=== PATIENT | male | born 1955 | race American Indian/Alaskan Native ===

== ENCOUNTER 2016-10-17 06:07 | Day surgery (SDC) | payer MEDICARE ==
[2016-10-13 14:05] LABS: Basophils % (Auto) 0.1 % (0.0-1.8); Eosinophils % (Auto) 0.1 % (0.0-4.3); Hematocrit 44.8 % (35.5-45.6); Hemoglobin 14.4 gm/dl (11.8-15.2); Mean Corpuscular HGB Conc 32 % (32-34); Mean Corpuscular Hemoglobin 30 pg (28-32); Mean Corpuscular Volume 94 fl (84-94); Platelet Count 279 K/mm3 (140-440); Red Blood Count 4.75 M/mm3 (3.65-5.03); Red Cell Distribution Width 14.4 % (13.2-15.2); White Blood Count 13.4 K/mm3 (4.5-11.0)
[2016-10-13 14:36] LABS: Alanine Aminotransferase 10 units/L (7-56); Albumin 3.5 g/dL (3.9-5); Albumin/Globulin Ratio 0.9 %; Alkaline Phosphatase 70 units/L (35-129); Anion Gap 19 mmol/L; Bilirubin,Total 0.3 mg/dL (0.1-1.2); Blood Urea Nitrogen 18 mg/dL (9-20); Calcium 9.3 mg/dL (8.4-10.2); Carbon Dioxide 26 mmol/L (22-30); Chloride 102.1 mmol/L (98-107); Glucose 96 mg/dL (75-100); Potassium 4.7 mmol/L (3.6-5.0); Sodium 142 mmol/L (137-145); Total Protein 7.3 g/dL (6.3-8.2)
--- NOTE | 2016-10-13 14:44 | Anesthesia Consultation ---
Anesthesia Consult and Med Hx Date of service: 10/13/16 - Airway Anesthetic Teeth Evaluation: Good ROM Head & Neck: Adequate Mental/Hyoid Distance: Adequate Mallampati Class: Class III Intubation Access Assessment: Possibly Difficult - Pulmonary Exam CTA: Yes - Cardiac Exam Cardiac Exam: RRR - Pre-Operative Health Status ASA Pre-Surgery Classification: ASA3 Proposed Anesthetic Plan: General - Pulmonary Hx Smoking: Yes (CIG 40 YEARS 1PPWEEK, CURRENT) COPD: Yes (USES ALBUTEROL) Home Oxygen Therapy: Yes (PRN 2L O2) Hx Sleep Apnea: Yes (+ CPAP use ) - Cardiovascular System Hx Hypertension: Yes (ON BYSTOLIC) Hx Coronary Artery Disease: No Hx Peripheral Vascular Disease: Yes (RIGHT AKA) - Central Nervous System Hx Back Pain: Yes (HIP PAIN) Hx Psychiatric Problems: No - Gastrointestinal Hx Gastroesophageal Reflux Disease: Yes - Endocrine Hx Renal Disease: Yes (NEPHROSIS A CHILD) Hx Insulin Dependent Diabetes: No Hx Thyroid Disease: No Hx Hypothyroidism: No - Other Systems Hx Alcohol Use: Yes Hx Substance Use: No Hx Cancer: Yes (Prostate CA, BLADDER) Hx Obesity: Yes (MORBID, BMI OVER 40) - Additional Comments Anesthesia Medical History Comments: LMA #5 USED LAST SURGERY. NAC. CHRONIC PAIN
[~2016-10-17 06:07] MED LIST: PEPCID PO NR
[2016-10-17] MEDS ORDERED: NACL BACTERIOSTATIC INFILTRATI ONE (06:53)
[2016-10-17] MEDS ORDERED: DIPRIVAN 10 MG/ML IV ONE (07:06)
[2016-10-17] MEDS ORDERED: DILAUDID ONE (07:06)
[2016-10-17] MEDS ORDERED: XYLOCAINE MPF 2% ONE (07:06)
[2016-10-17] MEDS: NACL 0.9% 1000 ML 1,000 ML IV SCH ×2 (07:15→13:07)
--- NOTE | 2016-10-17 07:24 | Anesthesia Day of Surgery ---
Anesthesia Day of Surgery - Day of Surgery Patient Examined: Yes Patient H&P Reviewed: Yes Patient is NPO: Yes Beta Blockers: Yes
[2016-10-17] MEDS ORDERED: PROVENTIL IH ONE (07:50)
[2016-10-17] MEDS ORDERED: ANCEF/STERILE WATER 2 GM/20 ML IV NR (08:00)
[2016-10-17] MEDS ORDERED: PROVENTIL IH NR (08:00)
[2016-10-17] MEDS ORDERED: ePHEDrine SULFATE ONE (08:22)
[2016-10-17] MEDS ORDERED: MORPHINE IV PRN (08:36)
[2016-10-17] MEDS ORDERED: OMNIPAQUE 300 MG/50 ML (CATH LAB) IV ONE (08:36)
[2016-10-17] MEDS ORDERED: ZOFRAN IV PRN (08:36)
[2016-10-17] MEDS ORDERED: WATER FOR IRRIG STERILE IR ONE (08:38)
[2016-10-17] MEDS ORDERED: ZEMURON IV ONE (08:53)
[2016-10-17] MEDS ORDERED: NEO SYNEPHRINE ONE (08:54)
[2016-10-17] MEDS ORDERED: NACL 0.9% 100 ML ONE (08:54)
[2016-10-17] MEDS ORDERED: ROBINUL ONE (08:56)
[2016-10-17] MEDS ORDERED: BLOXIVERZ ONE (08:56)
[2016-10-17] MEDS ORDERED: ZOFRAN ONE (08:57)
[2016-10-17] MEDS ORDERED: GARAMYCIN/NS 120MG/100ML 120 MG/100 ML BAG IV SCH (09:00)
[2016-10-17] MEDS ORDERED: VERSED ONE (09:18)
--- NOTE | 2016-10-17 09:35 | Post Operative Note ---
Pre-op diagnosis: bladder and prostate cancer Post-op diagnosis: same Findings: no acute findings Procedure: cysto biopsies prostate US and sampliing Anesthesia: GETA Surgeon: JERE HAMILTON Estimated blood loss: minimal Pathology: list (prostate bladder) Specimen disposition: to lab Condition: stable Disposition: PACU
--- NOTE | 2016-10-17 09:37 | Discharge Summary ---
Short Stay Discharge Plan Activity: up only with assistance, fall precautions, other Weight Bearing Status: Partial Weight Bearing Diet: low fat, low cholesterol, low salt Special Instructions: other (inc fluids ) Durable Medical Equipment Needed Upon Discharge: other (d/c evan in RR) Follow up with: DEBORA DELGADO MD [Primary Care Provider] - 7 Days JERE HAMILTON MD [Staff Physician] - 14 Days
--- NOTE | 2016-10-17 10:06 | Fluoroscopy Report ---
RETROGRADE PYELOGRAM: History: Malignant neoplasm of prostate. There is adequate filling of the ureters and intrarenal collecting systems with no filling defects or anatomic abnormalities identified.
--- NOTE | 2016-10-17 11:00 | Post Anesthesia Evaluation ---
- Post Anesthesia Evaluation Patient Participated: Yes Airway Patent: Yes Stable Respiratory Function: Yes Nausea/Vomiting: No Temp > 96.8F: Yes Pain Manageable: Yes Adequeate Hydration: Yes Anesthesia Complications: No Block Receding Appropriately: Not Applicable Patient on Ventilator: No
--- NOTE | 2016-10-17 12:09 | Operative Report ---
The patient is a very poorly compliant patient who presents with history of bladder and prostate cancer. He does not follow up and he now presents for reevaluation. There is no hematuria. His cytology was negative. DESCRIPTION OF PROCEDURE: The patient was brought to the operating room and placed on the operating table. Following induction of anesthesia, which was quite difficult because he is well over 320 pounds, prepped and draped in usual sterile fashion. He also made it difficult because he has an above the knee right leg amputation. It is hard to retract that hip, which kept falling in the field. Cystoscopy showed no strictures, bladder neck was open. There was minimal erythema over the right orifice, which was biopsied. It does not look malignant. 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 At this point, the patient did not follow up as directed again with his PSA and spoke to the family and ultrasound showed a small gland. We had an 18 [place] catheter placed in, and we did a sample on each side. I do not know that he needs diffuse biopsies. This patient has a very high risk. He was on the table with the cystoscopy and they had to a little deeper, and I did not want to have any complications because he is quite ill, he continues to smoke, he is over 300 pounds. He was brought to recovery room. So, we did two prostate biopsies and bladder biopsy, brought to recovery room in stable condition. Discussed this once again with his . JOB# [id number] BRIDGET/AWA
--- NOTE | 2016-10-17 12:18 | Ultrasound Report ---
ULTRASOUND UNLISTED PROCEDURE HISTORY: Malignant neoplasm of prostate. FINDINGS: Endorectal ultrasound guidance was provided by radiology during prostate biopsy done by Dr. Velásquez. Please correlate with the procedure report. IMPRESSION: Successful ultrasound guided prostate biopsy.
[2016-10-17 14:52] VITALS: BP 111/60
== END 2016-10-17 13:35 | disposition home or self-care (01) ==
LOC: OR 06:07
PROVIDERS: ATTEND Urology
DX: Z85.46 Personal history of malignant neoplasm of prostate (principal); F17.210 Nicotine dependence, cigarettes, uncomplicated; G47.30 Sleep apnea, unspecified; I10 Essential (primary) hypertension; K21.9 Gastro-esophageal reflux disease without esophagitis; Z72.89 Other problems related to lifestyle; E66.01 Morbid (severe) obesity due to excess calories; Z68.41 Body mass index [BMI] 40.0-44.9, adult; Z85.51 Personal history of malignant neoplasm of bladder; Z86.79 Personal history of other diseases of the circulatory system; Z89.611 Acquired absence of right leg above knee
CPT/HCPCS: 36415; 52204; 55700; 74420; 76999; 80053; 85025; 88305; 88342; 93005; 93010; C1758; J0690; J1170; J1580; J2250; J2270; J2370; J2405; J2704; J2710; J7030; Q9967; 76998; 88344

== ENCOUNTER 2021-04-18 23:08 | Emergency (ER) | payer MEDICARE | END 2021-04-18 23:25 | disposition left against medical advice (07) | LOC: ED 23:08 | DX: R07.89 Other chest pain (principal); Z53.21 Procedure and treatment not carried out due to patient leaving prior to being seen by health care provider ==

== ENCOUNTER 2021-11-09 14:53 | Inpatient (IN) | payer MEDICARE ==
[2021-11-09 16:25] LABS: Hematocrit 47.1 % (35.5-45.6); Hemoglobin 15.6 gm/dl (11.8-15.2); Mean Corpuscular HGB Conc 33 % (32-34); Mean Corpuscular Volume 105 fl (84-94); Red Blood Count 4.51 M/mm3 (3.65-5.03); Red Cell Distribution Width 15.9 % (13.2-15.2)
[2021-11-09 16:26] LABS: Platelet Count 99 K/mm3 (140-440)
[2021-11-09 16:40] LABS: Alanine Aminotransferase 12 units/L (7-56); Albumin 3.2 g/dL (3.9-5); BUN/Creatinine Ratio 17; Blood Urea Nitrogen 20 mg/dL (9-20); Calcium 9.2 mg/dL (8.4-10.2); Hemolysis Index 111
[2021-11-09 17:09] LABS: Basophils % (Manual) 0 % (0.0-1.8); Platelet Estimate Consistent w Auto; RBC Morphology Normal; Total Cells Counted 100
--- NOTE | 2021-11-09 17:58 | Emergency Department Report ---
- General Chief complaint: Weakness Stated complaint: WEAKNESS/DIS Time Seen by Provider: 11/09/21 16:58 Source: patient, EMS Mode of arrival: Stretcher Limitations: No Limitations - History of Present Illness Initial comments: 66-year-old male with a past medical history of morbid obesity, prostate cancer treated with radiation currently in remission, asthma, COPD, 3 L home oxygen use as needed (more continuous as of late) and right upper leg amputee presents to the hospital multiple complaints. General complaint seems to be weakness, confusion, and increased lethargy. Patient apparently is sleeping a lot, falls asleep during activities, loses train of thought and jumps from one subject to another, and has slightly slurred speech when speaking. This is new for the pas t 2 to 3 days without improvement. Patient did take 2 tramadol's yesterday but has taken tramadol and been in pain management with treatment with oxycodone 30 mg in the past. Patient also states he has very little urine output and swelling to his lower stomach with mild discomfort. Patient also reports decreased stool output without nausea or vomiting. Decreased p.o. intake reported. Patient has been seen by deficits once in the past however currently [facility] [place] Patient also has a history of sleep apnea and uses home trilogy ventilator. His perioperative educator is Dr. Kenny. He has been told to use the ventilator for 8 hours at night. Patient uses it for at least 6 to 7 hours but wakes up intermittently and discontinues his use while he is up and about. After admission to the hospital admits that patient is fairly noncompliant with his home ventilator and takes the machine all in the middle of the night - Related Data Home Medications Medication Instructions Recorded Confirmed Last Taken Oxycodone HCl [Oxycodone] 30 mg PO BID 04/07/14 10/17/16 10/03/16 cloNIDine HCL [Catapres] 0.2 mg PO BID 04/07/14 10/17/16 09/26/16 Nebivolol (Nf) [Bystolic (Nf)] 1 tab PO DAILY 06/02/16 10/17/16 10/16/16 Oxycodone HCl [Oxycontin] 1 tab PO BID 06/02/16 09/22/16 Unknown Tamsulosin HCl 1 tab PO DAILY 06/02/16 10/17/16 09/26/16 Tiotropium [Spiriva] 18 mcg IH QDAY 06/02/16 10/17/16 10/03/16 Allergies Allergy/AdvReac Type Severity Reaction Status Date / Time No Known Allergies Allergy Verified 11/09/21 14:59 ED Review of Systems ROS: Stated complaint: WEAKNESS/DIS Other details as noted in HPI Comment: All other systems reviewed and negative ED Past Medical Hx - Past Medical History Hx Hypertension: Yes (ON BYSTOLIC) Hx GERD: Yes Hx Renal Disease: Yes (NEPHROSIS A CHILD) Hx Asthma: Yes Hx COPD: Yes (USES ALBUTEROL) Hx HIV: No Additional medical history: PROSTATE cancer, sleep apnea, home oxygen use 3 L as needed - Surgical History Additional Surgical History: 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 - Social History Smoking Status: Light Tobacco Smoker - Medications Home Medications: Home Medications Medication Instructions Recorded Confirmed Last Taken Type Oxycodone HCl [Oxycodone] 30 mg PO BID 04/07/14 10/17/16 10/03/16 History cloNIDine HCL [Catapres] 0.2 mg PO BID 04/07/14 10/17/16 09/26/16 History Nebivolol (Nf) [Bystolic (Nf)] 1 tab PO DAILY 06/02/16 10/17/16 10/16/16 History Oxycodone HCl [Oxycontin] 1 tab PO BID 06/02/16 09/22/16 Unknown History Tamsulosin HCl 1 tab PO DAILY 06/02/16 10/17/16 09/26/16 History Tiotropium [Spiriva] 18 mcg IH QDAY 06/02/16 10/17/16 10/03/16 History ED Physical Exam - General Limitations: No Limitations - Other Other exam information: General: No acute distress Head: Atraumatic Eyes: normal appearance ENT: Moist mucous membranes Neck: Normal appearance, no midline tenderness Chest: Clear to auscultation bilaterally CV: Regular rate and rhythm Abdomen: Soft, normal bowel sounds, lower abdominal wall, mild lower tenderness, no evidence of cellulitis or wart Back: Normal inspection Extremity: Right upper leg amputation Neuro: Alert with slightly slurred but easy to understand speech, no facial droop, oriented x3. Slightly drowsy Psych: Appropriate behavior Skin: No rash ED Course Vital Signs 11/09/21 11/09/21 11/09/21 14:59 15:50 15:52 Temperature Pulse Rate 61 Respiratory 20 Rate Blood Pressure Blood Pressure 140/113 [Left] O2 Sat by Pulse 94 82 L 93 Oximetry 11/09/21 11/09/21 11/09/21 15:54 15:56 15:58 Temperature Pulse Rate Respiratory Rate Blood Pressure 125/79 125/79 125/79 Blood Pressure [Left] O2 Sat by Pulse 95 94 76 L Oximetry 11/09/21 11/09/21 11/09/21 16:00 16:01 16:02 Temperature Pulse Rate Respiratory Rate Blood Pressure 125/79 130/76 130/76 Blood Pressure [Left] O2 Sat by Pulse 95 95 95 Oximetry 11/09/21 11/09/21 11/09/21 16:04 16:06 16:08 Temperature Pulse Rate Respiratory Rate Blood Pressure 130/76 130/76 130/76 Blood Pressure [Left] O2 Sat by Pulse 95 95 91 Oximetry 11/09/21 11/09/21 11/09/21 16:10 16:12 16:14 Temperature Pulse Rate Respiratory Rate Blood Pressure 130/76 130/76 130/76 Blood Pressure [Left] O2 Sat by Pulse 98 93 92 Oximetry 11/09/21 11/09/21 11/09/21 16:16 16:18 16:25 Temperature Pulse Rate Respiratory Rate Blood Pressure 130/76 130/76 139/68 Blood Pressure [Left] O2 Sat by Pulse 84 96 95 Oximetry 11/09/21 11/09/21 11/09/21 16:27 16:29 16:31 Temperature Pulse Rate Respiratory Rate Blood Pressure 139/68 130/76 130/76 Blood Pressure [Left] O2 Sat by Pulse 96 97 98 Oximetry 11/09/21 11/09/21 11/09/21 16:33 16:35 16:37 Temperature Pulse Rate Respiratory Rate Blood Pressure 130/76 130/76 130/76 Blood Pressure [Left] O2 Sat by Pulse 98 98 100 Oximetry 11/09/21 11/09/21 11/09/21 16:39 16:41 16:43 Temperature Pulse Rate Respiratory Rate Blood Pressure 130/76 130/76 130/76 Blood Pressure [Left] O2 Sat by Pulse 99 99 99 Oximetry 11/09/21 11/09/21 11/09/21 16:45 16:47 16:49 Temperature Pulse Rate Respiratory Rate Blood Pressure 130/76 130/76 130/76 Blood Pressure [Left] O2 Sat by Pulse 99 99 98 Oximetry 11/09/21 11/09/21 11/09/21 16:51 16:53 16:55 Temperature Pulse Rate Respiratory Rate Blood Pressure 130/76 130/76 130/76 Blood Pressure [Left] O2 Sat by Pulse 98 98 99 Oximetry 11/09/21 11/09/21 16:57 17:01 Temperature 98.2 F Pulse Rate Respiratory Rate Blood Pressure 130/76 Blood Pressure [Left] O2 Sat by Pulse 99 Oximetry - Reevaluation(s) Reevaluation #1: 11/09/21 18:00 Patient did have some mild urine output after my initial exam 11/09/21 19:33 ABG results noted and reveals a respiratory acidosis and hypoxia on 3 L. I informed nurse to start BiPAP. She tells me that states that patient is on trilogy home ventilator and states it would be best if brings his trilogy machine to the ED for use ED Medical Decision Making - Lab Data Result diagrams: 11/09/21 16:01 11/09/21 17:43 Lab Results 11/09/21 11/09/21 11/09/21 Range/Units 16:01 16:01 17:43 WBC 4.7 (4.5-11.0) K/mm3 RBC 4.51 (3.65-5.03) M/mm3 Hgb 15.6 H (11.8-15.2) gm/dl Hct 47.1 H (35.5-45.6) % MCV 105 H (84-94) fl MCH 35 H (28-32) pg MCHC 33 (32-34) % RDW 15.9 H (13.2-15.2) % Plt Count 99 L (140-440) K/mm3 [place] % (Auto) Cardiology Nurse Practitioner Add Manual Diff Complete Total Counted 100 Seg Neuts % (Manual) 58.0 (40.0-70.0) % Band Neutrophils % 0 % Lymphocytes % (Manual) 27.0 (13.4-35.0) % Reactive Lymphs % (Man) 0 % Monocytes % (Manual) 12.0 H (0.0-7.3) % Eosinophils % (Manual) 3.0 (0.0-4.3) % Basophils % (Manual) 0 (0.0-1.8) % Metamyelocytes % 0 % Myelocytes % 0 % Promyelocytes % 0 % Blast Cells % 0 % Nucleated RBC % Not Reportable Seg Neutrophils # Man 2.7 (1.8-7.7) K/mm3 Band Neutrophils # 0.0 K/mm3 Lymphocytes # (Manual) 1.3 (1.2-5.4) K/mm3 Abs React Lymphs (Man) 0.0 K/mm3 Monocytes # (Manual) 0.6 (0.0-0.8) K/mm3 Eosinophils # (Manual) 0.1 (0.0-0.4) K/mm3 Basophils # (Manual) 0.0 (0.0-0.1) K/mm3 Metamyelocytes # 0.0 K/mm3 Myelocytes # 0.0 K/mm3 Promyelocytes # 0.0 K/mm3 Blast Cells # 0.0 K/mm3 WBC Morphology Not Reportable Hypersegmented Neuts Not Reportable Hyposegmented Neuts Not Reportable Hypogranular Neuts Not Reportable Smudge Cells Not Reportable Toxic Granulation Not Reportable Toxic Vacuolation Not Reportable Dohle Bodies Not Reportable Pelger-Huet Anomaly Not Reportable Katharine Rods Not Reportable Platelet Estimate Consistent w auto Clumped Platelets Not Reportable Plt Clumps, EDTA Not Reportable Large Platelets Not Reportable Giant Platelets Not Reportable Platelet Satelliting Not Reportable Plt Morphology Comment Not Reportable RBC Morphology Normal Dimorphic RBCs Not Reportable Polychromasia Not Reportable Hypochromasia Not Reportable Poikilocytosis Not Reportable Anisocytosis Not Reportable Microcytosis Not Reportable Macrocytosis Not Reportable Spherocytes Not Reportable Pappenheimer Bodies Not Reportable Sickle Cells Not Reportable Target Cells Not Reportable Tear Drop Cells Not Reportable Ovalocytes Not Reportable Helmet Cells Not Reportable Bullock-Shields Bodies Not Reportable [place] Rings Not Reportable [place] Cells Not Reportable Bite Cells Not Reportable Crenated Cell Not Reportable Elliptocytes Not Reportable Acanthocytes (Spur) Not Reportable Rouleaux Not Reportable Hemoglobin C Crystals Not Reportable Schistocytes Not Reportable Malaria parasites Not Reportable Odin Bodies Not Reportable Hem Pathologist Commnt No ABG pH (7.350-7.450) pH Units ABG pCO2 mm Hg ABG pO2 (80.0-90.0) mm Hg ABG HCO3 (20.0-26.0) mmol/L ABG O2 Saturation (95.0-99.0) % ABG O2 Content (0.0-44) ABG Base Excess (-2.0-3.0) mmol/L ABG Hemoglobin (14.0-18.0) gm/dl ABG Carboxyhemoglobin (0.0-5.0) % ABG Methemoglobin (0.0-1.5) % Oxyhemoglobin (95.0-99.0) % FiO2 % Sodium 142 (137-145) mmol/L Potassium 5.5 H (3.6-5.0) mmol/L Chloride 99.2 (98-107) mmol/L Carbon Dioxide 35 H (22-30) mmol/L Anion Gap 13 mmol/L BUN 20 (9-20) mg/dL Creatinine 1.2 (0.8-1.3) mg/dL Estimated GFR > 60 ml/min BUN/Creatinine Ratio 17 % Glucose 78 (75-100) mg/dL Calcium 9.2 (8.4-10.2) mg/dL Magnesium (1.7-2.3) mg/dL Total Bilirubin 1.10 (0.1-1.2) mg/dL AST 22 (5-40) units/L ALT 12 (7-56) units/L Alkaline Phosphatase 65 (35-129) units/L Ammonia 62.0 H (25-60) umol/L Troponin T (0.00-0.029) ng/mL Total Protein 6.4 (6.3-8.2) g/dL Albumin 3.2 L (3.9-5) g/dL Albumin/Globulin Ratio 1.0 % TSH (0.270-4.200) mlU/mL Free T4 (0.76-1.46) ng/dL Urine Color (Yellow) Urine Turbidity (Clear) Urine pH (5.0-7.0) Ur Specific [place] (1.003-1.030) Urine Protein (Negative) mg/dL Urine Glucose (UA) (Negative) mg/dL Urine Ketones (Negative) mg/dL Urine Blood (Negative) Urine Nitrite (Negative) Urine Bilirubin (Negative) Urine Urobilinogen (<2.0) mg/dL Ur Leukocyte Esterase (Negative) Urine WBC (Auto) (0.0-6.0) /HPF Urine RBC (Auto) (0.0-6.0) /HPF U Epithel Cells (Auto) (0-13.0) /HPF Hyaline Casts /LPF Urine Mucus /HPF Urine Opiates Screen Urine Methadone Screen Ur Barbiturates Screen Ur Phencyclidine Scrn Ur Amphetamines Screen U Benzodiazepines Scrn U Marijuana (THC) Screen Plasma/Serum Alcohol (0-0.07) % 11/09/21 11/09/21 11/09/21 Range/Units 17:43 17:43 17:43 WBC (4.5-11.0) K/mm3 RBC (3.65-5.03) M/mm3 Hgb (11.8-15.2) gm/dl Hct (35.5-45.6) % MCV (84-94) fl MCH (28-32) pg MCHC (32-34) % RDW (13.2-15.2) % Plt Count (140-440) K/mm3 [place] % (Auto) Add Manual Diff Total Counted Seg Neuts % (Manual) (40.0-70.0) % Band Neutrophils % % Lymphocytes % (Manual) (13.4-35.0) % Reactive Lymphs % (Man) % Monocytes % (Manual) (0.0-7.3) % Eosinophils % (Manual) (0.0-4.3) % Basophils % (Manual) (0.0-1.8) % Metamyelocytes % % Myelocytes % % Promyelocytes % % Blast Cells % % Nucleated RBC % Seg Neutrophils # Man (1.8-7.7) K/mm3 Band Neutrophils # K/mm3 Lymphocytes # (Manual) (1.2-5.4) K/mm3 Abs React Lymphs (Man) K/mm3 Monocytes # (Manual) (0.0-0.8) K/mm3 Eosinophils # (Manual) (0.0-0.4) K/mm3 Basophils # (Manual) (0.0-0.1) K/mm3 Metamyelocytes # K/mm3 Myelocytes # K/mm3 Promyelocytes # K/mm3 Blast Cells # K/mm3 WBC Morphology Hypersegmented Neuts Hyposegmented Neuts Hypogranular Neuts Smudge Cells Toxic Granulation Toxic Vacuolation Dohle Bodies Pelger-Huet Anomaly Katharine Rods Platelet Estimate Clumped Platelets Plt Clumps, EDTA Large Platelets Giant Platelets Platelet Satelliting Plt Morphology Comment RBC Morphology Dimorphic RBCs Polychromasia Hypochromasia Poikilocytosis Anisocytosis Microcytosis Macrocytosis Spherocytes Pappenheimer Bodies Sickle Cells Target Cells Tear Drop Cells Ovalocytes Helmet Cells Bullock-Shields Bodies [place] Rings Yulia Cells Bite Cells Crenated Cell Elliptocytes Acanthocytes (Spur) Rouleaux Hemoglobin C Crystals Schistocytes Malaria parasites Odin Bodies Hem Pathologist Commnt ABG pH (7.350-7.450) pH Units ABG pCO2 mm Hg ABG pO2 (80.0-90.0) mm Hg ABG HCO3 (20.0-26.0) mmol/L ABG O2 Saturation (95.0-99.0) % ABG O2 Content (0.0-44) ABG Base Excess (-2.0-3.0) mmol/L ABG Hemoglobin (14.0-18.0) gm/dl ABG Carboxyhemoglobin (0.0-5.0) % ABG Methemoglobin (0.0-1.5) % Oxyhemoglobin (95.0-99.0) % FiO2 % Sodium (137-145) mmol/L Potassium 5.1 H (3.6-5.0) mmol/L Chloride (98-107) mmol/L Carbon Dioxide (22-30) mmol/L Anion Gap mmol/L BUN (9-20) mg/dL Creatinine (0.8-1.3) mg/dL Estimated GFR ml/min BUN/Creatinine Ratio % Glucose (75-100) mg/dL Calcium (8.4-10.2) mg/dL Magnesium 2.00 (1.7-2.3) mg/dL Total Bilirubin (0.1-1.2) mg/dL AST (5-40) units/L ALT (7-56) units/L Alkaline Phosphatase (35-129) units/L Ammonia (25-60) umol/L Troponin T (0.00-0.029) ng/mL Total Protein (6.3-8.2) g/dL Albumin (3.9-5) g/dL Albumin/Globulin Ratio % TSH 1.520 (0.270-4.200) mlU/mL Free T4 0.96 (0.76-1.46) ng/dL Urine Color (Yellow) Urine Turbidity (Clear) Urine pH (5.0-7.0) Ur Specific [place] (1.003-1.030) Urine Protein (Negative) mg/dL Urine Glucose (UA) (Negative) mg/dL Urine Ketones (Negative) mg/dL Urine Blood (Negative) Urine Nitrite (Negative) Urine Bilirubin (Negative) Urine Urobilinogen (<2.0) mg/dL Ur Leukocyte Esterase (Negative) Urine WBC (Auto) (0.0-6.0) /HPF Urine RBC (Auto) (0.0-6.0) /HPF U Epithel Cells (Auto) (0-13.0) /HPF Hyaline Casts /LPF Urine Mucus /HPF Urine Opiates Screen Urine Methadone Screen Ur Barbiturates Screen Ur Phencyclidine Scrn Ur Amphetamines Screen U Benzodiazepines Scrn U Marijuana (THC) Screen Plasma/Serum Alcohol < 0.01 (0-0.07) % 11/09/21 11/09/21 11/09/21 Range/Units 17:43 17:57 18:45 WBC (4.5-11.0) K/mm3 RBC (3.65-5.03) M/mm3 Hgb (11.8-15.2) gm/dl Hct (35.5-45.6) % MCV (84-94) fl MCH (28-32) pg MCHC (32-34) % RDW (13.2-15.2) % Plt Count (140-440) K/mm3 [place] % (Auto) Add Manual Diff Total Counted Seg Neuts % (Manual) (40.0-70.0) % Band Neutrophils % % Lymphocytes % (Manual) (13.4-35.0) % Reactive Lymphs % (Man) % Monocytes % (Manual) (0.0-7.3) % Eosinophils % (Manual) (0.0-4.3) % Basophils % (Manual) (0.0-1.8) % Metamyelocytes % % Myelocytes % % Promyelocytes % % Blast Cells % % Nucleated RBC % Seg Neutrophils # Man (1.8-7.7) K/mm3 Band Neutrophils # K/mm3 Lymphocytes # (Manual) (1.2-5.4) K/mm3 Abs React Lymphs (Man) K/mm3 Monocytes # (Manual) (0.0-0.8) K/mm3 Eosinophils # (Manual) (0.0-0.4) K/mm3 Basophils # (Manual) (0.0-0.1) K/mm3 Metamyelocytes # K/mm3 Myelocytes # K/mm3 Promyelocytes # K/mm3 Blast Cells # K/mm3 WBC Morphology Hypersegmented Neuts Hyposegmented Neuts Hypogranular Neuts Smudge Cells Toxic Granulation Toxic Vacuolation Dohle Bodies Pelger-Huet Anomaly Katharine Rods Platelet Estimate Clumped Platelets Plt Clumps, EDTA Large Platelets Giant Platelets Platelet Satelliting Plt Morphology Comment RBC Morphology Dimorphic RBCs Polychromasia Hypochromasia Poikilocytosis Anisocytosis Microcytosis Macrocytosis Spherocytes Pappenheimer Bodies Sickle Cells Target Cells Tear Drop Cells Ovalocytes Helmet Cells Bullock-Shields Bodies [place] Rings [place] Cells Bite Cells Crenated Cell Elliptocytes Acanthocytes (Spur) Rouleaux Hemoglobin C Crystals Schistocytes Malaria parasites Odin Bodies Hem Pathologist Commnt ABG pH 7.279 L (7.350-7.450) pH Units ABG pCO2 87.4 mm Hg ABG pO2 69.1 L (80.0-90.0) mm Hg ABG HCO3 40.0 H (20.0-26.0) mmol/L ABG O2 Saturation 92.0 L (95.0-99.0) % ABG O2 Content 20.7 (0.0-44) ABG Base Excess 8.7 H (-2.0-3.0) mmol/L ABG Hemoglobin 16.6 (14.0-18.0) gm/dl ABG Carboxyhemoglobin 3.0 (0.0-5.0) % ABG Methemoglobin 0.6 (0.0-1.5) % Oxyhemoglobin 88.7 L (95.0-99.0) % FiO2 32 % Sodium (137-145) mmol/L Potassium (3.6-5.0) mmol/L Chloride (98-107) mmol/L Carbon Dioxide (22-30) mmol/L Anion Gap mmol/L BUN (9-20) mg/dL Creatinine (0.8-1.3) mg/dL Estimated GFR ml/min BUN/Creatinine Ratio % Glucose (75-100) mg/dL Calcium (8.4-10.2) mg/dL Magnesium (1.7-2.3) mg/dL Total Bilirubin (0.1-1.2) mg/dL AST (5-40) units/L ALT (7-56) units/L Alkaline Phosphatase (35-129) units/L Ammonia (25-60) umol/L Troponin T 0.013 (0.00-0.029) ng/mL Total Protein (6.3-8.2) g/dL Albumin (3.9-5) g/dL Albumin/Globulin Ratio % TSH (0.270-4.200) mlU/mL Free T4 (0.76-1.46) ng/dL Urine Color [place] (Yellow) Urine Turbidity Clear (Clear) Urine pH 6.0 (5.0-7.0) Ur Specific [place] 1.013 (1.003-1.030) Urine Protein 30 mg/dl (Negative) mg/dL Urine Glucose (UA) Neg (Negative) mg/dL Urine Ketones Neg (Negative) mg/dL Urine Blood Neg (Negative) Urine Nitrite Neg (Negative) Urine Bilirubin Neg (Negative) Urine Urobilinogen 4.0 (<2.0) mg/dL Ur Leukocyte Esterase Neg (Negative) Urine WBC (Auto) 4.0 (0.0-6.0) /HPF Urine RBC (Auto) 2.0 (0.0-6.0) /HPF U Epithel Cells (Auto) 1.0 (0-13.0) /HPF Hyaline Casts 4 /LPF Urine Mucus Few /HPF Urine Opiates Screen Urine Methadone Screen Ur Barbiturates Screen Ur Phencyclidine Scrn Ur Amphetamines Screen U Benzodiazepines Scrn U Marijuana (THC) Screen Plasma/Serum Alcohol (0-0.07) % 11/09/21 Range/Units 18:45 WBC (4.5-11.0) K/mm3 RBC (3.65-5.03) M/mm3 Hgb (11.8-15.2) gm/dl Hct (35.5-45.6) % MCV (84-94) fl MCH (28-32) pg MCHC (32-34) % RDW (13.2-15.2) % Plt Count (140-440) K/mm3 [place] % (Auto) Add Manual Diff Total Counted Seg Neuts % (Manual) (40.0-70.0) % Band Neutrophils % % Lymphocytes % (Manual) (13.4-35.0) % Reactive Lymphs % (Man) % Monocytes % (Manual) (0.0-7.3) % Eosinophils % (Manual) (0.0-4.3) % Basophils % (Manual) (0.0-1.8) % Metamyelocytes % % Myelocytes % % Promyelocytes % % Blast Cells % % Nucleated RBC % Seg Neutrophils # Man (1.8-7.7) K/mm3 Band Neutrophils # K/mm3 Lymphocytes # (Manual) (1.2-5.4) K/mm3 Abs React Lymphs (Man) K/mm3 Monocytes # (Manual) (0.0-0.8) K/mm3 Eosinophils # (Manual) (0.0-0.4) K/mm3 Basophils # (Manual) (0.0-0.1) K/mm3 Metamyelocytes # K/mm3 Myelocytes # K/mm3 Promyelocytes # K/mm3 Blast Cells # K/mm3 WBC Morphology Hypersegmented Neuts Hyposegmented Neuts Hypogranular Neuts Smudge Cells Toxic Granulation Toxic Vacuolation Dohle Bodies Pelger-Huet Anomaly Katharine Rods Platelet Estimate Clumped Platelets Plt Clumps, EDTA Large Platelets Giant Platelets Platelet Satelliting Plt Morphology Comment RBC Morphology Dimorphic RBCs Polychromasia Hypochromasia Poikilocytosis Anisocytosis Microcytosis Macrocytosis Spherocytes Pappenheimer Bodies Sickle Cells Target Cells Tear Drop Cells Ovalocytes Helmet Cells Bullock-Shields Bodies [place] Rings [place] Cells Bite Cells Crenated Cell Elliptocytes Acanthocytes (Spur) Rouleaux Hemoglobin C Crystals Schistocytes Malaria parasites Odin Bodies Hem Pathologist Commnt ABG pH (7.350-7.450) pH Units ABG pCO2 mm Hg ABG pO2 (80.0-90.0) mm Hg ABG HCO3 (20.0-26.0) mmol/L ABG O2 Saturation (95.0-99.0) % ABG O2 Content (0.0-44) ABG Base Excess (-2.0-3.0) mmol/L ABG Hemoglobin (14.0-18.0) gm/dl ABG Carboxyhemoglobin (0.0-5.0) % ABG Methemoglobin (0.0-1.5) % Oxyhemoglobin (95.0-99.0) % FiO2 % Sodium (137-145) mmol/L Potassium (3.6-5.0) mmol/L Chloride (98-107) mmol/L Carbon Dioxide (22-30) mmol/L Anion Gap mmol/L BUN (9-20) mg/dL Creatinine (0.8-1.3) mg/dL Estimated GFR ml/min BUN/Creatinine Ratio % Glucose (75-100) mg/dL Calcium (8.4-10.2) mg/dL Magnesium (1.7-2.3) mg/dL Total Bilirubin (0.1-1.2) mg/dL AST (5-40) units/L ALT (7-56) units/L Alkaline Phosphatase (35-129) units/L Ammonia (25-60) umol/L Troponin T (0.00-0.029) ng/mL Total Protein (6.3-8.2) g/dL Albumin (3.9-5) g/dL Albumin/Globulin Ratio % TSH (0.270-4.200) mlU/mL Free T4 (0.76-1.46) ng/dL Urine Color (Yellow) Urine Turbidity (Clear) Urine pH (5.0-7.0) Ur Specific [place] (1.003-1.030) Urine Protein (Negative) mg/dL Urine Glucose (UA) (Negative) mg/dL Urine Ketones (Negative) mg/dL Urine Blood (Negative) Urine Nitrite (Negative) Urine Bilirubin (Negative) Urine Urobilinogen (<2.0) mg/dL Ur Leukocyte Esterase (Negative) Urine WBC (Auto) (0.0-6.0) /HPF Urine RBC (Auto) (0.0-6.0) /HPF U Epithel Cells (Auto) (0-13.0) /HPF Hyaline Casts /LPF Urine Mucus /HPF Urine Opiates Screen Negative Urine Methadone Screen Negative Ur Barbiturates Screen Negative Ur Phencyclidine Scrn Negative Ur Amphetamines Screen Negative U Benzodiazepines Scrn Negative U Marijuana (THC) Screen Negative Plasma/Serum Alcohol (0-0.07) % - EKG Data -: EKG Interpreted by Me (Right ventricular hypertrophy) EKG shows normal: sinus rhythm, ST-T waves (Anterior and inferior T wave inversion) Rate: bradycardia (57) - EKG Data When compared to previous EKG there are: changes noted - Radiology Data Radiology results: report reviewed CHEST 1 VIEW 11/09/2021 5:51 PM INDICATION / CLINICAL INFORMATION: cough. COMPARISON: CT scan dated 11/10/2019 to FINDINGS: SUPPORT DEVICES: None. HEART / MEDIASTINUM: There is patchy parenchymal opacity right lung base which could represent atelectasis or pneumonia. LUNGS / PLEURA: No significant pulmonary or pleural abnormality. No p neumothorax. ADDITIONAL FINDINGS: No significant additional findings. IMPRESSION: 1. There is airspace opacity in the right lung base which could represent atelectasis or pneumonia. This corresponds to the abnormality seen on the patient's CT scan performed earlier. CT head/brain wo con INDICATION / CLINICAL INFORMATION: 66 years Male; increased drowsiness, confusion. TECHNIQUE: Routine CT head without contrast. All CT scans at this location are performed using CT dose reduction for [employer] by means of automated exposure control. COMPARISON: None. FINDINGS: BRAIN / INTRACRANIAL CONTENTS: No acute hemorrhage, mass effect, midline shift, hydrocephalus, or acute, large territorial infarct. No signs of significant atrophy or chronic infarct. No significant white matter abnormality seen. CRANIOCERVICAL JUNCTION: No significant abnormality. ORBITS: No significant abnormality of visualized orbits. SINUSES / MASTOIDS: Visualized paranasal sinuses and mastoid air cells are essentially clear. ADDITIONAL FINDINGS: None. IMPRESSION: 1. No focal mass, hemorrhage, hydrocephalus, or acute, large territorial infarct. CT at 3 [address] ABDOMEN AND PELVIS WITHOUT CONTRAST INDICATION / CLINICAL INFORMATION: constipation, abd wall swelling, decr urine output. TECHNIQUE: Axial CT images were obtained through the abdomen and pelvis without IV contrast. All CT scans at this location are performed using CT dose reduction for [employer] by means of automated exposure control. COMPARISON: 07/14/2014 FINDINGS: There is artifact from gantry contact. LOWER CHEST: There is airspace consolidation noted in the right lung base which could represent atelectasis or pneumonia. LIVER: There is artifact obscuring the liver from a true contact. Within the limits of this study no acute abnormality is seen. GALLBLADDER: No significant abnormality. BILE DUCTS: No significant abnormality. PANCREAS: Obscured by artifact from gantry contact. Within the limits of this study no acute abnormality is seen. SPLEEN: No acute abnormality within limits of this exam. ADRENALS: No significant abnormality. RIGHT KIDNEY / URETER: No significant abnormality. LEFT KIDNEY / URETER: No significant abnormality. STOMACH / SMALL BOWEL: No significant abnormality. COLON: No significant abnormality. APPENDIX: No significant abnormality. PERITONEUM: No free fluid. No free air. No fluid collection. There is some stranding in the fat in the left lower quadrant anterior to the iliac vessels which is indeterminate etiology. LYMPH NODES: No significant adenopathy. AORTA / ARTERIES: Mild atherosclerotic calcification without acute abnormality. The right common iliac artery is small compared to the left. The appearance is unchanged when compared to the prior study from 2014. IVC / VEINS: No significant abnormality. URINARY BLADDER: No significant abnormality. REPRODUCTIVE ORGANS: No significant abnormality. ADDITIONAL FINDINGS: None. SKELETAL SYSTEM: No significant abnormality. IMPRESSION: 1. There is some stranding in the fat anterior to the left common and external iliac vessels of indeterminate etiology. This may represent some inflammatory change. This is separate from the colon. This is of uncertain significance. 2. There is some airspace consolidation in the right lung base which could represent atelectasis or pneumonia. 3. There is no bowel obstruction. There is no free air. - Medical Decision Making 66-year male presents to the hospital with his with complaints of 2 to 3 d ays of decreased mental status. After extensive ED work it appears that symptoms are secondary to CO2 retention with respiratory acidosis. Patient apparently uses a trilogy ventilator at home and has been completely compliant with its use. Patient also endorses a cough and has CT/x-ray findings of pneumonia versus atelectasis. Blood cultures and antibiotics ordered. I requested BiPAP therapy but respiratory therapist suggested that using his home trilogy device in the hospital will be more beneficial. is going home to bring the machine to the hospital. BiPAP initiated until can arrive with ventilator. Consult ordered for patient's perioperative educator Efraín. UDS positive for cocaine Critical Care Time: Yes Critical care attestation.: If time is entered above; I have spent that time in minutes in the direct care of this critically ill patient, excluding procedure time. Critical Care Time: 35 Minutes of critical care time excluding procedures were used in the care of the patient. I came immediately to the bedside upon patient's arrival.I discussed treatment plan with the nursing team members. I reviewed electronic record. I spoke with family to obtain medical history. Patient required mu ltiple interventions and reassessments. ED Disposition Clinical Impression: Acute and chronic respiratory failure, Respiratory acidosis, Thrombocytopenia, Pneumonia, Acute encephalopathy, Cocaine abuse Disposition: ADMITTED INPATIENT Is pt being admited?: Yes Condition: Stable Instructions: Bacterial Pneumonia (ED) Referrals: PRIMARY CARE, [Primary Care Provider] - 3-5 Days Time of Disposition: 19:40
[2021-11-09 18:08] LABS: ABG Base Excess 8.7 mmol/L (-2.0-3.0); ABG Methemoglobin 0.6 % (0.0-1.5); ABG PCO2 87.4 mm Hg; ABG PH 7.279 pH Units (7.350-7.450); ABG PO2 69.1 mm Hg (80.0-90.0)
--- NOTE | 2021-11-09 18:28 | Cat Scan Report ---
CT head/brain wo con INDICATION / CLINICAL INFORMATION: 66 years Male; increased drowsiness, confusion. TECHNIQUE: Routine CT head without contrast. All CT scans at this location are performed using CT dos e reduction for ALARA by means of automated exposure control. COMPARISON: None. FINDINGS: BRAIN / INTRACRANIAL CONTENTS: No acute hemorrhage, mass effect, midline shift, hydrocephalus, or acu te, large territorial infarct. No signs of significant atrophy or chronic infarct. No significant whi te matter abnormality seen. CRANIOCERVICAL JUNCTION: No significant abnormality. ORBITS: No significant abnormality of visualized orbits. SINUSES / MASTOIDS: Visualized paranasal sinuses and mastoid air cells are essentially clear. ADDITIONAL FINDINGS: None. IMPRESSION: 1. No focal mass, hemorrhage, hydrocephalus, or acute, large territorial infarct. Signer Name: Kelby Davies MD, III Signed: 11/09/2021 6:24 PM Workstation Name: [email or web address] [id number]
[2021-11-09 18:34] LABS: Free T4 (Free Thyroxine) 0.96 ng/dL (0.76-1.46)
--- NOTE | 2021-11-09 18:34 | Cat Scan Report ---
CT at 3 CT ABDOMEN AND PELVIS WITHOUT CONTRAST INDICATION / CLINICAL INFORMATION: constipation, abd wall swelling, decr urine output. TECHNIQUE: Axial CT images were obtained through the abdomen and pelvis without IV contrast. All CT scans at this location are performed using CT dose reduction for ALARA by means of automated exposure control. COMPARISON: 07/14/2014 FINDINGS: There is artifact from gantry contact. LOWER CHEST: There is airspace consolidation noted in the right lung base which could represent atele ctasis or pneumonia. LIVER: There is artifact obscuring the liver from a true contact. Within the limits of this study no acute abnormality is seen. GALLBLADDER: No significant abnormality. BILE DUCTS: No significant abnormality. PANCREAS: Obscured by artifact from gantry contact. Within the limits of this study no acute abnormal ity is seen. SPLEEN: No acute abnormality within limits of this exam. ADRENALS: No significant abnormality. RIGHT KIDNEY / URETER: No significant abnormality. LEFT KIDNEY / URETER: No significant abnormality. STOMACH / SMALL BOWEL: No significant abnormality. COLON: No significant abnormality. APPENDIX: No significant abnormality. PERITONEUM: No free fluid. No free air. No fluid collection. There is some stranding in the fat in th e left lower quadrant anterior to the iliac vessels which is indeterminate etiology. LYMPH NODES: No significant adenopathy. AORTA / ARTERIES: Mild atherosclerotic calcification without acute abnormality. The right common nicko c artery is small compared to the left. The appearance is unchanged when compared to the prior study from 2013. IVC / VEINS: No significant abnormality. URINARY BLADDER: No significant abnormality. REPRODUCTIVE ORGANS: No significant abnormality. ADDITIONAL FINDINGS: None. SKELETAL SYSTEM: No significant abnormality. IMPRESSION: 1. There is some stranding in the fat anterior to the left common and external iliac vessels of indet erminate etiology. This may represent some inflammatory change. This is separate from the colon. This is of uncertain significance. 2. There is some airspace consolidation in the right lung base which could represent atelectasis or p neumonia. 3. There is no bowel obstruction. There is no free air. Signer Name: Yaron Su MD Signed: 11/09/2021 6:29 PM Workstation Name: [email or web address]
--- NOTE | 2021-11-09 19:01 | XRay Report ---
CHEST 1 VIEW 11/09/2021 5:51 PM INDICATION / CLINICAL INFORMATION: cough. COMPARISON: CT scan dated 11/10/2019 to FINDINGS: SUPPORT DEVICES: None. HEART / MEDIASTINUM: There is patchy parenchymal opacity right lung base which could represent atelec tasis or pneumonia. LUNGS / PLEURA: No significant pulmonary or pleural abnormality. No pneumothorax. ADDITIONAL FINDINGS: No significant additional findings. IMPRESSION: 1. There is airspace opacity in the right lung base which could represent atelectasis or pneumonia. T his corresponds to the abnormality seen on the patient's CT scan performed earlier. Signer Name: Yaron Su MD Signed: 11/09/2021 6:57 PM Workstation Name: [id number]
[2021-11-09 19:33] LABS: Bilirubin,Urine NEG (Negative); Blood,Urine NEG (Negative); Color,Urine Amber (Yellow); Hyaline Casts,Urine 4 /LPF; Mucus,Urine FEW /HPF
[2021-11-09 19:34] LABS: Amphetamine Screen,Urine Negative; Benzodiazepines Screen,Urine Negative; Cannabinoid Screen,Urine Negative; Methadone Screen,Urine Negative; Opiate Screen,Urine Negative
[2021-11-09 19:47] LABS: Cocaine Screen,Urine Positive
[2021-11-09] MEDS: cefTRIAXone/NS 1 GM/50 ML 1 GM/50 ML BAG IV ONE (20:26)
--- NOTE | 2021-11-09 20:26 | History and Physical Report ---
History of Present Illness Chief complaint: My lungs are acting up History of present illness: 66 YO Male with Obesity Hypoventilation Syndrome, CaP S/P Radiation therapy, Asthma, COPD, Chronic Respiratory Failure on Home Trilogy machine QHS, and supplemental oxygen 3L via NC, GERD presents to ED for evaluation. Patient reports "my lungs are acting up". Patient states that he has experienced difficulty breathing over the past 2 days with persistent and worsening symptoms over the same timeframe. Patient reports generalized weakness, increased daytime somnolence and increased nighttime insomnia. EMS was notified and upon arrival the patient was found to be in distress and subsequent transported to [facility] for further care and evaluation of the aforementioned symptoms. Patient was seen and evaluated emergency department. All lab and imaging studies reviewed. Patient found to have a pulse oximetry of 86% on room air which is consistent with acute hypoxemic respiratory failure. Patient also found to have hypercarbic respiratory failure. Chest x-ray revealed pneumonia. Patient mated to telemetry and initiated on pneumonia protocol. Pulmonology team consulted in ED. Patient denies fever, chills, chest pain, palpitation, productive cough, skin rash, recent contact, or known exposure to COVID-19. No prior admission for review. All medication listed at time of admission has been reconciled. Advanced care planning conducted in ED. Past History Past Medical History: cancer, COPD, GERD, other (See HPI) Past Surgical History: Other (Right lower extremity amputation) Social history: , lives with family Family history: diabetes, hypertension Medications and Allergies Allergies Allergy/AdvReac Type Severity Reaction Status Date / Time No Known Allergies Allergy Verified 11/09/21 14:59 Home Medications Medication Instructions Recorded Confirmed Last Taken Type Oxycodone HCl [Oxycodone] 30 mg PO BID 04/07/14 10/17/16 10/03/16 History cloNIDine HCL [Catapres] 0.2 mg PO BID 04/07/14 10/17/16 09/26/16 History Nebivolol (Nf) [Bystolic (Nf)] 1 tab PO DAILY 06/02/16 10/17/16 10/16/16 History Oxycodone HCl [Oxycontin] 1 tab PO BID 06/02/16 09/22/16 Unknown History Tamsulosin HCl 1 tab PO DAILY 10/06/16 02/20/17 01/30/17 History Tiotropium [Spiriva] 18 mcg IH QDAY 06/02/16 10/17/16 10/03/16 History Active Meds: Active Medications Azithromycin (Zithromax/Ns) 500 mg in 250 mls @ 250 mls/hr IV ONCE ONE; Protocol Stop: 11/09/21 20:35 Review of Systems Constitutional: no weight loss, no weight gain, no fever, no chills Ears, nose, mouth and throat: no ear pain, no tinnitis, no decreased hearing, no nasal discharge Cardiovascular: shortness of breath, no chest pain, no orthopnea, no palpitations Respiratory: cough, shortness of breath, no excessive sputum, no hemoptysis Gastrointestinal: no abdominal pain, no nausea, no vomiting, no constipation, no change in bowel habits Genitourinary Male: no hematuria, no flank pain, no discharge, no urinary frequency, no nocturia Rectal: no pain, no incontinence, no bleeding Musculoskeletal: no neck stiffness, no low back pain Integumentary: no rash, no pruritis, no wounds, no jaundice Neurological: no transient paralysis, no weakness, no numbness, no seizures, no syncope Psychiatric: no anxiety, no change in sleep habits, no insomnia, no change in libido, no disorientation Endocrine: no cold intolerance, no heat intolerance, no excessive thirst, no polyuria, no excessive sweating Hematologic/Lymphatic: no easy bruising, no easy bleeding Allergic/Immunologic: no wheezing, no persistent infections, no anaphylaxis Exam - Constitutional Vitals: Temp Pulse Resp BP Pulse Ox 98.2 F 61 20 130/76 99 11/09/21 17:01 11/09/21 14:59 11/09/21 14:59 11/09/21 16:57 11/09/21 16:57 General appearance: Present: mild distress, obese - EENT Eyes: Present: PERRL ENT: hearing intact, clear oral mucosa - Neck Neck: Present: supple, normal ROM - Respiratory Respiratory effort: normal, labored Respiratory: bilateral: diminished, rhonchi - Cardiovascular Heart Sounds: Present: S1 & S2. Absent: rub, click - Extremities Extremities: pulses symmetrical, No edema Peripheral Pulses: within normal limits - Abdominal General gastrointestinal: Present: soft, non-tender, non-distended, normal bowel sounds Male genitourinary: Present: normal - Integumentary Integumentary: Present: clear, warm, dry - Musculoskeletal Musculoskeletal: gait normal, strength equal bilaterally - Psychiatric Psychiatric: appropriate mood/affect, intact judgment & insight - Neurologic Neurologic: CNII-XII intact, moves all extremities HEART Score - HEART Score Troponin: Troponin T 0.013 ng/mL (0.00-0.029) 11/09/21 17:43 Results - Labs CBC & Chem 7: 11/09/21 16:01 11/09/21 17:43 Labs: Abnormal lab results 11/09/21 11/09/21 11/09/21 Range/Units 16:01 16:01 17:43 Hgb 15.6 H (11.8-15.2) gm/dl Hct 47.1 H (35.5-45.6) % MCV 105 H (84-94) fl MCH 35 H (28-32) pg RDW 15.9 H (13.2-15.2) % Plt Count 99 L (140-440) K/mm3 Monocytes % (Manual) 12.0 H (0.0-7.3) % ABG pH (7.350-7.450) pH Units ABG pO2 (80.0-90.0) mm Hg ABG HCO3 (20.0-26.0) mmol/L ABG O2 Saturation (95.0-99.0) % ABG Base Excess (-2.0-3.0) mmol/L Oxyhemoglobin (95.0-99.0) % Potassium 5.5 H (3.6-5.0) mmol/L Carbon Dioxide 35 H (22-30) mmol/L Ammonia 62.0 H (25-60) umol/L Albumin 3.2 L (3.9-5) g/dL 11/09/21 11/09/21 Range/Units 17:43 17:57 Hgb (11.8-15.2) gm/dl Hct (35.5-45.6) % MCV (84-94) fl MCH (28-32) pg RDW (13.2-15.2) % Plt Count (140-440) K/mm3 Monocytes % (Manual) (0.0-7.3) % ABG pH 7.279 L (7.350-7.450) pH Units ABG pO2 69.1 L (80.0-90.0) mm Hg ABG HCO3 40.0 H (20.0-26.0) mmol/L ABG O2 Saturation 92.0 L (95.0-99.0) % ABG Base Excess 8.7 H (-2.0-3.0) mmol/L Oxyhemoglobin 88.7 L (95.0-99.0) % Potassium 5.1 H (3.6-5.0) mmol/L Carbon Dioxide (22-30) mmol/L Ammonia (25-60) umol/L Albumin (3.9-5) g/dL Assessment and Plan - Patient Problems (1) Acute hypercapnic respiratory failure Current Visit: Yes Status: Acute Plan to address problem: Chest x-ray, supplemental oxygen, pulse oximetry, nebulizer therapy, pulmonology team consulted in ED. Trilogy machine with her oxygenation nightly, noninvasive positive pressure ventilation as clinically indicated. (2) Pneumonia Current Visit: Yes Status: Acute Plan to address problem: Pneumonia protocol: Chest x-ray, CBC, CMP, supplemental oxygen, pulse oximetry, nebulizer therapy, IV antibiotic therapy, pulmonary toilet. (3) Obesity hypoventilation syndrome Current Visit: Yes Status: Acute Plan to address problem: Balanced diet, increase physical activity discharge, outpatient pulmonary follow-up for sleep study and further care. (4) COPD (chronic obstructive pulmonary disease) Current Visit: Yes Status: Acute Plan to address problem: IV steroid therapy, supplemental oxygen, pulse oximetry, Trilogy machine nightly (5) GERD (gastroesophageal reflux disease) Current Visit: Yes Status: Acute Qualifiers: Esophagitis presence: without esophagitis Qualified Code(s): K21.9 - Gastro-esophageal reflux disease without esophagitis Plan to address problem: PPI therapy, supportive care (6) Prostate cancer Current Visit: Yes Status: Acute Plan to address problem: Supportive care, pain control. Outpatient oncology follow-up, outpatient urology follow-up. (7) DVT prophylaxis Current Visit: Yes Status: Acute Plan to address problem: SCD to bilateral lower extremities while in bed, (8) Advance care planning Current Visit: Yes Status: Acute Plan to address problem: Disease education conducted, care plan discussed, diagnoses discussed, prognosis discussed, patient is full code. Patient acknowledges understanding and agreement with care plan, +30 minutes.
[2021-11-09] MEDS ORDERED: HYDROmorphone 1 MG/1 ML INJ IV PRN (20:47)
[2021-11-09] MEDS ORDERED: ONDANSETRON 4 MG/2 ML INJ IV PRN (20:47)
[2021-11-09] MEDS ORDERED: ACETAMINOPHEN 325 MG TAB PO PRN (20:47)
[2021-11-09] MEDS: AZITHROMYCIN/NS 500 MG/250 ML 500 MG/250 ML BAG IV ONE (21:12)
[2021-11-09] MEDS: HEPARIN 5,000 UNIT/1 ML VIAL SUB-Q SCH (22:51)
[2021-11-09] MEDS: methylPREDNISolone Sod Succinate 40 MG/1 ML INJ IV SCH (22:51)
[2021-11-09] MEDS: MELATONIN 5 MG TAB PO PRN (22:51)
[2021-11-09] MEDS: cloNIDine 0.2 MG TAB PO SCH (22:51)
[2021-11-09] MEDS: FAMOTIDINE 20 MG TAB PO SCH (22:52)
[2021-11-10] MEDS: methylPREDNISolone Sod Succinate 40 MG/1 ML INJ IV SCH ×3 (05:20→21:40)
[2021-11-10 06:07] LABS: Basophils % (Auto) 0.8 % (0.0-1.8); Eosinophils # (Auto) 0.2 K/mm3 (0.0-0.4); Eosinophils % (Auto) 5.2 % (0.0-4.3); Hematocrit 46.1 % (35.5-45.6); Hemoglobin 15.2 gm/dl (11.8-15.2); Lymphocytes # (Auto) 1.6 K/mm3 (1.2-5.4); Lymphocytes % (Auto) 36.2 % (13.4-35.0); Mean Corpuscular HGB Conc 33 % (32-34); Mean Corpuscular Volume 104 fl (84-94); Monocytes # (Auto) 0.6 K/mm3 (0.0-0.8); Monocytes % (Auto) 12.9 % (0.0-7.3); Platelet Count 111 K/mm3 (140-440); Red Blood Count 4.44 M/mm3 (3.65-5.03); Red Cell Distribution Width 15.5 % (13.2-15.2)
[2021-11-10 06:21] LABS: BUN/Creatinine Ratio 15; Blood Urea Nitrogen 19 mg/dL (9-20); Hemolysis Index 15
[2021-11-10] MEDS: AZITHROMYCIN/NS 500 MG/250 ML 500 MG/250 ML BAG IV ONE (08:03)
[2021-11-10] MEDS: cefTRIAXone/NS 1 GM/50 ML 1 GM/50 ML BAG IV ONE (08:03)
--- NOTE | 2021-11-10 09:16 | Progress Note ---
Assessment and Plan Assessment and plan: 66 YO Male with Obesity Hypoventilation Syndrome, CaP S/P Radiation therapy, Asthma, COPD, Chronic Respiratory Failure on Home Trilogy machine QHS, and supplemental oxygen 3L via [place], GERD presents to ED for evaluation for respiratory failure and found to have a pulse oximetry of 86% on room air which is consistent with acute hypoxemic respiratory failure. Patient also found to have hypercarbic respiratory failure. Chest x-ray revealed pneumonia. Acute on chronic hypoxic and hypercapnic respiratory failure. Pneumonia Obesity hypoventilation syndrome Acute COPD exacerbation GERD History of prostate cancer 11/10/2021. Continue IV antibiotics, IV steroids, bronchodilators/nebulizers. Continue O2 supplementation to maintain sats greater than 92% and wean as tolerated. BiPAP as clinically indicated. History Interval history: No new issues. Hospitalist Physical - Constitutional Vitals: Temp Pulse Resp BP Pulse Ox 98.6 F 70 18 110/56 100 11/10/21 08:52 11/10/21 08:52 11/10/21 08:52 11/10/21 08:52 11/10/21 08:52 General appearance: Present: no acute distress, obese HEART Score - HEART Score Troponin: Troponin T 0.013 ng/mL (0.00-0.029) 11/09/21 17:43 Results - Labs CBC & Chem 7: 11/10/21 05:38 11/10/21 05:38 Labs: Laboratory Last Values WBC 4.5 K/mm3 (4.5-11.0) 11/10/21 05:38 RBC 4.44 M/mm3 (3.65-5.03) 11/10/21 05:38 Hgb 15.2 gm/dl (11.8-15.2) 11/10/21 05:38 Hct 46.1 % (35.5-45.6) H 11/10/21 05:38 MCV 104 fl (84-94) H 11/10/21 05:38 MCH 34 pg (28-32) H 11/10/21 05:38 MCHC 33 % (32-34) 11/10/21 05:38 RDW 15.5 % (13.2-15.2) H 11/10/21 05:38 Plt Count 111 K/mm3 (140-440) L 11/10/21 05:38 Lymph % (Auto) 36.2 % (13.4-35.0) H 11/10/21 05:38 [place] % (Auto) 12.9 % (0.0-7.3) H 11/10/21 05:38 Eos % (Auto) 5.2 % (0.0-4.3) H 11/10/21 05:38 Baso % (Auto) 0.8 % (0.0-1.8) 11/10/21 05:38 Lymph # (Auto) 1.6 K/mm3 (1.2-5.4) 11/10/21 05:38 [place] # (Auto) 0.6 K/mm3 (0.0-0.8) 11/10/21 05:38 Eos # (Auto) 0.2 K/mm3 (0.0-0.4) 11/10/21 05:38 Baso # (Auto) 0.0 K/mm3 (0.0-0.1) 11/10/21 05:38 Add Manual Diff Complete 11/09/21 16:01 Total Counted 100 11/09/21 16:01 Seg Neutrophils % 44.9 % (40.0-70.0) 11/10/21 05:38 Seg Neuts % (Manual) 58.0 % (40.0-70.0) 11/09/21 16:01 Band Neutrophils % 0 % 11/09/21 16:01 Lymphocytes % (Manual) 27.0 % (13.4-35.0) 11/09/21 16:01 Reactive Lymphs % (Man) 0 % 11/09/21 16:01 Monocytes % (Manual) 12.0 % (0.0-7.3) H 11/09/21 16:01 Eosinophils % (Manual) 3.0 % (0.0-4.3) 11/09/21 16:01 Basophils % (Manual) 0 % (0.0-1.8) 11/09/21 16:01 Metamyelocytes % 0 % 11/09/21 16:01 Myelocytes % 0 % 11/09/21 16:01 Promyelocytes % 0 % 11/09/21 16:01 Blast Cells % 0 % 11/09/21 16:01 Nucleated RBC % Not Reportable 11/09/21 16:01 Seg Neutrophils # 2.0 K/mm3 (1.8-7.7) 11/10/21 05:38 Seg Neutrophils # Man 2.7 K/mm3 (1.8-7.7) 11/09/21 16:01 Band Neutrophils # 0.0 K/mm3 11/09/21 16:01 Lymphocytes # (Manual) 1.3 K/mm3 (1.2-5.4) 11/09/21 16:01 Abs React Lymphs (Man) 0.0 K/mm3 11/09/21 16:01 Monocytes # (Manual) 0.6 K/mm3 (0.0-0.8) 11/09/21 16:01 Eosinophils # (Manual) 0.1 K/mm3 (0.0-0.4) 11/09/21 16:01 Basophils # (Manual) 0.0 K/mm3 (0.0-0.1) 11/09/21 16:01 Metamyelocytes # 0.0 K/mm3 11/09/21 16:01 Myelocytes # 0.0 K/mm3 11/09/21 16:01 Promyelocytes # 0.0 K/mm3 11/09/21 16:01 Blast Cells # 0.0 K/mm3 11/09/21 16:01 WBC Morphology Not Reportable 11/09/21 16:01 Hypersegmented Neuts Not Reportable 11/09/21 16:01 Hyposegmented Neuts Not Reportable 11/09/21 16:01 Hypogranular Neuts Not Reportable 11/09/21 16:01 Smudge Cells Not Reportable 11/09/21 16:01 Toxic Granulation Not Reportable 11/09/21 16:01 Toxic Vacuolation Not Reportable 11/09/21 16:01 Dohle Bodies Not Reportable 11/09/21 16:01 Pelger-Huet Anomaly Not Reportable 11/09/21 16:01 Katharine Rods Not Reportable 11/09/21 16:01 Platelet Estimate Consistent w auto 11/09/21 16:01 Clumped Platelets Not Reportable 11/09/21 16:01 Plt Clumps, EDTA Not Reportable 11/09/21 16:01 Large Platelets Not Reportable 11/09/21 16:01 Giant Platelets Not Reportable 11/09/21 16:01 Platelet Satelliting Not Reportable 11/09/21 16:01 Plt Morphology Comment Not Reportable 11/09/21 16:01 RBC Morphology Normal 11/09/21 16:01 Dimorphic RBCs Not Reportable 11/09/21 16:01 Polychromasia Not Reportable 11/09/21 16:01 Hypochromasia Not Reportable 11/09/21 16:01 Poikilocytosis Not Reportable 11/09/21 16:01 Anisocytosis Not Reportable 11/09/21 16:01 Microcytosis Not Reportable 11/09/21 16:01 Macrocytosis Not Reportable 11/09/21 16:01 Spherocytes Not Reportable 11/09/21 16:01 Pappenheimer Bodies Not Reportable 11/09/21 16:01 Sickle Cells Not Reportable 11/09/21 16:01 Target Cells Not Reportable 11/09/21 16:01 Tear Drop Cells Not Reportable 11/09/21 16:01 Ovalocytes Not Reportable 11/09/21 16:01 Helmet Cells Not Reportable 11/09/21 16:01 [place] Bodies Not Reportable 11/09/21 16:01 [place] Rings Not Reportable 11/09/21 16:01 [place] Cells Not Reportable 11/09/21 16:01 Bite Cells Not Reportable 11/09/21 16:01 Crenated Cell Not Reportable 11/09/21 16:01 Elliptocytes Not Reportable 11/09/21 16:01 Acanthocytes (Spur) Not Reportable 11/09/21 16:01 Rouleaux Not Reportable 11/09/21 16:01 Hemoglobin C Crystals Not Reportable 11/09/21 16:01 Schistocytes Not Reportable 11/09/21 16:01 Malaria parasites Not Reportable 11/09/21 16:01 [place] Bodies Not Reportable 11/09/21 16:01 Hem Pathologist Commnt No 11/09/21 16:01 ABG pH 7.279 pH Units (7.350-7.450) L 11/09/21 17:57 ABG pCO2 87.4 mm Hg 11/09/21 17:57 ABG pO2 69.1 mm Hg (80.0-90.0) L 11/09/21 17:57 ABG HCO3 40.0 mmol/L (20.0-26.0) H 11/09/21 17:57 ABG O2 Saturation 92.0 % (95.0-99.0) L 11/09/21 17:57 ABG O2 Content 20.7 (0.0-44) 11/09/21 17:57 ABG Base Excess 8.7 mmol/L (-2.0-3.0) H 11/09/21 17:57 ABG Hemoglobin 16.6 gm/dl (14.0-18.0) 11/09/21 17:57 ABG Carboxyhemoglobin 3.0 % (0.0-5.0) 11/09/21 17:57 ABG Methemoglobin 0.6 % (0.0-1.5) 11/09/21 17:57 Oxyhemoglobin 88.7 % (95.0-99.0) L 11/09/21 17:57 FiO2 32 % 11/09/21 17:57 Sodium 145 mmol/L (137-145) 11/10/21 05:38 Potassium 5.0 mmol/L (3.6-5.0) 11/10/21 05:38 Chloride 102.1 mmol/L (98-107) 11/10/21 05:38 Carbon Dioxide 37 mmol/L (22-30) H 11/10/21 05:38 Anion Gap 11 mmol/L 11/10/21 05:38 BUN 19 mg/dL (9-20) 11/10/21 05:38 Creatinine 1.3 mg/dL (0.8-1.3) 11/10/21 05:38 Estimated GFR > 60 ml/min 11/10/21 05:38 BUN/Creatinine Ratio 15 % 11/10/21 05:38 Glucose 73 mg/dL (75-100) L 11/10/21 05:38 Calcium 9.0 mg/dL (8.4-10.2) 11/10/21 05:38 Magnesium 2.00 mg/dL (1.7-2.3) 11/09/21 17:43 Total Bilirubin 1.10 mg/dL (0.1-1.2) 11/09/21 16:01 AST 22 units/L (5-40) 11/09/21 16:01 ALT 12 units/L (7-56) 11/09/21 16:01 Alkaline Phosphatase 65 units/L (35-129) 11/09/21 16:01 Ammonia 62.0 umol/L (25-60) H 11/09/21 17:43 Troponin T 0.013 ng/mL (0.00-0.029) 11/09/21 17:43 Total Protein 6.4 g/dL (6.3-8.2) 11/09/21 16:01 Albumin 3.2 g/dL (3.9-5) L 11/09/21 16:01 Albumin/Globulin Ratio 1.0 % 11/09/21 16:01 TSH 1.520 mlU/mL (0.270-4.200) 11/09/21 17:43 Free T4 0.96 ng/dL (0.76-1.46) 11/09/21 17:43 Urine Color [place] (Yellow) 11/09/21 18:45 Urine Turbidity Clear (Clear) 11/09/21 18:45 Urine pH 6.0 (5.0-7.0) 11/09/21 18:45 Ur Specific [place] 1.013 (1.003-1.030) 11/09/21 18:45 Urine Protein 30 mg/dl mg/dL (Negative) 11/09/21 18:45 Urine Glucose (UA) Neg mg/dL (Negative) 11/09/21 18:45 Urine Ketones Neg mg/dL (Negative) 11/09/21 18:45 Urine Blood Neg (Negative) 11/09/21 18:45 Urine Nitrite Neg (Negative) 11/09/21 18:45 Urine Bilirubin Neg (Negative) 11/09/21 18:45 Urine Urobilinogen 4.0 mg/dL (<2.0) 11/09/21 18:45 Ur Leukocyte Esterase Neg (Negative) 11/09/21 18:45 Urine WBC (Auto) 4.0 /HPF (0.0-6.0) 11/09/21 18:45 Urine RBC (Auto) 2.0 /HPF (0.0-6.0) 11/09/21 18:45 U Epithel Cells (Auto) 1.0 /HPF (0-13.0) 11/09/21 18:45 Hyaline Casts 4 /LPF 11/09/21 18:45 Urine Mucus Few /HPF 11/09/21 18:45 Urine Opiates Screen Negative 11/09/21 18:45 Urine Methadone Screen Negative 11/09/21 18:45 Ur Barbiturates Screen Negative 11/09/21 18:45 Ur Phencyclidine Scrn Negative 11/09/21 18:45 Ur Amphetamines Screen Negative 11/09/21 18:45 U Benzodiazepines Scrn Negative 11/09/21 18:45 Urine Cocaine Screen Positive 11/09/21 18:45 U Marijuana (THC) Screen Negative 11/09/21 18:45 Drugs of Abuse Note Disclamer 11/09/21 18:45 Plasma/Serum Alcohol < 0.01 % (0-0.07) 11/09/21 17:43 Microbiology: Microbiology 11/09/21 20:09 Peripheral/Venous Blood Culture - Preliminary Culture in Progress 11/09/21 20:18 Peripheral/Venous Blood Culture - Preliminary Culture in Progress [place]/IV: Voiding Method Urinal Active Medications - Current Medications Current Medications: Generic Name Dose Route Start Last Admin Trade Name Freq PRN Reason Stop Dose Admin Acetaminophen 650 mg 11/09/21 20:47 Acetaminophen 325 Mg Tab PO Q4H PRN Pain MILD(1-3)/Fever >100.5/BENEDICT Albuterol 2.5 mg 11/09/21 20:47 Albuterol 2.5 Mg/3 Ml Nebu IH Q4H PRN Shortness Of Breath Azithromycin 500 mg 11/10/21 20:00 Azithromycin 250 Mg Tab PO Q24H [facility] Protocol Clonidine HCl 0.2 mg 11/09/21 22:00 11/09/21 22:51 Clonidine 0.2 Mg Tab PO 0.2 mg BID VIPUL Administration Famotidine 20 mg 11/09/21 22:00 11/09/21 22:52 Famotidine 20 Mg Tab PO 20 mg BID VIPUL Administration Heparin Sodium (Porcine) 5,000 unit 11/09/21 22:00 11/09/21 22:51 Heparin 5,000 Unit/1 Ml Vial SUB-Q 5,000 unit Q12HR VIPUL Administration Hydromorphone HCl 0.5 mg 11/09/21 20:47 Hydromorphone 1 Mg/1 Ml Inj IV Q13H PRN Pain , Severe (7-10) Ceftriaxone Sodium 2 gm in 100 mls @ 200 mls/hr 11/10/21 21:00 Rocephin/Ns 2 Gm/100 Ml IV Q24H VIPUL Protocol Melatonin 10 mg 11/09/21 22:46 11/09/21 22:51 Melatonin 5 Mg Tab PO 10 mg QHS PRN Administration Sleep Methylprednisolone Sodium Succinate 40 mg 11/09/21 22:00 11/10/21 05:20 Methylprednisolone Sod Succinate 40 Mg/1 Ml Inj IV Not Given Q8HR [facility] Nicotine 14 mg 11/10/21 10:00 Nicotine 14 Mg/24 Hr Patch TD QDAY [facility] Ondansetron HCl 4 mg 11/09/21 20:47 Ondansetron 4 Mg/2 Ml Inj IV Q8H PRN Nausea And Vomiting Oxycodone/Acetaminophen 1 tab 11/09/21 20:47 Oxycodone /Acetaminophen 5-325mg Tab PO Q16H PRN Pain, Moderate (4-6) Sodium Chloride 10 ml 11/09/21 22:00 11/09/21 22:52 Sodium Chloride 0.9% 10 Ml Flush Syringe IV 10 ml BID VIPUL Administration Sodium Chloride 10 ml 11/09/21 20:47 Sodium Chloride 0.9% 10 Ml Flush Syringe IV PRN PRN LINE FLUSH Tamsulosin HCl 0.4 mg 11/10/21 10:00 Tamsulosin 0.4 Mg Cap PO DAILY [facility]
[2021-11-10] MEDS: HEPARIN 5,000 UNIT/1 ML VIAL SUB-Q SCH ×2 (09:49→21:40)
[2021-11-10] MEDS: TAMSULOSIN 0.4 MG CAP PO SCH (09:49)
[2021-11-10] MEDS: cloNIDine 0.2 MG TAB PO SCH ×2 (09:49→21:42)
[2021-11-10] MEDS: NICOTINE 14 MG/24 HR PATCH TD SCH (09:49)
[2021-11-10] MEDS: FAMOTIDINE 20 MG TAB PO SCH ×2 (09:49→21:47)
--- NOTE | 2021-11-10 12:18 | Consultation ---
History of Present Illness Consult date: 11/10/21 Requesting physician: DARNELL ZAVALA Reason for consult: obstructive sleep apnea History of present illness: 66 y/o male with known COPD, chronic respiratory failure and PARUL with noncompliance admitted with hypercapnea and increased confusion. Past History Past Medical History: cancer, COPD, GERD, other (See HPI) Past Surgical History: Other (Right lower extremity amputation) Social history: , lives with family Family history: diabetes, hypertension Medications and Allergies Allergies Allergy/AdvReac Type Severity Reaction Status Date / Time No Known Allergies Allergy Verified 11/09/21 14:59 Home Medications Medication Instructions Recorded Confirmed Last Taken Type Oxycodone HCl [Oxycodone] 30 mg PO BID 04/07/14 11/10/21 10/03/16 History cloNIDine HCL [Catapres] 0.2 mg PO BID 04/07/14 11/10/21 11/09/21 History Nebivolol (Nf) [Bystolic (Nf)] 1 tab PO DAILY 06/02/16 11/10/21 10/16/16 History Oxycodone HCl [Oxycontin] 1 tab PO BID 06/02/16 11/10/21 Unknown History Tamsulosin HCl 1 tab PO DAILY 06/02/16 11/10/21 11/09/21 History Tiotropium [Spiriva] 18 mcg IH QDAY 06/02/16 11/10/21 11/09/21 History Active Meds: Active Medications Acetaminophen (Acetaminophen 325 Mg Tab) 650 mg PO Q4H PRN PRN Reason: Pain MILD(1-3)/Fever >100.5/BENEDICT Albuterol (Albuterol 2.5 Mg/3 Ml Nebu) 2.5 mg IH Q4H PRN PRN Reason: Shortness Of Breath Azithromycin (Azithromycin 250 Mg Tab) 500 mg PO Q24H VIPUL; Protocol Clonidine HCl (Clonidine 0.2 Mg Tab) 0.2 mg PO BID [facility] Last Admin: 11/10/21 09:49 Dose: 0.2 mg Famotidine (Famotidine 20 Mg Tab) 20 mg PO BID VIPUL Last Admin: 11/10/21 09:49 Dose: 20 mg Heparin Sodium (Porcine) (Heparin 5,000 Unit/1 Ml Vial) 5,000 unit SUB-Q Q12HR VIPUL Last Admin: 11/10/21 09:49 Dose: 5,000 unit Hydromorphone HCl (Hydromorphone 1 Mg/1 Ml Inj) 0.5 mg IV Q13H PRN PRN Reason: Pain , Severe (7-10) Ceftriaxone Sodium (Rocephin/Ns 2 Gm/100 Ml) 2 gm in 100 mls @ 200 mls/hr IV Q24H [facility]; Protocol Melatonin (Melatonin 5 Mg Tab) 10 mg PO QHS PRN PRN Reason: Sleep Last Admin: 11/09/21 22:51 Dose: 10 mg Methylprednisolone Sodium Succinate (Methylprednisolone Sod Succinate 40 Mg/1 Ml Inj) 40 mg IV Q8HR [facility] Last Admin: 11/10/21 05:20 Dose: Not Given Nicotine (Nicotine 14 Mg/24 Hr Patch) 14 mg TD QDAY [facility] Last Admin: 11/10/21 09:49 Dose: 14 mg Ondansetron HCl (Ondansetron 4 Mg/2 Ml Inj) 4 mg IV Q8H PRN PRN Reason: Nausea And Vomiting Oxycodone/Acetaminophen (Oxycodone /Acetaminophen 5-325mg Tab) 1 tab PO Q16H PRN PRN Reason: Pain, Moderate (4-6) Sodium Chloride (Sodium Chloride 0.9% 10 Ml Flush Syringe) 10 ml IV BID [facility] Last Admin: 11/10/21 09:52 Dose: Not Given Sodium Chloride (Sodium Chloride 0.9% 10 Ml Flush Syringe) 10 ml IV PRN PRN PRN Reason: LINE FLUSH Tamsulosin HCl (Tamsulosin 0.4 Mg Cap) 0.4 mg PO DAILY [facility] Last Admin: 11/10/21 09:49 Dose: 0.4 mg Physical Examination Vital signs: Vital Signs Pulse Resp BP Pulse Ox 61 20 140/113 94 11/09/21 14:59 11/09/21 14:59 11/09/21 14:59 11/09/21 14:59 General appearance: no acute distress Eyes: non-icteric Neck: other (large in circumference) Effort: normal Ascultation: Bilateral: diminished breath sounds Results - Laboratory Findings CBC and BMP: 11/10/21 05:38 11/10/21 05:38 ABG ABG pH 7.279 pH Units (7.350-7.450) L 11/09/21 17:57 ABG pCO2 87.4 mm Hg 11/09/21 17:57 ABG pO2 69.1 mm Hg (80.0-90.0) L 11/09/21 17:57 ABG O2 Saturation 92.0 % (95.0-99.0) L 11/09/21 17:57 Abnormal lab findings: Abnormal Labs 11/09/21 11/09/21 11/09/21 16:01 16:01 17:43 Hgb 15.6 H Hct 47.1 H MCV 105 H MCH 35 H RDW 15.9 H Plt Count 99 L Lymph % (Auto) [place] % (Auto) Eos % (Auto) Monocytes % (Manual) 12.0 H ABG pH ABG pO2 ABG HCO3 ABG O2 Saturation ABG Base Excess Oxyhemoglobin Potassium 5.5 H Carbon Dioxide 35 H Glucose Ammonia 62.0 H Albumin 3.2 L 11/09/21 11/09/21 11/10/21 17:43 17:57 05:38 Hgb Hct 46.1 H MCV 104 H MCH 34 H RDW 15.5 H Plt Count 111 L Lymph % (Auto) 36.2 H [place] % (Auto) 12.9 H Eos % (Auto) 5.2 H Monocytes % (Manual) ABG pH 7.279 L ABG pO2 69.1 L ABG HCO3 40.0 H ABG O2 Saturation 92.0 L ABG Base Excess 8.7 H Oxyhemoglobin 88.7 L Potassium 5.1 H Carbon Dioxide Glucose Ammonia Albumin 11/10/21 05:38 Hgb Hct MCV MCH RDW Plt Count Lymph % (Auto) [place] % (Auto) Eos % (Auto) Monocytes % (Manual) ABG pH ABG pO2 ABG HCO3 ABG O2 Saturation ABG Base Excess Oxyhemoglobin Potassium Carbon Dioxide 37 H Glucose 73 L Ammonia Albumin - Diagnostic Findings Chest x-ray: image reviewed Assessment and Plan 66 y/o morbidly obese male with chronic respiratory failure, admitted with decreased mental state with higher than normal CO2 levels. 1. Per chart, patient wore home trilogy machine last night 2. Will order ABG for in the AM after two consecutive nights of wearing NIV 3. Ordered BNP, if elevated, please give trial of lasix. If elevated also obtain 2 D echo to evaluate for pulmonary HTN 4. Weight loss Will continue to follow with you.
[2021-11-10] MEDS: oxyCODONE /ACETAMINOPHEN 5-325MG TAB PO PRN (14:07)
[2021-11-10] MEDS ORDERED: VANCOMYCIN/NS 1 GM/250 ML 1 GM/250 ML BAG IV SCH (17:00)
[2021-11-10] MEDS: VANCOMYCIN 2,000 MG in SODIUM CHLORIDE 0.9% 500 ML 500 ML IV SCH (17:21)
[2021-11-10] MEDS: AZITHROMYCIN 250 MG TAB PO SCH (21:39)
[2021-11-10] MEDS: cefTRIAXone/NS 2 GM/100 ML 2 GM/100 ML BAG IV SCH (21:39)
[2021-11-11] MEDS: MELATONIN 5 MG TAB PO PRN ×2 (00:20→21:08)
[2021-11-11] MEDS: VANCOMYCIN 2,000 MG in SODIUM CHLORIDE 0.9% 500 ML 500 ML IV SCH (05:23)
[2021-11-11] MEDS: methylPREDNISolone Sod Succinate 40 MG/1 ML INJ IV SCH ×3 (05:23→21:07)
--- NOTE | 2021-11-11 07:37 | Progress Note ---
Assessment and Plan - Patient Problems (1) Acute and chronic respiratory failure Current Visit: Yes Status: Acute (2) Acute encephalopathy Current Visit: Yes Status: Acute (3) Acute hypercapnic respiratory failure Current Visit: Yes Status: Acute (4) COPD (chronic obstructive pulmonary disease) Current Visit: Yes Status: Acute (5) GERD (gastroesophageal reflux disease) Current Visit: Yes Status: Acute Qualifiers: Esophagitis presence: without esophagitis Qualified Code(s): K21.9 - Gastro-esophageal reflux disease without esophagitis (6) Pneumonia Current Visit: Yes Status: Acute (7) Prostate cancer Current Visit: Yes Status: Acute (8) Respiratory acidosis Current Visit: Yes Status: Acute (9) Thrombocytopenia Current Visit: Yes Status: Acute Subjective Interval history: awake and responds appropriately to questioning Objective Vital Signs - 12hr 11/10/21 11/10/21 11/10/21 19:37 20:07 21:42 Temperature 98.0 F Pulse Rate 57 L 57 L Respiratory 18 Rate Blood Pressure 106/87 106/57 O2 Sat by Pulse 88 96 Oximetry 11/10/21 11/10/21 11/10/21 22:00 23:01 23:48 Temperature 98.0 F Pulse Rate 55 L 70 61 Respiratory 17 18 21 Rate Blood Pressure 167/98 O2 Sat by Pulse 97 98 93 Oximetry 11/11/21 11/11/21 03:14 03:15 Temperature 97.8 F Pulse Rate 57 L Respiratory 18 Rate Blood Pressure 124/78 O2 Sat by Pulse 92 92 Oximetry Constitutional: no acute distress Eyes: non-icteric ENT: oropharynx moist Neck: supple, other (large in circumference) Effort: normal Ascultation: Bilateral: diminished breath sounds Cardiovascular: regular rate and rhythm Gastrointestinal: normoactive bowel sounds, soft, non-tender, non-distended Extremities: edema Neurologic: normal mental status, non-focal exam CBC and BMP: 11/10/21 05:38 11/10/21 05:38 ABG, PT/INR, D-dimer: ABG ABG pH 7.279 pH Units (7.350-7.450) L 11/09/21 17:57 ABG pCO2 87.4 mm Hg 11/09/21 17:57 ABG pO2 69.1 mm Hg (80.0-90.0) L 11/09/21 17:57 ABG O2 Saturation 92.0 % (95.0-99.0) L 11/09/21 17:57 Abnormal lab findings: Abnormal Labs 11/09/21 11/09/21 11/09/21 16:01 16:01 17:43 Hgb 15.6 H Hct 47.1 H MCV 105 H MCH 35 H RDW 15.9 H Plt Count 99 L Lymph % (Auto) [place] % (Auto) Eos % (Auto) Monocytes % (Manual) 12.0 H ABG pH ABG pO2 ABG HCO3 ABG O2 Saturation ABG Base Excess Oxyhemoglobin Potassium 5.5 H Carbon Dioxide 35 H Glucose Ammonia 62.0 H Albumin 3.2 L 11/09/21 11/09/21 11/10/21 17:43 17:57 05:38 Hgb Hct 46.1 H MCV 104 H MCH 34 H RDW 15.5 H Plt Count 111 L Lymph % (Auto) 36.2 H [place] % (Auto) 12.9 H Eos % (Auto) 5.2 H Monocytes % (Manual) ABG pH 7.279 L ABG pO2 69.1 L ABG HCO3 40.0 H ABG O2 Saturation 92.0 L ABG Base Excess 8.7 H Oxyhemoglobin 88.7 L Potassium 5.1 H Carbon Dioxide Glucose Ammonia Albumin 11/10/21 05:38 Hgb Hct MCV MCH RDW Plt Count Lymph % (Auto) [place] % (Auto) Eos % (Auto) Monocytes % (Manual) ABG pH ABG pO2 ABG HCO3 ABG O2 Saturation ABG Base Excess Oxyhemoglobin Potassium Carbon Dioxide 37 H Glucose 73 L Ammonia Albumin
[2021-11-11 08:59] LABS: ABG Base Excess 7.6 mmol/L (-2.0-3.0); ABG HCO3 36.3 mmol/L (20.0-26.0); ABG Methemoglobin 0.6 % (0.0-1.5); ABG Oxygen Saturation 89.6 % (95.0-99.0); ABG PCO2 67.1 mm Hg; ABG PH 7.351 pH Units (7.350-7.450); ABG PO2 57.4 mm Hg (80.0-90.0)
[2021-11-11] MEDS: NICOTINE 14 MG/24 HR PATCH TD SCH (09:44)
[2021-11-11] MEDS: TAMSULOSIN 0.4 MG CAP PO SCH (09:45)
[2021-11-11] MEDS: HEPARIN 5,000 UNIT/1 ML VIAL SUB-Q SCH ×2 (09:45→21:09)
[2021-11-11] MEDS: FAMOTIDINE 20 MG TAB PO SCH ×2 (09:45→21:09)
[2021-11-11] MEDS: cloNIDine 0.2 MG TAB PO SCH ×2 (09:47→21:08)
[2021-11-11] MEDS: FUROSEMIDE 20 MG TAB PO SCH (09:53)
--- NOTE | 2021-11-11 11:17 | Progress Note ---
Assessment and Plan Assessment and plan: 66 YO Male with Obesity Hypoventilation Syndrome, CaP S/P Radiation therapy, Asthma, COPD, Chronic Respiratory Failure on Home Trilogy machine QHS, and supplemental oxygen 3L via NC, GERD presents to ED for evaluation for respiratory failure and found to have a pulse oximetry of 86% on room air which is consistent with acute hypoxemic respiratory failure. Patient also found to have hypercarbic respiratory failure. Chest x-ray revealed pneumonia. Acute on chronic hypoxic and hypercapnic respiratory failure. Pneumonia Obesity hypoventilation syndrome Acute COPD exacerbation GERD History of prostate cancer 11/10/2021. Continue IV antibiotics, IV steroids, bronchodilators/nebulizers. Continue O2 supplementation to maintain sats greater than 92% and wean as tolerated. BiPAP as clinically indicated. 11/11/2021. Continue IV antibiotics, IV steroids, bronchodilators/nebulizers. Continue O2 supplementation to maintain sats greater than 92% and wean as tolerated. BiPAP as clinically indicated. Patient complained of left hip pain. We will check plain films of the left hip. History Interval history: No new issues. Hospitalist Physical - Constitutional Vitals: Temp Pulse Resp BP Pulse Ox 97.4 F L 59 L 18 146/82 90 11/11/21 08:07 11/11/21 08:07 11/11/21 03:14 11/11/21 08:07 11/11/21 10:00 General appearance: Present: no acute distress, obese - EENT Eyes: Present: PERRL, EOM intact ENT: hearing intact, clear oral mucosa, dentition normal - Neck Neck: Present: supple, normal ROM - Respiratory Respiratory effort: normal Respiratory: bilateral: CTA - Cardiovascular Rhythm: regular Heart Sounds: Present: S1 & S2. Absent: gallop, rub - Extremities Extremities: no ischemia, No edema, Full ROM - Abdominal General gastrointestinal: soft, non-tender, non-distended, normal bowel sounds - Integumentary Integumentary: Present: clear, warm, dry - Neurologic Neurologic: CNII-XII intact, moves all extremities HEART Score - HEART Score Troponin: Troponin T 0.013 ng/mL (0.00-0.029) 11/09/21 17:43 Results - Labs CBC & Chem 7: 11/10/21 05:38 11/10/21 05:38 Labs: Laboratory Last Values WBC 4.5 K/mm3 (4.5-11.0) 11/10/21 05:38 RBC 4.44 M/mm3 (3.65-5.03) 11/10/21 05:38 Hgb 15.2 gm/dl (11.8-15.2) 11/10/21 05:38 Hct 46.1 % (35.5-45.6) H 11/10/21 05:38 MCV 104 fl (84-94) H 11/10/21 05:38 MCH 34 pg (28-32) H 11/10/21 05:38 MCHC 33 % (32-34) 11/10/21 05:38 RDW 15.5 % (13.2-15.2) H 11/10/21 05:38 Plt Count 111 K/mm3 (140-440) L 11/10/21 05:38 Lymph % (Auto) 36.2 % (13.4-35.0) H 11/10/21 05:38 [place] % (Auto) 12.9 % (0.0-7.3) H 11/10/21 05:38 Eos % (Auto) 5.2 % (0.0-4.3) H 11/10/21 05:38 Baso % (Auto) 0.8 % (0.0-1.8) 11/10/21 05:38 Lymph # (Auto) 1.6 K/mm3 (1.2-5.4) 11/10/21 05:38 [place] # (Auto) 0.6 K/mm3 (0.0-0.8) 11/10/21 05:38 Eos # (Auto) 0.2 K/mm3 (0.0-0.4) 11/10/21 05:38 Baso # (Auto) 0.0 K/mm3 (0.0-0.1) 11/10/21 05:38 Add Manual Diff Complete 11/09/21 16:01 Total Counted 100 11/09/21 16:01 Seg Neutrophils % 44.9 % (40.0-70.0) 11/10/21 05:38 Seg Neuts % (Manual) 58.0 % (40.0-70.0) 11/09/21 16:01 Band Neutrophils % 0 % 11/09/21 16:01 Lymphocytes % (Manual) 27.0 % (13.4-35.0) 11/09/21 16:01 Reactive Lymphs % (Man) 0 % 11/09/21 16:01 Monocytes % (Manual) 12.0 % (0.0-7.3) H 11/09/21 16:01 Eosinophils % (Manual) 3.0 % (0.0-4.3) 11/09/21 16:01 Basophils % (Manual) 0 % (0.0-1.8) 11/09/21 16:01 Metamyelocytes % 0 % 11/09/21 16:01 Myelocytes % 0 % 11/09/21 16:01 Promyelocytes % 0 % 11/09/21 16:01 Blast Cells % 0 % 11/09/21 16:01 Nucleated RBC % Not Reportable 11/09/21 16:01 Seg Neutrophils # 2.0 K/mm3 (1.8-7.7) 11/10/21 05:38 Seg Neutrophils # Man 2.7 K/mm3 (1.8-7.7) 11/09/21 16:01 Band Neutrophils # 0.0 K/mm3 11/09/21 16:01 Lymphocytes # (Manual) 1.3 K/mm3 (1.2-5.4) 11/09/21 16:01 Abs React Lymphs (Man) 0.0 K/mm3 11/09/21 16:01 Monocytes # (Manual) 0.6 K/mm3 (0.0-0.8) 11/09/21 16:01 Eosinophils # (Manual) 0.1 K/mm3 (0.0-0.4) 11/09/21 16:01 Basophils # (Manual) 0.0 K/mm3 (0.0-0.1) 11/09/21 16:01 Metamyelocytes # 0.0 K/mm3 11/09/21 16:01 Myelocytes # 0.0 K/mm3 11/09/21 16:01 Promyelocytes # 0.0 K/mm3 11/09/21 16:01 Blast Cells # 0.0 K/mm3 11/09/21 16:01 WBC Morphology Not Reportable 11/09/21 16:01 Hypersegmented Neuts Not Reportable 11/09/21 16:01 Hyposegmented Neuts Not Reportable 11/09/21 16:01 Hypogranular Neuts Not Reportable 11/09/21 16:01 Smudge Cells Not Reportable 11/09/21 16:01 Toxic Granulation Not Reportable 11/09/21 16:01 Toxic Vacuolation Not Reportable 11/09/21 16:01 Dohle Bodies Not Reportable 11/09/21 16:01 Pelger-Huet Anomaly Not Reportable 11/09/21 16:01 Katharine Rods Not Reportable 11/09/21 16:01 Platelet Estimate Consistent w auto 11/09/21 16:01 Clumped Platelets Not Reportable 11/09/21 16:01 Plt Clumps, EDTA Not Reportable 11/09/21 16:01 Large Platelets Not Reportable 11/09/21 16:01 Giant Platelets Not Reportable 11/09/21 16:01 Platelet Satelliting Not Reportable 11/09/21 16:01 Plt Morphology Comment Not Reportable 11/09/21 16:01 RBC Morphology Normal 11/09/21 16:01 Dimorphic RBCs Not Reportable 11/09/21 16:01 Polychromasia Not Reportable 11/09/21 16:01 Hypochromasia Not Reportable 11/09/21 16:01 Poikilocytosis Not Reportable 11/09/21 16:01 Anisocytosis Not Reportable 11/09/21 16:01 Microcytosis Not Reportable 11/09/21 16:01 Macrocytosis Not Reportable 11/09/21 16:01 Spherocytes Not Reportable 11/09/21 16:01 Pappenheimer Bodies Not Reportable 11/09/21 16:01 Sickle Cells Not Reportable 11/09/21 16:01 Target Cells Not Reportable 11/09/21 16:01 Tear Drop Cells Not Reportable 11/09/21 16:01 Ovalocytes Not Reportable 11/09/21 16:01 Helmet Cells Not Reportable 11/09/21 16:01 [place] Bodies Not Reportable 11/09/21 16:01 T[place] Rings Not Reportable 11/09/21 16:01 [place] Cells Not Reportable 11/09/21 16:01 Bite Cells Not Reportable 11/09/21 16:01 Crenated Cell Not Reportable 11/09/21 16:01 Elliptocytes Not Reportable 11/09/21 16:01 Acanthocytes (Spur) Not Reportable 11/09/21 16:01 Rouleaux Not Reportable 11/09/21 16:01 Hemoglobin C Crystals Not Reportable 11/09/21 16:01 Schistocytes Not Reportable 11/09/21 16:01 Malaria parasites Not Reportable 11/09/21 16:01 [place] Bodies Not Reportable 11/09/21 16:01 Hem Pathologist Commnt No 11/09/21 16:01 ABG pH 7.351 pH Units (7.350-7.450) 11/11/21 08:35 ABG pCO2 67.1 mm Hg 11/11/21 08:35 ABG pO2 57.4 mm Hg (80.0-90.0) L 11/11/21 08:35 ABG HCO3 36.3 mmol/L (20.0-26.0) H 11/11/21 08:35 ABG O2 Saturation 89.6 % (95.0-99.0) L 11/11/21 08:35 ABG O2 Content 20.3 (0.0-44) 11/11/21 08:35 ABG Base Excess 7.6 mmol/L (-2.0-3.0) H 11/11/21 08:35 ABG Hemoglobin 16.6 gm/dl (14.0-18.0) 11/11/21 08:35 ABG Carboxyhemoglobin 2.0 % (0.0-5.0) 11/11/21 08:35 ABG Methemoglobin 0.6 % (0.0-1.5) 11/11/21 08:35 Oxyhemoglobin 87.3 % (95.0-99.0) L 11/11/21 08:35 FiO2 32 % 11/11/21 08:35 Sodium 145 mmol/L (137-145) 11/10/21 05:38 Potassium 5.0 mmol/L (3.6-5.0) 11/10/21 05:38 Chloride 102.1 mmol/L (98-107) 11/10/21 05:38 Carbon Dioxide 37 mmol/L (22-30) H 11/10/21 05:38 Anion Gap 11 mmol/L 11/10/21 05:38 BUN 19 mg/dL (9-20) 11/10/21 05:38 Creatinine 1.3 mg/dL (0.8-1.3) 11/10/21 05:38 Estimated GFR > 60 ml/min 11/10/21 05:38 BUN/Creatinine Ratio 15 % 11/10/21 05:38 Glucose 73 mg/dL (75-100) L 11/10/21 05:38 Calcium 9.0 mg/dL (8.4-10.2) 11/10/21 05:38 Magnesium 2.00 mg/dL (1.7-2.3) 11/09/21 17:43 Total Bilirubin 1.10 mg/dL (0.1-1.2) 11/09/21 16:01 AST 22 units/L (5-40) 11/09/21 16:01 ALT 12 units/L (7-56) 11/09/21 16:01 Alkaline Phosphatase 65 units/L (35-129) 11/09/21 16:01 Ammonia 62.0 umol/L (25-60) H 11/09/21 17:43 Troponin T 0.013 ng/mL (0.00-0.029) 11/09/21 17:43 NT-Pro-B Natriuret Pep 405.7 pg/mL (0-900) 11/10/21 05:38 Total Protein 6.4 g/dL (6.3-8.2) 11/09/21 16:01 Albumin 3.2 g/dL (3.9-5) L 11/09/21 16:01 Albumin/Globulin Ratio 1.0 % 11/09/21 16:01 TSH 1.520 mlU/mL (0.270-4.200) 11/09/21 17:43 Free T4 0.96 ng/dL (0.76-1.46) 11/09/21 17:43 Urine Color [place] (Yellow) 11/09/21 18:45 Urine Turbidity Clear (Clear) 11/09/21 18:45 Urine pH 6.0 (5.0-7.0) 11/09/21 18:45 Ur Specific [place] 1.013 (1.003-1.030) 11/09/21 18:45 Urine Protein 30 mg/dl mg/dL (Negative) 11/09/21 18:45 Urine Glucose (UA) Neg mg/dL (Negative) 11/09/21 18:45 Urine Ketones Neg mg/dL (Negative) 11/09/21 18:45 Urine Blood Neg (Negative) 11/09/21 18:45 Urine Nitrite Neg (Negative) 11/09/21 18:45 Urine Bilirubin Neg (Negative) 11/09/21 18:45 Urine Urobilinogen 4.0 mg/dL (<2.0) 11/09/21 18:45 Ur Leukocyte Esterase Neg (Negative) 11/09/21 18:45 Urine WBC (Auto) 4.0 /HPF (0.0-6.0) 11/09/21 18:45 Urine RBC (Auto) 2.0 /HPF (0.0-6.0) 11/09/21 18:45 U Epithel Cells (Auto) 1.0 /HPF (0-13.0) 11/09/21 18:45 Hyaline Casts 4 /LPF 11/09/21 18:45 Urine Mucus Few /HPF 11/09/21 18:45 Urine Opiates Screen Negative 11/09/21 18:45 Urine Methadone Screen Negative 11/09/21 18:45 Ur Barbiturates Screen Negative 11/09/21 18:45 Ur Phencyclidine Scrn Negative 11/09/21 18:45 Ur Amphetamines Screen Negative 11/09/21 18:45 U Benzodiazepines Scrn Negative 11/09/21 18:45 Urine Cocaine Screen Positive 11/09/21 18:45 U Marijuana (THC) Screen Negative 11/09/21 18:45 Drugs of Abuse Note Disclamer 11/09/21 18:45 Plasma/Serum Alcohol < 0.01 % (0-0.07) 11/09/21 17:43 Microbiology: Microbiology 11/09/21 20:18 Peripheral/Venous Blood Culture - Preliminary 11/09/21 20:09 Peripheral/Venous Blood Culture - Preliminary [place]/IV: Voiding Method Bedside Commode Active Medications - Current Medications Current Medications: Generic Name Dose Route Start Last Admin Trade Name Freq PRN Reason Stop Dose Admin Acetaminophen 650 mg 11/09/21 20:47 11/11/21 00:15 Acetaminophen 325 Mg Tab PO 650 mg Q4H PRN Administration Pain MILD(1-3)/Fever >100.5/BENEDICT Albuterol 2.5 mg 11/09/21 20:47 Albuterol 2.5 Mg/3 Ml Nebu IH Q4H PRN Shortness Of Breath Azithromycin 500 mg 11/10/21 20:00 11/10/21 21:39 Azithromycin 250 Mg Tab PO 500 mg Q24H VIPUL Administration Protocol Clonidine HCl 0.2 mg 11/09/21 22:00 11/11/21 09:47 Clonidine 0.2 Mg Tab PO Not Given BID VIPUL Famotidine 20 mg 11/09/21 22:00 11/11/21 09:45 Famotidine 20 Mg Tab PO 20 mg BID VIPUL Administration Furosemide 20 mg 11/11/21 10:00 11/11/21 09:53 Furosemide 20 Mg Tab PO 20 mg QDAY VIPUL Administration Heparin Sodium (Porcine) 5,000 unit 11/09/21 22:00 11/11/21 09:45 Heparin 5,000 Unit/1 Ml Vial SUB-Q 5,000 unit Q12HR VIPUL Administration Hydromorphone HCl 0.5 mg 11/09/21 20:47 Hydromorphone 1 Mg/1 Ml Inj IV Q13H PRN Pain , Severe (7-10) Ceftriaxone Sodium 2 gm in 100 mls @ 200 mls/hr 11/10/21 21:00 11/10/21 21:39 Rocephin/Ns 2 Gm/100 Ml IV 200 mls/hr Q24H VIPUL Administration Protocol Vancomycin HCl 2,000 mg/ 540 mls @ 250 mls/hr 11/10/21 18:00 11/11/21 05:23 Sodium Chloride IV 250 mls/hr Q12H VIPUL Administration Melatonin 10 mg 11/09/21 22:46 11/11/21 00:20 Melatonin 5 Mg Tab PO 10 mg QHS PRN Administration Sleep Methylprednisolone Sodium Succinate 40 mg 11/09/21 22:00 11/11/21 05:23 Methylprednisolone Sod Succinate 40 Mg/1 Ml Inj IV 40 mg Q8HR VIPUL Administration Nicotine 14 mg 11/10/21 10:00 11/11/21 09:44 Nicotine 14 Mg/24 Hr Patch TD 14 mg QDAY VIPUL Administration Ondansetron HCl 4 mg 11/09/21 20:47 Ondansetron 4 Mg/2 Ml Inj IV Q8H PRN Nausea And Vomiting Oxycodone/Acetaminophen 1 tab 11/09/21 20:47 11/10/21 14:07 Oxycodone /Acetaminophen 5-325mg Tab PO 1 tab Q16H PRN Administration Pain, Moderate (4-6) Sodium Chloride 10 ml 11/09/21 22:00 11/11/21 09:47 Sodium Chloride 0.9% 10 Ml Flush Syringe IV 10 ml BID VIPUL Administration Sodium Chloride 10 ml 11/09/21 20:47 Sodium Chloride 0.9% 10 Ml Flush Syringe IV PRN PRN LINE FLUSH Tamsulosin HCl 0.4 mg 11/10/21 10:00 11/11/21 09:45 Tamsulosin 0.4 Mg Cap PO 0.4 mg DAILY VIPUL Administration Nutrition/Malnutrition Assess - Dietary Evaluation Nutrition/Malnutrition Findings: Nutrition Notes Start: 11/10/21 15:41 Freq: Status: Active Protocol: Document 11/10/21 15:41 TERRELL (Rec: 11/10/21 16:08 TERRELL [email or web address]) Nutrition Notes 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 Current Diet Cardiac/Consistent Carbohydrates Diet (since D ). Labs/Tests 11/10: CO2 37, Glu 73. Pertinent Medications 11/10: Nutritionally unremarkable. Height 5 ft 10 in Weight 146.1 kg [place] Body Weight (kg) 75.45 BMI 46.2 Intake Prior to Admission Good Weight change and time frame Pt denies having loss body weight [employer]. Weight Status Morbidly Obese Subjective/Other Information RD consult for skin risk assessment. No reports available on Pt's PO intake of meals at the time . Pt has missing teeth, according to Physical Assessment History notes. Pt shows no signs of concern for skin risk at the time, according to Physical Assessment History notes. Percent of energy/protein needs met: Prescribed Cardiac/Consistent Carbohydrates Diet provides for energy/protein needs (1, 977 Kcal/86 g) during LOS. Burn Absent Trauma Absent GI Symptoms None Food Allergy No Skin Integrity/Comment Assessment WNL. Minimum of two criteria No #1 Nutrition Diagnosis No nutrition diagnosis at this time Is patient on ventilator? No Is Patient Ambulatory and/or Out of Bed Yes REE-([place]. Jeor-ambulatory/OOB) [ 2564.925 NUTR.[id number]] Kcal/Kg value to use for calculation 14 Approximate Energy Requirements Using 5 kcal/Kg Calculation Used for Recommendations Kcal/kg Additional Notes Protein: 1-1.2 g/Kg AdjBW; 110 -132 g/day. Fluids: 1 ml/Kcal, or as per MD. Nutrition Intervention Follow-Up By: 11/17/21 Additional Comments Continue monitoring food tolerance, %PO intake of meals , and BM.
[2021-11-11] MEDS: ALBUTEROL 2.5 MG/3 ML NEBU IH PRN ×2 (12:57→21:18)
--- NOTE | 2021-11-11 13:19 | XRay Report ---
Left hip one view INDICATION: Pain FINDINGS: Moderate degenerative change in left hip. No acute fractures seen. No definite dislocation. Signer Name: Erik Ramirez MD Signed: 11/11/2021 1:14 PM Workstation Name: [id number]
[2021-11-11] MEDS: oxyCODONE /ACETAMINOPHEN 5-325MG TAB PO PRN (13:49)
[2021-11-11] MEDS ORDERED: POLYETHYLENE GLYCOL 3350 17 GM POWDER PO PRN (15:19)
[2021-11-11 15:59] LABS: BUN/Creatinine Ratio 19; Blood Urea Nitrogen 25 mg/dL (9-20); Calcium 8.8 mg/dL (8.4-10.2); Hemolysis Index 123
[2021-11-11] MEDS ORDERED: SODIUM POLYSTYRENE 15 GM/60 ML ORAL LIQD PO ONE (18:09)
[2021-11-11] MEDS: AZITHROMYCIN 250 MG TAB PO SCH (21:08)
[2021-11-11] MEDS: cefTRIAXone/NS 2 GM/100 ML 2 GM/100 ML BAG IV SCH (21:09)
[2021-11-12 00:54] LABS: BUN/Creatinine Ratio 20; Blood Urea Nitrogen 26 mg/dL (9-20); Calcium 8.8 mg/dL (8.4-10.2); Hemolysis Index 35
[2021-11-12] MEDS: methylPREDNISolone Sod Succinate 40 MG/1 ML INJ IV SCH ×3 (05:03→21:07)
[2021-11-12] MEDS ORDERED: VANCOMYCIN 2,000 MG in SODIUM CHLORIDE 0.9% 500 ML 500 ML IV SCH (06:00)
[2021-11-12 07:29] LABS: BUN/Creatinine Ratio 21; Blood Urea Nitrogen 25 mg/dL (9-20); Calcium 8.6 mg/dL (8.4-10.2); Hemolysis Index 70
--- NOTE | 2021-11-12 07:38 | Progress Note ---
Assessment and Plan - Patient Problems (1) Acute and chronic respiratory failure Current Visit: Yes Status: Acute (2) Acute encephalopathy Current Visit: Yes Status: Acute (3) Acute hypercapnic respiratory failure Current Visit: Yes Status: Acute (4) COPD (chronic obstructive pulmonary disease) Current Visit: Yes Status: Acute (5) GERD (gastroesophageal reflux disease) Current Visit: Yes Status: Acute Qualifiers: Esophagitis presence: without esophagitis Qualified Code(s): K21.9 - Gastro-esophageal reflux disease without esophagitis (6) Pneumonia Current Visit: Yes Status: Acute (7) Prostate cancer Current Visit: Yes Status: Acute (8) Respiratory acidosis Current Visit: Yes Status: Acute (9) Thrombocytopenia Current Visit: Yes Status: Acute (10) Obesity hypoventilation syndrome Current Visit: Yes Status: Acute Subjective Interval history: did wear pap last pm. He reports that he feels better on nasal canula o2 abg noted Objective Vital Signs - 12hr 11/11/21 11/11/21 11/11/21 19:57 21:08 21:22 Temperature 98.0 F Pulse Rate 69 69 Pulse Rate [ Bilateral] Respiratory 19 Rate Respiratory Rate [Bilateral ] Blood Pressure 152/87 152/87 O2 Sat by Pulse 90 92 Oximetry 11/11/21 11/11/21 11/11/21 21:24 22:00 22:59 Temperature 98.3 F Pulse Rate 64 84 Pulse Rate [ 72 Bilateral] Respiratory 19 Rate Respiratory 20 Rate [Bilateral ] Blood Pressure 144/83 O2 Sat by Pulse 95 90 Oximetry 11/12/21 03:05 Temperature 98.2 F Pulse Rate 72 Pulse Rate [ Bilateral] Respiratory 20 Rate Respiratory Rate [Bilateral ] Blood Pressure 152/89 O2 Sat by Pulse 87 Oximetry Constitutional: no acute distress, alert Eyes: non-icteric ENT: oropharynx moist Neck: supple, other (large in circumference) Effort: normal Ascultation: Bilateral: diminished breath sounds Cardiovascular: regular rate and rhythm Gastrointestinal: normoactive bowel sounds, soft, non-tender, non-distended Extremities: edema Neurologic: normal mental status, non-focal exam CBC and BMP: 11/10/21 05:38 11/12/21 06:44 ABG, PT/INR, D-dimer: ABG ABG pH 7.351 pH Units (7.350-7.450) 11/11/21 08:35 ABG pCO2 67.1 mm Hg 11/11/21 08:35 ABG pO2 57.4 mm Hg (80.0-90.0) L 11/11/21 08:35 ABG O2 Saturation 89.6 % (95.0-99.0) L 11/11/21 08:35 Abnormal lab findings: Abnormal Labs 11/09/21 11/09/21 11/09/21 16:01 16:01 17:43 Hgb 15.6 H Hct 47.1 H MCV 105 H MCH 35 H RDW 15.9 H Plt Count 99 L Lymph % (Auto) [place] % (Auto) Eos % (Auto) Monocytes % (Manual) 12.0 H ABG pH ABG pO2 ABG HCO3 ABG O2 Saturation ABG Base Excess Oxyhemoglobin Potassium 5.5 H Chloride Carbon Dioxide 35 H BUN Glucose Ammonia 62.0 H Albumin 3.2 L 11/09/21 11/09/21 11/10/21 17:43 17:57 05:38 Hgb Hct 46.1 H MCV 104 H MCH 34 H RDW 15.5 H Plt Count 111 L Lymph % (Auto) 36.2 H [place] % (Auto) 12.9 H Eos % (Auto) 5.2 H Monocytes % (Manual) ABG pH 7.279 L ABG pO2 69.1 L ABG HCO3 40.0 H ABG O2 Saturation 92.0 L ABG Base Excess 8.7 H Oxyhemoglobin 88.7 L Potassium 5.1 H Chloride Carbon Dioxide BUN Glucose Ammonia Albumin 11/10/21 11/11/21 11/11/21 05:38 08:35 14:56 Hgb Hct MCV MCH RDW Plt Count Lymph % (Auto) [place] % (Auto) Eos % (Auto) Monocytes % (Manual) ABG pH ABG pO2 57.4 L ABG HCO3 36.3 H ABG O2 Saturation 89.6 L ABG Base Excess 7.6 H Oxyhemoglobin 87.3 L Potassium 6.0 H Chloride Carbon Dioxide 37 H 35 H BUN 25 H Glucose 73 L 116 H Ammonia Albumin 11/12/21 11/12/21 00:16 06:44 Hgb Hct MCV MCH RDW Plt Count Lymph % (Auto) [place] % (Auto) Eos % (Auto) Monocytes % (Manual) ABG pH ABG pO2 ABG HCO3 ABG O2 Saturation ABG Base Excess Oxyhemoglobin Potassium Chloride 97.4 L Carbon Dioxide 32 H BUN 26 H 25 H Glucose 156 H 116 H Ammonia Albumin
[2021-11-12] MEDS: NICOTINE 14 MG/24 HR PATCH TD SCH (09:10)
[2021-11-12] MEDS: FAMOTIDINE 20 MG TAB PO SCH ×2 (09:11→21:09)
[2021-11-12] MEDS: TAMSULOSIN 0.4 MG CAP PO SCH (09:11)
[2021-11-12] MEDS: FUROSEMIDE 20 MG TAB PO SCH (09:11)
[2021-11-12] MEDS: HEPARIN 5,000 UNIT/1 ML VIAL SUB-Q SCH ×2 (09:11→21:07)
[2021-11-12] MEDS: oxyCODONE /ACETAMINOPHEN 5-325MG TAB PO PRN ×2 (09:15→21:08)
[2021-11-12] MEDS: cloNIDine 0.2 MG TAB PO SCH ×2 (09:15→21:10)
--- NOTE | 2021-11-12 10:31 | Progress Note ---
Assessment and Plan Assessment and plan: 66 YO Male with Obesity Hypoventilation Syndrome, CaP S/P Radiation therapy, Asthma, COPD, Chronic Respiratory Failure on Home Trilogy machine QHS, and supplemental oxygen 3L via NC, GERD presents to ED for evaluation for respiratory failure and found to have a pulse oximetry of 86% on room air which is consistent with acute hypoxemic respiratory failure. Patient also found to have hypercarbic respiratory failure. Chest x-ray revealed pneumonia. Acute on chronic hypoxic and hypercapnic respiratory failure. Pneumonia Obesity hypoventilation syndrome Acute COPD exacerbation GERD History of prostate cancer 11/10/2021. Continue IV antibiotics, IV steroids, bronchodilators/nebulizers. Continue O2 supplementation to maintain sats greater than 92% and wean as tolerated. BiPAP as clinically indicated. 11/11/2021. Continue IV antibiotics, IV steroids, bronchodilators/nebulizers. Continue O2 supplementation to maintain sats greater than 92% and wean as tolerated. BiPAP as clinically indicated. Patient complained of left hip pain. We will check plain films of the left hip. 11/12/2021. Continue IV antibiotics, IV steroids, bronchodilators/nebulizers. Continue O2 supplementation to maintain sats greater than 92% and wean as tolerated. BiPAP as clinically indicated. Hip x-ray was negative. Anticipates d/c in am. History Interval history: No new issues. Hospitalist Physical - Constitutional Vitals: Temp Pulse Resp BP Pulse Ox 97.7 F 66 20 133/68 91 11/12/21 08:08 11/12/21 09:15 11/12/21 03:05 11/12/21 09:15 11/12/21 08:08 General appearance: Present: no acute distress, obese - EENT Eyes: Present: PERRL, EOM intact ENT: hearing intact, clear oral mucosa, dentition normal - Neck Neck: Present: supple, normal ROM - Respiratory Respiratory effort: normal Respiratory: bilateral: CTA - Cardiovascular Rhythm: regular Heart Sounds: Present: S1 & S2. Absent: gallop, rub - Extremities Extremities: no ischemia, No edema, Full ROM - Abdominal General gastrointestinal: soft, non-tender, non-distended, normal bowel sounds - Integumentary Integumentary: Present: clear, warm, dry - Neurologic Neurologic: CNII-XII intact, moves all extremities HEART Score - HEART Score Troponin: Troponin T 0.013 ng/mL (0.00-0.029) 11/09/21 17:43 Results - Labs CBC & Chem 7: 11/10/21 05:38 11/12/21 06:44 Labs: Laboratory Last Values WBC 4.5 K/mm3 (4.5-11.0) 11/10/21 05:38 RBC 4.44 M/mm3 (3.65-5.03) 11/10/21 05:38 Hgb 15.2 gm/dl (11.8-15.2) 11/10/21 05:38 Hct 46.1 % (35.5-45.6) H 11/10/21 05:38 MCV 104 fl (84-94) H 11/10/21 05:38 MCH 34 pg (28-32) H 11/10/21 05:38 MCHC 33 % (32-34) 11/10/21 05:38 RDW 15.5 % (13.2-15.2) H 11/10/21 05:38 Plt Count 111 K/mm3 (140-440) L 11/10/21 05:38 Lymph % (Auto) 36.2 % (13.4-35.0) H 11/10/21 05:38 [place] % (Auto) 12.9 % (0.0-7.3) H 11/10/21 05:38 Eos % (Auto) 5.2 % (0.0-4.3) H 11/10/21 05:38 Baso % (Auto) 0.8 % (0.0-1.8) 11/10/21 05:38 Lymph # (Auto) 1.6 K/mm3 (1.2-5.4) 11/10/21 05:38 [place] # (Auto) 0.6 K/mm3 (0.0-0.8) 11/10/21 05:38 Eos # (Auto) 0.2 K/mm3 (0.0-0.4) 11/10/21 05:38 Baso # (Auto) 0.0 K/mm3 (0.0-0.1) 11/10/21 05:38 Add Manual Diff Complete 11/09/21 16:01 Total Counted 100 11/09/21 16:01 Seg Neutrophils % 44.9 % (40.0-70.0) 11/10/21 05:38 Seg Neuts % (Manual) 58.0 % (40.0-70.0) 11/09/21 16:01 Band Neutrophils % 0 % 11/09/21 16:01 Lymphocytes % (Manual) 27.0 % (13.4-35.0) 11/09/21 16:01 Reactive Lymphs % (Man) 0 % 11/09/21 16:01 Monocytes % (Manual) 12.0 % (0.0-7.3) H 11/09/21 16:01 Eosinophils % (Manual) 3.0 % (0.0-4.3) 11/09/21 16:01 Basophils % (Manual) 0 % (0.0-1.8) 11/09/21 16:01 Metamyelocytes % 0 % 11/09/21 16:01 Myelocytes % 0 % 11/09/21 16:01 Promyelocytes % 0 % 11/09/21 16:01 Blast Cells % 0 % 11/09/21 16:01 Nucleated RBC % Not Reportable 11/09/21 16:01 Seg Neutrophils # 2.0 K/mm3 (1.8-7.7) 11/10/21 05:38 Seg Neutrophils # Man 2.7 K/mm3 (1.8-7.7) 11/09/21 16:01 Band Neutrophils # 0.0 K/mm3 11/09/21 16:01 Lymphocytes # (Manual) 1.3 K/mm3 (1.2-5.4) 11/09/21 16:01 Abs React Lymphs (Man) 0.0 K/mm3 11/09/21 16:01 Monocytes # (Manual) 0.6 K/mm3 (0.0-0.8) 11/09/21 16:01 Eosinophils # (Manual) 0.1 K/mm3 (0.0-0.4) 11/09/21 16:01 Basophils # (Manual) 0.0 K/mm3 (0.0-0.1) 11/09/21 16:01 Metamyelocytes # 0.0 K/mm3 11/09/21 16:01 Myelocytes # 0.0 K/mm3 11/09/21 16:01 Promyelocytes # 0.0 K/mm3 11/09/21 16:01 Blast Cells # 0.0 K/mm3 11/09/21 16:01 WBC Morphology Not Reportable 11/09/21 16:01 Hypersegmented Neuts Not Reportable 11/09/21 16:01 Hyposegmented Neuts Not Reportable 11/09/21 16:01 Hypogranular Neuts Not Reportable 11/09/21 16:01 Smudge Cells Not Reportable 11/09/21 16:01 Toxic Granulation Not Reportable 11/09/21 16:01 Toxic Vacuolation Not Reportable 11/09/21 16:01 Dohle Bodies Not Reportable 11/09/21 16:01 Pelger-Huet Anomaly Not Reportable 11/09/21 16:01 Katharine Rods Not Reportable 11/09/21 16:01 Platelet Estimate Consistent w auto 11/09/21 16:01 Clumped Platelets Not Reportable 11/09/21 16:01 Plt Clumps, EDTA Not Reportable 11/09/21 16:01 Large Platelets Not Reportable 11/09/21 16:01 Giant Platelets Not Reportable 11/09/21 16:01 Platelet Satelliting Not Reportable 11/09/21 16:01 Plt Morphology Comment Not Reportable 11/09/21 16:01 RBC Morphology Normal 11/09/21 16:01 Dimorphic RBCs Not Reportable 11/09/21 16:01 Polychromasia Not Reportable 11/09/21 16:01 Hypochromasia Not Reportable 11/09/21 16:01 Poikilocytosis Not Reportable 11/09/21 16:01 Anisocytosis Not Reportable 11/09/21 16:01 Microcytosis Not Reportable 11/09/21 16:01 Macrocytosis Not Reportable 11/09/21 16:01 Spherocytes Not Reportable 11/09/21 16:01 Pappenheimer Bodies Not Reportable 11/09/21 16:01 Sickle Cells Not Reportable 11/09/21 16:01 Target Cells Not Reportable 11/09/21 16:01 Tear Drop Cells Not Reportable 11/09/21 16:01 Ovalocytes Not Reportable 11/09/21 16:01 Helmet Cells Not Reportable 11/09/21 16:01 [place] Bodies Not Reportable 11/09/21 16:01 [place] Rings Not Reportable 11/09/21 16:01 [place]ulia Cells Not Reportable 11/09/21 16:01 Bite Cells Not Reportable 11/09/21 16:01 Crenated Cell Not Reportable 11/09/21 16:01 Elliptocytes Not Reportable 11/09/21 16:01 Acanthocytes (Spur) Not Reportable 11/09/21 16:01 Rouleaux Not Reportable 11/09/21 16:01 Hemoglobin C Crystals Not Reportable 11/09/21 16:01 Schistocytes Not Reportable 11/09/21 16:01 Malaria parasites Not Reportable 11/09/21 16:01 Odin Bodies Not Reportable 11/09/21 16:01 Hem Pathologist Commnt No 11/09/21 16:01 ABG pH 7.351 pH Units (7.350-7.450) 11/11/21 08:35 ABG pCO2 67.1 mm Hg 11/11/21 08:35 ABG pO2 57.4 mm Hg (80.0-90.0) L 11/11/21 08:35 ABG HCO3 36.3 mmol/L (20.0-26.0) H 11/11/21 08:35 ABG O2 Saturation 89.6 % (95.0-99.0) L 11/11/21 08:35 ABG O2 Content 20.3 (0.0-44) 11/11/21 08:35 ABG Base Excess 7.6 mmol/L (-2.0-3.0) H 11/11/21 08:35 ABG Hemoglobin 16.6 gm/dl (14.0-18.0) 11/11/21 08:35 ABG Carboxyhemoglobin 2.0 % (0.0-5.0) 11/11/21 08:35 ABG Methemoglobin 0.6 % (0.0-1.5) 11/11/21 08:35 Oxyhemoglobin 87.3 % (95.0-99.0) L 11/11/21 08:35 FiO2 32 % 11/11/21 08:35 Sodium 138 mmol/L (137-145) 11/12/21 06:44 Potassium 4.9 mmol/L (3.6-5.0) 11/12/21 06:44 Chloride 100.0 mmol/L (98-107) 11/12/21 06:44 Carbon Dioxide 30 mmol/L (22-30) 11/12/21 06:44 Anion Gap 13 mmol/L 11/12/21 06:44 BUN 25 mg/dL (9-20) H 11/12/21 06:44 Creatinine 1.2 mg/dL (0.8-1.3) 11/12/21 06:44 Estimated GFR > 60 ml/min 11/12/21 06:44 BUN/Creatinine Ratio 21 % 11/12/21 06:44 Glucose 116 mg/dL (75-100) H 11/12/21 06:44 Calcium 8.6 mg/dL (8.4-10.2) 11/12/21 06:44 Magnesium 2.00 mg/dL (1.7-2.3) 11/09/21 17:43 Total Bilirubin 1.10 mg/dL (0.1-1.2) 11/09/21 16:01 AST 22 units/L (5-40) 11/09/21 16:01 ALT 12 units/L (7-56) 11/09/21 16:01 Alkaline Phosphatase 65 units/L (35-129) 11/09/21 16:01 Ammonia 62.0 umol/L (25-60) H 11/09/21 17:43 Troponin T 0.013 ng/mL (0.00-0.029) 11/09/21 17:43 NT-Pro-B Natriuret Pep 405.7 pg/mL (0-900) 11/10/21 05:38 Total Protein 6.4 g/dL (6.3-8.2) 11/09/21 16:01 Albumin 3.2 g/dL (3.9-5) L 11/09/21 16:01 Albumin/Globulin Ratio 1.0 % 11/09/21 16:01 TSH 1.520 mlU/mL (0.270-4.200) 11/09/21 17:43 Free T4 0.96 ng/dL (0.76-1.46) 11/09/21 17:43 Urine Color [place] (Yellow) 11/09/21 18:45 Urine Turbidity Clear (Clear) 11/09/21 18:45 Urine pH 6.0 (5.0-7.0) 11/09/21 18:45 Ur Specific Gray 1.013 (1.003-1.030) 11/09/21 18:45 Urine Protein 30 mg/dl mg/dL (Negative) 11/09/21 18:45 Urine Glucose (UA) Neg mg/dL (Negative) 11/09/21 18:45 Urine Ketones Neg mg/dL (Negative) 11/09/21 18:45 Urine Blood Neg (Negative) 11/09/21 18:45 Urine Nitrite Neg (Negative) 11/09/21 18:45 Urine Bilirubin Neg (Negative) 11/09/21 18:45 Urine Urobilinogen 4.0 mg/dL (<2.0) 11/09/21 18:45 Ur Leukocyte Esterase Neg (Negative) 11/09/21 18:45 Urine WBC (Auto) 4.0 /HPF (0.0-6.0) 11/09/21 18:45 Urine RBC (Auto) 2.0 /HPF (0.0-6.0) 11/09/21 18:45 U Epithel Cells (Auto) 1.0 /HPF (0-13.0) 11/09/21 18:45 Hyaline Casts 4 /LPF 11/09/21 18:45 Urine Mucus Few /HPF 11/09/21 18:45 Urine Opiates Screen Negative 11/09/21 18:45 Urine Methadone Screen Negative 11/09/21 18:45 Ur Barbiturates Screen Negative 11/09/21 18:45 Ur Phencyclidine Scrn Negative 11/09/21 18:45 Ur Amphetamines Screen Negative 11/09/21 18:45 U Benzodiazepines Scrn Negative 11/09/21 18:45 Urine Cocaine Screen Positive 11/09/21 18:45 U Marijuana (THC) Screen Negative 11/09/21 18:45 Drugs of Abuse Note Disclamer 11/09/21 18:45 Plasma/Serum Alcohol < 0.01 % (0-0.07) 11/09/21 17:43 Microbiology: Microbiology 11/09/21 20:09 Peripheral/Venous Blood Culture - Preliminary Coag Negative Staphylococcus 11/09/21 20:18 Peripheral/Venous Blood Culture - Preliminary Coag Negative Staphylococcus [place]/IV: Voiding Method Urinal Active Medications - Current Medications Current Medications: Generic Name Dose Route Start Last Admin Trade Name Freq PRN Reason Stop Dose Admin Acetaminophen 650 mg 11/09/21 20:47 11/11/21 00:15 Acetaminophen 325 Mg Tab PO 650 mg Q4H PRN Administration Pain MILD(1-3)/Fever >100.5/BENEDICT Albuterol 2.5 mg 11/09/21 20:47 11/11/21 21:18 Albuterol 2.5 Mg/3 Ml Nebu IH 2.5 mg Q4H PRN Administration Shortness Of Breath Azithromycin 500 mg 11/10/21 20:00 11/11/21 21:08 Azithromycin 250 Mg Tab PO 11/13/21 20:01 500 mg Q24H VIPUL Administration Protocol Clonidine HCl 0.2 mg 11/09/21 22:00 11/12/21 09:15 Clonidine 0.2 Mg Tab PO 0.2 mg BID VIPUL Administration Famotidine 20 mg 11/09/21 22:00 11/12/21 09:11 Famotidine 20 Mg Tab PO 20 mg BID VIPUL Administration Furosemide 20 mg 11/11/21 10:00 11/12/21 09:11 Furosemide 20 Mg Tab PO 20 mg QDAY VIPUL Administration Heparin Sodium (Porcine) 5,000 unit 11/09/21 22:00 11/12/21 09:11 Heparin 5,000 Unit/1 Ml Vial SUB-Q 5,000 unit Q12HR VIPUL Administration Hydromorphone HCl 0.5 mg 11/09/21 20:47 Hydromorphone 1 Mg/1 Ml Inj IV Q13H PRN Pain , Severe (7-10) Ceftriaxone Sodium 2 gm in 100 mls @ 200 mls/hr 11/10/21 21:00 11/11/21 21:09 Rocephin/Ns 2 Gm/100 Ml IV 11/13/21 21:29 200 mls/hr Q24H VIPUL Administration Protocol Melatonin 10 mg 11/09/21 22:46 11/11/21 21:08 Melatonin 5 Mg Tab PO 10 mg QHS PRN Administration Sleep Methylprednisolone Sodium Succinate 40 mg 11/09/21 22:00 11/12/21 05:03 Methylprednisolone Sod Succinate 40 Mg/1 Ml Inj IV 40 mg Q8HR VIPUL Administration Nicotine 14 mg 11/10/21 10:00 11/12/21 09:10 Nicotine 14 Mg/24 Hr Patch TD 14 mg QDAY VIPUL Administration Ondansetron HCl 4 mg 11/09/21 20:47 Ondansetron 4 Mg/2 Ml Inj IV Q8H PRN Nausea And Vomiting Oxycodone/Acetaminophen 1 tab 11/09/21 20:47 11/12/21 09:15 Oxycodone /Acetaminophen 5-325mg Tab PO 1 tab Q16H PRN Administration Pain, Moderate (4-6) Polyethylene Glycol 17 gm 11/11/21 15:19 Polyethylene Glycol 3350 17 Gm Powder PO BID PRN Constipation Sodium Chloride 10 ml 11/09/21 22:00 11/12/21 09:13 Sodium Chloride 0.9% 10 Ml Flush Syringe IV 10 ml BID VIPUL Administration Sodium Chloride 10 ml 11/09/21 20:47 Sodium Chloride 0.9% 10 Ml Flush Syringe IV PRN PRN LINE FLUSH Tamsulosin HCl 0.4 mg 11/10/21 10:00 11/12/21 09:11 Tamsulosin 0.4 Mg Cap PO 0.4 mg DAILY VIPUL Administration Nutrition/Malnutrition Assess - Dietary Evaluation Nutrition/Malnutrition Findings: Nutrition Notes Start: 11/10/21 15:41 Freq: Status: Active Protocol: Document 11/10/21 15:41 TERRELL (Rec: 11/10/21 16:08 TERRELL [id number]) Nutrition Notes 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 Current Diet Cardiac/Consistent Carbohydrates Diet (since D ). Labs/Tests 11/10: CO2 37, Glu 73. Pertinent Medications 11/10: Nutritionally unremarkable. 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 Weight Status Morbidly Obese Subjective/Other Information RD consult for skin risk assessment. No reports available on Pt's PO intake of meals at the time . Pt has missing teeth, according to Physical Assessment History notes. Pt shows no signs of concern for skin risk at the time, according to Physical Assessment History notes. Percent of energy/protein needs met: Prescribed Cardiac/Consistent Carbohydrates Diet provides for energy/protein needs (1, 977 Kcal/86 g) during LOS. Burn Absent Trauma Absent GI Symptoms None Food Allergy No Skin Integrity/Comment Assessment WNL. Minimum of two criteria No #1 Nutrition Diagnosis No nutrition diagnosis at this time Is patient on ventilator? No Is Patient Ambulatory and/or Out of Bed Yes REE-([facility]-ambulatory/OOB) [ 2914.925 NUTR.[id number]] Kcal/Kg value to use for calculation 14 Approximate Energy Requirements Using 2044 kcal/Kg Calculation Used for Recommendations Kcal/kg Additional Notes Protein: 1-1.2 g/Kg AdjBW; 110 -132 g/day. Fluids: 1 ml/Kcal, or as per MD. Nutrition Intervention Follow-Up By: 11/17/21 Additional Comments Continue monitoring food tolerance, %PO intake of meals , and BM.
--- NOTE | 2021-11-12 13:10 | Consultation ---
History of Present Illness - Reason for Consult Consult date: 11/12/21 Coag negative Staph bacteremia Requesting physician: ALEAH REZA - History of Present Illness The patient is a 66-year-old male with morbid obesity, obesity hypoventilation syndrome, history of prostate cancer status post radiation, COPD, chronic respiratory failure on home oxygen, remote R ETIENNE was admitted with worsening shortness of breath, found to have hypercapnic respiratory failure. Imaging showed right lung base pneumonia. Was started on steroids, nebulizations, antib iotics. Pulmonary was also involved. ID was consulted due to positive blood cultures. Has remained afebrile throughout hospitalization. Labs without leukocytosis. Review of Systems: General: no fevers,chills or rigors HEENT: no new visual disturbance Respiratory: + shortness of breath Cardiovascular: No chest pain, syncope Gastrointestinal: No nausea, vomiting or diarrhea Genitourinary: No dysuria or hematuria Musculoskeletal: No new or worsening neck pain or back pain Neurologic: No headaches, seizures Hematologic: No easy bruising or bleeding Endocrine: No night sweats or acute weight loss Skin: negative for rash, jaundice Psychiatric: No suicidal or homicidal ideation Past History Past Medical History: cancer, COPD, GERD, other (See HPI) Past Surgical History: Other (Right lower extremity amputation) Social history: , lives with family Family history: diabetes, hypertension Medications and Allergies Allergies Allergy/AdvReac Type Severity Reaction Status Date / Time No Known Allergies Allergy Verified 11/09/21 14:59 Home Medications Medication Instructions Recorded Confirmed Last Taken Type Oxycodone HCl [Oxycodone] 30 mg PO BID 04/07/14 11/10/21 10/03/16 History cloNIDine HCL [Catapres] 0.2 mg PO BID 04/07/14 11/10/21 11/09/21 History Nebivolol (Nf) [Bystolic (Nf)] 1 tab PO DAILY 06/02/16 11/10/21 10/16/16 History Oxycodone HCl [Oxycontin] 1 tab PO BID 06/02/16 11/10/21 Unknown History Tamsulosin HCl 1 tab PO DAILY 06/02/16 11/10/21 11/09/21 History Tiotropium [Spiriva] 18 mcg IH QDAY 06/02/16 11/10/21 11/09/21 History Active Meds: Active Medications Acetaminophen (Acetaminophen 325 Mg Tab) 650 mg PO Q4H PRN PRN Reason: Pain MILD(1-3)/Fever >100.5/BENEDICT Last Admin: 11/11/21 00:15 Dose: 650 mg Albuterol (Albuterol 2.5 Mg/3 Ml Nebu) 2.5 mg IH Q4H PRN PRN Reason: Shortness Of Breath Last Admin: 11/11/21 21:18 Dose: 2.5 mg Azithromycin (Azithromycin 250 Mg Tab) 500 mg PO Q24H [facility]; Protocol Stop: 11/13/21 20:01 Last Admin: 11/11/21 21:08 Dose: 500 mg Clonidine HCl (Clonidine 0.2 Mg Tab) 0.2 mg PO BID [facility] Last Admin: 11/12/21 09:15 Dose: 0.2 mg Famotidine (Famotidine 20 Mg Tab) 20 mg PO BID [facility] Last Admin: 11/12/21 09:11 Dose: 20 mg Furosemide (Furosemide 20 Mg Tab) 20 mg PO QDAY [facility] Last Admin: 11/12/21 09:11 Dose: 20 mg Heparin Sodium (Porcine) (Heparin 5,000 Unit/1 Ml Vial) 5,000 unit SUB-Q Q12HR [facility] Last Admin: 11/12/21 09:11 Dose: 5,000 unit Hydromorphone HCl (Hydromorphone 1 Mg/1 Ml Inj) 0.5 mg IV Q13H PRN PRN Reason: Pain , Severe (7-10) Ceftriaxone Sodium (Rocephin/Ns 2 Gm/100 Ml) 2 gm in 100 mls @ 200 mls/hr IV Q24H [facility]; Protocol Stop: 11/13/21 21:29 Last Admin: 11/11/21 21:09 Dose: 200 mls/hr Melatonin (Melatonin 5 Mg Tab) 10 mg PO QHS PRN PRN Reason: Sleep Last Admin: 11/11/21 21:08 Dose: 10 mg Methylprednisolone Sodium Succinate (Methylprednisolone Sod Succinate 40 Mg/1 Ml Inj) 40 mg IV Q8HR [facility] Last Admin: 11/12/21 12:59 Dose: 40 mg Nicotine (Nicotine 14 Mg/24 Hr Patch) 14 mg TD QDAY [facility] Last Admin: 11/12/21 09:10 Dose: 14 mg Ondansetron HCl (Ondansetron 4 Mg/2 Ml Inj) 4 mg IV Q8H PRN PRN Reason: Nausea And Vomiting Oxycodone/Acetaminophen (Oxycodone /Acetaminophen 5-325mg Tab) 1 tab PO Q16H PRN PRN Reason: Pain, Moderate (4-6) Last Admin: 11/12/21 09:15 Dose: 1 tab Polyethylene Glycol (Polyethylene Glycol 3350 17 Gm Powder) 17 gm PO BID PRN PRN Reason: Constipation Last Admin: 11/12/21 12:54 Dose: 17 gm Sodium Chloride (Sodium Chloride 0.9% 10 Ml Flush Syringe) 10 ml IV BID [facility] Last Admin: 11/12/21 09:13 Dose: 10 ml Sodium Chloride (Sodium Chloride 0.9% 10 Ml Flush Syringe) 10 ml IV PRN PRN PRN Reason: LINE FLUSH Tamsulosin HCl (Tamsulosin 0.4 Mg Cap) 0.4 mg PO DAILY [facility] Last Admin: 11/12/21 09:11 Dose: 0.4 mg Physical Examination - Physical Exam Narrative exam: Physical Exam: Constitutional: Alert, cooperative. No acute distress. Morbid obesity Head, Ears, Nose: Normocephalic, atraumatic. External ears, nose normal Eyes: Conjunctivae/corneas clear. No icterus. No ptosis. Neck: Supple, no meningeal signs Cardiovascular: S1, S2 + Respiratory: b/l clear, no crackles heard, good air movement GI: Soft, non-tender; bowel sounds normal. No peritoneal signs Musculoskeletal: No pedal edema, no cyanosis. Obese. Right AKA Skin: No rash or abscess Hem/Lymphatic: No palpable cervical or supraclavicular nodes. No lymphangitis Psych: Mood ok. Affect normal Neurological: Awake, alert, oriented. No gross abnormality - Constitutional Vitals: Vital Signs Temp Pulse Resp BP Pulse Ox 98.3 F 61 20 118/57 90 11/12/21 12:18 11/12/21 12:18 11/12/21 12:18 11/12/21 12:18 11/12/21 12:18 Temperature -Last 24 Hours Temperature 98.3 F Temperature 97.7 F Temperature 97.7 F Temperature 98.2 F Temperature 98.3 F Temperature 98.0 F Temperature 98.3 F Results - Labs CBC & Chem 7: 11/10/21 05:38 03/18/22 06:44 Labs: Abnormal lab results 11/11/21 11/12/21 11/12/21 Range/Units 14:56 00:16 06:44 Potassium 6.0 H (3.6-5.0) mmol/L Chloride 97.4 L (98-107) mmol/L Carbon Dioxide 35 H 32 H (22-30) mmol/L BUN 25 H 26 H 25 H (9-20) mg/dL Glucose 116 H 156 H 116 H (75-100) mg/dL - Imaging and Cardiology Chest x-ray: report reviewed, image reviewed (?RLL pna) Assessment and Plan Cultures: 11/09/2021 blood culture: Coag negative Staphylococcus in 3 of 4 bottles. A/P: 66-year-old male with morbid obesity, obesity hypoventilation syndrome, history of prostate cancer status post radiation, COPD, chronic respiratory failure on home oxygen, remote right AKA was admitted with worsening shortness of breath, found to have hypercapnic respiratory failure: #Coag negative staph bacteremia: 3 out of 4 bottles positive, however different morphologies. No fever, no leukocytosis. High likelihood of contaminant. Denies indwelling intravascular prosthetic material. #Pneumonia, acute on chronic respiratory failure #Urinary tox screen positive for cocaine #Morbid obesity Recs: Coag negative staph in blood cultures likely represents contaminant, no vancomycin needed Complete 5 days of antibiotics for pneumonia Will sign off. Please call with questions. Matias Lange MD, FACP, [facility] ([facility] O: [phone] F: [phone] C: [phone]
[2021-11-12] MEDS: ALBUTEROL 2.5 MG/3 ML NEBU IH PRN (15:34)
--- NOTE | 2021-11-12 18:43 | Electrocardiograph Report ---
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 PRWP Probable right ventricular hypertrophy Borderline T abnormalities, diffuse leads No previous ECG available for comparison Electronically Signed On 11-12-2021 18:43:10 EDT by Sven Ochoa
[2021-11-12] MEDS: cefTRIAXone/NS 2 GM/100 ML 2 GM/100 ML BAG IV SCH (21:08)
[2021-11-12] MEDS: AZITHROMYCIN 250 MG TAB PO SCH (21:09)
[2021-11-13] MEDS: methylPREDNISolone Sod Succinate 40 MG/1 ML INJ IV SCH ×2 (06:25→06:26)
[2021-11-13] MEDS: oxyCODONE /ACETAMINOPHEN 5-325MG TAB PO PRN (06:38)
[2021-11-13 08:10] VITALS: BP 125/73
[2021-11-13] MEDS: NICOTINE 14 MG/24 HR PATCH TD SCH (08:59)
[2021-11-13] MEDS: FAMOTIDINE 20 MG TAB PO SCH (08:59)
[2021-11-13] MEDS: HEPARIN 5,000 UNIT/1 ML VIAL SUB-Q SCH (08:59)
[2021-11-13] MEDS: FUROSEMIDE 20 MG TAB PO SCH (08:59)
[2021-11-13] MEDS: cloNIDine 0.2 MG TAB PO SCH (08:59)
[2021-11-13] MEDS: TAMSULOSIN 0.4 MG CAP PO SCH (08:59)
--- NOTE | 2021-11-13 09:48 | Discharge Summary ---
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 11/12/21 12:53 Physical Therapy Evaluation and Treat [CONS] Urgent Comment: pt is requesting manual w/c and walker Reason For Exam: PT to eval and treat Primary care physician: B2B OUTSIDE SAL[employer] REPRESENTATIVE Hospitalization Reason for admission: PNA Condition: Stable Hospital course: 66 YO Male with Obesity Hypoventilation Syndrome, CaP S/P Radiation therapy, Asthma, COPD, Chronic Respiratory Failure on Home Trilogy machine QHS, and supplemental oxygen 3L via NC, GERD presents to ED for evaluation for respiratory failure and found to have a pulse oximetry of 86% on room air which is consistent with acute hypoxemic respiratory failure. Patient also found to have hypercarbic respiratory failure. Chest x-ray revealed pneumonia. The patient was admitted with diagnosis below: Acute on chronic hypoxic and hypercapnic respiratory failure. Pneumonia Obesity hypoventilation syndrome Acute COPD exacerbation GERD History of prostate cancer Hospital course: 11/10/2021. Continue IV antibiotics, IV steroids, bronchodilators/nebulizers. Continue O2 supplementation to maintain sats greater than 92% and wean as tolerated. BiPAP as clinically indicated. 11/11/2021. Continue IV antibiotics, IV steroids, bronchodilators/nebulizers. Continue O2 supplementation to maintain sats greater than 92% and wean as tolerated. BiPAP as clinically indicated. Patient complained of left hip pain. We will check plain films of the left hip. 11/12/2021. Continue IV antibiotics, IV steroids, bronchodilators/nebulizers. Continue O2 supplementation to maintain sats greater than 92% and wean as tolerated. BiPAP as clinically indicated. Hip x-ray was negative. Anticipates d/c in am. 11/13/2021. Patient is back to baseline respiratory status and comfortable with 3 L O2. The patient will discharge home with antibiotics and Medrol Dosepak. Dedicated discharge time 32 minutes. Disposition: 30 STILL A PATIENT Final Discharge Diagnosis (Prints w/discharge instructions): Acute on chronic hypoxic and hypercapnic respiratory failure. Pneumonia. Obesity hypoventilation syndrome. Acute COPD exacerbation. GERD. History of prostate cancer Core Measure Documentation - Palliative Care Palliative Care/ Comfort Measures: Not Applicable - Core Measures Any of the following diagnoses?: none Exam - Constitutional Vitals: Temp Pulse Resp BP Pulse Ox 98.4 F 68 18 125/73 93 11/13/21 08:08 11/13/21 08:08 11/13/21 08:08 11/13/21 08:08 11/13/21 08:08 General appearance: Present: no acute distress, well-nourished - EENT Eyes: Present: PERRL ENT: hearing intact, clear oral mucosa - Neck Neck: Present: supple, normal ROM - Respiratory Respiratory effort: normal Respiratory: bilateral: CTA - Cardiovascular Heart Sounds: Present: S1 & S2. Absent: rub, click - Extremities Extremities: pulses symmetrical, No edema Peripheral Pulses: within normal limits - Abdominal General gastrointestinal: Present: soft, non-tender, non-distended, normal bowel sounds Male genitourinary: Present: normal - Integumentary Integumentary: Present: clear, warm, dry - Musculoskeletal Musculoskeletal: gait normal, strength equal bilaterally - Psychiatric Psychiatric: appropriate mood/affect, intact judgment & insight - Neurologic Neurologic: CNII-XII intact, moves all extremities Plan Activity: advance as tolerated Weight Bearing Status: Weight Bear as Tolerated Diet: low cholesterol, low salt Follow up with: IVANA PAK MD [Primary Care Provider] - 3-5 Days HERMELINDA JORDAN MD [Staff Physician] - 7 Days Prescriptions: Oxycodone HCl [oxyCODONE] 30 mg PO BID #4
== END 2021-11-13 12:36 | disposition home or self-care (01) | DRG 193 ==
LOC: ED 14:53 → 4A 20:47
PROVIDERS: ADMIT Internal Medicine; ATTEND Hospitalist
PROC: 5A09457 Assistance with Respiratory Ventilation, 24-96 Consecutive Hours, Continuous Positive Airway Pressure (ICD-10-PCS; 2021-11-09)
PROC: 4A033R1 Measurement of Arterial Saturation, Peripheral, Percutaneous Approach (ICD-10-PCS; principal; 2021-11-11)
DX: J18.9 Pneumonia, unspecified organism (principal); J96.22 Acute and chronic respiratory failure with hypercapnia; J96.21 Acute and chronic respiratory failure with hypoxia; E66.2 Morbid (severe) obesity with alveolar hypoventilation; J44.0 Chronic obstructive pulmonary disease with (acute) lower respiratory infection; E87.2 Acidosis; G93.40 Encephalopathy, unspecified; J44.1 Chronic obstructive pulmonary disease with (acute) exacerbation; G47.00 Insomnia, unspecified; Z85.46 Personal history of malignant neoplasm of prostate; K21.9 Gastro-esophageal reflux disease without esophagitis; I10 Essential (primary) hypertension; J45.909 Unspecified asthma, uncomplicated; F17.200 Nicotine dependence, unspecified, uncomplicated; Z89.611 Acquired absence of right leg above knee; D69.6 Thrombocytopenia, unspecified; F14.10 Cocaine abuse, uncomplicated; Z83.3 Family history of diabetes mellitus; Z82.49 Family history of ischemic heart disease and other diseases of the circulatory system
CPT/HCPCS: 36415; 36600; 70450; 71045; 74176; 80048; 80053; 80307; 80320; 81001; 82140; 82803; 83735; 83880; 84132; 84439; 84443; 84484; 85007; 85025; 87040; 93005; 94640; 94660; 94760; 99406; G0378; G0480; J0456; J0696; J1644; J2920; J3370; J7040

== ENCOUNTER 2021-12-07 09:43 | Inpatient (IN) | payer MEDICARE ==
--- NOTE | 2021-12-07 12:31 | Emergency Department Report ---
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 Patient was discharged home on oxygen and according to the family member he has been using this oxygen supplement since then. She also mentioned that patient has his good and bad days. Patient also reports some discomfort in the area of his right lower abdomen and the amputated area. No other modifying or positive factors reported. - Related Data Home Medications Medication Instructions Recorded Confirmed Last Taken cloNIDine HCL [Catapres] 0.2 mg PO BID 04/07/14 11/10/21 11/09/21 Nebivolol (Nf) [Bystolic (Nf)] 1 tab PO DAILY 06/02/16 11/10/21 10/16/16 Oxycodone HCl [Oxycontin] 1 tab PO BID 06/02/16 11/10/21 Unknown Tamsulosin HCl 1 tab PO DAILY 06/02/16 11/10/21 11/09/21 Tiotropium [Spiriva] 18 mcg IH QDAY 06/02/16 11/10/21 11/09/21 Previous Rx's Medication Instructions Recorded Last Taken Type Oxycodone HCl [oxyCODONE] 30 mg PO BID #4 11/13/21 Unknown Rx cefUROXime [Ceftin] 500 mg PO Q12H 7 Days #14 tab 11/13/21 Unknown Rx methylPREDNISolone [Medrol 4MG 4 mg PO DAILY #1 11/13/21 Unknown Rx DOSEPAK (21 tabs)] Allergies Allergy/AdvReac Type Severity Reaction Status Date / Time No Known Allergies Allergy Verified 12/07/21 09:49 ED Review of Systems ROS: Stated complaint: SOB Other details as noted in HPI Comment: All other systems reviewed and negative Gastrointestinal: other (Right lower abdominal area discomfort associated with warmth) Skin: rash, other (Red rash with warmth in the area of right lower abdominal region) Neurological: other (Other mental status changes) ED Past Medical Hx - Past Medical History Hx Hypertension: Yes (ON BYSTOLIC) Hx GERD: Yes Hx Renal Disease: Yes (NEPHROSIS A CHILD) Hx Asthma: Yes Hx COPD: Yes (USES ALBUTEROL) Hx HIV: No Additional medical history: PROSTATE cancer, sleep apnea, home oxygen use 3 L as needed - Surgical History Additional Surgical History: [facility] - Social History Smoking Status: Never Smoker - Medications Home Medications: Home Medications Medication Instructions Recorded Confirmed Last Taken Type cloNIDine HCL [Catapres] 0.2 mg PO BID 04/07/14 11/10/21 11/09/21 History Nebivolol (Nf) [Bystolic (Nf)] 1 tab PO DAILY 06/02/16 11/10/21 10/16/16 History Oxycodone HCl [Oxycontin] 1 tab PO BID 06/02/16 11/10/21 Unknown History Tamsulosin HCl 1 tab PO DAILY 06/02/16 11/10/21 11/09/21 History Tiotropium [Spiriva] 18 mcg IH QDAY 06/02/16 11/10/21 11/09/21 History Oxycodone HCl [oxyCODONE] 30 mg PO BID #4 11/13/21 Unknown Rx cefUROXime [Ceftin] 500 mg PO Q12H 7 Days #14 tab 11/13/21 Unknown Rx methylPREDNISolone [Medrol 4MG 4 mg PO DAILY #1 11/13/21 Unknown Rx DOSEPAK (21 tabs)] ED Physical Exam - General Limitations: No Limitations General appearance: alert, in no apparent distress - Head Head exam: Present: normal inspection - Eye Eye exam: Present: normal appearance Pupils: Present: normal accommodation - ENT ENT exam: Present: normal exam, normal orophraynx, mucous membranes moist - Neck Neck exam: Present: normal inspection, full ROM. Absent: tenderness - Respiratory Respiratory exam: Present: normal lung sounds bilaterally. Absent: respiratory distress, accessory muscle use - Cardiovascular Cardiovascular Exam: Present: regular rate, normal rhythm, normal heart sounds - GI/Abdominal GI/Abdominal exam: Present: soft, tenderness (Tenderness to the lower right area with blanchable erythema consistent with cellulitis extensive), normal bowel sounds - Extremities Exam Extremities exam: Present: normal capillary refill, other (Noted with right complete lower leg amputation since age 1) - Back Exam Back exam: Present: normal inspection - Neurological Exam Neurological exam: Present: alert, oriented X3 - Psychiatric Psychiatric exam: Present: normal affect, normal mood - Skin Skin exam: Present: warm, rash, erythema, other (Tenderness to the lower right area with blanchable erythema consistent with cellulitis extensive) ED Course Vital Signs 12/07/21 12/07/21 09:48 10:16 Temperature 98.1 F Pulse Rate 90 Respiratory 16 Rate Blood Pressure 160/100 [Right] O2 Sat by Pulse 86 93 Oximetry - Reevaluation(s) Reevaluation #1: 12/07/21 12:31 Here with altered mental status change and noted with-Tenderness to the lower right area with blanchable erythema consistent with cellulitis extensive-we will go ahead and check routine lab including CBC, CMP, UA with lactic acid for any infectious process or electrolyte abnormality--noted with reassuring vital signs --given IV fluids normal saline 1 L bolus x1 I will go ahead and give 1 g of Rocephin-and continue to monitor 12/07/21 12:33 Reevaluation #2: 12/07/21 14:40 While waiting for this patient's basic labs we will go ahead and order Rocephin for his potential cellulitis Reevaluation #3: 12/07/21 15:00 Pt signed out to Dr Mosqueda at shift change 1500 while waiting for his other workup labs. 12/07/21 15:[address] Alas the hospitalist who wanted to rule out deep abscess r egarding the abdominal wall cellulitis before accepting patient. - Lab Data Result diagrams: 12/07/21 14:20 12/07/21 14:20 Lab Results 12/07/21 12/07/21 12/07/21 Range/Units 14:20 14:20 14:20 WBC 4.0 L (4.5-11.0) K/mm3 RBC 4.49 (3.65-5.03) M/mm3 Hgb 15.3 H (11.8-15.2) gm/dl Hct 46.8 H (35.5-45.6) % MCV 104 H (84-94) fl MCH 34 H (28-32) pg MCHC 33 (32-34) % RDW 15.3 H (13.2-15.2) % Plt Count 114 L (140-440) K/mm3 Lymph % (Auto) 23.1 (13.4-35.0) % [place] % (Auto) 15.8 H (0.0-7.3) % Eos % (Auto) 4.5 H (0.0-4.3) % Baso % (Auto) 0.9 (0.0-1.8) % Lymph # (Auto) 0.9 L (1.2-5.4) K/mm3 [place] # (Auto) 0.6 (0.0-0.8) K/mm3 Eos # (Auto) 0.2 (0.0-0.4) K/mm3 Baso # (Auto) 0.0 (0.0-0.1) K/mm3 Seg Neutrophils % 55.7 (40.0-70.0) % Seg Neutrophils # 2.3 (1.8-7.7) K/mm3 PT (12.2-14.9) Sec. INR (0.87-1.13) APTT (24.2-36.6) Sec. Sodium 141 (137-145) mmol/L Potassium 5.3 H (3.6-5.0) mmol/L Chloride 96.5 L (98-107) mmol/L Carbon Dioxide 40 H (22-30) mmol/L Anion Gap 10 mmol/L BUN 18 (9-20) mg/dL Creatinine 1.2 (0.8-1.3) mg/dL Estimated GFR > 60 ml/min BUN/Creatinine Ratio 15 % Glucose 86 (75-100) mg/dL Lactic Acid (0.7-2.0) mmol/L Calcium 9.3 (8.4-10.2) mg/dL Total Bilirubin 1.30 H (0.1-1.2) mg/dL AST 17 (5-40) units/L ALT 10 (7-56) units/L Alkaline Phosphatase 70 (35-129) units/L Troponin T < 0.010 (0.00-0.029) ng/mL Total Protein 6.6 (6.3-8.2) g/dL Albumin 3.2 L (3.9-5) g/dL Albumin/Globulin Ratio 0.9 % TSH 0.977 (0.270-4.200) mlU/mL 12/07/21 12/07/21 Range/Units 14:20 14:20 WBC (4.5-11.0) K/mm3 RBC (3.65-5.03) M/mm3 Hgb (11.8-15.2) gm/dl Hct (35.5-45.6) % MCV (84-94) fl MCH (28-32) pg MCHC (32-34) % RDW (13.2-15.2) % Plt Count (140-440) K/mm3 Lymph % (Auto) (13.4-35.0) % [place] % (Auto) (0.0-7.3) % Eos % (Auto) (0.0-4.3) % Baso % (Auto) (0.0-1.8) % Lymph # (Auto) (1.2-5.4) K/mm3 [place] # (Auto) (0.0-0.8) K/mm3 Eos # (Auto) (0.0-0.4) K/mm3 Baso # (Auto) (0.0-0.1) K/mm3 Seg Neutrophils % (40.0-70.0) % Seg Neutrophils # (1.8-7.7) K/mm3 PT 17.4 H (12.2-14.9) Sec. INR 1.27 H (0.87-1.13) APTT 29.3 (24.2-36.6) Sec. Sodium (137-145) mmol/L Potassium (3.6-5.0) mmol/L Chloride (98-107) mmol/L Carbon Dioxide (22-30) mmol/L Anion Gap mmol/L BUN (9-20) mg/dL Creatinine (0.8-1.3) mg/dL Estimated GFR ml/min BUN/Creatinine Ratio % Glucose (75-100) mg/dL Lactic Acid 1.70 (0.7-2.0) mmol/L Calcium (8.4-10.2) mg/dL Total Bilirubin (0.1-1.2) mg/dL AST (5-40) units/L ALT (7-56) units/L Alkaline Phosphatase (35-129) units/L Troponin T (0.00-0.029) ng/mL Total Protein (6.3-8.2) g/dL Albumin (3.9-5) g/dL Albumin/Globulin Ratio % TSH (0.270-4.200) mlU/mL Critical care attestation.: If time is entered above; I have spent that time in minutes in the direct care of this critically ill patient, excluding procedure time. ED Disposition Clinical Impression: Cellulitis of right abdominal wall Disposition: ADMITTED INPATIENT Is pt being admited?: Yes Does the pt Need Aspirin: No Condition: Stable Referrals: PRIMARY CARE, [Primary Care Provider] - 3-5 Days Time of Disposition: 15:21 (Dr Alas took patient and wanted CT ab/pel)
--- NOTE | 2021-12-07 14:30 | Cat Scan Report ---
CT head/brain wo con INDICATION / CLINICAL INFORMATION: 66 years Male; Seizure. TECHNIQUE: Routine CT head without contrast. All CT scans at this location are performed using CT dos e reduction for ALARA by means of automated exposure control. Significant motion artifact COMPARISON: 11/09/2021 FINDINGS: BRAIN / INTRACRANIAL CONTENTS: Study markedly limited by motion. No acute hemorrhage, mass effect, mi dline shift, hydrocephalus, or acute, large territorial infarct. Is difficult to evaluate for white matter disease because of the motion artifact. CRANIOCERVICAL JUNCTION: No significant abnormality. ORBITS: No significant abnormality of visualized orbits. SINUSES / MASTOIDS: Visualized paranasal sinuses and mastoid air cells are essentially clear. ADDITIONAL FINDINGS: Atherosclerotic disease is seen in the anterior and posterior circulation. IMPRESSION: 1. No focal mass, hemorrhage, hydrocephalus, or acute, large territorial infarct on this limited exam . Signer Name: Kelby Davies MD, III Signed: 12/07/2021 2:26 PM Workstation Name: [facility]ERTriVascularNATALIE VILLE [id number]
[2021-12-07] MEDS ORDERED: cefTRIAXone/NS 1 GM/50 ML 1 GM/50 ML BAG IV ONE (14:39)
[2021-12-07 14:49] LABS: Basophils % (Auto) 0.9 % (0.0-1.8); Eosinophils # (Auto) 0.2 K/mm3 (0.0-0.4); Eosinophils % (Auto) 4.5 % (0.0-4.3); Hematocrit 46.8 % (35.5-45.6); Hemoglobin 15.3 gm/dl (11.8-15.2); Lymphocytes # (Auto) 0.9 K/mm3 (1.2-5.4); Lymphocytes % (Auto) 23.1 % (13.4-35.0); Mean Corpuscular HGB Conc 33 % (32-34); Mean Corpuscular Volume 104 fl (84-94); Monocytes # (Auto) 0.6 K/mm3 (0.0-0.8); Monocytes % (Auto) 15.8 % (0.0-7.3); Platelet Count 114 K/mm3 (140-440); Red Blood Count 4.49 M/mm3 (3.65-5.03); Red Cell Distribution Width 15.3 % (13.2-15.2)
[2021-12-07 15:00] LABS: INR 1.27 (0.87-1.13); Partial Thromboplastin Time 29.3 Sec. (24.2-36.6)
[2021-12-07 15:08] LABS: Alanine Aminotransferase 10 units/L (7-56); Albumin 3.2 g/dL (3.9-5); BUN/Creatinine Ratio 15; Blood Urea Nitrogen 18 mg/dL (9-20); Calcium 9.3 mg/dL (8.4-10.2); Hemolysis Index 7
--- NOTE | 2021-12-07 15:13 | History and Physical Report ---
History of Present Illness Chief complaint: He is confused and not acting like himself History of present illness: 66 YO Male with Obesity Hypoventilation Syndrome, CaP S/P Radiation therapy, Asthma, COPD, Chronic Respiratory Failure on Home Trilogy machine QHS, and supplemental oxygen 3L via NC, GERD presents to ED for evaluation. Patient has diminished cognition and is unable to provide detailed history. Patient history provided by his who is at bedside during exam and interview. As per the patient has experienced increased confusion over the past 2 days as well as redness to his left leg and abdomen. Patient is removing his oxygen and experiencing difficulty breathing. EMS notified and upon arrival the patient was found to be in distress and subsequent transported to [facility] for further care a nd evaluation of the aforementioned symptoms. Patient was seen and evaluated emergency department. All lab and imaging studies reviewed. Patient found to have a pulse oximetry of 84% on room air which is consistent with acute hypoxemic respiratory failure. Patient also found to have abdominal wall cellulitis with concomitant left leg cellulitis, metabolic encephalopathy, systemic plantar response syndrome. Patient admitted to medical floor due to increased risk of worsening symptoms. IV antibiotic therapy initiated in the emergency department. No reports of fever, chills, chest pain, palpitation, productive cough, recent contact, or known exposure to COVID-19. Prior admission on 11/09/2021 reviewed. All medication listed at time of admission has been reconciled. Advanced care planning conducted in ED. patient has diminished cognition at time of my evaluation but has a positive gag reflex and is able to protect his airway without difficulty. Past History Past Medical History: cancer, COPD, GERD, other (See HPI) Past Surgical History: Other (Right lower extremity amputation) Social history: . denies: smoking, alcohol abuse, prescription drug abuse Family history: diabetes, hypertension Medications and Allergies Allergies Allergy/AdvReac Type Severity Reaction Status Date / Time No Known Allergies Allergy Verified 12/07/21 09:49 Home Medications Medication Instructions Recorded Confirmed Last Taken Type cloNIDine HCL [Catapres] 0.2 mg PO BID 04/07/14 11/10/21 11/09/21 History Nebivolol (Nf) [Bystolic (Nf)] 1 tab PO DAILY 06/02/16 11/10/21 10/16/16 History Oxycodone HCl [Oxycontin] 1 tab PO BID 06/02/16 11/10/21 Unknown History Tamsulosin HCl 1 tab PO DAILY 06/02/16 11/10/21 11/09/21 History Tiotropium [Spiriva] 18 mcg IH QDAY 06/02/16 11/10/21 11/09/21 History Oxycodone HCl [oxyCODONE] 30 mg PO BID #4 11/13/21 Unknown Rx cefUROXime [Ceftin] 500 mg PO Q12H 7 Days #14 tab 11/13/21 Unknown Rx methylPREDNISolone [Medrol 4MG 4 mg PO DAILY #1 11/13/21 Unknown Rx DOSEPAK (21 tabs)] Review of Systems ROS unobtainable: due to mental status Exam - Constitutional Vitals: Temp Pulse Resp BP Pulse Ox 98.1 F 90 16 160/100 93 12/07/21 09:48 12/07/21 09:48 12/07/21 09:48 12/07/21 09:48 12/07/21 10:16 General appearance: Present: mild distress, obese - EENT Eyes: Present: PERRL ENT: hearing intact, clear oral mucosa - Neck Neck: Present: supple, normal ROM - Respiratory Respiratory effort: labored, accessory muscle use Respiratory: bilateral: diminished, rhonchi - Cardiovascular Heart Sounds: Present: S1 & S2. Absent: rub, click - Extremities Extremities: pulses symmetrical, No edema Extremity abnormal: edema, erythema, tenderness, other (Left abdominal wall, left lower extremity) - Abdominal General gastrointestinal: Present: soft, non-tender, non-distended, normal bowel sounds Male genitourinary: Present: normal - Integumentary Integumentary: Present: clear, warm, dry - Musculoskeletal Musculoskeletal: generalized weakness - Psychiatric Psychiatric: no appropriate mood/affect, no intact judgment & insight, no memory intact - Neurologic Neurologic: CNII-XII intact, no focal deficits, moves all extremities, no gait normal HEART Score - HEART Score Troponin: Troponin T < 0.010 ng/mL (0.00-0.029) 12/07/21 14:20 Results - Labs CBC & Chem 7: 12/07/21 14:20 12/07/21 14:20 Labs: Abnormal lab results 12/07/21 12/07/21 12/07/21 Range/Units 14:20 14:20 14:20 WBC 4.0 L (4.5-11.0) K/mm3 Hgb 15.3 H (11.8-15.2) gm/dl Hct 46.8 H (35.5-45.6) % MCV 104 H (84-94) fl MCH 34 H (28-32) pg RDW 15.3 H (13.2-15.2) % Plt Count 114 L (140-440) K/mm3 [place] % (Auto) 15.8 H (0.0-7.3) % Eos % (Auto) 4.5 H (0.0-4.3) % Lymph # (Auto) 0.9 L (1.2-5.4) K/mm3 PT 17.4 H (12.2-14.9) Sec. INR 1.27 H (0.87-1.13) Potassium 5.3 H (3.6-5.0) mmol/L Chloride 96.5 L (98-107) mmol/L Carbon Dioxide 40 H (22-30) mmol/L Total Bilirubin 1.30 H (0.1-1.2) mg/dL Albumin 3.2 L (3.9-5) g/dL Assessment and Plan - Patient Problems (1) Cellulitis of left abdominal wall Current Visit: Yes Status: Acute Plan to address problem: CT scan abdomen, IV antibiotic therapy, CBC, CMP, supportive care. (2) Left leg cellulitis Current Visit: Yes Status: Acute Plan to address problem: IV antibiotic therapy, supportive care. CBC. Repeat CBC in a.m. (3) Acute encephalopathy Current Visit: Yes Status: Acute Plan to address problem: CT head, neuro check, seizure precautions, treat cellulitis, supportive care. (4) Acute and chronic respiratory failure Current Visit: No Status: Acute Qualifiers: Respiratory failure complication: hypoxia Qualified Code(s): J96.21 - Acute and chronic respiratory failure with hypoxia Plan to address problem: Supplemental oxygen, pulse oximetry, nebulizer therapy, noninvasive positive pressure ventilation as clinically indicated. (5) Obesity hypoventilation syndrome Current Visit: No Status: Acute Plan to address problem: Balanced diet, increase physical activity at discharge, outpatient pulmonary follow-up for sleep study. Outpatient bariatric surgery consultation. (6) Prostate cancer Current Visit: No Status: Acute Plan to address problem: Supportive care, outpatient urology follow-up. (7) DVT prophylaxis Current Visit: No Status: Acute Plan to address problem: SCD to bilateral lower extremities while in bed (8) Advance care planning Current Visit: No Status: Acute Plan to address problem: Disease education conducted, care plan discussed, diagnoses discussed, prognosis discussed, patient family at bedside during examination. Patient family knowledges understanding and agreement with care plan, +30 minutes.
[2021-12-07] MEDS ORDERED: HYDROmorphone 1 MG/1 ML INJ IV PRN (15:30)
[2021-12-07] MEDS ORDERED: ONDANSETRON 4 MG/2 ML INJ IV PRN (15:30)
[2021-12-07] MEDS ORDERED: ACETAMINOPHEN 325 MG TAB PO PRN (15:30)
[2021-12-07] MEDS ORDERED: oxyCODONE /ACETAMINOPHEN 5-325MG TAB PO PRN (15:30)
--- NOTE | 2021-12-07 17:41 | Cat Scan Report ---
CT ABDOMEN AND PELVIS WITH CONTRAST INDICATION / CLINICAL INFORMATION: abdominal wall cellulitis. TECHNIQUE: Axial CT images were obtained through the abdomen and pelvis after 100 cc of Omnipaque [address] scans at this location are performed using CT dose reduction for ALARA by means of automated exposure control. COMPARISON: CT scan dated 11/09/2021 FINDINGS: LOWER CHEST: There is a small right pleural effusion. There is airspace consolidation noted in the ri ght lower lobe. Pleural effusion is new. Airspace consolidation in the right lower lobe is increased in the interval. LIVER: No significant abnormality. GALLBLADDER: No significant abnormality. BILE DUCTS: No significant abnormality. PANCREAS: No significant abnormality. SPLEEN: No significant abnormality. ADRENALS: No significant abnormality. RIGHT KIDNEY / URETER: No significant abnormality. LEFT KIDNEY / URETER: No significant abnormality. STOMACH / SMALL BOWEL: No significant abnormality. COLON: No significant abnormality. APPENDIX: Not visualized. PERITONEUM: No free fluid. No free air. No fluid collection. LYMPH NODES: No significant adenopathy. AORTA / ARTERIES: No significant abnormality. IVC / VEINS: No significant abnormality. URINARY BLADDER: No significant abnormality. REPRODUCTIVE ORGANS: No significant abnormality. ADDITIONAL FINDINGS: There is subcutaneous edema in the anterior abdominal wall which is developed in the interval. There is fluid in the subcutaneous fat in the right upper abdominal wall which is deve loped in the interval. This area is partially out of the field of view. SKELETAL SYSTEM: No significant abnormality. IMPRESSION: 1. There is fluid in the subcutaneous fat in the right upper quadrant which does not appear to be wal led off. This could represent edema. This could represent infection. There is stranding in the subcut aneous fat in the mid and lower anterior abdominal wall which could represent edema or cellulitis. Signer Name: Yaron Su MD Signed: 12/07/2021 5:37 PM Workstation Name: [id number]
[2021-12-08 00:51] LABS: Bilirubin,Urine NEG (Negative); Blood,Urine NEG (Negative); Color,Urine Yellow (Yellow); Mucus,Urine FEW /HPF; Protein,Urine <15 mg/dL mg/dL (Negative)
[2021-12-08 06:33] LABS: Mean Corpuscular HGB Conc 31 % (32-34); Mean Corpuscular Volume 106 fl (84-94); Red Blood Count 4.51 M/mm3 (3.65-5.03); Red Cell Distribution Width 15.3 % (13.2-15.2)
[2021-12-08 06:41] LABS: Hematocrit 47.7 % (35.5-45.6); Hemoglobin 14.8 gm/dl (11.8-15.2); Platelet Count 90 K/mm3 (140-440)
[2021-12-08 06:54] LABS: BUN/Creatinine Ratio 18; Blood Urea Nitrogen 18 mg/dL (9-20); Hemolysis Index 17
[2021-12-08 07:32] LABS: Total Cells Counted 100
[2021-12-08 07:33] LABS: Anisocytosis 1+; Large Platelets Few; Platelet Estimate Consistent w Auto
--- NOTE | 2021-12-08 08:58 | Progress Note ---
Assessment and Plan Assessment and plan: 66 YO Male with Obesity Hypoventilation Syndrome, CaP S/P Radiation therapy, Asthma, COPD, Chronic Respiratory Failure on Home Trilogy machine QHS, and supplemental oxygen 3L via [place], GERD presents to ED for evaluation. Patient has diminished cognition and is unable to provide detailed history. Patient history provided by his who is at bedside during exam and interview. As per the patient has experienced increased confusion over the past 2 days as well as redness to his left leg and abdomen. Patient is removing his oxygen and experiencing difficulty breathing. EMS notified and upon arrival the patient was found to be in distress and subsequent transported to [facility] for further care a nd evaluation of the aforementioned symptoms. Patient was seen and evaluated emergency department. All lab and imaging studies reviewed. Patient found to have a pulse oximetry of 84% on room air which is consistent with acute hypoxemic respiratory failure. Patient also found to have abdominal wall cellulitis with concomitant left leg cellulitis, metabolic encephalopathy, systemic plantar response syndrome. Patient admitted to medical floor due to increased risk of worsening symptoms. IV antibiotic therapy initiated in the emergency department. No reports of fever, chills, chest pain, palpitation, productive cough, recent contact, or known exposure to COVID-19. Prior admission on 11/09/2021 reviewed. All medication listed at time of admission has been reconciled. Advanced care planning conducted in ED. patient has diminished cognition at time of my evaluation but has a positive gag reflex and is able to protect his airway without difficulty. (1) Cellulitis of left abdominal wall Current Visit: Yes Status: Acute Plan to address problem: CT scan abdomen, IV antibiotic therapy, CBC, CMP, supportive care. (2) Left leg cellulitis Current Visit: Yes Status: Acute Plan to address problem: IV antibiotic therapy, supportive care. CBC. Repeat CBC in a.m. (3) Acute encephalopathy possible from dehydration/sepsis Current Visit: Yes Status: Acute Plan to address problem: CT head, neuro check, seizure precautions, treat cellulitis, supportive care. BP soft, hold antihypertensive, hydrate, antibiotics, IV fluids (4) Acute and chronic respiratory failure Current Visit: No Status: Acute Qualifiers: Respiratory failure complication: hypoxia Qualified Code(s): J96.21 - Acute and chronic respiratory failure with hypoxia Plan to address problem: Supplemental oxygen, pulse oximetry, nebulizer therapy, noninvasive positive pressure ventilation as clinically indicated. (5) Obesity hypoventilation syndrome Current Visit: No Status: Acute Plan to address problem: Balanced diet, increase physical activity at discharge, outpatient pulmonary fo llow-up for sleep study. Outpatient bariatric surgery consultation. (6) Prostate cancer Current Visit: No Status: Acute Plan to address problem: Supportive care, outpatient urology follow-up. (7) course right upper extremity tremors Right upper extremity tremor since months, getting worse per caregiver. Consulted neurology, evaluation in progress DVT prophylaxis Current Visit: No Status: Acute Plan to address problem: SCD to bilateral lower extremities while in bed (8) Advance care planning Current Visit: No Status: Acute Plan to address problem: Disease education conducted, care plan discussed, diagnoses discussed, prognosis discussed, patient family at bedside during examination. Patient family knowledges understanding and agreement with care plan, +30 minutes. Discussed with the patient, his caregiver and the nursing staff. History Interval history: Caregiver is present at bedside. Patient brought to ED for not feeling well, not being his regular self, looking weak and worsening tremors times months. Patient is currently receiving antibiotic therapy for possible cellulitis of lower abdominal wall as well as left pretibial area. 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 Patient is currently alert, fairly oriented and answers questions appropriately. Afebrile. BP meds on hold for soft BP. Tolerating diet. Denies cough, dyspnea, nausea, abdominal pain, dysuria or chills. Neurology consulted for tremors and work-up is in progress. Hospitalist Physical - Constitutional Vitals: Temp Pulse Resp BP Pulse Ox 98.3 F 76 20 140/72 91 12/08/21 04:43 12/08/21 04:43 12/08/21 04:43 12/08/21 04:43 12/08/21 08:53 General appearance: Present: no acute distress, obese - EENT Eyes: Present: PERRL, EOM intact ENT: other (Exophthalmos/mild proptosis, likely chronic.) - Neck Neck: Present: supple - Respiratory Respiratory effort: normal Respiratory: bilateral: CTA, diminished - Cardiovascular Rhythm: regular - Extremities Extremity abnormal: other (Right AKA. Mild erythema and trace edema, left pre tibial) - Abdominal General gastrointestinal: soft, normal bowel sounds, other (Mild erythema/tenderness in skin fold in LLQ, possibly cellulitis) - Neurologic Neurologic: other (Alert, evaluated, moves all extremities. interacts appropriately. Has course involuntary, recurrent events of right upper extremity.) HEART Score - HEART Score Troponin: Troponin T < 0.010 ng/mL (0.00-0.029) 12/07/21 14:20 Results - Labs CBC & Chem 7: 12/08/21 05:50 12/08/21 05:50 Labs: Laboratory Last Values WBC 4.3 K/mm3 (4.5-11.0) L 12/08/21 05:50 RBC 4.51 M/mm3 (3.65-5.03) 12/08/21 05:50 Hgb 14.8 gm/dl (11.8-15.2) 12/08/21 05:50 Hct 47.7 % (35.5-45.6) H 12/08/21 05:50 MCV 106 fl (84-94) H 12/08/21 05:50 MCH 33 pg (28-32) H 12/08/21 05:50 MCHC 31 % (32-34) L 12/08/21 05:50 RDW 15.3 % (13.2-15.2) H 12/08/21 05:50 Plt Count 90 K/mm3 (140-440) L 12/08/21 05:50 Lymph % (Auto) 23.1 % (13.4-35.0) 12/07/21 14:20 [place] % (Auto) Com Writer 12/08/21 05:50 Eos % (Auto) 4.5 % (0.0-4.3) H 12/07/21 14:20 Baso % (Auto) 0.9 % (0.0-1.8) 12/07/21 14:20 Lymph # (Auto) 0.9 K/mm3 (1.2-5.4) L 12/07/21 14:20 [place] # (Auto) 0.6 K/mm3 (0.0-0.8) 12/07/21 14:20 Eos # (Auto) 0.2 K/mm3 (0.0-0.4) 12/07/21 14:20 Baso # (Auto) 0.0 K/mm3 (0.0-0.1) 12/07/21 14:20 Add Manual Diff Complete 12/08/21 05:50 Total Counted 100 12/08/21 05:50 Seg Neutrophils % 55.7 % (40.0-70.0) 12/07/21 14:20 Seg Neuts % (Manual) 65.0 % (40.0-70.0) 12/08/21 05:50 Band Neutrophils % 0 % 12/08/21 05:50 Lymphocytes % (Manual) 22.0 % (13.4-35.0) 12/08/21 05:50 Reactive Lymphs % (Man) 0 % 12/08/21 05:50 Monocytes % (Manual) 8.0 % (0.0-7.3) H 12/08/21 05:50 Eosinophils % (Manual) 3.0 % (0.0-4.3) 12/08/21 05:50 Basophils % (Manual) 2.0 % (0.0-1.8) H 12/08/21 05:50 Metamyelocytes % 0 % 12/08/21 05:50 Myelocytes % 0 % 12/08/21 05:50 Promyelocytes % 0 % 12/08/21 05:50 Blast Cells % 0 % 12/08/21 05:50 Nucleated RBC % Not Reportable 12/08/21 05:50 Seg Neutrophils # 2.3 K/mm3 (1.8-7.7) 12/07/21 14:20 Seg Neutrophils # Man 2.8 K/mm3 (1.8-7.7) 12/08/21 05:50 Band Neutrophils # 0.0 K/mm3 12/08/21 05:50 Lymphocytes # (Manual) 0.9 K/mm3 (1.2-5.4) L 12/08/21 05:50 Abs React Lymphs (Man) 0.0 K/mm3 12/08/21 05:50 Monocytes # (Manual) 0.3 K/mm3 (0.0-0.8) 12/08/21 05:50 Eosinophils # (Manual) 0.1 K/mm3 (0.0-0.4) 12/08/21 05:50 Basophils # (Manual) 0.1 K/mm3 (0.0-0.1) 12/08/21 05:50 Metamyelocytes # 0.0 K/mm3 12/08/21 05:50 Myelocytes # 0.0 K/mm3 12/08/21 05:50 Promyelocytes # 0.0 K/mm3 12/08/21 05:50 Blast Cells # 0.0 K/mm3 12/08/21 05:50 WBC Morphology Not Reportable 12/08/21 05:50 Hypersegmented Neuts Not Reportable 12/08/21 05:50 Hyposegmented Neuts Not Reportable 12/08/21 05:50 Hypogranular Neuts Not Reportable 12/08/21 05:50 Smudge Cells Not Reportable 12/08/21 05:50 Toxic Granulation Not Reportable 12/08/21 05:50 Toxic Vacuolation Not Reportable 12/08/21 05:50 Dohle Bodies Not Reportable 12/08/21 05:50 Pelger-Huet Anomaly Not Reportable 12/08/21 05:50 Katharine Rods Not Reportable 12/08/21 05:50 Platelet Estimate Consistent w auto 12/08/21 05:50 Clumped Platelets Not Reportable 12/08/21 05:50 Plt Clumps, EDTA Not Reportable 12/08/21 05:50 Large Platelets Few 12/08/21 05:50 Giant Platelets Not Reportable 12/08/21 05:50 Platelet Satelliting Not Reportable 12/08/21 05:50 Plt Morphology Comment Not Reportable 12/08/21 05:50 RBC Morphology Not Reportable 12/08/21 05:50 Dimorphic RBCs Not Reportable 12/08/21 05:50 Polychromasia Not Reportable 12/08/21 05:50 Hypochromasia Not Reportable 12/08/21 05:50 Poikilocytosis Not Reportable 12/08/21 05:50 Anisocytosis 1+ 12/08/21 05:50 Microcytosis Not Reportable 12/08/21 05:50 Macrocytosis Not Reportable 12/08/21 05:50 Spherocytes Not Reportable 12/08/21 05:50 Pappenheimer Bodies Not Reportable 12/08/21 05:50 Sickle Cells Not Reportable 12/08/21 05:50 Target Cells Not Reportable 12/08/21 05:50 Tear Drop Cells Not Reportable 12/08/21 05:50 Ovalocytes Not Reportable 12/08/21 05:50 Helmet Cells Not Reportable 12/08/21 05:50 [place] Bodies Not Reportable 12/08/21 05:50 [place] Rings Not Reportable 12/08/21 05:50 [place] Cells Not Reportable 12/08/21 05:50 Bite Cells Not Reportable 12/08/21 05:50 Crenated Cell Not Reportable 12/08/21 05:50 Elliptocytes Not Reportable 12/08/21 05:50 Acanthocytes (Spur) Not Reportable 12/08/21 05:50 Rouleaux Not Reportable 12/08/21 05:50 Hemoglobin C Crystals Not Reportable 12/08/21 05:50 Schistocytes Not Reportable 12/08/21 05:50 Malaria parasites Not Reportable 12/08/21 05:50 Odin Bodies Not Reportable 12/08/21 05:50 Hem Pathologist Commnt No 12/08/21 05:50 PT 17.4 Sec. (12.2-14.9) H 12/07/21 14:20 INR 1.27 (0.87-1.13) H 12/07/21 14:20 APTT 29.3 Sec. (24.2-36.6) 12/07/21 14:20 Sodium 141 mmol/L (137-145) 12/08/21 05:50 Potassium 5.4 mmol/L (3.6-5.0) H 12/08/21 05:50 Chloride 98.3 mmol/L (98-107) 12/08/21 05:50 Carbon Dioxide 37 mmol/L (22-30) H 12/08/21 05:50 Anion Gap 11 mmol/L 12/08/21 05:50 BUN 18 mg/dL (9-20) 12/08/21 05:50 Creatinine 1.0 mg/dL (0.8-1.3) 12/08/21 05:50 Estimated GFR > 60 ml/min 12/08/21 05:50 BUN/Creatinine Ratio 18 % 12/08/21 05:50 Glucose 66 mg/dL (75-100) L 12/08/21 05:50 Lactic Acid 1.70 mmol/L (0.7-2.0) 12/07/21 14:20 Calcium 9.0 mg/dL (8.4-10.2) 12/08/21 05:50 Total Bilirubin 1.30 mg/dL (0.1-1.2) H 12/07/21 14:20 AST 17 units/L (5-40) 12/07/21 14:20 ALT 10 units/L (7-56) 12/07/21 14:20 Alkaline Phosphatase 70 units/L (35-129) 12/07/21 14:20 Troponin T < 0.010 ng/mL (0.00-0.029) 12/07/21 14:20 Total Protein 6.6 g/dL (6.3-8.2) 12/07/21 14:20 Albumin 3.2 g/dL (3.9-5) L 12/07/21 14:20 Albumin/Globulin Ratio 0.9 % 12/07/21 14:20 TSH 0.977 mlU/mL (0.270-4.200) 12/07/21 14:20 Urine Color Yellow (Yellow) 12/08/21 00:24 Urine Turbidity Clear (Clear) 12/08/21 00:24 Urine pH 6.0 (5.0-7.0) 12/08/21 00:24 Ur Specific [place] 1.034 (1.003-1.030) H 12/08/21 00:24 Urine Protein <15 mg/dl mg/dL (Negative) 12/08/21 00:24 Urine Glucose (UA) Neg mg/dL (Negative) 12/08/21 00:24 Urine Ketones Neg mg/dL (Negative) 12/08/21 00:24 Urine Blood Neg (Negative) 12/08/21 00:24 Urine Nitrite Neg (Negative) 12/08/21 00:24 Urine Bilirubin Neg (Negative) 12/08/21 00:24 Urine Urobilinogen 4.0 mg/dL (<2.0) 12/08/21 00:24 Ur Leukocyte Esterase Neg (Negative) 12/08/21 00:24 Urine WBC (Auto) 5.0 /HPF (0.0-6.0) 12/08/21 00:24 Urine RBC (Auto) 1.0 /HPF (0.0-6.0) 12/08/21 00:24 U Epithel Cells (Auto) 1.0 /HPF (0-13.0) 12/08/21 00:24 Urine Mucus Few /HPF 12/08/21 00:24 Microbiology: Microbiology 12/07/21 14:20 Peripheral/Venous Blood Culture - Preliminary Culture in Progress 12/07/21 14:20 Peripheral/Venous Blood Culture - Preliminary Culture in Progress [place]/IV: Voiding Method Incontinent Active Medications - Current Medications Current Medications: Generic Name Dose Route Start Last Admin Trade Name Freq PRN Reason Stop Dose Admin Acetaminophen 650 mg 12/07/21 15:30 Acetaminophen 325 Mg Tab PO Q4H PRN Pain MILD(1-3)/Fever >100.5/BENEDICT Albuterol 2.5 mg 12/07/21 15:30 Albuterol 2.5 Mg/3 Ml Nebu IH Q4HRT PRN Shortness Of Breath Hydromorphone HCl 0.5 mg 12/07/21 15:30 Hydromorphone 1 Mg/1 Ml Inj IV Q23H PRN Pain , Severe (7-10) Ceftriaxone Sodium 2 gm in 100 mls @ 200 mls/hr 12/08/21 09:00 Rocephin/Ns 2 Gm/100 Ml IV Q24H VIPUL Protocol Ondansetron HCl 4 mg 12/07/21 15:30 Ondansetron 4 Mg/2 Ml Inj IV Q8H PRN Nausea And Vomiting Oxycodone/Acetaminophen 1 tab 12/07/21 15:30 Oxycodone /Acetaminophen 5-325mg Tab PO Q6H PRN Pain, Moderate (4-6) Sodium Chloride 10 ml 12/07/21 22:00 12/08/21 00:24 Sodium Chloride 0.9% 10 Ml Flush Syringe IV 10 ml BID VIPUL Administration Sodium Chloride 10 ml 12/07/21 15:30 Sodium Chloride 0.9% 10 Ml Flush Syringe IV PRN PRN LINE FLUSH
[2021-12-08] MEDS ORDERED: cefTRIAXone/NS 2 GM/100 ML 2 GM/100 ML BAG IV SCH (09:00)
[2021-12-08] MEDS: cefTRIAXone/NS 2 GM/100 ML 2 GM/100 ML BAG IV SCH (10:39)
--- NOTE | 2021-12-08 13:50 | Consultation ---
History of Present Illness Consult date: 12/08/21 Reason for Consult: confusion and tremor History of present illness: History of Present Illness Chief complaint: He is confused and not acting like himself History of present illness: 66 YO Male with Obesity Hypoventilation Syndrome, CaP S/P Radiation therapy, Asthma, COPD, Chronic Respiratory Failure on Home Trilogy machine QHS, and supplemental oxygen 3L via [place], GERD presents to ED for evaluation. Patient has diminished cognition and is unable to provide detailed history. Patient history provided by his who is at bedside during exam and interview. As per the patient has experienced increased confusion over the past 2 days as well as redness to his left leg and abdomen. Patient is removing his oxygen and experiencing difficulty breathing. EMS notified and upon arrival the patient was found to be in distress and subsequent transported to [facility] for further care and evaluation of the aforementioned symptoms. Patient was seen and evaluated emergency department. All lab and imaging studies reviewed. Patient found to have a pulse oximetry of 84% on room air which is consistent with acute hypoxemic respiratory failure. Patient also found to have abdominal wall cellulitis with concomitant left leg cellulitis, metabolic encephalopathy, systemic plantar response syndrome. Patient admitted to medical floor due to increased risk of worsening symptoms. IV antibiotic therapy initiated in the emergency department. No reports of fever, chills, chest pain, palpitation, productive cough, recent contact, or known exposure to COVID-19. Prior admiss ion on 11/09/2021 reviewed. All medication listed at time of admission has been reconciled. Advanced care planning conducted in ED. patient has diminished cognition at time of my evaluation but has a positive gag reflex and is able to protect his airway without difficulty. Neurology consulted for evaluation of tremor and confusion Ct brain is unremarkable LFT showed slight elevation total bilirubin Ammonia level is pending he is on prednisone and breathing treatment Past History Past Medical History: cancer, COPD, GERD, other (See HPI) Past Surgical History: Other (Right lower extremity amputation) Social history: . denies: smoking, alcohol abuse, prescription drug abuse Family history: diabetes, hypertension Medications and Allergies Allergies Allergy/AdvReac Type Severity Reaction Status Date / Time No Known Allergies Allergy Verified 12/07/21 09:49 Home Medications Medication Instructions Recorded Confirmed Last Taken Type cloNIDine HCL [Catapres] 0.2 mg PO BID 04/07/14 11/10/21 11/09/21 History Nebivolol (Nf) [Bystolic (Nf)] 1 tab PO DAILY 06/02/16 11/10/21 10/16/16 History Oxycodone HCl [Oxycontin] 1 tab PO BID 06/02/16 11/10/21 Unknown History Tamsulosin HCl 1 tab PO DAILY 06/02/16 11/10/21 11/09/21 History Tiotropium [Spiriva] 18 mcg IH QDAY 06/02/16 11/10/21 11/09/21 History Oxycodone HCl [oxyCODONE] 30 mg PO BID #4 11/13/21 Unknown Rx cefUROXime [Ceftin] 500 mg PO Q12H 7 Days #14 tab 11/13/21 Unknown Rx methylPREDNISolone [Medrol 4MG 4 mg PO DAILY #1 11/13/21 Unknown Rx DOSEPAK (21 tabs)] Review of Systems ROS unobtainable: due to mental status Past History Past Medical History: cancer, COPD, GERD, other (See HPI) Past Surgical History: Other (Right lower extremity amputation) Social history: . denies: smoking, alcohol abuse, prescription drug abuse Family history: diabetes, hypertension Medications and Allergies Allergies Allergy/AdvReac Type Severity Reaction Status Date / Time No Known Allergies Allergy Verified 12/07/21 09:49 Home Medications Medication Instructions Recorded Confirmed Last Taken Type cloNIDine HCL [Catapres] 0.2 mg PO BID 04/07/14 11/10/21 11/09/21 History Nebivolol (Nf) [Bystolic (Nf)] 1 tab PO DAILY 06/02/16 11/10/21 10/16/16 History Oxycodone HCl [Oxycontin] 1 tab PO BID 06/02/16 11/10/21 Unknown History Tamsulosin HCl 1 tab PO DAILY 06/02/16 11/10/21 11/09/21 History Tiotropium [Spiriva] 18 mcg IH QDAY 06/02/16 11/10/21 11/09/21 History Oxycodone HCl [oxyCODONE] 30 mg PO BID #4 11/13/21 Unknown Rx cefUROXime [Ceftin] 500 mg PO Q12H 7 Days #14 tab 11/13/21 Unknown Rx methylPREDNISolone [Medrol 4MG 4 mg PO DAILY #1 11/13/21 Unknown Rx DOSEPAK (21 tabs)] Active Meds: Active Medications Acetaminophen (Acetaminophen 325 Mg Tab) 650 mg PO Q4H PRN PRN Reason: Pain MILD(1-3)/Fever >100.5/BENEDICT Albuterol (Albuterol 2.5 Mg/3 Ml Nebu) 2.5 mg IH Q4HRT PRN PRN Reason: Shortness Of Breath Ceftriaxone Sodium (Rocephin/Ns 2 Gm/100 Ml) 2 gm in 100 mls @ 200 mls/hr IV Q24H [facility]; Protocol Last Admin: 12/08/21 10:39 Dose: 200 mls/hr Ondansetron HCl (Ondansetron 4 Mg/2 Ml Inj) 4 mg IV Q8H PRN PRN Reason: Nausea And Vomiting Sodium Chloride (Sodium Chloride 0.9% 10 Ml Flush Syringe) 10 ml IV BID [facility] Last Admin: 12/08/21 10:39 Dose: 10 ml Sodium Chloride (Sodium Chloride 0.9% 10 Ml Flush Syringe) 10 ml IV PRN PRN PRN Reason: LINE FLUSH Physical Examination - Vital Signs Vital Signs: Vital Signs Temp Pulse Resp BP Pulse Ox 98.1 F 90 16 160/100 86 12/07/21 09:48 12/07/21 09:48 12/07/21 09:48 12/07/21 09:48 12/07/21 09:48 - Constitutional General appearance: uncomfortable - EENT EENT: Present: PERRL, mucous membranes moist - Respiratory Respiratory: Present: lungs clear, rhonchi, wheezing - Cardiovascular Cardiovascular: Present: regular rate, normal S1, normal S2 Extremities: Present: no peripheral edema bilatateraly, no clubbing, cyanosis - Gastrointestinal Gastrointestinal: Present: normoactive bowel sounds, tender (and swelling lower abdomin ), other - Integumentary Integumentary: Present: normal - Neurologic Cranial nerve examination: PERRL, EOMI, intact Speech examination: intact Sensorimotor examination: other (right at pelvic amputee lower extremity) Results - Laboratory Findings CBC and BMP: 12/08/21 05:50 12/08/21 05:50 Abnormal Lab Findings: Abnormal Labs 12/07/21 12/07/21 12/07/21 14:20 14:20 14:20 WBC 4.0 L Hgb 15.3 H Hct 46.8 H MCV 104 H MCH 34 H MCHC RDW 15.3 H Plt Count 114 L [place] % (Auto) 15.8 H Eos % (Auto) 4.5 H Lymph # (Auto) 0.9 L Monocytes % (Manual) Basophils % (Manual) Lymphocytes # (Manual) PT 17.4 H INR 1.27 H Potassium 5.3 H Chloride 96.5 L Carbon Dioxide 40 H Glucose Total Bilirubin 1.30 H Albumin 3.2 L Ur Specific [place] 12/08/21 12/08/21 12/08/21 00:24 05:50 05:50 WBC 4.3 L Hgb Hct 47.7 H MCV 106 H MCH 33 H MCHC 31 L RDW 15.3 H Plt Count 90 L [place] % (Auto) Eos % (Auto) Lymph # (Auto) Monocytes % (Manual) 8.0 H Basophils % (Manual) 2.0 H Lymphocytes # (Manual) 0.9 L PT INR Potassium 5.4 H Chloride Carbon Dioxide 37 H Glucose 66 L Total Bilirubin Albumin Ur Specific [place] 1.034 H Assessment and Plan Assessment and Plan - Patient Problems # Acute encephalopathy -Noted by customer care voice consultant since yesterday and swelling in abdomin -he is better today as per manager asset management dose off easily -oriented to place and date -CT brain is unremarkable -finding from hx and exam is suggestive of encephalopathy mostly related to underlying infection ,add to that respiratory decompromize and possible Co2 retension -Ammonia level is pending # Tremor -is mostly related to astrexsis -related to underlying metabolic impairment -BUN/CR are in normal -check ammonia level -treat underlying infection -possibility of steroid and breathing treatment add to tremor/? myoclonus # Cellulitis of left abdominal wall -CT scan abdomen, IV antibiotic therapy, CBC, CMP, supportive care. # Left leg cellulitis -IV antibiotic therapy, supportive care. CBC. Repeat CBC in a.m. # Acute and chronic respiratory failure -Supplemental oxygen, pulse oximetry, nebulizer therapy, noninvasive positive pressure ventilation as clinically indicated. # Obesity hypoventilation syndrome -Balanced diet, increase physical activity at discharge, outpatient pulmonary follow-up for sleep study. Outpatient bariatric surgery consultation. # Prostate cancer -Supportive care, outpatient urology follow-up. # DVT prophylaxis -SCD to bilateral lower extremities while in bed # Advance care planning Disease education conducted, care plan discussed, diagnoses discussed, prognosis discussed, patient family at bedside during examination. Patient family knowledges understanding and agreement with care plan, will follow
[2021-12-08] MEDS: ACETAMINOPHEN 500 MG TAB PO PRN (16:42)
[2021-12-08] MEDS: ALBUTEROL 2.5 MG/3 ML NEBU IH PRN (18:25)
[2021-12-08] MEDS ORDERED: LACTULOSE 20 GM/30 ML ORAL LIQD PO ONE (22:51)
[2021-12-09 06:39] LABS: BUN/Creatinine Ratio 18; Blood Urea Nitrogen 18 mg/dL (9-20); Calcium 8.9 mg/dL (8.4-10.2); Hemolysis Index 16
[2021-12-09 07:26] LABS: Hematocrit 45.5 % (35.5-45.6); Hemoglobin 14.7 gm/dl (11.8-15.2); Mean Corpuscular HGB Conc 32 % (32-34); Mean Corpuscular Volume 105 fl (84-94); Red Blood Count 4.33 M/mm3 (3.65-5.03); Red Cell Distribution Width 15.9 % (13.2-15.2)
[2021-12-09 07:28] LABS: Platelet Count 104 K/mm3 (140-440)
[2021-12-09 08:43] LABS: Anisocytosis 1+; Total Cells Counted 100
[2021-12-09 08:44] LABS: Platelet Estimate Consistent w Auto
[2021-12-09] MEDS: TAMSULOSIN 0.4 MG CAP PO SCH (09:39)
[2021-12-09] MEDS: cefTRIAXone/NS 2 GM/100 ML 2 GM/100 ML BAG IV SCH (09:39)
[2021-12-09] MEDS: ACETAMINOPHEN 500 MG TAB PO PRN (09:51)
--- NOTE | 2021-12-09 09:55 | Progress Note ---
Assessment and Plan Assessment and Plan - Patient Problems # Acute encephalopathy -Noted by animal caretaker supervisor since yesterday and swelling in abdomin -he is better today as per ad operations coordinator dose off easily -oriented to place and date -CT brain is unremarkable -finding from hx and exam is suggestive of encephalopathy mostly related to underlying infection ,add to that respiratory decompromize and possible Co2 retension -Ammonia level is pending # Tremor -is mostly related to astrexsis -related to underlying metabolic impairment -BUN/CR are in normal -check ammonia level#82 -treat underlying infection -possibility of steroid and breathing treatment add to tremor. #hyper ammonemia -etiology not clear -consider treatment as needed # Cellulitis of left abdominal wall -CT scan abdomen, IV antibiotic therapy, CBC, CMP, supportive care. # Left leg cellulitis -IV antibiotic therapy, supportive care. CBC. Repeat CBC in a.m. # Acute and chronic respiratory failure -Supplemental oxygen, pulse oximetry, nebulizer therapy, noninvasive positive pressure ventilation as clinically indicated. # Obesity hypoventilation syndrome -Balanced diet, increase physical activity at discharge, outpatient pulmonary follow-up for sleep study. Outpatient bariatric surgery consultation. # Prostate cancer -Supportive care, outpatient urology follow-up. # DVT prophylaxis -SCD to bilateral lower extremities while in bed # Advance care planning Disease education conducted, care plan discussed, diagnoses discussed, prognosis discussed, patient family at bedside during examination. Patient family knowledges understanding and agreement with care plan, will follow Subjective Date of service: 12/09/21 Principal diagnosis: Confusion Interval history: pt. is more alert today responsive , not sleepy , oriented to place and date Ammonia #82 astrxsis some what better Objective - Vital Sign Vital Signs - 12hr 12/08/21 12/09/21 12/09/21 22:15 05:27 05:39 Temperature 98.2 F Pulse Rate 89 89 Respiratory 18 18 Rate Blood Pressure 107/74 O2 Sat by Pulse 94 90 95 Oximetry 12/09/21 08:56 Temperature Pulse Rate Respiratory Rate Blood Pressure O2 Sat by Pulse 91 Oximetry - General Apperance Constitutional: comfortable - EENT EENT: PERRL, mucous membranes moist - Respiratory Respiratory: lungs clear, rhonchi - Cardiovascular Cardiovascular: regular rate, normal S1, normal S2 Extremities: no peripheral edema bilat, no clubbing, cyanosis - Gastrointestinal Gastrointestinal: normoactive bowel sounds - Integumentary Integumentary: normal - Neurologic Cranial nerve examination: PERRL, EOMI, intact Fundoscopic examination: papilledema Speech examination: intact Detailed motor examination: grossly full strength in, other (at pelvic right leg amputee, asterxsis slightly bettter) - Laboratory Findings CBC and BMP: 12/09/21 07:03 12/09/21 05:31 Abnormal Lab Findings: Abnormal Labs 12/07/21 12/07/21 12/07/21 14:20 14:20 14:20 WBC 4.0 L Hgb 15.3 H Hct 46.8 H MCV 104 H MCH 34 H MCHC RDW 15.3 H Plt Count 114 L [place] % (Auto) 15.8 H Eos % (Auto) 4.5 H Lymph # (Auto) 0.9 L Monocytes % (Manual) Eosinophils % (Manual) Basophils % (Manual) Lymphocytes # (Manual) PT 17.4 H INR 1.27 H Potassium 5.3 H Chloride 96.5 L Carbon Dioxide 40 H Glucose Total Bilirubin 1.30 H Ammonia Albumin 3.2 L Free T4 Ur Specific [place] 12/08/21 12/08/21 12/08/21 00:24 05:50 05:50 WBC 4.3 L Hgb Hct 47.7 H MCV 106 H MCH 33 H MCHC 31 L RDW 15.3 H Plt Count 90 L [place] % (Auto) Eos % (Auto) Lymph # (Auto) Monocytes % (Manual) 8.0 H Eosinophils % (Manual) Basophils % (Manual) 2.0 H Lymphocytes # (Manual) 0.9 L PT INR Potassium 5.4 H Chloride Carbon Dioxide 37 H Glucose 66 L Total Bilirubin Ammonia Albumin Free T4 Ur Specific [place] 1.034 H 12/08/21 12/08/21 12/09/21 21:05 21:05 05:31 WBC Hgb Hct MCV MCH MCHC RDW Plt Count [place] % (Auto) Eos % (Auto) Lymph # (Auto) Monocytes % (Manual) Eosinophils % (Manual) Basophils % (Manual) Lymphocytes # (Manual) PT INR Potassium Chloride Carbon Dioxide 38 H Glucose Total Bilirubin Ammonia 75.0 H Albumin Free T4 0.74 L Ur Specific [place] 12/09/21 12/09/21 07:03 07:03 WBC Hgb Hct MCV 105 H MCH 34 H MCHC RDW 15.9 H Plt Count 104 L [place] % (Auto) Eos % (Auto) Lymph # (Auto) Monocytes % (Manual) 9.0 H Eosinophils % (Manual) 5.0 H Basophils % (Manual) Lymphocytes # (Manual) PT INR Potassium Chloride Carbon Dioxide Glucose Total Bilirubin Ammonia 82.0 H Albumin Free T4 Ur Specific [place]
[2021-12-09] MEDS: TIOTROPIUM 18 MCG CAP INHALATION IH SCH (10:41)
--- NOTE | 2021-12-09 13:34 | Progress Note ---
Subjective Date of service: 12/09/21 Principal diagnosis: Confusion Interval history: 66 YO Male with Obesity Hypoventilation Syndrome, CaP S/P Radiation therapy, Asthma, COPD, Chronic Respiratory Failure on Home Trilogy machine QHS, and supplemental oxygen 3L via [place], GERD presents to ED for evaluation. Patient has diminished cognition and is unable to provide detailed history. Patient history provided by his who is at bedside during exam and interview. As per the patient has experienced increased confusion over the past 2 days as well as redness to his left leg and abdomen. Patient is removing his oxygen and experiencing difficulty breathing. EMS notified and upon arrival the patient was found to be in distress and subsequent transported to [facility] for further care and evaluation of the aforementioned symptoms. Patient was seen and evaluated emergency department. All lab and imaging studies reviewed. Patient found to have a pulse oximetry of 84% on room air which is consistent with acute hypoxemic respiratory failure. Patient also found to have abdominal wall ce llulitis with concomitant left leg cellulitis, metabolic encephalopathy, systemic plantar response syndrome. Patient admitted to medical floor due to increased risk of worsening symptoms. IV antibiotic therapy initiated in the emergency department. No reports of fever, chills, chest pain, palpitation, productive cough, recent contact, or known exposure to COVID-19. Prior admission on 11/09/2021 reviewed. All medication listed at time of admission has been reconciled. Advanced care planning conducted in ED. patient has diminished cognition at time of my evaluation but has a positive gag reflex and is able to protect his airway without difficulty. 12/09 patient is a poor historian/poor memory but awake and alert and is able to tell his name and age and eating breakfast on his own. Complains of pain in the left leg and abdomen. He denies any fever or chills. Denies nausea or vomiting . Denies chest pain or shortness of breath. Lab results reviewed. Neurology note reviewed (1) Cellulitis of left abdominal wall Current Visit: Yes Status: Acute Plan to address problem: CT scan abdomen, IV antibiotic therapy, CBC, CMP, supportive care. (2) Left leg cellulitis Current Visit: Yes Status: Acute Plan to address problem: IV antibiotic therapy, supportive care. CBC. Repeat CBC in a.m. (3) Acute encephalopathy possible from dehydration/sepsis Current Visit: Yes Status: Acute Plan to address problem: CT head, neuro check, seizure precautions, treat cellulitis, supportive care. BP soft, hold antihypertensive, hydrate, antibiotics, IV fluids Blood cultures-no growth to date (4) Acute and chronic respiratory failure Current Visit: No Status: Acute Qualifiers: Respiratory failure complication: hypoxia Qualified Code(s): J96.21 - Acute and chronic respiratory failure with hypoxia Plan to address problem: Supplemental oxygen, pulse oximetry, nebulizer therapy, noninvasive positive pressure ventilation as clinically indicated. Needs outpatient follow-up with pulmonary (5) Obesity hypoventilation syndrome Current Visit: No Status: Acute Plan to address problem: Balanced diet, increase physical activity at discharge, outpatient pulmonary follow-up for sleep study. Outpatient bariatric surgery consultation. (6) Prostate cancer Current Visit: No Status: Acute Plan to address problem: Supportive care, outpatient urology follow-up. Patient states that he has prostate cancer and bladder cancer but is not able to tell the name of his urologist (7) right upper extremity tremors Right upper extremity tremor since months, getting worse per caregiver. Neurology consulted and note reviewed and appreciated 8) borderline elevated ammonia levels Unclear etiology We will try lactulose twice daily Recheck ammonia in a.m. 9) morbid obesity Counseling at the time of discharge 10) thrombocytopenia-platelets are hovering around 100 (104K today) 11) hyperkalemia Improved DVT prophylaxis Current Visit: No Status: Acute Plan to address problem: SCD to bilateral lower extremities while in bed Objective - Constitutional Vitals: Vital Signs - 12hr 12/09/21 12/09/21 12/09/21 05:27 05:39 08:56 Temperature 98.2 F Pulse Rate 89 89 Respiratory 18 18 Rate Blood Pressure 107/74 O2 Sat by Pulse 90 95 91 Oximetry 12/09/21 12/09/21 10:00 11:04 Temperature 98.4 F Pulse Rate 76 Respiratory 24 Rate Blood Pressure 138/79 O2 Sat by Pulse 98 97 Oximetry General appearance: Present: no acute distress, obese - EENT Eyes: PERRL, EOM intact ENT: hearing intact - Neck Neck: supple - Respiratory Respiratory effort: normal Respiratory: bilateral: diminished, negative: rhonchi - Breasts Breasts: deferred - Cardiovascular Rhythm: regular Heart Sounds: Present: S1 & S2 Extremity abnormal: edema (Left leg and right AKA) - Gastrointestinal General gastrointestinal: Present: soft, other (Mild ? Resolving erythema /tenderness and warmth over the abdominal wall) Rectal Exam: deferred - Genitourinary Male genitourinary: deferred - Neurologic Neurologic: no focal deficits, moves all extremities - Labs CBC & Chem 7: 12/09/21 07:03 12/09/21 05:31 Labs: Abnormal lab results 12/08/21 12/08/21 12/09/21 Range/Units 21:05 21:05 05:31 MCV (84-94) fl MCH (28-32) pg RDW (13.2-15.2) % Plt Count (140-440) K/mm3 Monocytes % (Manual) (0.0-7.3) % Eosinophils % (Manual) (0.0-4.3) % Carbon Dioxide 38 H (22-30) mmol/L Ammonia 75.0 H (25-60) umol/L Free T4 0.74 L (0.76-1.46) ng/dL 12/09/21 12/09/21 Range/Units 07:03 07:03 MCV 105 H (84-94) fl MCH 34 H (28-32) pg RDW 15.9 H (13.2-15.2) % Plt Count 104 L (140-440) K/mm3 Monocytes % (Manual) 9.0 H (0.0-7.3) % Eosinophils % (Manual) 5.0 H (0.0-4.3) % Carbon Dioxide (22-30) mmol/L Ammonia 82.0 H (25-60) umol/L Free T4 (0.76-1.46) ng/dL HEART Score - HEART Score Troponin: Troponin T < 0.010 ng/mL (0.00-0.029) 12/07/21 14:20
--- NOTE | 2021-12-09 16:14 | Vascular Lab Report ---
DUPLEX DOPPLER LOWER EXTREMITY VEINS, LEFT INDICATION / CLINICAL INFORMATION: Swelling. TECHNIQUE: Duplex doppler imaging was performed through the veins of the left lower extremity using v enous compression and other maneuvers. COMPARISON: None available. FINDINGS: LEFT COMMON FEMORAL VEIN: Nonocclusive acute thrombus. LEFT FEMORAL VEIN: Nonocclusive acute thrombus to the level of the mid superficial femoral vein. LEFT POPLITEAL VEIN: Negative. LEFT CALF VEINS: Negative. ADDITIONAL FINDINGS: Nonocclusive acute thrombus within the distal external iliac vein. IMPRESSION: Acute nonocclusive DVT in the left external iliac vein, common femoral vein and femoral v ein.. The results were communicated by the space control agent to REEMA Hamm at 14:42. Scribed by: Meg Leger RDMS, [place], DIANKS Scribed: 12/09/2021 2:51 PM I have reviewed the images, agree with this report, and edited this report as needed. Signer Name: Raulito Rae MD Signed: 12/09/2021 4:10 PM Workstation Name: [id number]
[2021-12-09] MEDS ORDERED: HEPARIN 10,000 UNITS/10 ML VIAL IV ONE (17:39)
[2021-12-09] MEDS ORDERED: HEPARIN 10,000 UNITS/10 ML VIAL IV PRN (17:39)
[2021-12-09] MEDS ORDERED: INSULIN REGULAR, HUMAN 100 UNITS in SODIUM CHLORIDE 0.9% 99 ML IV SCH (18:00)
[2021-12-09] MEDS: HEPARIN/ 0.45% NACL DRIP 25,000 UNIT/500 ML BAG IV SCH (19:40)
--- NOTE | 2021-12-09 20:02 | Electrocardiograph Report ---
[facility] Test Date: 2021-12-07 Test Time: 12:04:01 Pat Name: BASIL RAY SR Department: Room: A377 Gender: M Composition Instructor: CHRIS : [id number] Requested By: SERGIO POPE Order Number: [id number] Reading MD: Sheri Palomo Measurements Intervals [place] Rate: 81 P: 33 [place]: 175 QRS: 183 QRSD: 87 T: 16 QT: 362 QTc: 420 Interpretive Statements Sinus rhythm Low voltage, precordial leads Right ventricular hypertrophy Compared to ECG 11/09/2021 15:39:02 No significant change Electronically Signed On 12-09-2021 20:01:39 EDT by Sheri Palomo
[2021-12-09 23:47] LABS: Hematocrit 41.6 % (35.5-45.6); Hemoglobin 13.3 gm/dl (11.8-15.2)
[2021-12-09 23:57] LABS: INR 1.43 (0.87-1.13)
[2021-12-10 00:10] LABS: Partial Thromboplastin Time 121.5 Sec. (24.2-36.6)
[2021-12-10 02:02] LABS: Partial Thromboplastin Time 118.6 Sec. (24.2-36.6)
[2021-12-10] MEDS: TAMSULOSIN 0.4 MG CAP PO SCH (10:00)
[2021-12-10] MEDS: TIOTROPIUM 18 MCG CAP INHALATION IH SCH (10:01)
[2021-12-10] MEDS: cefTRIAXone/NS 2 GM/100 ML 2 GM/100 ML BAG IV SCH (10:44)
[2021-12-10] MEDS ORDERED: HEPARIN 10,000 UNITS/10 ML VIAL IV PRN (11:00)
[2021-12-10] MEDS: HEPARIN/ 0.45% NACL DRIP 25,000 UNIT/500 ML BAG IV SCH (11:10)
--- NOTE | 2021-12-10 11:22 | Progress Note ---
Assessment and Plan Assessment and Plan - Patient Problems # Acute encephalopathy -Noted by healthcare network consultant since yesterday and swelling in abdomin -he is better today as per caregiver assisted living dose off easily -oriented to place and date -CT brain is unremarkable -finding from hx and exam is suggestive of encephalopathy mostly related to underlying infection ,add to that respiratory decompromize and possible Co2 retension -Ammonia level is #85 continue to be high # Tremor -is mostly related to astrexsis -related to underlying metabolic impairment -BUN/CR are in normal -check ammonia level#82--85 -treat underlying infection -possibility of steroid and breathing treatment add to tremor. #hyper ammonemia -etiology not clear -consider treatment as needed # Cellulitis of left abdominal wall -CT scan abdomen, IV antibiotic therapy, CBC, CMP, supportive care. # New onset DVT -left external iliac vein,common femoral vein and femoral vein -started on Heparin IV # Left leg cellulitis -IV antibiotic therapy, supportive care. CBC. Repeat CBC in a.m. # Acute and chronic respiratory failure -Supplemental oxygen, pulse oximetry, nebulizer therapy, noninvasive positive pressure ventilation as clinically indicated. # Obesity hypoventilation syndrome -Balanced diet, increase physical activity at discharge, outpatient pulmonary follow-up for sleep study. Outpatient bariatric surgery consultation. # Prostate cancer -Supportive care, outpatient urology follow-up. # DVT prophylaxis -SCD to bilateral lower extremities while in bed # Advance care planning Disease education conducted, care plan discussed, diagnoses discussed, prognosis discussed, patient family at bedside during examination. Patient family k nowledges understanding and agreement with care plan, will follow Subjective Date of service: 12/10/21 Principal diagnosis: Confusion Interval history: pt. is more alert today responsive , not sleepy , oriented to place and date Ammonia #85 today astrxsis some what better he is with new onset DVT left leg started on Iv heparine Objective - Vital Sign Vital Signs - 12hr 12/10/21 12/10/21 12/10/21 05:12 08:57 10:00 Temperature 98.6 F Pulse Rate 76 Pulse Rate [ 98 H Anterior Bilateral Throughout] Pulse Rate [ 86 Posterior Bilateral Throughout] Respiratory 20 Rate Respiratory 20 Rate [Anterior Bilateral Throughout] Respiratory 18 Rate [Posterior Bilateral Throughout] Blood Pressure 132/72 O2 Sat by Pulse 100 80 L Oximetry - General Apperance Constitutional: uncomfortable - EENT EENT: PERRL, mucous membranes moist - Respiratory Respiratory: lungs clear, rhonchi - Cardiovascular Cardiovascular: regular rate, normal S1, normal S2 Extremities: no peripheral edema bilat, no clubbing, cyanosis - Gastrointestinal Gastrointestinal: normoactive bowel sounds - Integumentary Integumentary: normal - Neurologic Cranial nerve examination: PERRL, EOMI, intact Speech examination: intact Detailed motor examination: other (pelvic level right leg amputee) - Laboratory Findings CBC and BMP: 12/09/21 22:55 12/09/21 05:31 Abnormal Lab Findings: Abnormal Labs 12/07/21 12/07/21 12/07/21 14:20 14:20 14:20 WBC 4.0 L Hgb 15.3 H Hct 46.8 H MCV 104 H MCH 34 H MCHC RDW 15.3 H Plt Count 114 L [place] % (Auto) 15.8 H Eos % (Auto) 4.5 H Lymph # (Auto) 0.9 L Monocytes % (Manual) Eosinophils % (Manual) Basophils % (Manual) Lymphocytes # (Manual) PT 17.4 H INR 1.27 H APTT Heparin Anti-Xa Level Potassium 5.3 H Chloride 96.5 L Carbon Dioxide 40 H Glucose Total Bilirubin 1.30 H Ammonia Albumin 3.2 L Free T4 Ur Specific [place] 12/08/21 12/08/21 12/08/21 00:24 05:50 05:50 WBC 4.3 L Hgb Hct 47.7 H MCV 106 H MCH 33 H MCHC 31 L RDW 15.3 H Plt Count 90 L [place] % (Auto) Eos % (Auto) Lymph # (Auto) Monocytes % (Manual) 8.0 H Eosinophils % (Manual) Basophils % (Manual) 2.0 H Lymphocytes # (Manual) 0.9 L PT INR APTT Heparin Anti-Xa Level Potassium 5.4 H Chloride Carbon Dioxide 37 H Glucose 66 L Total Bilirubin Ammonia Albumin Free T4 Ur Specific [place] 1.034 H 12/08/21 12/08/21 12/09/21 21:05 21:05 05:31 WBC Hgb Hct MCV MCH MCHC RDW Plt Count [place] % (Auto) Eos % (Auto) Lymph # (Auto) Monocytes % (Manual) Eosinophils % (Manual) Basophils % (Manual) Lymphocytes # (Manual) PT INR APTT Heparin Anti-Xa Level Potassium Chloride Carbon Dioxide 38 H Glucose Total Bilirubin Ammonia 75.0 H Albumin Free T4 0.74 L Ur Specific [place] 12/09/21 12/09/21 12/09/21 07:03 07:03 22:55 WBC Hgb Hct MCV 105 H MCH 34 H MCHC RDW 15.9 H Plt Count 104 L 103 L [place] % (Auto) Eos % (Auto) Lymph # (Auto) Monocytes % (Manual) 9.0 H Eosinophils % (Manual) 5.0 H Basophils % (Manual) Lymphocytes # (Manual) PT INR APTT Heparin Anti-Xa Level Potassium Chloride Carbon Dioxide Glucose Total Bilirubin Ammonia 82.0 H Albumin Free T4 Ur Specific [place] 12/09/21 12/10/21 12/10/21 22:55 00:38 09:45 WBC Hgb Hct MCV MCH MCHC RDW Plt Count [place] % (Auto) Eos % (Auto) Lymph # (Auto) Monocytes % (Manual) Eosinophils % (Manual) Basophils % (Manual) Lymphocytes # (Manual) PT 19.2 H INR 1.43 H APTT 121.5 H* 118.6 H* Heparin Anti-Xa Level 0.21 L Potassium Chloride Carbon Dioxide Glucose Total Bilirubin Ammonia Albumin Free T4 Ur Specific [place] 12/10/21 09:45 WBC Hgb Hct MCV MCH MCHC RDW Plt Count [place] % (Auto) Eos % (Auto) Lymph # (Auto) Monocytes % (Manual) Eosinophils % (Manual) Basophils % (Manual) Lymphocytes # (Manual) PT INR APTT Heparin Anti-Xa Level Potassium Chloride Carbon Dioxide Glucose Total Bilirubin Ammonia 85.0 H Albumin Free T4 Ur Specific [place]
--- NOTE | 2021-12-10 15:07 | Progress Note ---
Assessment and Plan 66 YO Male with Obesity Hypoventilation Syndrome, CaP S/P Radiation therapy, Asthma, COPD, Chronic Respiratory Failure on Home Trilogy machine QHS, and supplemental oxygen 3L via NC, GERD presents to ED on 12/07/21 for evaluation of increased confusion over the last 2 days along with redness and swelling on the lower abdominal wall and lower extremity. Patient found to have a pulse oximetry of 84% on room air which is consistent with acute hypoxemic respiratory failure. Patient also found to have abdominal wall cellulitis with concomitant left leg cellulitis, metabolic encephalopathy, systemic inflammatory response syndrome. Patient admitted to medical floor, IV antibiotic therapy initiated in the emergency department. Daily clinical course: 12/08: Patient is currently receiving antibiotic therapy for possible cellulitis of lower abdominal wall as well as left pretibial area. Patient has AKA sensa tion to and use a prosthesis to get around which broke about a year ago. Patient is currently alert, fairly oriented and answers questions appropriately. Afebrile. BP meds on hold for soft BP. Tolerating diet. Denies cough, dyspnea, nausea, abdominal pain, dysuria or chills. 12/09: patient is a poor historian/poor memory but awake and alert and is able to tell his name and age and eating breakfast on his own. Complains of pain in the left leg and abdomen. He denies any fever or chills. Denies nausea or vomiting . Denies chest pain or shortness of breath. Lab results reviewed. Neurology note reviewed. 12/10: Lower extremity venous Doppler was suggestive for acute DVT, started on he lawrence drip since yesterday. Will change to Eliquis today. Patient appeared to be tolerating diet and more alert and oriented. But still has significant drowsiness and elevated ammonia level. Ordered lactulose every 6 hours, follow ammonia level. We will start her on IV Lasix to reduce abdominal wall and lower extremity edema. We will also order 2D echocardiogram. Assessment and plan: --New onset DVT -left external iliac vein,common femoral vein and femoral vein started on Heparin IV, changed to Eliquis today --Anasarca, will place on IV Lasix --Hyperammonemia, lactulose ordered, follow ammonia level -- Cellulitis of left abdominal wall Current Visit: Yes Status: Acute Plan to address problem: CT scan abdomen, IV antibiotic therapy, CBC, CMP, supportive care. -- Left leg cellulitis Current Visit: Yes Status: Acute Plan to address problem: IV antibiotic therapy, supportive care. CBC. Repeat CBC in a.m. -- Acute encephalopathy possible from dehydration/sepsis Current Visit: Yes Status: Acute Plan to address problem: CT head, neuro check, seizure precautions, treat cellulitis, supportive care. BP soft, status post hydration, antibiotics, Blood cultures-no growth to date -- Acute and chronic respiratory failure Current Visit: No Status: Acute Qualifiers: Respiratory failure complication: hypoxia Qualified Code(s): J96.21 - Acute and chronic respiratory failure with hypoxia Plan to address problem: Supplemental oxygen, pulse oximetry, nebulizer therapy, noninvasive positive pressure ventilation as clinically indicated. Needs outpatient follow-up with pulmonary -- Obesity hypoventilation syndrome Current Visit: No Status: Acute Plan to address problem: Balanced diet, increase physical activity at discharge, outpatient pulmonary follow-up for sleep study. Outpatient bariatric surgery consultation. --History of prostate cancer Current Visit: No Status: Acute Plan to address problem: Supportive care, outpatient urology follow-up. Patient states that he has prostate cancer and bladder cancer but is not able to tell the name of his urologist -- right upper extremity tremors Right upper extremity tremor since months, getting worse per caregiver. Neurology consulted and note reviewed and appreciated -- morbid obesity Counseling at the time of discharge -- thrombocytopenia-platelets are hovering around 100 (104K today) --hyperkalemia Improved --DVT prophylaxis Current Visit: No Status: Acute Plan to address problem: SCD to bilateral lower extremities while in bed Subjective Date of service: 12/10/21 Principal diagnosis: Confusion Interval history: Patient seen and examined. Medical records and medication list reviewed. No acute event overnight noted by the RN. Patient appears to be more alert and oriented today but still has significant drowsiness. Patient is tolerating diet. Complains of constipation and abdominal wall swelling Discussed plan of care at bedside with patient and with his caregiver. Objective - Exam Narrative Exam: GENERAL: well-developed and morbidly obese elderly -[place] male lying on bed appeared to be in no discomfort. HEENT: Normocephalic. Atraumatic. No conjunctival congestion or icterus. Patient has moist mucous membranes. NECK: Supple. Trachea midline. CHEST/LUNGS: Clear to auscultated bilaterally, breathing nonlabored. No wheezes crackles or rhonchi. HEART/CARDIOVASCULAR: Regular in rate and rhythm. S1 and S2 positive. ABDOMEN: Abdomen is soft, lower abdominal wall firmness and mild tenderness. Patient has normal bowel sounds. SKIN: There is no rash. Warm and dry. NEURO: No focal motor deficit. Follows command. But appears to be drowsy MUSCULOSKELETAL: No joint effusion or tenderness. Right AKA EXTRIMITY: +ve edema, no cyanosis or clubbing. PSYCH: Cooperative. - Constitutional Vitals: Vital Signs - 12hr 12/10/21 12/10/21 12/10/21 05:12 08:57 10:00 Temperature 98.6 F Pulse Rate 76 Pulse Rate [ 98 H Anterior Bilateral Throughout] Pulse Rate [ 86 Posterior Bilateral Throughout] Respiratory 20 Rate Respiratory 20 Rate [Anterior Bilateral Throughout] Respiratory 18 Rate [Posterior Bilateral Throughout] Blood Pressure 132/72 O2 Sat by Pulse 100 80 L Oximetry 12/10/21 12/10/21 12:07 12:10 Temperature 97.0 F L Pulse Rate 85 Pulse Rate [ Anterior Bilateral Throughout] Pulse Rate [ Posterior Bilateral Throughout] Respiratory 20 Rate Respiratory Rate [Anterior Bilateral Throughout] Respiratory Rate [Posterior Bilateral Throughout] Blood Pressure 144/82 O2 Sat by Pulse 89 Oximetry - Labs CBC & Chem 7: 12/09/21 22:55 12/09/21 05:31 Labs: Abnormal lab results 12/09/21 12/09/21 12/10/21 Range/Units 22:55 22:55 00:38 Plt Count 103 L (140-440) K/mm3 PT 19.2 H (12.2-14.9) Sec. INR 1.43 H (0.87-1.13) APTT 121.5 H* 118.6 H* (24.2-36.6) Sec. Heparin Anti-Xa Level (0.3-0.7) U.I./ml Ammonia (25-60) umol/L 12/10/21 12/10/21 Range/Units 09:45 09:45 Plt Count (140-440) K/mm3 PT (12.2-14.9) Sec. INR (0.87-1.13) APTT (24.2-36.6) Sec. Heparin Anti-Xa Level 0.21 L (0.3-0.7) U.I./ml Ammonia 85.0 H (25-60) umol/L HEART Score - HEART Score Troponin: Troponin T < 0.010 ng/mL (0.00-0.029) 12/07/21 14:20
[2021-12-10] MEDS: APIXABAN 5 MG TAB PO SCH ×2 (15:11→23:09)
[2021-12-10] MEDS: LACTULOSE 20 GM/30 ML ORAL LIQD PO SCH ×2 (15:11→18:07)
[2021-12-10] MEDS: FUROSEMIDE 40 MG/4 ML INJ IV SCH (15:12)
[2021-12-10] MEDS ORDERED: LORazepam 2 MG/ML VIAL IV ONE (21:07)
[2021-12-10 23:34] LABS: Hematocrit 45.1 % (35.5-45.6); Hemoglobin 14.6 gm/dl (11.8-15.2); Mean Corpuscular HGB Conc 32 % (32-34); Mean Corpuscular Volume 104 fl (84-94); Platelet Count 116 K/mm3 (140-440); Red Blood Count 4.35 M/mm3 (3.65-5.03); Red Cell Distribution Width 15.3 % (13.2-15.2)
[2021-12-10 23:56] LABS: INR 1.54 (0.87-1.13); Partial Thromboplastin Time 24.1 Sec. (24.2-36.6)
[2021-12-11] MEDS: LACTULOSE 20 GM/30 ML ORAL LIQD PO SCH ×5 (00:09→23:05)
[2021-12-11] MEDS ORDERED: LORazepam 2 MG/ML VIAL IV ONE (02:45)
[2021-12-11] MEDS: TIOTROPIUM 18 MCG CAP INHALATION IH SCH (08:15)
[2021-12-11] MEDS: cefTRIAXone/NS 2 GM/100 ML 2 GM/100 ML BAG IV SCH (09:26)
[2021-12-11] MEDS: FUROSEMIDE 40 MG/4 ML INJ IV SCH (09:27)
[2021-12-11] MEDS: TAMSULOSIN 0.4 MG CAP PO SCH (09:49)
[2021-12-11] MEDS: APIXABAN 5 MG TAB PO SCH ×2 (09:49→22:19)
--- NOTE | 2021-12-11 10:26 | Progress Note ---
Assessment and Plan Assessment and Plan - Patient Problems # Acute encephalopathy resolved -finding from hx and exam is suggestive of encephalopathy mostly related to underlying infection ,add to that respiratory decompromize and possible Co2 retension -Ammonia level is #85 continue to be high # Delirium - reconend shade open during the day -PT therapy -consider Haldol if got worse 2-5 mg IM as needed # Tremor -is mostly related to astrexsis -related to underlying metabolic impairment -BUN/CR are in normal -check ammonia level#82--85 -treat underlying infection -possibility of steroid and breathing treatment add to tremor. #hyper ammonemia -etiology not clear -consider treatment as needed # Cellulitis of left abdominal wall -CT scan abdomen, IV antibiotic therapy, CBC, CMP, supportive care. # New onset DVT -left external iliac vein,common femoral vein and femoral vein -started on Heparin IV # Left leg cellulitis -IV antibiotic therapy, supportive care. CBC. Repeat CBC in a.m. # Acute and chronic respiratory failure -Supplemental oxygen, pulse oximetry, nebulizer therapy, noninvasive positive pressure ventilation as clinically indicated. # Obesity hypoventilation syndrome -Balanced diet, increase physical activity at discharge, outpatient pulmonary follow-up for sleep study. Outpatient bariatric surgery consultation. # Prostate cancer -Supportive care, outpatient urology follow-up. # DVT prophylaxis -SCD to bilateral lower extremities while in bed # Advance care planning Disease education conducted, care plan discussed, diagnoses discussed, prognosis discussed, patient family at bedside during examination. Patient family knowledges understanding and agreement with care plan, will follow Subjective Date of service: 12/11/21 Principal diagnosis: Confusion Interval history: pt. is agitated today,responsive , not sleepy , oriented to place and date ,he is restraint Ammonia #85 today astrxsis some what better he is with new onset DVT left leg started on Iv heparine-- today on Eliquis Objective - Vital Sign Vital Signs - 12hr 12/10/21 12/11/21 12/11/21 23:33 01:15 03:42 Temperature 98.2 F Pulse Rate 131 H 93 H Respiratory 18 Rate Blood Pressure 182/115 O2 Sat by Pulse 94 96 95 Oximetry 12/11/21 10:00 Temperature Pulse Rate Respiratory Rate Blood Pressure O2 Sat by Pulse 93 Oximetry - General Apperance Constitutional: comfortable - EENT EENT: PERRL, mucous membranes moist - Respiratory Respiratory: lungs clear, rhonchi - Cardiovascular Cardiovascular: regular rate, normal S1, normal S2 Extremities: pitting edema - Gastrointestinal Gastrointestinal: normoactive bowel sounds, tender - Integumentary Integumentary: normal - Neurologic Cranial nerve examination: PERRL, EOMI, intact Speech examination: intact Detailed motor examination: grossly full strength in - Laboratory Findings CBC and BMP: 12/10/21 23:17 12/10/21 23:17 Abnormal Lab Findings: Abnormal Labs 12/07/21 12/07/21 12/07/21 14:20 14:20 14:20 WBC 4.0 L Hgb 15.3 H Hct 46.8 H MCV 104 H MCH 34 H MCHC RDW 15.3 H Plt Count 114 L [place] % (Auto) 15.8 H Eos % (Auto) 4.5 H Lymph # (Auto) 0.9 L Monocytes % (Manual) Eosinophils % (Manual) Basophils % (Manual) Lymphocytes # (Manual) PT 17.4 H INR 1.27 H APTT Heparin Anti-Xa Level Potassium 5.3 H Chloride 96.5 L Carbon Dioxide 40 H Glucose POC Glucose Total Bilirubin 1.30 H Ammonia Albumin 3.2 L Free T4 Ur Specific [place] 12/08/21 12/08/21 12/08/21 00:24 05:50 05:50 WBC 4.3 L Hgb Hct 47.7 H MCV 106 H MCH 33 H MCHC 31 L RDW 15.3 H Plt Count 90 L [place] % (Auto) Eos % (Auto) Lymph # (Auto) Monocytes % (Manual) 8.0 H Eosinophils % (Manual) Basophils % (Manual) 2.0 H Lymphocytes # (Manual) 0.9 L PT INR APTT Heparin Anti-Xa Level Potassium 5.4 H Chloride Carbon Dioxide 37 H Glucose 66 L POC Glucose Total Bilirubin Ammonia Albumin Free T4 Ur Specific [place] 1.034 H 12/08/21 12/08/21 12/09/21 21:05 21:05 05:31 WBC Hgb Hct MCV MCH MCHC RDW Plt Count [place] % (Auto) Eos % (Auto) Lymph # (Auto) Monocytes % (Manual) Eosinophils % (Manual) Basophils % (Manual) Lymphocytes # (Manual) PT INR APTT Heparin Anti-Xa Level Potassium Chloride Carbon Dioxide 38 H Glucose POC Glucose Total Bilirubin Ammonia 75.0 H Albumin Free T4 0.74 L Ur Specific [place] 12/09/21 12/09/21 12/09/21 07:03 07:03 22:55 WBC Hgb Hct MCV 105 H MCH 34 H MCHC RDW 15.9 H Plt Count 104 L 103 L [place] % (Auto) Eos % (Auto) Lymph # (Auto) Monocytes % (Manual) 9.0 H Eosinophils % (Manual) 5.0 H Basophils % (Manual) Lymphocytes # (Manual) PT INR APTT Heparin Anti-Xa Level Potassium Chloride Carbon Dioxide Glucose POC Glucose Total Bilirubin Ammonia 82.0 H Albumin Free T4 Ur Specific [place] 12/09/21 12/10/21 12/10/21 22:55 00:38 09:45 WBC Hgb Hct MCV MCH MCHC RDW Plt Count [place] % (Auto) Eos % (Auto) Lymph # (Auto) Monocytes % (Manual) Eosinophils % (Manual) Basophils % (Manual) Lymphocytes # (Manual) PT 19.2 H INR 1.43 H APTT 121.5 H* 118.6 H* Heparin Anti-Xa Level 0.21 L Potassium Chloride Carbon Dioxide Glucose POC Glucose Total Bilirubin Ammonia Albumin Free T4 Ur Specific [place] 12/10/21 12/10/21 12/10/21 09:45 16:10 22:33 WBC Hgb Hct MCV MCH MCHC RDW Plt Count [place] % (Auto) Eos % (Auto) Lymph # (Auto) Monocytes % (Manual) Eosinophils % (Manual) Basophils % (Manual) Lymphocytes # (Manual) PT INR APTT Heparin Anti-Xa Level Potassium Chloride Carbon Dioxide Glucose POC Glucose 108 H 108 H Total Bilirubin Ammonia 85.0 H Albumin Free T4 Ur Specific [place] 12/10/21 12/10/21 23:17 23:17 WBC Hgb Hct MCV 104 H MCH 34 H MCHC RDW 15.3 H Plt Count 116 L [place] % (Auto) Eos % (Auto) Lymph # (Auto) Monocytes % (Manual) Eosinophils % (Manual) Basophils % (Manual) Lymphocytes # (Manual) PT 20.4 H INR 1.54 H APTT 24.1 L Heparin Anti-Xa Level Potassium Chloride Carbon Dioxide Glucose POC Glucose Total Bilirubin Ammonia Albumin Free T4 Ur Specific [place]
[2021-12-11 15:57] LABS: Hematocrit 45.5 % (35.5-45.6); Hemoglobin 14.4 gm/dl (11.8-15.2)
[2021-12-11 16:23] LABS: Alanine Aminotransferase 11 units/L (7-56); BUN/Creatinine Ratio 13; Bilirubin,Direct 0.4 mg/dL (0-0.2); Blood Urea Nitrogen 12 mg/dL (9-20); Calcium 9.1 mg/dL (8.4-10.2); Hemolysis Index 3
--- NOTE | 2021-12-11 17:56 | Progress Note ---
Assessment and Plan 66 YO Male with Obesity Hypoventilation Syndrome, CaP S/P Radiation therapy, Asthma, COPD, Chronic Respiratory Failure on Home Trilogy machine QHS, and supplemental oxygen 3L via [place], GERD presents to ED on 12/07/21 for evaluation of increased confusion over the last 2 days along with redness and swelling on the lower abdominal wall and lower extremity. Patient found to have a pulse oximetry of 84% on room air which is consistent with acute hypoxemic respiratory failure. Patient also found to have abdominal wall cellulitis with concomitant left leg cellulitis, metabolic encephalopathy, systemic inflammatory response syndrome. Patient admitted to medical floor, IV antibiotic therapy initiated in the emergency department. Daily clinical course: 12/08: Patient is currently receiving antibiotic therapy for possible cellulitis of lower abdominal wall as well as left pretibial area. Patient has AKA sensa tion to and use a prosthesis to get around which broke about a year ago. Patient is currently alert, fairly oriented and answers questions appropriately. Afebrile. BP meds on hold for soft BP. Tolerating diet. Denies cough, dyspnea, nausea, abdominal pain, dysuria or chills. 12/09: patient is a poor historian/poor memory but awake and alert and is able to tell his name and age and eating breakfast on his own. Complains of pain in the left leg and abdomen. He denies any fever or chills. Denies nausea or vomiting . Denies chest pain or shortness of breath. Lab results reviewed. Neurology note reviewed. 12/10: Lower extremity venous Doppler was suggestive for acute DVT, started on he lawrence drip since yesterday. Will change to Eliquis today. Patient appeared to be tolerating diet and more alert and oriented. But still has significant drowsiness and elevated ammonia level. Ordered lactulose every 6 hours, follow ammonia level. We will start her on IV Lasix to reduce abdominal wall and lower extremity edema. We will also order 2D echocardiogram. 12/11: Had BM yesterday and today, reduce lactulose dose, follow ammonia, requesting nicotin patch. follow BMP. cont to monitor clinically. remains on 10L O2 - wean off as tolerated Assessment and plan: --New onset DVT -left external iliac vein,common femoral vein and femoral vein started on Heparin IV, changed to Eliquis --Anasarca, cont on IV Lasix, order 2d echo --Hyperammonemia, lactulose ordered, follow ammonia level -- Cellulitis of left abdominal wall Current Visit: Yes Status: Acute Plan to address problem: CT scan abdomen, IV antibiotic therapy, CBC, CMP, supportive care. -- Left leg cellulitis Current Visit: Yes Status: Acute Plan to address problem: IV antibiotic therapy, supportive care. CBC. Repeat CBC in a.m. -- Acute encephalopathy possible from dehydration/sepsis Current Visit: Yes Status: Acute Plan to address problem: CT head, neuro check, seizure precautions, treat cellulitis, supportive care. BP soft, status post hydration, antibiotics, Blood cultures-no growth to date -- Acute and chronic respiratory failure Current Visit: No Status: Acute Qualifiers: Respiratory failure complication: hypoxia Qualified Code(s): J96.21 - Acute and chronic respiratory failure with hypoxia Plan to address problem: Supplemental oxygen, pulse oximetry, nebulizer therapy, noninvasive positive pressure ventilation as clinically indicated. Needs outpatient follow-up with pulmonary -- Obesity hypoventilation syndrome Current Visit: No Status: Acute Plan to address problem: Balanced diet, increase physical activity at discharge, outpatient pulmonary follow-up for sleep study. Outpatient bariatric surgery consultation. --History of prostate cancer Current Visit: No Status: Acute Plan to address problem: Supportive care, outpatient urology follow-up. Patient states that he has prostate cancer and bladder cancer but is not able to tell the name of his urologist -- right upper extremity tremors Right upper extremity tremor since months, getting worse per caregiver. Neurology consulted and note reviewed and appreciated -- morbid obesity Counseling at the time of discharge -- thrombocytopenia-platelets are hovering around 100 (104K today) --hyperkalemia Improved --DVT prophylaxis Current Visit: No Status: Acute Plan to address problem: SCD to bilateral lower extremities while in bed Subjective Date of service: 12/11/21 Principal diagnosis: Confusion Interval history: Patient seen and examined. Medical records and medication list reviewed. No acute event overnight noted by the RN. Patient appears to be alert and oriented today. Patient is tolerating diet. Complains of abdominal wall swelling but improving had BM, requesting for nicotine patch was very agitated, placed on restraint o/n Discussed plan of care at bedside with patient and with his caregiver. Objective - Exam Narrative Exam: GENERAL: well-developed and morbidly obese elderly -[place] male lying on bed appeared to be in no discomfort. HEENT: Normocephalic. Atraumatic. No conjunctival congestion or icterus. Patient has moist mucous membranes. NECK: Supple. Trachea midline. CHEST/LUNGS: Clear to auscultated bilaterally, breathing nonlabored. No wheezes crackles or rhonchi. HEART/CARDIOVASCULAR: Regular in rate and rhythm. S1 and S2 positive. ABDOMEN: Abdomen is soft, lower abdominal wall firmness and mild tenderness. Patient has normal bowel sounds. SKIN: There is no rash. Warm and dry. NEURO: No focal motor deficit. Follows command. But appears to be drowsy MUSCULOSKELETAL: No joint effusion or tenderness. Right AKA EXTRIMITY: +ve edema, no cyanosis or clubbing. PSYCH: Cooperative. - Constitutional Vitals: Vital Signs - 12hr 12/11/21 12/11/21 12/11/21 10:00 11:29 11:30 Temperature 98.3 F Pulse Rate 93 H Respiratory 20 Rate Blood Pressure 171/122 Blood Pressure 140/71 [Left] O2 Sat by Pulse 94 88 Oximetry - Labs CBC & Chem 7: 12/11/21 15:27 12/11/21 15:27 Labs: Abnormal lab results 12/10/21 12/10/21 12/10/21 Range/Units 22:33 23:17 23:17 MCV 104 H (84-94) fl MCH 34 H (28-32) pg RDW 15.3 H (13.2-15.2) % Plt Count 116 L (140-440) K/mm3 PT 20.4 H (12.2-14.9) Sec. INR 1.54 H (0.87-1.13) APTT 24.1 L (24.2-36.6) Sec. Heparin Anti-Xa Level (0.3-0.7) U.I./ml Chloride (98-107) mmol/L Carbon Dioxide (22-30) mmol/L Glucose (75-100) mg/dL POC Glucose 108 H (70-105) mg/dL Direct Bilirubin (0-0.2) mg/dL Albumin (3.9-5) g/dL 12/11/21 12/11/21 12/11/21 Range/Units 15:27 15:27 15:27 MCV (84-94) fl MCH (28-32) pg RDW (13.2-15.2) % Plt Count 110 L (140-440) K/mm3 PT (12.2-14.9) Sec. INR (0.87-1.13) APTT (24.2-36.6) Sec. Heparin Anti-Xa Level 1.99 H (0.3-0.7) U.I./ml Chloride 96.2 L (98-107) mmol/L Carbon Dioxide 43 H* (22-30) mmol/L Glucose 115 H (75-100) mg/dL POC Glucose (70-105) mg/dL Direct Bilirubin 0.4 H (0-0.2) mg/dL Albumin 3.0 L (3.9-5) g/dL HEART Score - HEART Score Troponin: Troponin T < 0.010 ng/mL (0.00-0.029) 12/07/21 14:20
[2021-12-11] MEDS: ACETAMINOPHEN 500 MG TAB PO PRN (17:59)
[2021-12-11] MEDS: NICOTINE 7 MG/24 HR PATCH TD SCH (22:19)
[2021-12-12] MEDS: ACETAMINOPHEN 500 MG TAB PO PRN ×2 (02:39→16:41)
[2021-12-12] MEDS: LACTULOSE 20 GM/30 ML ORAL LIQD PO SCH ×2 (05:12→09:39)
[2021-12-12 08:30] LABS: Hematocrit 45.6 % (35.5-45.6); Hemoglobin 14.4 gm/dl (11.8-15.2); Mean Corpuscular HGB Conc 32 % (32-34); Mean Corpuscular Volume 103 fl (84-94); Platelet Count 110 K/mm3 (140-440); Red Blood Count 4.41 M/mm3 (3.65-5.03); Red Cell Distribution Width 15.2 % (13.2-15.2)
[2021-12-12 08:33] LABS: Blood Urea Nitrogen 10 mg/dL (9-20); Calcium 9.3 mg/dL (8.4-10.2); Hemolysis Index 12
[2021-12-12 09:21] LABS: BUN/Creatinine Ratio 14
[2021-12-12] MEDS: cefTRIAXone/NS 2 GM/100 ML 2 GM/100 ML BAG IV SCH (09:38)
[2021-12-12] MEDS: TAMSULOSIN 0.4 MG CAP PO SCH (09:39)
[2021-12-12] MEDS: cloNIDine 0.2 MG TAB PO SCH ×2 (09:39→21:18)
[2021-12-12] MEDS: APIXABAN 5 MG TAB PO SCH ×2 (09:39→21:14)
[2021-12-12] MEDS: FUROSEMIDE 40 MG/4 ML INJ IV SCH (09:39)
[2021-12-12] MEDS: NICOTINE 7 MG/24 HR PATCH TD SCH (09:40)
--- NOTE | 2021-12-12 11:36 | Progress Note ---
Subjective Date of service: 12/12/21 Principal diagnosis: Confusion Interval history: 66 YO Male with Obesity Hypoventilation Syndrome, CaP S/P Radiation therapy, Asthma, COPD, Chronic Respiratory Failure on Home Trilogy machine QHS, and supplemental oxygen 3L via NC, GERD presents to ED on 12/07/21 for evaluation of increased confusion over the last 2 days along with redness and swelling on the lower abdominal wall and lower extremity. Patient found to have a pulse oximetry of 84% on room air which is consistent with acute hypoxemic respiratory failure. Patient also found to have abdominal wall cellulitis with concomitant left leg cellulitis, metabolic encephalopathy, systemic inflammatory response syndrome. Patient admitted to medical floor, IV antibiotic therapy initiated in the e mergency department. Daily clinical course: 12/08: Patient is currently receiving antibiotic therapy for possible cellulitis of lower abdominal wall as well as left pretibial area. 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 Patient is currently alert, fairly oriented and answers questions appropriately. Afebrile. BP meds on hold for soft BP. Tolerating diet. Denies cough, dyspnea, nausea, abdominal pain, dysuria or chills. 12/09: patient is a poor historian/poor memory but awake and alert and is able to tell his name and age and eating breakfast on his own. Complains of pain in the left leg and abdomen. He denies any fever or chills. Denies nausea or vomiting . Denies chest pain or shortness of breath. Lab results reviewed. Neurology note reviewed. 12/10: Lower extremity venous Doppler was suggestive for acute DVT, started on heparin drip since yesterday. Will change to Eliquis today. Patient appeared to be tolerating diet and more alert and oriented. But still has significant drowsiness and elevated ammonia level. Ordered lactulose every 6 hours, follow ammonia level. We will start her on IV Lasix to reduce abdominal wall and lower extremity edema. We will also order 2D echocardiogram. 12/11: Had BM yesterday and today, reduce lactulose dose, follow ammonia, requesting nicotin patch. follow BMP. cont to monitor clinically. remains on 10L O2 - wean off as tolerated 12/12 patient is alert and oriented and wants to go home. Explained to the patient that he is on 15 L oxygen via nasal cannula We will decrease oxygen to 10 L and monitor his oxygen saturation. Discussed with daytime caregiver and plan: --New onset DVT -left external iliac vein,common femoral vein and femoral vein started on Heparin IV, changed to Eliquis --Anasarca, cont on IV Lasix, order 2d echo --Hyperammonemia, lactulose ordered, follow ammonia level -- Cellulitis of left abdominal wall Current Visit: Yes Status: Acute Plan to address problem: CT scan abdomen, No evidence of any rash Patient is off antibiotic -- Left leg cellulitis Current Visit: Yes Status: Acute Plan to address problem: No evidence of cellulitis Swelling most likely secondary to acute DVT -- Acute encephalopathy possible from dehydration/sepsis Current Visit: Yes Status: Acute Plan to address problem: CT head, neuro check, seizure precautions, treat cellulitis, supportive care. BP soft, status post hydration, antibiotics, Blood cultures-no growth to date -- Acute and chronic respiratory failure Current Visit: No Status: Acute Qualifiers: Respiratory failure complication: hypoxia Qualified Code(s): J96.21 - Acute and chronic respiratory failure with hypoxia Plan to address problem: Supplemental oxygen, pulse oximetry, nebulizer therapy, noninvasive positive pressure ventilation as clinically indicated. Needs outpatient follow-up with pulmonary Patient states that he is followed by Dr. Kenny Will request pulmonary consult as the patient is on oxygen at 10 to 15 L -- Obesity hypoventilation syndrome Current Visit: No Status: Acute Plan to address problem: Balanced diet, increase physical activity at discharge, outpatient pulmonary follow-up for sleep study. Outpatient bariatric surgery consultation. Continue CPAP at at bedtime --History of prostate cancer Current Visit: No Status: Acute Plan to address problem: Supportive care, outpatient urology follow-up. Patient states that he has prostate cancer and bladder cancer but is not able to tell the name of his urologist -- right upper extremity tremors Right upper extremity tremor since months, getting worse per caregiver. Neurology consulted and note reviewed and appreciated -- morbid obesity Counseling at the time of discharge -- thrombocytopenia-platelets are hovering around 100 (104K today) --hyperkalemia Improved Objective - Constitutional Vitals: Vital Signs - 12hr 12/12/21 12/12/21 04:35 06:47 Temperature 98.2 F Pulse Rate 84 Pulse Rate [ 97 H Anterior Bilateral Throughout] Respiratory 20 Rate Respiratory 20 Rate [Anterior Bilateral Throughout] Blood Pressure 150/95 O2 Sat by Pulse 98 Oximetry General appearance: Present: no acute distress, obese - EENT Eyes: PERRL, EOM intact ENT: hearing intact - Neck Neck: supple, normal ROM - Respiratory Respiratory effort: normal Respiratory: bilateral: diminished - Cardiovascular Rhythm: regular Heart Sounds: Present: S1 & S2 Extremity abnormal: edema (Left leg swelling/right BKA) - Gastrointestinal General gastrointestinal: Present: soft Rectal Exam: deferred - Integumentary Integumentary: clear - Neurologic Neurologic: no focal deficits - Psychiatric Psychiatric: appropriate mood/affect - Labs CBC & Chem 7: 12/12/21 07:29 12/12/21 07:29 Labs: Abnormal lab results 12/11/21 12/11/21 12/11/21 Range/Units 15:27 15:27 15:27 WBC (4.5-11.0) K/mm3 MCV (84-94) fl MCH (28-32) pg Plt Count 110 L (140-440) K/mm3 Heparin Anti-Xa Level 1.99 H (0.3-0.7) U.I./ml Chloride 96.2 L (98-107) mmol/L Carbon Dioxide 43 H* (22-30) mmol/L Creatinine (0.8-1.3) mg/dL Glucose 115 H (75-100) mg/dL POC Glucose (70-105) mg/dL Direct Bilirubin 0.4 H (0-0.2) mg/dL Albumin 3.0 L (3.9-5) g/dL 12/11/21 12/12/21 12/12/21 Range/Units 16:09 07:29 07:29 WBC 4.4 L (4.5-11.0) K/mm3 MCV 103 H (84-94) fl MCH 33 H (28-32) pg Plt Count 110 L (140-440) K/mm3 Heparin Anti-Xa Level (0.3-0.7) U.I./ml Chloride 93.1 L (98-107) mmol/L Carbon Dioxide 41 H* (22-30) mmol/L Creatinine 0.7 L (0.8-1.3) mg/dL Glucose (75-100) mg/dL POC Glucose 115 H (70-105) mg/dL Direct Bilirubin (0-0.2) mg/dL Albumin (3.9-5) g/dL 12/12/21 Range/Units 11:09 WBC (4.5-11.0) K/mm3 MCV (84-94) fl MCH (28-32) pg Plt Count (140-440) K/mm3 Heparin Anti-Xa Level (0.3-0.7) U.I./ml Chloride (98-107) mmol/L Carbon Dioxide (22-30) mmol/L Creatinine (0.8-1.3) mg/dL Glucose (75-100) mg/dL POC Glucose 118 H (70-105) mg/dL Direct Bilirubin (0-0.2) mg/dL Albumin (3.9-5) g/dL HEART Score - HEART Score Troponin: Troponin T < 0.010 ng/mL (0.00-0.029) 12/07/21 14:20
--- NOTE | 2021-12-12 11:56 | Progress Note ---
Assessment and Plan Assessment and Plan - Patient Problems # Acute encephalopathy resolved -finding from hx and exam is suggestive of encephalopathy mostly related to underlying infection ,add to that respiratory decompromize and possible Co2 retension -Ammonia level is #85 continue to be high---today #38 -On lactulose # Delirium/ improved today -shade open during the day -PT therapy -consider Haldol if got worse 2-5 mg IM as needed # Tremor -is mostly related to astrexsis -related to underlying metabolic impairment -BUN/CR are in normal -check ammonia level#82--85--38 -treat underlying infection -possibility of steroid and breathing treatment add to tremor. #hyper ammonemia -etiology not clear -consider treatment as needed -Improved on Lactulose # Cellulitis of left abdominal wall -CT scan abdomen, IV antibiotic therapy, CBC, CMP, supportive care. # New onset DVT -left external iliac vein,common femoral vein and femoral vein -started on Heparin IV # Left leg cellulitis -IV antibiotic therapy, supportive care. CBC. Repeat CBC in a.m. # Acute and chronic respiratory failure -Supplemental oxygen, pulse oximetry, nebulizer therapy, noninvasive positive pressure ventilation as clinically indicated. # Obesity hypoventilation syndrome -Balanced diet, increase physical activity at discharge, outpatient pulmonary follow-up for sleep study. Outpatient bariatric surgery consultation. # Prostate cancer -Supportive care, outpatient urology follow-up. # DVT prophylaxis -SCD to bilateral lower extremities while in bed # Advance care planning Disease education conducted, care plan discussed, diagnoses discussed, prognosis discussed, patient family at bedside during examination. Patient family knowledges understanding and agreement with care plan, will sign off Subjective Date of service: 12/12/21 Principal diagnosis: Confusion Interval history: pt. is more alert interactive less agitated, tremor is better Ammonia #85 ---38 today on lactulose astrxsis is better he is with new onset DVT left leg started on Iv heparine-- today on Eliquis Need Pt therapy and or possible rehab. Objective - Vital Sign Vital Signs - 12hr 12/12/21 12/12/21 04:35 06:47 Temperature 98.2 F Pulse Rate 84 Pulse Rate [ 97 H Anterior Bilateral Throughout] Respiratory 20 Rate Respiratory 20 Rate [Anterior Bilateral Throughout] Blood Pressure 150/95 O2 Sat by Pulse 98 Oximetry - General Apperance Constitutional: comfortable - EENT EENT: PERRL, mucous membranes moist - Respiratory Respiratory: lungs clear, normal breath sounds, rhonchi - Cardiovascular Cardiovascular: regular rate, normal S1, normal S2 Extremities: no peripheral edema bilat, no clubbing, cyanosis - Gastrointestinal Gastrointestinal: normoactive bowel sounds - Integumentary Integumentary: normal - Neurologic Cranial nerve examination: PERRL, EOMI, intact Speech examination: intact Detailed motor examination: grossly full strength in, other (right leg amputee) - Laboratory Findings CBC and BMP: 12/12/21 07:29 12/12/21 07:29 Abnormal Lab Findings: Abnormal Labs 12/07/21 12/07/21 12/07/21 14:20 14:20 14:20 WBC 4.0 L Hgb 15.3 H Hct 46.8 H MCV 104 H MCH 34 H MCHC RDW 15.3 H Plt Count 114 L [place] % (Auto) 15.8 H Eos % (Auto) 4.5 H Lymph # (Auto) 0.9 L Monocytes % (Manual) Eosinophils % (Manual) Basophils % (Manual) Lymphocytes # (Manual) PT 17.4 H INR 1.27 H APTT Heparin Anti-Xa Level Potassium 5.3 H Chloride 96.5 L Carbon Dioxide 40 H Creatinine Glucose POC Glucose Total Bilirubin 1.30 H Direct Bilirubin Ammonia Albumin 3.2 L Free T4 Ur Specific [place] 12/08/21 12/08/21 12/08/21 00:24 05:50 05:50 WBC 4.3 L Hgb Hct 47.7 H MCV 106 H MCH 33 H MCHC 31 L RDW 15.3 H Plt Count 90 L [place] % (Auto) Eos % (Auto) Lymph # (Auto) Monocytes % (Manual) 8.0 H Eosinophils % (Manual) Basophils % (Manual) 2.0 H Lymphocytes # (Manual) 0.9 L PT INR APTT Heparin Anti-Xa Level Potassium 5.4 H Chloride Carbon Dioxide 37 H Creatinine Glucose 66 L POC Glucose Total Bilirubin Direct Bilirubin Ammonia Albumin Free T4 Ur Specific [place] 1.034 H 12/08/21 12/08/21 12/09/21 21:05 21:05 05:31 WBC Hgb Hct MCV MCH MCHC RDW Plt Count [place] % (Auto) Eos % (Auto) Lymph # (Auto) Monocytes % (Manual) Eosinophils % (Manual) Basophils % (Manual) Lymphocytes # (Manual) PT INR APTT Heparin Anti-Xa Level Potassium Chloride Carbon Dioxide 38 H Creatinine Glucose POC Glucose Total Bilirubin Direct Bilirubin Ammonia 75.0 H Albumin Free T4 0.74 L Ur Specific [place] 12/09/21 12/09/21 12/09/21 07:03 07:03 22:55 WBC Hgb Hct MCV 105 H MCH 34 H MCHC RDW 15.9 H Plt Count 104 L 103 L [place] % (Auto) Eos % (Auto) Lymph # (Auto) Monocytes % (Manual) 9.0 H Eosinophils % (Manual) 5.0 H Basophils % (Manual) Lymphocytes # (Manual) PT INR APTT Heparin Anti-Xa Level Potassium Chloride Carbon Dioxide Creatinine Glucose POC Glucose Total Bilirubin Direct Bilirubin Ammonia 82.0 H Albumin Free T4 Ur Specific [place] 12/09/21 12/10/21 12/10/21 22:55 00:38 09:45 WBC Hgb Hct MCV MCH MCHC RDW Plt Count [place] % (Auto) Eos % (Auto) Lymph # (Auto) Monocytes % (Manual) Eosinophils % (Manual) Basophils % (Manual) Lymphocytes # (Manual) PT 19.2 H INR 1.43 H APTT 121.5 H* 118.6 H* Heparin Anti-Xa Level 0.21 L Potassium Chloride Carbon Dioxide Creatinine Glucose POC Glucose Total Bilirubin Direct Bilirubin Ammonia Albumin Free T4 Ur Specific [place] 12/10/21 12/10/21 12/10/21 09:45 16:10 22:33 WBC Hgb Hct MCV MCH MCHC RDW Plt Count [place] % (Auto) Eos % (Auto) Lymph # (Auto) Monocytes % (Manual) Eosinophils % (Manual) Basophils % (Manual) Lymphocytes # (Manual) PT INR APTT Heparin Anti-Xa Level Potassium Chloride Carbon Dioxide Creatinine Glucose POC Glucose 108 H 108 H Total Bilirubin Direct Bilirubin Ammonia 85.0 H Albumin Free T4 Ur Specific [place] 12/10/21 12/10/21 12/11/21 23:17 23:17 15:27 WBC Hgb Hct MCV 104 H MCH 34 H MCHC RDW 15.3 H Plt Count 116 L 110 L [place] % (Auto) Eos % (Auto) Lymph # (Auto) Monocytes % (Manual) Eosinophils % (Manual) Basophils % (Manual) Lymphocytes # (Manual) PT 20.4 H INR 1.54 H APTT 24.1 L Heparin Anti-Xa Level Potassium Chloride Carbon Dioxide Creatinine Glucose POC Glucose Total Bilirubin Direct Bilirubin Ammonia Albumin Free T4 Ur Specific [place] 12/11/21 12/11/21 12/11/21 15:27 15:27 16:09 WBC Hgb Hct MCV MCH MCHC RDW Plt Count [place] % (Auto) Eos % (Auto) Lymph # (Auto) Monocytes % (Manual) Eosinophils % (Manual) Basophils % (Manual) Lymphocytes # (Manual) PT INR APTT Heparin Anti-Xa Level 1.99 H Potassium Chloride 96.2 L Carbon Dioxide 43 H* Creatinine Glucose 115 H POC Glucose 115 H Total Bilirubin Direct Bilirubin 0.4 H Ammonia Albumin 3.0 L Free T4 Ur Specific [place] 12/12/21 12/12/21 12/12/21 07:29 07:29 11:09 WBC 4.4 L Hgb Hct MCV 103 H MCH 33 H MCHC RDW Plt Count 110 L [place] % (Auto) Eos % (Auto) Lymph # (Auto) Monocytes % (Manual) Eosinophils % (Manual) Basophils % (Manual) Lymphocytes # (Manual) PT INR APTT Heparin Anti-Xa Level Potassium Chloride 93.1 L Carbon Dioxide 41 H* Creatinine 0.7 L Glucose POC Glucose 118 H Total Bilirubin Direct Bilirubin Ammonia Albumin Free T4 Ur Specific [place]
[2021-12-12] MEDS: TIOTROPIUM 18 MCG CAP INHALATION IH SCH (12:53)
[2021-12-12] MEDS: ALBUTEROL 2.5 MG/3 ML NEBU IH PRN (14:47)
--- NOTE | 2021-12-13 09:13 | XRay Report ---
CHEST 1 VIEW INDICATION: SOB. COMPARISON: 11/09/2021 FINDINGS: Support devices: None. Heart: Mild cardiomegaly Lungs/Pleura: Mild central pulmonary venous congestion is again noted. Moderate size opacity has deve loped in the right infrahilar region which could represent atelectasis or less likely infiltrate. No large pleural effusion or pneumothorax. Additional findings: None. IMPRESSION: Mild cardiomegaly and pulmonary venous congestion. New right infrahilar opacity as described. Signer Name: Celio Uribe Jr, MD Signed: 12/13/2021 9:08 AM Workstation Name: [id number]
[2021-12-13] MEDS: TIOTROPIUM 18 MCG CAP INHALATION IH SCH (10:14)
[2021-12-13] MEDS: FUROSEMIDE 40 MG/4 ML INJ IV SCH ×2 (11:00→14:22)
[2021-12-13] MEDS: cloNIDine 0.2 MG TAB PO SCH ×2 (11:00→22:28)
[2021-12-13] MEDS: APIXABAN 5 MG TAB PO SCH ×2 (11:00→22:29)
[2021-12-13] MEDS: cefTRIAXone/NS 2 GM/100 ML 2 GM/100 ML BAG IV SCH (11:00)
[2021-12-13] MEDS: TAMSULOSIN 0.4 MG CAP PO SCH (11:00)
[2021-12-13] MEDS: NICOTINE 7 MG/24 HR PATCH TD SCH (11:01)
[2021-12-13] MEDS: LACTULOSE 20 GM/30 ML ORAL LIQD PO SCH (11:01)
--- NOTE | 2021-12-13 11:17 | Event Note ---
Date: 12/13/21 Went to go see patient his am. Patient states that he is leaving AMA. Per person at bedside, she is paid caregiver. I had a long discussion with patient at bedside in front of RT, the nurse as well as the paid caregiver. Patient is currently on 15 liters of oxygen. I have explained the risks of him leaving and he still wishes to do so. At this time not able to complete consult. I did see this patient on his last hospital admission. Compliance is and has been an issue for him.
[2021-12-13 13:34] LABS: Blood Urea Nitrogen 12 mg/dL (9-20); Calcium 9.1 mg/dL (8.4-10.2); Hemolysis Index 15
[2021-12-13 13:47] LABS: BUN/Creatinine Ratio 17; Hemoglobin 14.4 gm/dl (11.8-15.2); Mean Corpuscular HGB Conc 32 % (32-34); Mean Corpuscular Volume 103 fl (84-94); Platelet Count 110 K/mm3 (140-440); Red Blood Count 4.39 M/mm3 (3.65-5.03); Red Cell Distribution Width 15.6 % (13.2-15.2)
--- NOTE | 2021-12-13 16:02 | Progress Note ---
Assessment and Plan 66 YO Male with Obesity Hypoventilation Syndrome, CaP S/P Radiation therapy, Asthma, COPD, Chronic Respiratory Failure on Home Trilogy machine QHS, and supplemental oxygen 3L via NC, GERD presents to ED on 12/07/21 for evaluation of increased confusion over the last 2 days along with redness and swelling on the lower abdominal wall and lower extremity. Patient found to have a pulse oximetry of 84% on room air which is consistent with acute hypoxemic respiratory failure. Patient also found to have abdominal wall cellulitis with concomitant left leg cellulitis, metabolic encephalopathy, systemic inflammatory response syndrome. Patient admitted to medical floor, IV antibiotic therapy initiated in the emergency department. Daily clinical course: 12/08: Patient is currently receiving antibiotic therapy for possible cellulitis of lower abdominal wall as well as left pretibial area. Patient has AKA sensa tion to and use a prosthesis to get around which broke about a year ago. Patient is currently alert, fairly oriented and answers questions appropriately. Afebrile. BP meds on hold for soft BP. Tolerating diet. Denies cough, dyspnea, nausea, abdominal pain, dysuria or chills. 12/09: patient is a poor historian/poor memory but awake and alert and is able to tell his name and age and eating breakfast on his own. Complains of pain in the left leg and abdomen. He denies any fever or chills. Denies nausea or vomiting . Denies chest pain or shortness of breath. Lab results reviewed. Neurology note reviewed. 12/10: Lower extremity venous Doppler was suggestive for acute DVT, started on he lawrence drip since yesterday. Will change to Eliquis today. Patient appeared to be tolerating diet and more alert and oriented. But still has significant drowsiness and elevated ammonia level. Ordered lactulose every 6 hours, follow ammonia level. We will start her on IV Lasix to reduce abdominal wall and lower extremity edema. We will also order 2D echocardiogram. 12/11: Had BM yesterday and today, reduce lactulose dose, follow ammonia, requesting nicotin patch. follow BMP. cont to monitor clinically. remains on 10L O2 - wean off as tolerated 12/12 patient is alert and oriented and wants to go home. Explained to the patient that he is on 15 L oxygen via nasal cannula. We will decrease oxygen to 10 L and monitor his oxygen saturation. Discussed with RN 12/13: CXR suggests pulmonary edema, increase lasix dose to 60mg daily. Patient wants to go home but on 10-15L Of O2. Advised RT to wean off as tolerated. Patient wanted to leave AMA but after counseling he agreed to stay. Assessment and plan: --New onset DVT -left external iliac vein,common femoral vein and femoral vein started on Heparin IV, changed to Eliquis --Anasarca, cont on IV Lasix, order 2d echo --Hyperammonemia, lactulose ordered, follow ammonia level -- Cellulitis of left abdominal wall Current Visit: Yes Status: Acute Plan to address problem: CT scan abdomen, No evidence of any rash Patient is off antibiotic -- Left leg cellulitis Current Visit: Yes Status: Acute Plan to address problem: No evidence of cellulitis Swelling most likely secondary to acute DVT -- Acute encephalopathy possible from dehydration/sepsis Current Visit: Yes Status: Acute Plan to address problem: CT head, neuro check, seizure precautions, treat cellulitis, supportive care. BP soft, status post hydration, antibiotics, Blood cultures-no growth to date -- Acute and chronic respiratory failure Current Visit: No Status: Acute Qualifiers: Respiratory failure complication: hypoxia Qualified Code(s): J96.21 - Acute and chronic respiratory failure with hypoxia Plan to address problem: Supplemental oxygen, pulse oximetry, nebulizer therapy, noninvasive positive pressure ventilation as clinically indicated. Needs outpatient follow-up with pulmonary Patient states that he is followed by Dr. Kenny Will request pulmonary consult as the patient is on oxygen at 10 to 15 L -- Obesity hypoventilation syndrome Current Visit: No Status: Acute Plan to address problem: Balanced diet, increase physical activity at discharge, outpatient pulmonary follow-up for sleep study. Outpatient bariatric surgery consultation. Continue CPAP at at bedtime --History of prostate cancer Current Visit: No Status: Acute Plan to address problem: Supportive care, outpatient urology follow-up. Patient states that he has prostate cancer and bladder cancer but is not able to tell the name of his urologist -- right upper extremity tremors , improved Right upper extremity tremor since months, getting worse per caregiver. Neurology consulted and note reviewed and appreciated -- morbid obesity Counseling at the time of discharge -- thrombocytopenia-platelets are hovering around 100 (104K today) --hyperkalemia Improved Subjective Date of service: 12/13/21 Principal diagnosis: Confusion Interval history: Patient seen and examined. Medical records and medication list reviewed. No acute event overnight noted by the RN. Patient appears to be alert and oriented. Patient is tolerating diet. Abdominal wall swelling improving Reamins on 10-15L high flow O2 Discussed plan of care at bedside with patient and with his caregiver. Objective - Exam Narrative Exam: GENERAL: well-developed and morbidly obese elderly -Prydeinig male lying on bed appeared to be in no discomfort. HEENT: Normocephalic. Atraumatic. No conjunctival congestion or icterus. Patient has moist mucous membranes. NECK: Supple. Trachea midline. CHEST/LUNGS: Clear to auscultated bilaterally, breathing nonlabored. No wheezes crackles or rhonchi. HEART/CARDIOVASCULAR: Regular in rate and rhythm. S1 and S2 positive. ABDOMEN: Abdomen is soft, mild lower abdominal wall firmness, no tenderness. Patient has normal bowel sounds. SKIN: There is no rash. Warm and dry. NEURO: No focal motor deficit. Follows command. But appears to be drowsy MUSCULOSKELETAL: No joint effusion or tenderness. Right AKA EXTRIMITY: +ve edema, no cyanosis or clubbing. PSYCH: Cooperative. - Constitutional Vitals: Vital Signs - 12hr 12/13/21 12/13/21 12/13/21 04:19 10:00 10:39 Temperature 98.2 F 99.3 F Pulse Rate 77 Respiratory 20 20 Rate Blood Pressure 155/87 146/80 O2 Sat by Pulse 88 92 Oximetry 12/13/21 12/13/21 11:00 11:24 Temperature Pulse Rate 77 Respiratory Rate Blood Pressure 146/80 O2 Sat by Pulse 88 Oximetry - Labs CBC & Chem 7: 12/14/21 04:32 12/14/21 04:32 Labs: Abnormal lab results 12/13/21 12/13/21 Range/Units 13:07 13:07 WBC 4.2 L (4.5-11.0) K/mm3 MCV 103 H (84-94) fl MCH 33 H (28-32) pg RDW 15.6 H (13.2-15.2) % Plt Count 110 L (140-440) K/mm3 Chloride 91.6 L (98-107) mmol/L Carbon Dioxide 40 H (22-30) mmol/L Creatinine 0.7 L (0.8-1.3) mg/dL Glucose 116 H (75-100) mg/dL HEART Score - HEART Score Troponin: Troponin T < 0.010 ng/mL (0.00-0.029) 12/07/21 14:20
[2021-12-13] MEDS ORDERED: traMADol 50 MG TAB PO ONE (21:50)
[2021-12-14 05:10] LABS: Hematocrit 41.5 % (35.5-45.6); Mean Corpuscular HGB Conc 31 % (32-34); Mean Corpuscular Volume 103 fl (84-94); Platelet Count 108 K/mm3 (140-440); Red Blood Count 4.03 M/mm3 (3.65-5.03); Red Cell Distribution Width 15.2 % (13.2-15.2)
[2021-12-14 05:23] LABS: BUN/Creatinine Ratio 16; Blood Urea Nitrogen 13 mg/dL (9-20); Calcium 8.3 mg/dL (8.4-10.2); Hemolysis Index 20
[2021-12-14 06:29] LABS: Basophils % (Manual) 0 % (0.0-1.8); Total Cells Counted 100
[2021-12-14 06:30] LABS: Platelet Estimate Consistent w Auto; RBC Morphology Normal
--- NOTE | 2021-12-14 08:26 | Progress Note ---
Assessment and Plan Assessment and plan: 66 YO Male with Obesity Hypoventilation Syndrome, CaP S/P Radiation therapy, Asthma, COPD, Chronic Respiratory Failure on Home Trilogy machine QHS, and supplemental oxygen 3L via NC, GERD presents to ED on 12/07/21 for evaluation of increased confusion over the last 2 days along with redness and swelling on the lower abdominal wall and lower extremity. Patient found to have a pulse oximetry of 84% on room air which is consistent with acute hypoxemic respiratory failure. Patient also found to have abdominal wall cellulitis with concomitant left leg cellulitis, metabolic encephalopathy, systemic inflammatory response syndrome. Patient admitted to medical floor, IV antibiotic therapy initiated in the emergency department. Assessment and plan: -- Acute and chronic respiratory failure 15 L of NC O2 Current Visit: No Status: Acute Supplemental oxygen, pulse oximetry, nebulizer therapy, noninvasive positive pressure ventilation as clinically indicated. Needs outpatient follow-up with pulmonary Patient states that he is followed by Dr. Kenny Will request pulmonary consult as the patient is on oxygen at 10 to 15 L --New onset DVT -left external iliac vein,common femoral vein and femoral vein s/p Heparin drip, transitioned to Eliquis --Anasarca, cont on IV Lasix, Echo; LV ejection fraction 50 to 55%, normal range --Hyperammonemia, lactulose ordered, resolved, normal ammonia levels -- Cellulitis of left abdominal wall Current Visit: Yes Status: Acute CT scan abdomen, No evidence of any rash Patient is off antibiotic -- Left leg cellulitis Current Visit: Yes Status: Acute No evidence of cellulitis Swelling most likely secondary to acute DVT -- Acute encephalopathy possible from dehydration/sepsis Current Visit: Yes Status: Acute CT head, neuro check, seizure precautions, treat cellulitis, supportive care. BP soft, status post hydration, antibiotics, Blood cultures-no growth to date -- Obesity hypoventilation syndrome Current Visit: No Status: Acute Balanced diet, increase physical activity at discharge, outpatient pulmonary follow-up for sleep study. Outpatient bariatric surgery consultation. Continue CPAP at at bedtime --History of prostate cancer Current Visit: No Status: Acute Supportive care, outpatient urology follow-up. Patient states that he has prostate cancer and bladder cancer but is not able to tell the name of his urologist -- right upper extremity tremors , improved Right upper extremity tremor since months, getting worse per caregiver. Neurology consulted and note reviewed and appreciated -- morbid obesity; BMI 49.6 Patient advised diet modification, exercise as tolerated, weight reduction When medically stable Patient would benefit from referral to bariatric surgical team for weight reduction program But medical and pharmacological and ultimately surgical if needed -- thrombocytopenia- platelets are hovering around 100 (104K today) Closely monitor --hyperkalemia Resolved --DVT prophylaxis; Patient is already on Eliquis --full code Daily clinical course: 12/08: Patient is currently receiving antibiotic therapy for possible cellulitis of lower abdominal wall as well as left pretibial area. 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 Patient is currently alert, fairly oriented and answers questions appropriately. Afebrile. BP meds on hold for soft BP. Tolerating diet. Denies cough, dyspnea, nausea, abdominal pain, dysuria or chills. 12/09: patient is a poor historian/poor memory but awake and alert and is able to tell his name and age and eating breakfast on his own. Complains of pain in the left leg and abdomen. He denies any fever or chills. Denies nausea or vomiting . Denies chest pain or shortness of breath. Lab results reviewed. Neurology note reviewed. 12/10: Lower extremity venous Doppler was suggestive for acute DVT, started on heparin drip since yesterday. Will change to Eliquis today. Patient appeared to be tolerating diet and more alert and oriented. But still has significant drowsiness and elevated ammonia level. Ordered lactulose every 6 hours, follow ammonia level. We will start her on IV Lasix to reduce abdominal wall and lower extremity edema. We will also order 2D echocardiogram. 12/11: Had BM yesterday and today, reduce lactulose dose, follow ammonia, requesting nicotin patch. follow BMP. cont to monitor clinically. remains on 10L O2 - wean off as tolerated 12/12 patient is alert and oriented and wants to go home. Explained to the patient that he is on 15 L oxygen via nasal cannula. We will decrease oxygen to 10 L and monitor his oxygen saturation. Discussed with RN 12/13: CXR suggests pulmonary edema, increase lasix dose to 60mg daily. Patient wants to go home but on 10-15L Of O2. Advised RT to wean off as tolerated. Patient wanted to leave AMA but after counseling he agreed to stay. 12/14; patient on CPAP 15 L of oxygen, wean as tolerated History Interval history: I have seen and examined the patient at the bedside Patient's chart and medications reviewed No new events reported by the nursing staff Patient remains on 15 L nasal cannula oxygen Patient is morbidly obese In mild distress Hospitalist Physical - Constitutional Vitals: Temp Pulse Resp BP Pulse Ox 98.8 F 65 16 114/62 98 12/14/21 04:51 12/14/21 04:51 12/14/21 04:51 12/14/21 04:51 12/14/21 04:51 General appearance: Present: no acute distress, well-nourished, obese (Morbidly obese) - EENT Eyes: Present: PERRL, EOM intact - Neck Neck: Present: supple, normal ROM - Respiratory Respiratory effort: normal Respiratory: bilateral: diminished, negative: rales, rhonchi, wheezing - Cardiovascular Rhythm: regular Heart Sounds: Present: S1 & S2 - Extremities Extremities: no ischemia, No edema - Abdominal General gastrointestinal: soft, non-tender, non-distended, normal bowel sounds - Integumentary Integumentary: Present: clear, warm - Psychiatric Psychiatric: appropriate mood/affect, cooperative - Neurologic Neurologic: CNII-XII intact, moves all extremities HEART Score - HEART Score Troponin: Troponin T < 0.010 ng/mL (0.00-0.029) 12/07/21 14:20 Results - Labs CBC & Chem 7: 12/14/21 04:32 12/14/21 04:32 Labs: Laboratory Last Values WBC 4.2 K/mm3 (4.5-11.0) L 12/14/21 04:32 RBC 4.03 M/mm3 (3.65-5.03) 12/14/21 04:32 Hgb 13.0 gm/dl (11.8-15.2) 12/14/21 04:32 Hct 41.5 % (35.5-45.6) 12/14/21 04:32 MCV 103 fl (84-94) H 12/14/21 04:32 MCH 32 pg (28-32) 12/14/21 04:32 MCHC 31 % (32-34) L 12/14/21 04:32 RDW 15.2 % (13.2-15.2) 12/14/21 04:32 Plt Count 108 K/mm3 (140-440) L 12/14/21 04:32 Lymph % (Auto) 23.1 % (13.4-35.0) 12/07/21 14:20 Granite % (Auto) Cargo Router 12/14/21 04:32 Eos % (Auto) 4.5 % (0.0-4.3) H 12/07/21 14:20 Baso % (Auto) 0.9 % (0.0-1.8) 12/07/21 14:20 Lymph # (Auto) 0.9 K/mm3 (1.2-5.4) L 12/07/21 14:20 [place] # (Auto) 0.6 K/mm3 (0.0-0.8) 12/07/21 14:20 Eos # (Auto) 0.2 K/mm3 (0.0-0.4) 12/07/21 14:20 Baso # (Auto) 0.0 K/mm3 (0.0-0.1) 12/07/21 14:20 Add Manual Diff Complete 12/14/21 04:32 Total Counted 100 12/14/21 04:32 Seg Neutrophils % 55.7 % (40.0-70.0) 12/07/21 14:20 Seg Neuts % (Manual) 57.0 % (40.0-70.0) 12/14/21 04:32 Band Neutrophils % 0 % 12/14/21 04:32 Lymphocytes % (Manual) 30.0 % (13.4-35.0) 12/14/21 04:32 Reactive Lymphs % (Man) 0 % 12/14/21 04:32 Monocytes % (Manual) 5.0 % (0.0-7.3) 12/14/21 04:32 Eosinophils % (Manual) 8.0 % (0.0-4.3) H 12/14/21 04:32 Basophils % (Manual) 0 % (0.0-1.8) 12/14/21 04:32 Metamyelocytes % 0 % 12/14/21 04:32 Myelocytes % 0 % 12/14/21 04:32 Promyelocytes % 0 % 12/14/21 04:32 Blast Cells % 0 % 12/14/21 04:32 Nucleated RBC % Not Reportable 12/14/21 04:32 Seg Neutrophils # 2.3 K/mm3 (1.8-7.7) 12/07/21 14:20 Seg Neutrophils # Man 2.4 K/mm3 (1.8-7.7) 12/14/21 04:32 Band Neutrophils # 0.0 K/mm3 12/14/21 04:32 Lymphocytes # (Manual) 1.3 K/mm3 (1.2-5.4) 12/14/21 04:32 Abs React Lymphs (Man) 0.0 K/mm3 12/14/21 04:32 Monocytes # (Manual) 0.2 K/mm3 (0.0-0.8) 12/14/21 04:32 Eosinophils # (Manual) 0.3 K/mm3 (0.0-0.4) 12/14/21 04:32 Basophils # (Manual) 0.0 K/mm3 (0.0-0.1) 12/14/21 04:32 Metamyelocytes # 0.0 K/mm3 12/14/21 04:32 Myelocytes # 0.0 K/mm3 12/14/21 04:32 Promyelocytes # 0.0 K/mm3 12/14/21 04:32 Blast Cells # 0.0 K/mm3 12/14/21 04:32 WBC Morphology Not Reportable 12/14/21 04:32 Hypersegmented Neuts Not Reportable 12/14/21 04:32 Hyposegmented Neuts Not Reportable 12/14/21 04:32 Hypogranular Neuts Not Reportable 12/14/21 04:32 Smudge Cells Not Reportable 12/14/21 04:32 Toxic Granulation Not Reportable 12/14/21 04:32 Toxic Vacuolation Not Reportable 12/14/21 04:32 Dohle Bodies Not Reportable 12/14/21 04:32 Pelger-Huet Anomaly Not Reportable 12/14/21 04:32 Katharine Rods Not Reportable 12/14/21 04:32 Platelet Estimate Consistent w auto 12/14/21 04:32 Clumped Platelets Not Reportable 12/14/21 04:32 Plt Clumps, EDTA Not Reportable 12/14/21 04:32 Large Platelets Not Reportable 12/14/21 04:32 Giant Platelets Not Reportable 12/14/21 04:32 Platelet Satelliting Not Reportable 12/14/21 04:32 Plt Morphology Comment Not Reportable 12/14/21 04:32 RBC Morphology Normal 12/14/21 04:32 Dimorphic RBCs Not Reportable 12/14/21 04:32 Polychromasia Not Reportable 12/14/21 04:32 Hypochromasia Not Reportable 12/14/21 04:32 Poikilocytosis Not Reportable 12/14/21 04:32 Anisocytosis Not Reportable 12/14/21 04:32 Microcytosis Not Reportable 12/14/21 04:32 Macrocytosis Not Reportable 12/14/21 04:32 Spherocytes Not Reportable 12/14/21 04:32 Pappenheimer Bodies Not Reportable 12/14/21 04:32 Sickle Cells Not Reportable 12/14/21 04:32 Target Cells Not Reportable 12/14/21 04:32 Tear Drop Cells Not Reportable 12/14/21 04:32 Ovalocytes Not Reportable 12/14/21 04:32 Helmet Cells Not Reportable 12/14/21 04:32 Bullock-Anza Bodies Not Reportable 12/14/21 04:32 [place] Rings Not Reportable 12/14/21 04:32 Yulia Cells Not Reportable 12/14/21 04:32 Bite Cells Not Reportable 12/14/21 04:32 Crenated Cell Not Reportable 12/14/21 04:32 Elliptocytes Not Reportable 12/14/21 04:32 Acanthocytes (Spur) Not Reportable 12/14/21 04:32 Rouleaux Not Reportable 12/14/21 04:32 Hemoglobin C Crystals Not Reportable 12/14/21 04:32 Schistocytes Not Reportable 12/14/21 04:32 Malaria parasites Not Reportable 12/14/21 04:32 Odin Bodies Not Reportable 12/14/21 04:32 Hem Pathologist Commnt No 12/14/21 04:32 PT 20.4 Sec. (12.2-14.9) H 12/10/21 23:17 INR 1.54 (0.87-1.13) H 12/10/21 23:17 APTT 24.1 Sec. (24.2-36.6) L 12/10/21 23:17 Heparin Anti-Xa Level 1.99 U.I./ml (0.3-0.7) H 12/11/21 15:27 Sodium 142 mmol/L (137-145) 12/14/21 04:32 Potassium 3.7 mmol/L (3.6-5.0) 12/14/21 04:32 Chloride 94.8 mmol/L (98-107) L 12/14/21 04:32 Carbon Dioxide 42 mmol/L (22-30) H* 12/14/21 04:32 Anion Gap 9 mmol/L 12/14/21 04:32 BUN 13 mg/dL (9-20) 12/14/21 04:32 Creatinine 0.8 mg/dL (0.8-1.3) 12/14/21 04:32 Estimated GFR > 60 ml/min 12/14/21 04:32 BUN/Creatinine Ratio 16 % 12/14/21 04:32 Glucose 84 mg/dL (75-100) 12/14/21 04:32 POC Glucose 121 mg/dL (70-105) H 12/13/21 21:37 Lactic Acid 1.70 mmol/L (0.7-2.0) 12/07/21 14:20 Calcium 8.3 mg/dL (8.4-10.2) L 12/14/21 04:32 Total Bilirubin 1.00 mg/dL (0.1-1.2) 12/11/21 15:27 Direct Bilirubin 0.4 mg/dL (0-0.2) H 12/11/21 15:27 Indirect Bilirubin 0.6 mg/dL 12/11/21 15:27 AST 27 units/L (5-40) 12/11/21 15:27 ALT 11 units/L (7-56) 12/11/21 15:27 Alkaline Phosphatase 61 units/L (35-129) 12/11/21 15:27 Ammonia 38.0 umol/L (25-60) 12/12/21 07:29 Troponin T < 0.010 ng/mL (0.00-0.029) 12/07/21 14:20 Total Protein 6.5 g/dL (6.3-8.2) 12/11/21 15:27 Albumin 3.0 g/dL (3.9-5) L 12/11/21 15:27 Albumin/Globulin Ratio 0.9 % 12/11/21 15:27 TSH 0.977 mlU/mL (0.270-4.200) 12/07/21 14:20 Free T4 0.74 ng/dL (0.76-1.46) L 12/08/21 21:05 Urine Color Yellow (Yellow) 12/08/21 00:24 Urine Turbidity Clear (Clear) 12/08/21 00:24 Urine pH 6.0 (5.0-7.0) 12/08/21 00:24 Ur Specific [place] 1.034 (1.003-1.030) H 12/08/21 00:24 Urine Protein <15 mg/dl mg/dL (Negative) 12/08/21 00:24 Urine Glucose (UA) Neg mg/dL (Negative) 12/08/21 00:24 Urine Ketones Neg mg/dL (Negative) 12/08/21 00:24 Urine Blood Neg (Negative) 12/08/21 00:24 Urine Nitrite Neg (Negative) 12/08/21 00:24 Urine Bilirubin Neg (Negative) 12/08/21 00:24 Urine Urobilinogen 4.0 mg/dL (<2.0) 12/08/21 00:24 Ur Leukocyte Esterase Neg (Negative) 12/08/21 00:24 Urine WBC (Auto) 5.0 /HPF (0.0-6.0) 12/08/21 00:24 Urine RBC (Auto) 1.0 /HPF (0.0-6.0) 12/08/21 00:24 U Epithel Cells (Auto) 1.0 /HPF (0-13.0) 12/08/21 00:24 Urine Mucus Few /HPF 12/08/21 00:24 [place]/IV: Voiding Method Urinal Active Medications - Current Medications Current Medications: Generic Name Dose Route Start Last Admin Trade Name Freq PRN Reason Stop Dose Admin Acetaminophen 1,000 mg 12/08/21 17:00 12/12/21 16:41 Acetaminophen 500 Mg Tab PO 1,000 mg Q8HR PRN Administration Pain, Moderate (4-6) Albuterol 2.5 mg 12/07/21 15:30 12/12/21 14:47 Albuterol 2.5 Mg/3 Ml Nebu IH 2.5 mg Q4HRT PRN Administration Shortness Of Breath Apixaban 10 mg 12/10/21 15:00 12/13/21 22:29 Apixaban 5 Mg Tab PO 12/16/21 22:01 10 mg Q12HR VIPUL Administration Protocol Apixaban 5 mg 12/17/21 10:00 Apixaban 5 Mg Tab PO Q12HR VIPUL Protocol Clonidine HCl 0.2 mg 12/12/21 10:00 12/13/21 22:28 Clonidine 0.2 Mg Tab PO Not Given BID VIPUL Furosemide 60 mg 12/13/21 13:00 12/13/21 14:22 Furosemide 40 Mg/4 Ml Inj IV 60 mg QDAY VIPUL Administration Ceftriaxone Sodium 2 gm in 100 mls @ 200 mls/hr 12/08/21 09:00 12/13/21 11:00 Rocephin/Ns 2 Gm/100 Ml IV 12/15/21 08:59 200 mls/hr Q24H VIPUL Administration Protocol Lactulose 20 gm 12/12/21 10:00 12/13/21 11:01 Lactulose 20 Gm/30 Ml Oral Liqd PO 20 gm QDAY VIPUL Administration Nicotine 7 mg 12/11/21 18:00 12/13/21 11:01 Nicotine 7 Mg/24 Hr Patch TD 7 mg QDAY VIPUL Administration Ondansetron HCl 4 mg 12/07/21 15:30 Ondansetron 4 Mg/2 Ml Inj IV Q8H PRN Nausea And Vomiting Sodium Chloride 10 ml 12/07/21 22:00 12/13/21 22:30 Sodium Chloride 0.9% 10 Ml Flush Syringe IV 10 ml BID VIPUL Administration Sodium Chloride 10 ml 12/07/21 15:30 Sodium Chloride 0.9% 10 Ml Flush Syringe IV PRN PRN LINE FLUSH Tamsulosin HCl 0.4 mg 12/09/21 10:00 12/13/21 11:00 Tamsulosin 0.4 Mg Cap PO 0.4 mg DAILY VIPUL Administration Tiotropium [place] 1 puff 12/09/21 10:00 12/13/21 10:14 Tiotropium 18 Mcg Cap Inhalation IH 1 puff QDAY VIPUL Administration
[2021-12-14] MEDS: cefTRIAXone/NS 2 GM/100 ML 2 GM/100 ML BAG IV SCH (09:52)
[2021-12-14] MEDS: TIOTROPIUM 18 MCG CAP INHALATION IH SCH (10:35)
[2021-12-14] MEDS: cloNIDine 0.2 MG TAB PO SCH ×2 (10:43→22:12)
[2021-12-14] MEDS: TAMSULOSIN 0.4 MG CAP PO SCH (10:44)
[2021-12-14] MEDS: APIXABAN 5 MG TAB PO SCH ×2 (10:44→22:12)
[2021-12-14] MEDS: LACTULOSE 20 GM/30 ML ORAL LIQD PO SCH (10:44)
[2021-12-14] MEDS: NICOTINE 7 MG/24 HR PATCH TD SCH (10:44)
[2021-12-14] MEDS: FUROSEMIDE 40 MG/4 ML INJ IV SCH (10:45)
--- NOTE | 2021-12-14 11:14 | Consultation ---
History of Present Illness Consult date: 12/14/21 Reason for consult: COPD, hypoxemia, obstructive sleep apnea History of present illness: 66 y/o male with known COPD, chronic respiratory failure and PARUL with history of noncompliance, admitted several days ago with worsening confusion. Called by [facility]MS on yesterday for consult, however patient told me he was leaving AMA. He elected to stay. He again, did not wear any NIV last night. This am remains on 15 liters NC with decent O2 sats. Caregiver is at bedside. Past History Past Medical History: cancer, COPD, GERD, other (See HPI) Past Surgical History: Other (Right lower extremity amputation) Social history: . denies: smoking, alcohol abuse, prescription drug abuse Family history: diabetes, hypertension Medications and Allergies Allergies Allergy/AdvReac Type Severity Reaction Status Date / Time No Known Allergies Allergy Verified 12/07/21 09:49 Home Medications Medication Instructions Recorded Confirmed Last Taken Type cloNIDine HCL [Catapres] 0.2 mg PO BID 04/07/14 12/08/21 12/06/21 History Nebivolol (Nf) [Bystolic (Nf)] 1 tab PO DAILY 06/02/16 12/08/21 12/06/21 History Tamsulosin HCl 1 tab PO DAILY 06/02/16 12/08/21 12/06/21 History Tiotropium [Spiriva] 18 mcg IH QDAY 06/02/16 12/08/21 12/06/21 History Oxycodone HCl [oxyCODONE] 10 mg PO BID 12/08/21 12/08/21 12/06/21 History Active Meds: Active Medications Acetaminophen (Acetaminophen 500 Mg Tab) 1,000 mg PO Q8HR PRN PRN Reason: Pain, Moderate (4-6) Last Admin: 12/12/21 16:41 Dose: 1,000 mg Albuterol (Albuterol 2.5 Mg/3 Ml Nebu) 2.5 mg IH Q4HRT PRN PRN Reason: Shortness Of Breath Last Admin: 12/12/21 14:47 Dose: 2.5 mg Apixaban (Apixaban 5 Mg Tab) 10 mg PO Q12HR [facility]; Protocol Stop: 12/16/21 22:01 Last Admin: 12/14/21 10:44 Dose: 10 mg Apixaban (Apixaban 5 Mg Tab) 5 mg PO Q12HR [facility]; Protocol Clonidine HCl (Clonidine 0.2 Mg Tab) 0.2 mg PO BID [facility] Last Admin: 12/14/21 10:43 Dose: 0.2 mg Furosemide (Furosemide 40 Mg/4 Ml Inj) 60 mg IV QDAY [facility] Last Admin: 12/14/21 10:45 Dose: 60 mg Ceftriaxone Sodium (Rocephin/Ns 2 Gm/100 Ml) 2 gm in 100 mls @ 200 mls/hr IV Q24H [facility]; Protocol Stop: 12/15/21 08:59 Last Admin: 12/14/21 09:52 Dose: 200 mls/hr Lactulose (Lactulose 20 Gm/30 Ml Oral Liqd) 20 gm PO QDAY [facility] Last Admin: 12/14/21 10:44 Dose: 20 gm Nicotine (Nicotine 7 Mg/24 Hr Patch) 7 mg TD QDAY [facility] Last Admin: 12/14/21 10:44 Dose: 7 mg Ondansetron HCl (Ondansetron 4 Mg/2 Ml Inj) 4 mg IV Q8H PRN PRN Reason: Nausea And Vomiting Sodium Chloride (Sodium Chloride 0.9% 10 Ml Flush Syringe) 10 ml IV BID [facility] Last Admin: 12/14/21 10:45 Dose: 10 ml Sodium Chloride (Sodium Chloride 0.9% 10 Ml Flush Syringe) 10 ml IV PRN PRN PRN Reason: LINE FLUSH Tamsulosin HCl (Tamsulosin 0.4 Mg Cap) 0.4 mg PO DAILY [facility] Last Admin: 12/14/21 10:44 Dose: 0.4 mg Tiotropium [place] (Tiotropium 18 Mcg Cap Inhalation) 1 puff IH QDAY [facility] Last Admin: 12/14/21 10:35 Dose: 1 puff Review of Systems All systems: negative Physical Examination Vital signs: Vital Signs Temp Pulse Resp BP Pulse Ox 98.1 F 90 16 160/100 86 12/07/21 09:48 12/07/21 09:48 12/07/21 09:48 12/07/21 09:48 12/07/21 09:48 General appearance: no acute distress, alert, other (somewhat confused) Eyes: icteric ENT: oropharynx moist Neck: supple, no JVD Effort: mildly labored Ascultation: Bilateral: diminished breath sounds Gastrointestinal: normoactive bowel sounds, soft, non-tender Extremities: other (right amputation of lower ext) Results - Laboratory Findings CBC and BMP: 12/14/21 04:32 12/14/21 04:32 PT/INR, D-dimer PT 20.4 Sec. (12.2-14.9) H 12/10/21 23:17 INR 1.54 (0.87-1.13) H 12/10/21 23:17 Abnormal lab findings: Abnormal Labs 12/07/21 12/07/21 12/07/21 14:20 14:20 14:20 WBC 4.0 L Hgb 15.3 H Hct 46.8 H MCV 104 H MCH 34 H MCHC RDW 15.3 H Plt Count 114 L [place] % (Auto) 15.8 H Eos % (Auto) 4.5 H Lymph # (Auto) 0.9 L Monocytes % (Manual) Eosinophils % (Manual) Basophils % (Manual) Lymphocytes # (Manual) PT 17.4 H INR 1.27 H APTT Heparin Anti-Xa Level Potassium 5.3 H Chloride 96.5 L Carbon Dioxide 40 H Creatinine Glucose POC Glucose Calcium Total Bilirubin 1.30 H Direct Bilirubin Ammonia Albumin 3.2 L Free T4 Ur Specific [place] 12/08/21 12/08/21 12/08/21 00:24 05:50 05:50 WBC 4.3 L Hgb Hct 47.7 H MCV 106 H MCH 33 H MCHC 31 L RDW 15.3 H Plt Count 90 L [place] % (Auto) Eos % (Auto) Lymph # (Auto) Monocytes % (Manual) 8.0 H Eosinophils % (Manual) Basophils % (Manual) 2.0 H Lymphocytes # (Manual) 0.9 L PT INR APTT Heparin Anti-Xa Level Potassium 5.4 H Chloride Carbon Dioxide 37 H Creatinine Glucose 66 L POC Glucose Calcium Total Bilirubin Direct Bilirubin Ammonia Albumin Free T4 Ur Specific [place] 1.034 H 12/08/21 12/08/21 12/09/21 21:05 21:05 05:31 WBC Hgb Hct MCV MCH MCHC RDW Plt Count [place] % (Auto) Eos % (Auto) Lymph # (Auto) Monocytes % (Manual) Eosinophils % (Manual) Basophils % (Manual) Lymphocytes # (Manual) PT INR APTT Heparin Anti-Xa Level Potassium Chloride Carbon Dioxide 38 H Creatinine Glucose POC Glucose Calcium Total Bilirubin Direct Bilirubin Ammonia 75.0 H Albumin Free T4 0.74 L Ur Specific [place] 12/09/21 12/09/21 12/09/21 07:03 07:03 22:55 WBC Hgb Hct MCV 105 H MCH 34 H MCHC RDW 15.9 H Plt Count 104 L 103 L [place] % (Auto) Eos % (Auto) Lymph # (Auto) Monocytes % (Manual) 9.0 H Eosinophils % (Manual) 5.0 H Basophils % (Manual) Lymphocytes # (Manual) PT INR APTT Heparin Anti-Xa Level Potassium Chloride Carbon Dioxide Creatinine Glucose POC Glucose Calcium Total Bilirubin Direct Bilirubin Ammonia 82.0 H Albumin Free T4 Ur Specific [place] 12/09/21 12/10/21 12/10/21 22:55 00:38 09:45 WBC Hgb Hct MCV MCH MCHC RDW Plt Count [place] % (Auto) Eos % (Auto) Lymph # (Auto) Monocytes % (Manual) Eosinophils % (Manual) Basophils % (Manual) Lymphocytes # (Manual) PT 19.2 H INR 1.43 H APTT 121.5 H* 118.6 H* Heparin Anti-Xa Level 0.21 L Potassium Chloride Carbon Dioxide Creatinine Glucose POC Glucose Calcium Total Bilirubin Direct Bilirubin Ammonia Albumin Free T4 Ur Specific [place] 12/10/21 12/10/21 12/10/21 09:45 16:10 22:33 WBC Hgb Hct MCV MCH MCHC RDW Plt Count [place] % (Auto) Eos % (Auto) Lymph # (Auto) Monocytes % (Manual) Eosinophils % (Manual) Basophils % (Manual) Lymphocytes # (Manual) PT INR APTT Heparin Anti-Xa Level Potassium Chloride Carbon Dioxide Creatinine Glucose POC Glucose 108 H 108 H Calcium Total Bilirubin Direct Bilirubin Ammonia 85.0 H Albumin Free T4 Ur Specific [place] 12/10/21 12/10/21 12/11/21 23:17 23:17 15:27 WBC Hgb Hct MCV 104 H MCH 34 H MCHC RDW 15.3 H Plt Count 116 L 110 L [place] % (Auto) Eos % (Auto) Lymph # (Auto) Monocytes % (Manual) Eosinophils % (Manual) Basophils % (Manual) Lymphocytes # (Manual) PT 20.4 H INR 1.54 H APTT 24.1 L Heparin Anti-Xa Level Potassium Chloride Carbon Dioxide Creatinine Glucose POC Glucose Calcium Total Bilirubin Direct Bilirubin Ammonia Albumin Free T4 Ur Specific [place] 12/11/21 12/11/21 12/11/21 15:27 15:27 16:09 WBC Hgb Hct MCV MCH MCHC RDW Plt Count [place] % (Auto) Eos % (Auto) Lymph # (Auto) Monocytes % (Manual) Eosinophils % (Manual) Basophils % (Manual) Lymphocytes # (Manual) PT INR APTT Heparin Anti-Xa Level 1.99 H Potassium Chloride 96.2 L Carbon Dioxide 43 H* Creatinine Glucose 115 H POC Glucose 115 H Calcium Total Bilirubin Direct Bilirubin 0.4 H Ammonia Albumin 3.0 L Free T4 Ur Specific [place] 12/12/21 12/12/21 12/12/21 07:29 07:29 11:09 WBC 4.4 L Hgb Hct MCV 103 H MCH 33 H MCHC RDW Plt Count 110 L [place] % (Auto) Eos % (Auto) Lymph # (Auto) Monocytes % (Manual) Eosinophils % (Manual) Basophils % (Manual) Lymphocytes # (Manual) PT INR APTT Heparin Anti-Xa Level Potassium Chloride 93.1 L Carbon Dioxide 41 H* Creatinine 0.7 L Glucose POC Glucose 118 H Calcium Total Bilirubin Direct Bilirubin Ammonia Albumin Free T4 Ur Specific [place] 12/13/21 12/13/21 12/13/21 13:07 13:07 16:12 WBC 4.2 L Hgb Hct MCV 103 H MCH 33 H MCHC RDW 15.6 H Plt Count 110 L [place] % (Auto) Eos % (Auto) Lymph # (Auto) Monocytes % (Manual) Eosinophils % (Manual) Basophils % (Manual) Lymphocytes # (Manual) PT INR APTT Heparin Anti-Xa Level Potassium Chloride 91.6 L Carbon Dioxide 40 H Creatinine 0.7 L Glucose 116 H POC Glucose 124 H Calcium Total Bilirubin Direct Bilirubin Ammonia Albumin Free T4 Ur Specific [place] 12/13/21 12/14/21 12/14/21 21:37 04:32 04:32 WBC 4.2 L Hgb Hct MCV 103 H MCH MCHC 31 L RDW Plt Count 108 L [place] % (Auto) Eos % (Auto) Lymph # (Auto) Monocytes % (Manual) Eosinophils % (Manual) 8.0 H Basophils % (Manual) Lymphocytes # (Manual) PT INR APTT Heparin Anti-Xa Level Potassium Chloride 94.8 L Carbon Dioxide 42 H* Creatinine Glucose POC Glucose 121 H Calcium 8.3 L Total Bilirubin Direct Bilirubin Ammonia Albumin Free T4 Ur Specific [place] - Diagnostic Findings Chest x-ray: image reviewed Assessment and Plan 66 y/o morbidly obese male with known COPD, PARUL and chronic respiratory failure admitted with altered mental state and worsening hypoxemia, most likely sec ondary to noncompliance 1. Will send venous pH as I doubt patient will allow for ABG 2. NIV therapy at night. Patient will use hospital bipap. RT to determine settings based on volumes and sats once placed on therapy 3. Agree with diuresis 4. Will add some IV steroids 5. Once able to lie flat, will need CT to better evaluate lung parenchyma 6. Guarded to poor prognosis.
[2021-12-14] MEDS: methylPREDNISolone Sod Succinate 40 MG/1 ML INJ IV SCH ×2 (15:00→22:12)
[2021-12-14] MEDS ORDERED: ALUM-MAG HYDROXIDE-SIMETHICONE 200-200-20MG/5ML ORAL LIQD 30 ML PO PRN (18:31)
[2021-12-14] MEDS ORDERED: ALUM-MAG HYDROXIDE-SIMETHICONE 200-200-20MG/5ML ORAL LIQD 30 ML PO ONE (18:31)
[2021-12-14] MEDS ORDERED: SODIUM CHLORIDE NASAL SPRAY 44ML NS PRN (19:05)
[2021-12-15] MEDS: methylPREDNISolone Sod Succinate 40 MG/1 ML INJ IV SCH ×3 (05:48→22:00)
[2021-12-15 07:36] LABS: Hematocrit 44.4 % (35.5-45.6); Hemoglobin 14.2 gm/dl (11.8-15.2)
[2021-12-15] MEDS: TIOTROPIUM 18 MCG CAP INHALATION IH SCH ×2 (07:57→09:58)
[2021-12-15] MEDS: LACTULOSE 20 GM/30 ML ORAL LIQD PO SCH (09:23)
[2021-12-15] MEDS: FUROSEMIDE 40 MG/4 ML INJ IV SCH (09:24)
[2021-12-15] MEDS: APIXABAN 5 MG TAB PO SCH ×2 (09:24→22:01)
[2021-12-15] MEDS: NICOTINE 7 MG/24 HR PATCH TD SCH (09:24)
[2021-12-15] MEDS: cloNIDine 0.2 MG TAB PO SCH ×2 (09:24→22:00)
[2021-12-15] MEDS: TAMSULOSIN 0.4 MG CAP PO SCH (09:24)
[2021-12-15] MEDS: oxyCODONE /ACETAMINOPHEN 5-325MG TAB PO PRN ×2 (14:07→22:01)
--- NOTE | 2021-12-15 14:54 | Progress Note ---
Assessment and Plan 66 y/o morbidly obese male with known COPD, PARUL and chronic respiratory failure admitted with altered mental state and worsening hypoxemia, most likely secondary to noncompliance 12/15/21: Continue NIV therapy at night. COntinue diuresis as tolerated. Continue IV steroids at least through the next 24 hours. Once patient able to lie flat needs noncontrasted CT of chest 1. Will send venous pH as I doubt patient will allow for ABG 2. NIV therapy at night. Patient will use hospital bipap. RT to determine settings based on volumes and sats once placed on therapy 3. Agree with diuresis 4. Will add some IV steroids 5. Once able to lie flat, will need CT to better evaluate lung parenchyma 6. Guarded to poor prognosis. Subjective Date of service: 12/15/21 Principal diagnosis: Confusion Interval history: Patient wore NIV for about 6 hours on last evening starting around 0100 based on documentation. Negative 1190. Ordered venous blood gas yesterday and still not done. Just really wanted to know the patients' pH. Objective Vital Signs - 12hr 12/15/21 12/15/21 12/15/21 05:01 05:08 07:57 Temperature 98.0 F Pulse Rate 59 L 62 67 Pulse Rate [ Anterior Bilateral Throughout] Respiratory 17 23 23 Rate Respiratory Rate [Anterior Bilateral Throughout] Blood Pressure 130/77 O2 Sat by Pulse 89 93 95 Oximetry 12/15/21 12/15/21 12/15/21 08:00 08:04 10:00 Temperature Pulse Rate Pulse Rate [ 68 Anterior Bilateral Throughout] Respiratory Rate Respiratory 18 Rate [Anterior Bilateral Throughout] Blood Pressure O2 Sat by Pulse 90 91 Oximetry 12/15/21 12/15/21 11:29 14:40 Temperature 98.7 F Pulse Rate 58 L Pulse Rate [ Anterior Bilateral Throughout] Respiratory 24 Rate Respiratory Rate [Anterior Bilateral Throughout] Blood Pressure 110/59 O2 Sat by Pulse 98 96 Oximetry Constitutional: no acute distress, alert, other (somewhat confused) Eyes: icteric ENT: oropharynx moist Neck: supple, no JVD Effort: mildly labored Ascultation: Bilateral: diminished breath sounds Gastrointestinal: normoactive bowel sounds, soft, non-tender Integumentary: normal 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 (12.2-14.9) H 12/10/21 23:17 INR 1.54 (0.87-1.13) H 12/10/21 23:17 Abnormal lab findings: Abnormal Labs 12/07/21 12/07/21 12/07/21 14:20 14:20 14:20 WBC 4.0 L Hgb 15.3 H Hct 46.8 H MCV 104 H MCH 34 H MCHC RDW 15.3 H Plt Count 114 L Hughes % (Auto) 15.8 H Eos % (Auto) 4.5 H Lymph # (Auto) 0.9 L Monocytes % (Manual) Eosinophils % (Manual) Basophils % (Manual) Lymphocytes # (Manual) PT 17.4 H INR 1.27 H APTT Heparin Anti-Xa Level Potassium 5.3 H Chloride 96.5 L Carbon Dioxide 40 H Creatinine Glucose POC Glucose Calcium Total Bilirubin 1.30 H Direct Bilirubin Ammonia Albumin 3.2 L Free T4 Ur Specific [place] 12/08/21 12/08/21 12/08/21 00:24 05:50 05:50 WBC 4.3 L Hgb Hct 47.7 H MCV 106 H MCH 33 H MCHC 31 L RDW 15.3 H Plt Count 90 L Hughes % (Auto) Eos % (Auto) Lymph # (Auto) Monocytes % (Manual) 8.0 H Eosinophils % (Manual) Basophils % (Manual) 2.0 H Lymphocytes # (Manual) 0.9 L PT INR APTT Heparin Anti-Xa Level Potassium 5.4 H Chloride Carbon Dioxide 37 H Creatinine Glucose 66 L POC Glucose Calcium Total Bilirubin Direct Bilirubin Ammonia Albumin Free T4 Ur Specific [place] 1.034 H 12/08/21 12/08/21 12/09/21 21:05 21:05 05:31 WBC Hgb Hct MCV MCH MCHC RDW Plt Count Hughes % (Auto) Eos % (Auto) Lymph # (Auto) Monocytes % (Manual) Eosinophils % (Manual) Basophils % (Manual) Lymphocytes # (Manual) PT INR APTT Heparin Anti-Xa Level Potassium Chloride Carbon Dioxide 38 H Creatinine Glucose POC Glucose Calcium Total Bilirubin Direct Bilirubin Ammonia 75.0 H Albumin Free T4 0.74 L Ur Specific [place] 12/09/21 12/09/21 12/09/21 07:03 07:03 22:55 WBC Hgb Hct MCV 105 H MCH 34 H MCHC RDW 15.9 H Plt Count 104 L 103 L Hughes % (Auto) Eos % (Auto) Lymph # (Auto) Monocytes % (Manual) 9.0 H Eosinophils % (Manual) 5.0 H Basophils % (Manual) Lymphocytes # (Manual) PT INR APTT Heparin Anti-Xa Level Potassium Chloride Carbon Dioxide Creatinine Glucose POC Glucose Calcium Total Bilirubin Direct Bilirubin Ammonia 82.0 H Albumin Free T4 Ur Specific [place] 12/09/21 12/10/21 12/10/21 22:55 00:38 09:45 WBC Hgb Hct MCV MCH MCHC RDW Plt Count Hughes % (Auto) Eos % (Auto) Lymph # (Auto) Monocytes % (Manual) Eosinophils % (Manual) Basophils % (Manual) Lymphocytes # (Manual) PT 19.2 H INR 1.43 H APTT 121.5 H* 118.6 H* Heparin Anti-Xa Level 0.21 L Potassium Chloride Carbon Dioxide Creatinine Glucose POC Glucose Calcium Total Bilirubin Direct Bilirubin Ammonia Albumin Free T4 Ur Specific [place] 12/10/21 12/10/21 12/10/21 09:45 16:10 22:33 WBC Hgb Hct MCV MCH MCHC RDW Plt Count Hughes % (Auto) Eos % (Auto) Lymph # (Auto) Monocytes % (Manual) Eosinophils % (Manual) Basophils % (Manual) Lymphocytes # (Manual) PT INR APTT Heparin Anti-Xa Level Potassium Chloride Carbon Dioxide Creatinine Glucose POC Glucose 108 H 108 H Calcium Total Bilirubin Direct Bilirubin Ammonia 85.0 H Albumin Free T4 Ur Specific [place] 12/10/21 12/10/21 12/11/21 23:17 23:17 15:27 WBC Hgb Hct MCV 104 H MCH 34 H MCHC RDW 15.3 H Plt Count 116 L 110 L Hughes % (Auto) Eos % (Auto) Lymph # (Auto) Monocytes % (Manual) Eosinophils % (Manual) Basophils % (Manual) Lymphocytes # (Manual) PT 20.4 H INR 1.54 H APTT 24.1 L Heparin Anti-Xa Level Potassium Chloride Carbon Dioxide Creatinine Glucose POC Glucose Calcium Total Bilirubin Direct Bilirubin Ammonia Albumin Free T4 Ur Specific [place] 12/11/21 12/11/21 12/11/21 15:27 15:27 16:09 WBC Hgb Hct MCV MCH MCHC RDW Plt Count Hughes % (Auto) Eos % (Auto) Lymph # (Auto) Monocytes % (Manual) Eosinophils % (Manual) Basophils % (Manual) Lymphocytes # (Manual) PT INR APTT Heparin Anti-Xa Level 1.99 H Potassium Chloride 96.2 L Carbon Dioxide 43 H* Creatinine Glucose 115 H POC Glucose 115 H Calcium Total Bilirubin Direct Bilirubin 0.4 H Ammonia Albumin 3.0 L Free T4 Ur Specific [place] 12/12/21 12/12/21 12/12/21 07:29 07:29 11:09 WBC 4.4 L Hgb Hct MCV 103 H MCH 33 H MCHC RDW Plt Count 110 L Hughes % (Auto) Eos % (Auto) Lymph # (Auto) Monocytes % (Manual) Eosinophils % (Manual) Basophils % (Manual) Lymphocytes # (Manual) PT INR APTT Heparin Anti-Xa Level Potassium Chloride 93.1 L Carbon Dioxide 41 H* Creatinine 0.7 L Glucose POC Glucose 118 H Calcium Total Bilirubin Direct Bilirubin Ammonia Albumin Free T4 Ur Specific [place] 12/13/21 12/13/21 12/13/21 13:07 13:07 16:12 WBC 4.2 L Hgb Hct MCV 103 H MCH 33 H MCHC RDW 15.6 H Plt Count 110 L Hughes % (Auto) Eos % (Auto) Lymph # (Auto) Monocytes % (Manual) Eosinophils % (Manual) Basophils % (Manual) Lymphocytes # (Manual) PT INR APTT Heparin Anti-Xa Level Potassium Chloride 91.6 L Carbon Dioxide 40 H Creatinine 0.7 L Glucose 116 H POC Glucose 124 H Calcium Total Bilirubin Direct Bilirubin Ammonia Albumin Free T4 Ur Specific [place] 12/13/21 12/14/21 12/14/21 21:37 04:32 04:32 WBC 4.2 L Hgb Hct MCV 103 H MCH MCHC 31 L RDW Plt Count 108 L Hughes % (Auto) Eos % (Auto) Lymph # (Auto) Monocytes % (Manual) Eosinophils % (Manual) 8.0 H Basophils % (Manual) Lymphocytes # (Manual) PT INR APTT Heparin Anti-Xa Level Potassium Chloride 94.8 L Carbon Dioxide 42 H* Creatinine Glucose POC Glucose 121 H Calcium 8.3 L Total Bilirubin Direct Bilirubin Ammonia Albumin Free T4 Ur Specific [place] 12/14/21 12/15/21 21:44 06:34 WBC Hgb Hct MCV MCH MCHC RDW Plt Count 115 L Hughes % (Auto) Eos % (Auto) Lymph # (Auto) Monocytes % (Manual) Eosinophils % (Manual) Basophils % (Manual) Lymphocytes # (Manual) PT INR APTT Heparin Anti-Xa Level Potassium Chloride Carbon Dioxide Creatinine Glucose POC Glucose 191 H Calcium Total Bilirubin Direct Bilirubin Ammonia Albumin Free T4 Ur Specific [place]
--- NOTE | 2021-12-15 18:15 | Progress Note ---
Assessment and Plan Assessment and plan: 66 YO Male with Obesity Hypoventilation Syndrome, CaP S/P Radiation therapy, Asthma, COPD, Chronic Respiratory Failure on Home Trilogy machine QHS, and supplemental oxygen 3L via NC, GERD presents to ED on 12/07/21 for evaluation of increased confusion over the last 2 days along with redness and swelling on the lower abdominal wall and lower extremity. Patient found to have a pulse oximetry of 84% on room air which is consistent with acute hypoxemic respiratory failure. Patient also found to have abdominal wall cellulitis with concomitant left leg cellulitis, metabolic encephalopathy, systemic inflammatory response syndrome. Patient admitted to medical floor, IV antibiotic therapy initiated in the emergency department. Assessment and plan: -- Acute and chronic respiratory failure 15 L of NC O2 Current Visit: No Status: Acute Supplemental oxygen, pulse oximetry, nebulizer therapy, noninvasive positive pressure ventilation as clinically indicated. Needs outpatient follow-up with pulmonary Patient states that he is followed by Dr. Kenny Will request pulmonary consult as the patient is on oxygen at 10 to 15 L --New onset DVT -left external iliac vein,common femoral vein and femoral vein s/p Heparin drip, transitioned to Eliquis --Anasarca, cont on IV Lasix, Echo; LV ejection fraction 50 to 55%, normal range --Hyperammonemia, received lactulose Ammonia levels normal range -- Cellulitis of left abdominal wall Current Visit: Yes Status: Acute CT scan abdomen,No evidence of cellulitis Patient is off antibiotic -- Acute encephalopathy possible from dehydration/sepsis Current Visit: Yes Status: Acute / resolved/ CT head, neuro check, seizure precautions, treat cellulitis, supportive care. BP soft, status post hydration, antibiotics, Blood cultures-no growth to date -- Obesity hypoventilation syndrome Current Visit: No Status: Acute Balanced diet, increase physical activity at discharge, outpatient pulmonary follow-up for sleep study. Outpatient bariatric surgery consultation. Continue CPAP at at bedtime --History of prostate cancer Current Visit: No Status: Acute Patient states that he has prostate cancer and bladder cancer Stable, follow-up with private urologist upon discharge -- right upper extremity tremors , improved Neurology evaluated, continue current management -- morbid obesity; BMI 49.6 Patient advised diet modification, exercise as tolerated, weight reduction When medically stable Patient would benefit from referral to bariatric surgical team for weight reduction program But medical and pharmacological and ultimately surgical if needed -- thrombocytopenia- platelets are hovering around 100 (104K today) Closely monitor --hyperkalemia Resolved --DVT prophylaxis; Patient is already on Eliquis --full code Daily clinical course: 12/08: Patient is currently receiving antibiotic therapy for possible cellulitis of lower abdominal wall as well as left pretibial area. 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 Patient is currently alert, fairly oriented and answers questions appropriately. Afebrile. BP meds on hold for soft BP. Tolerating diet. Denies cough, dyspnea, nausea, abdominal pain, dysuria or chills. 12/09: patient is a poor historian/poor memory but awake and alert and is able to tell his name and age and eating breakfast on his own. Complains of pain in the left leg and abdomen. He denies any fever or chills. Denies nausea or vomiting . Denies chest pain or shortness of breath. Lab results reviewed. Neurology note reviewed. 12/10: Lower extremity venous Doppler was suggestive for acute DVT, started on heparin drip since yesterday. Will change to Eliquis today. Patient appeared to be tolerating diet and more alert and oriented. But still has significant drowsiness and elevated ammonia level. Ordered lactulose every 6 hours, follow ammonia level. We will start her on IV Lasix to reduce abdominal wall and lower extremity edema. We will also order 2D echocardiogram. 12/11: Had BM yesterday and today, reduce lactulose dose, follow ammonia, requesting nicotin patch. follow BMP. cont to monitor clinically. remains on 10L O2 - wean off as tolerated 12/12 patient is alert and oriented and wants to go home. Explained to the patient that he is on 15 L oxygen via nasal cannula. We will decrease oxygen to 10 L and monitor his oxygen saturation. Discussed with RN 12/13: CXR suggests pulmonary edema, increase lasix dose to 60mg daily. Patient wants to go home but on 10-15L Of O2. Advised RT to wean off as tolerated. Rmey isaac wanted to leave AMA but after counseling he agreed to stay. 12/14; patient on CPAP 15 L of oxygen, wean as tolerated 12/15; today patient is on 40 L of oxygen and BiPAP, wean as tolerated, pulmonary recommendation noted and appreciated History Interval history: I have seen and examined the patient at the bedside Patient's chart and medications reviewed patient complains of generalized weakness and shortness of breath Also complains of generalized body pains and insomnia Currently on 14 L of nasal cannula oxygen and intermittent BiPAP Vital signs reviewed Hospitalist Physical - Constitutional Vitals: Temp Pulse Resp BP Pulse Ox 98.6 F 71 24 137/74 90 12/15/21 17:00 12/15/21 17:00 12/15/21 17:00 12/15/21 17:00 12/15/21 17:00 General appearance: Present: no acute distress, well-nourished, obese (Morbidly obese) - EENT Eyes: Present: PERRL, EOM intact - Neck Neck: Present: supple, normal ROM - Respiratory Respiratory effort: normal Respiratory: bilateral: diminished, rhonchi, negative: rales, wheezing - Cardiovascular Rhythm: regular Heart Sounds: Present: S1 & S2 - Extremities Extremities: No edema, abnormal (Right lower extremity amputated) HEART Score - HEART Score Troponin: Troponin T < 0.010 ng/mL (0.00-0.029) 12/07/21 14:20 Results - Labs CBC & Chem 7: 12/15/21 06:34 12/14/21 04:32 Labs: Laboratory Last Values WBC 4.2 K/mm3 (4.5-11.0) L 12/14/21 04:32 RBC 4.03 M/mm3 (3.65-5.03) 12/14/21 04:32 Hgb 14.2 gm/dl (11.8-15.2) 12/15/21 06:34 Hct 44.4 % (35.5-45.6) 12/15/21 06:34 MCV 103 fl (84-94) H 12/14/21 04:32 MCH 32 pg (28-32) 12/14/21 04:32 MCHC 31 % (32-34) L 12/14/21 04:32 RDW 15.2 % (13.2-15.2) 12/14/21 04:32 Plt Count 115 K/mm3 (140-440) L 12/15/21 06:34 Lymph % (Auto) 23.1 % (13.4-35.0) 12/07/21 14:20 [place] % (Auto) Precision Lens Technician 04/19/22 04:32 Eos % (Auto) 4.5 % (0.0-4.3) H 12/07/21 14:20 Baso % (Auto) 0.9 % (0.0-1.8) 12/07/21 14:20 Lymph # (Auto) 0.9 K/mm3 (1.2-5.4) L 12/07/21 14:20 [place] # (Auto) 0.6 K/mm3 (0.0-0.8) 12/07/21 14:20 Eos # (Auto) 0.2 K/mm3 (0.0-0.4) 12/07/21 14:20 Baso # (Auto) 0.0 K/mm3 (0.0-0.1) 12/07/21 14:20 Add Manual Diff Complete 12/14/21 04:32 Total Counted 100 12/14/21 04:32 Seg Neutrophils % 55.7 % (40.0-70.0) 12/07/21 14:20 Seg Neuts % (Manual) 57.0 % (40.0-70.0) 12/14/21 04:32 Band Neutrophils % 0 % 12/14/21 04:32 Lymphocytes % (Manual) 30.0 % (13.4-35.0) 12/14/21 04:32 Reactive Lymphs % (Man) 0 % 12/14/21 04:32 Monocytes % (Manual) 5.0 % (0.0-7.3) 12/14/21 04:32 Eosinophils % (Manual) 8.0 % (0.0-4.3) H 12/14/21 04:32 Basophils % (Manual) 0 % (0.0-1.8) 12/14/21 04:32 Metamyelocytes % 0 % 12/14/21 04:32 Myelocytes % 0 % 12/14/21 04:32 Promyelocytes % 0 % 12/14/21 04:32 Blast Cells % 0 % 12/14/21 04:32 Nucleated RBC % Not Reportable 12/14/21 04:32 Seg Neutrophils # 2.3 K/mm3 (1.8-7.7) 12/07/21 14:20 Seg Neutrophils # Man 2.4 K/mm3 (1.8-7.7) 12/14/21 04:32 Band Neutrophils # 0.0 K/mm3 12/14/21 04:32 Lymphocytes # (Manual) 1.3 K/mm3 (1.2-5.4) 12/14/21 04:32 Abs React Lymphs (Man) 0.0 K/mm3 12/14/21 04:32 Monocytes # (Manual) 0.2 K/mm3 (0.0-0.8) 12/14/21 04:32 Eosinophils # (Manual) 0.3 K/mm3 (0.0-0.4) 12/14/21 04:32 Basophils # (Manual) 0.0 K/mm3 (0.0-0.1) 12/14/21 04:32 Metamyelocytes # 0.0 K/mm3 12/14/21 04:32 Myelocytes # 0.0 K/mm3 12/14/21 04:32 Promyelocytes # 0.0 K/mm3 12/14/21 04:32 Blast Cells # 0.0 K/mm3 12/14/21 04:32 WBC Morphology Not Reportable 12/14/21 04:32 Hypersegmented Neuts Not Reportable 12/14/21 04:32 Hyposegmented Neuts Not Reportable 12/14/21 04:32 Hypogranular Neuts Not Reportable 12/14/21 04:32 Smudge Cells Not Reportable 12/14/21 04:32 Toxic Granulation Not Reportable 12/14/21 04:32 Toxic Vacuolation Not Reportable 12/14/21 04:32 Dohle Bodies Not Reportable 12/14/21 04:32 Pelger-Huet Anomaly Not Reportable 12/14/21 04:32 Katharine Rods Not Reportable 12/14/21 04:32 Platelet Estimate Consistent w auto 12/14/21 04:32 Clumped Platelets Not Reportable 12/14/21 04:32 Plt Clumps, EDTA Not Reportable 12/14/21 04:32 Large Platelets Not Reportable 12/14/21 04:32 Giant Platelets Not Reportable 12/14/21 04:32 Platelet Satelliting Not Reportable 12/14/21 04:32 Plt Morphology Comment Not Reportable 12/14/21 04:32 RBC Morphology Normal 12/14/21 04:32 Dimorphic RBCs Not Reportable 12/14/21 04:32 Polychromasia Not Reportable 12/14/21 04:32 Hypochromasia Not Reportable 12/14/21 04:32 Poikilocytosis Not Reportable 12/14/21 04:32 Anisocytosis Not Reportable 12/14/21 04:32 Microcytosis Not Reportable 12/14/21 04:32 Macrocytosis Not Reportable 12/14/21 04:32 Spherocytes Not Reportable 12/14/21 04:32 Pappenheimer Bodies Not Reportable 12/14/21 04:32 Sickle Cells Not Reportable 12/14/21 04:32 Target Cells Not Reportable 12/14/21 04:32 Tear Drop Cells Not Reportable 12/14/21 04:32 Ovalocytes Not Reportable 12/14/21 04:32 Helmet Cells Not Reportable 12/14/21 04:32 [place] Bodies Not Reportable 12/14/21 04:32 [place] Rings Not Reportable 12/14/21 04:32 [place]ulia Cells Not Reportable 12/14/21 04:32 Bite Cells Not Reportable 12/14/21 04:32 Crenated Cell Not Reportable 12/14/21 04:32 Elliptocytes Not Reportable 12/14/21 04:32 Acanthocytes (Spur) Not Reportable 12/14/21 04:32 Rouleaux Not Reportable 12/14/21 04:32 Hemoglobin C Crystals Not Reportable 12/14/21 04:32 Schistocytes Not Reportable 12/14/21 04:32 Malaria parasites Not Reportable 12/14/21 04:32 Odin Bodies Not Reportable 12/14/21 04:32 Hem Pathologist Commnt No 12/14/21 04:32 PT 20.4 Sec. (12.2-14.9) H 12/10/21 23:17 INR 1.54 (0.87-1.13) H 12/10/21 23:17 APTT 24.1 Sec. (24.2-36.6) L 12/10/21 23:17 Heparin Anti-Xa Level 1.99 U.I./ml (0.3-0.7) H 12/11/21 15:27 Sodium 142 mmol/L (137-145) 12/14/21 04:32 Potassium 3.7 mmol/L (3.6-5.0) 12/14/21 04:32 Chloride 94.8 mmol/L (98-107) L 12/14/21 04:32 Carbon Dioxide 42 mmol/L (22-30) H* 12/14/21 04:32 Anion Gap 9 mmol/L 12/14/21 04:32 BUN 13 mg/dL (9-20) 12/14/21 04:32 Creatinine 0.8 mg/dL (0.8-1.3) 12/14/21 04:32 Estimated GFR > 60 ml/min 12/14/21 04:32 BUN/Creatinine Ratio 16 % 12/14/21 04:32 Glucose 84 mg/dL (75-100) 12/14/21 04:32 POC Glucose 131 mg/dL (70-105) H 12/15/21 11:27 Lactic Acid 1.70 mmol/L (0.7-2.0) 12/07/21 14:20 Calcium 8.3 mg/dL (8.4-10.2) L 12/14/21 04:32 Total Bilirubin 1.00 mg/dL (0.1-1.2) 12/11/21 15:27 Direct Bilirubin 0.4 mg/dL (0-0.2) H 12/11/21 15:27 Indirect Bilirubin 0.6 mg/dL 12/11/21 15:27 AST 27 units/L (5-40) 12/11/21 15:27 ALT 11 units/L (7-56) 12/11/21 15:27 Alkaline Phosphatase 61 units/L (35-129) 12/11/21 15:27 Ammonia 38.0 umol/L (25-60) 12/12/21 07:29 Troponin T < 0.010 ng/mL (0.00-0.029) 12/07/21 14:20 Total Protein 6.5 g/dL (6.3-8.2) 12/11/21 15:27 Albumin 3.0 g/dL (3.9-5) L 12/11/21 15:27 Albumin/Globulin Ratio 0.9 % 12/11/21 15:27 TSH 0.977 mlU/mL (0.270-4.200) 12/07/21 14:20 Free T4 0.74 ng/dL (0.76-1.46) L 12/08/21 21:05 Urine Color Yellow (Yellow) 12/08/21 00:24 Urine Turbidity Clear (Clear) 12/08/21 00:24 Urine pH 6.0 (5.0-7.0) 12/08/21 00:24 Ur Specific [place] 1.034 (1.003-1.030) H 12/08/21 00:24 Urine Protein <15 mg/dl mg/dL (Negative) 12/08/21 00:24 Urine Glucose (UA) Neg mg/dL (Negative) 12/08/21 00:24 Urine Ketones Neg mg/dL (Negative) 12/08/21 00:24 Urine Blood Neg (Negative) 12/08/21 00:24 Urine Nitrite Neg (Negative) 12/08/21 00:24 Urine Bilirubin Neg (Negative) 12/08/21 00:24 Urine Urobilinogen 4.0 mg/dL (<2.0) 12/08/21 00:24 Ur Leukocyte Esterase Neg (Negative) 12/08/21 00:24 Urine WBC (Auto) 5.0 /HPF (0.0-6.0) 12/08/21 00:24 Urine RBC (Auto) 1.0 /HPF (0.0-6.0) 12/08/21 00:24 U Epithel Cells (Auto) 1.0 /HPF (0-13.0) 12/08/21 00:24 Urine Mucus Few /HPF 12/08/21 00:24 [place]/IV: Voiding Method Urinal Active Medications - Current Medications Current Medications: Generic Name Dose Route Start Last Admin Trade Name Freq PRN Reason Stop Dose Admin Acetaminophen 1,000 mg 12/08/21 17:00 12/12/21 16:41 Acetaminophen 500 Mg Tab PO 1,000 mg Q8HR PRN Administration Pain, Moderate (4-6) Al Hydrox/Mg Hydrox/Simethicone 30 ml 12/14/21 18:31 Alum-Mag Hydroxide-Simethicone [phone]/5ml Oral Liqd 30 Ml PO Q4H PRN Indigestion Albuterol 2.5 mg 12/07/21 15:30 12/12/21 14:47 Albuterol 2.5 Mg/3 Ml Nebu IH 2.5 mg Q4HRT PRN Administration Shortness Of Breath Apixaban 10 mg 12/10/21 15:00 12/15/21 09:24 Apixaban 5 Mg Tab PO 12/16/21 22:01 10 mg Q12HR VIPUL Administration Protocol Apixaban 5 mg 12/17/21 10:00 Apixaban 5 Mg Tab PO Q12HR VIPUL Protocol Clonidine HCl 0.2 mg 12/12/21 10:00 12/15/21 09:24 Clonidine 0.2 Mg Tab PO 0.2 mg BID VIPUL Administration Furosemide 60 mg 12/13/21 13:00 12/15/21 09:24 Furosemide 40 Mg/4 Ml Inj IV 60 mg QDAY VIPUL Administration Lactulose 20 gm 12/12/21 10:00 12/15/21 09:23 Lactulose 20 Gm/30 Ml Oral Liqd PO 20 gm QDAY VIPUL Administration Methylprednisolone Sodium Succinate 40 mg 12/14/21 12:30 12/15/21 14:07 Methylprednisolone Sod Succinate 40 Mg/1 Ml Inj IV 40 mg Q8HR VIPUL Administration Nicotine 7 mg 12/11/21 18:00 12/15/21 09:24 Nicotine 7 Mg/24 Hr Patch TD 7 mg QDAY VIPUL Administration Ondansetron HCl 4 mg 12/07/21 15:30 Ondansetron 4 Mg/2 Ml Inj IV Q8H PRN Nausea And Vomiting Oxycodone/Acetaminophen 1 tab 12/14/21 12:56 12/15/21 14:07 Oxycodone /Acetaminophen 5-325mg Tab PO 1 tab Q6H PRN Administration Pain, Moderate (4-6) Sodium Chloride 10 ml 12/07/21 22:00 12/15/21 09:25 Sodium Chloride 0.9% 10 Ml Flush Syringe IV 10 ml BID VIPUL Administration Sodium Chloride 10 ml 12/07/21 15:30 Sodium Chloride 0.9% 10 Ml Flush Syringe IV PRN PRN LINE FLUSH Sodium Chloride 1 spray 12/14/21 19:05 12/14/21 21:39 Sodium Chloride Nasal [place] 44ml NS 1 spray PRN PRN Administration Dry Nasal Passages Tamsulosin HCl 0.4 mg 12/09/21 10:00 12/15/21 09:24 Tamsulosin 0.4 Mg Cap PO 0.4 mg DAILY VIPUL Administration Tiotropium [place] 1 puff 12/09/21 10:00 12/15/21 09:58 Tiotropium 18 Mcg Cap Inhalation IH Not Given QDAY [facility] Nutrition/Malnutrition Assess - Dietary Evaluation Nutrition/Malnutrition Findings: Nutrition Notes Start: 12/14/21 17 :04 Freq: Status: Active Protocol: Document 12/14/21 17:04 TERRELL (Rec: 12/14/21 17:15 TERRELL [email or web address]) Nutrition Notes Need for Assessment generated from: LOS Initial or Follow up Assessment Current Diagnosis COPD,Respiratory Failure Other Pertinent Diagnosis Cellulitis of L-Abdominal Wall and L-LE, L-EIV & CFV DVT, Encephalopathy .. Current Diet Cardiac Diet (since D 12/07). Labs/Tests 12/14: Cl 94.8, CO2 42, Ca 8.3 . Pertinent Medications 12/14: Nutritionally unremarkable. Height 5 ft 10 in Weight 156.9 kg [place] Body Weight (kg) 75.45 BMI 49.6 Intake Prior to Admission Good Weight change and time frame Pt denies having loss body weight [employer]. Weight Status Morbidly Obese Subjective/Other Information RD consult for LOS assessment. Pt's PO intake of meals has been Good (75-100%), according to ADL notes. Pt is on [place] Nasal Cannula, O2 saturation @ 92%, according to Physical Assessment History notes. Pt has missing teeth, according to Physical Assessment History notes. Percent of energy/protein needs met: Prescribed Cardiac Diet provides for energy/protein needs (2,230 Kcal/85 g) during LOS. Burn Absent Trauma Absent GI Symptoms None Food Allergy No Skin Integrity/Comment Cellulitis of L-Abd. Wall & L- LE. Current % PO Good (75-100%) Minimum of two criteria No #1 Nutrition Diagnosis No nutrition diagnosis at this time Is patient on ventilator? No Is Patient Ambulatory and/or Out of Bed No REE-([facility]-confined to bed) 2824.848 Kcal/Kg value to use for calculation 13 Approximate Energy Requirements Using 2040 kcal/Kg Calculation Used for Recommendations Kcal/kg Additional Notes Protein: 1-1.2 g/Kg AdjBW; 116 -139 g/day. Fluids: 1 ml/Kcal, or as per MD. Nutrition Intervention Change Diet Order: Continue Cardiac Diet. Revisit per MD consult or patient Sign Off request: Additional Comments Continue monitoring food tolerance, %PO intake of meals , and BM.
[2021-12-15] MEDS ORDERED: ZOLPIDEM 5 MG TAB PO PRN (18:25)
[2021-12-16] MEDS: methylPREDNISolone Sod Succinate 40 MG/1 ML INJ IV SCH ×3 (05:11→21:55)
[2021-12-16] MEDS: oxyCODONE /ACETAMINOPHEN 5-325MG TAB PO PRN ×3 (05:13→18:56)
[2021-12-16] MEDS: TIOTROPIUM 18 MCG CAP INHALATION IH SCH (08:26)
[2021-12-16] MEDS: FUROSEMIDE 40 MG/4 ML INJ IV SCH (09:05)
[2021-12-16] MEDS: APIXABAN 5 MG TAB PO SCH ×2 (09:06→21:54)
[2021-12-16] MEDS: LACTULOSE 20 GM/30 ML ORAL LIQD PO SCH (09:06)
[2021-12-16] MEDS: TAMSULOSIN 0.4 MG CAP PO SCH (09:06)
[2021-12-16] MEDS: cloNIDine 0.2 MG TAB PO SCH ×2 (09:06→21:54)
[2021-12-16] MEDS: NICOTINE 7 MG/24 HR PATCH TD SCH (09:10)
[2021-12-16 09:15] LABS: Hematocrit 47.5 % (35.5-45.6); Mean Corpuscular HGB Conc 32 % (32-34); Mean Corpuscular Volume 103 fl (84-94); Platelet Count 153 K/mm3 (140-440); Red Blood Count 4.59 M/mm3 (3.65-5.03); Red Cell Distribution Width 14.9 % (13.2-15.2)
[2021-12-16 09:19] LABS: BUN/Creatinine Ratio 23; Blood Urea Nitrogen 18 mg/dL (9-20); Hemolysis Index 19
--- NOTE | 2021-12-16 11:10 | Progress Note ---
Assessment and Plan 66 y/o morbidly obese male with known COPD, PARUL and chronic respiratory failure admitted with altered mental state and worsening hypoxemia, most likely secondary to noncompliance 12/16/21: No new recs for today. Given improvement in oxygen requirement, please continue steroids and I can reassess tomorrow. 12/15/21: Continue NIV therapy at night. COntinue diuresis as tolerated. Continue IV steroids at least through the next 24 hours. Once patient able to lie flat needs noncontrasted CT of chest 1. Will send venous pH as I doubt patient will allow for ABG 2. NIV therapy at night. Patient will use hospital bipap. RT to determine settings based on volumes and sats once placed on therapy 3. Agree with diuresis 4. Will add some IV steroids 5. Once able to lie flat, will need CT to better evaluate lung parenchyma 6. Guarded to poor prognosis. Subjective Date of service: 12/16/21 Principal diagnosis: Confusion Interval history: looks and feels better. Burt Banco nasal saline is helping a lot. Objective Vital Signs - 12hr 12/15/21 12/16/21 12/16/21 23:30 00:23 03:25 Temperature 97.3 F L Pulse Rate 74 60 Respiratory 18 18 Rate Blood Pressure 143/80 O2 Sat by Pulse 99 98 100 Oximetry 12/16/21 12/16/21 12/16/21 04:28 08:25 09:06 Temperature 97.5 F L Pulse Rate 64 83 Respiratory 18 Rate Blood Pressure 137/89 135/90 O2 Sat by Pulse 94 94 Oximetry Constitutional: no acute distress, alert, other (somewhat confused) Eyes: icteric ENT: oropharynx moist Neck: supple, no JVD Effort: mildly labored Ascultation: Bilateral: diminished breath sounds Gastrointestinal: normoactive bowel sounds, soft, non-tender Integumentary: normal Extremities: other (right amputation of lower ext) CBC and BMP: 12/16/21 08:42 12/16/21 08:42 ABG, PT/INR, D-dimer: PT/INR, D-dimer PT 20.4 Sec. (12.2-14.9) H 12/10/21 23:17 INR 1.54 (0.87-1.13) H 12/10/21 23:17 Abnormal lab findings: Abnormal Labs 12/07/21 12/07/2122 14:20 14:20 14:20 WBC 4.0 L Hgb 15.3 H Hct 46.8 H MCV 104 H MCH 34 H MCHC RDW 15.3 H Plt Count 114 L [place] % (Auto) 15.8 H Eos % (Auto) 4.5 H Lymph # (Auto) 0.9 L Monocytes % (Manual) Eosinophils % (Manual) Basophils % (Manual) Lymphocytes # (Manual) PT 17.4 H INR 1.27 H APTT Heparin Anti-Xa Level Potassium 5.3 H Chloride 96.5 L Carbon Dioxide 40 H Creatinine Glucose POC Glucose Calcium Total Bilirubin 1.30 H Direct Bilirubin Ammonia Albumin 3.2 L Free T4 Ur Specific [place] 12/08/21 12/08/21 12/08/21 00:24 05:50 05:50 WBC 4.3 L Hgb Hct 47.7 H MCV 106 H MCH 33 H MCHC 31 L RDW 15.3 H Plt Count 90 L [place] % (Auto) Eos % (Auto) Lymph # (Auto) Monocytes % (Manual) 8.0 H Eosinophils % (Manual) Basophils % (Manual) 2.0 H Lymphocytes # (Manual) 0.9 L PT INR APTT Heparin Anti-Xa Level Potassium 5.4 H Chloride Carbon Dioxide 37 H Creatinine Glucose 66 L POC Glucose Calcium Total Bilirubin Direct Bilirubin Ammonia Albumin Free T4 Ur Specific [place] 1.034 H 12/08/21 12/08/21 12/09/21 21:05 21:05 05:31 WBC Hgb Hct MCV MCH MCHC RDW Plt Count [place] % (Auto) Eos % (Auto) Lymph # (Auto) Monocytes % (Manual) Eosinophils % (Manual) Basophils % (Manual) Lymphocytes # (Manual) PT INR APTT Heparin Anti-Xa Level Potassium Chloride Carbon Dioxide 38 H Creatinine Glucose POC Glucose Calcium Total Bilirubin Direct Bilirubin Ammonia 75.0 H Albumin Free T4 0.74 L Ur Specific [place] 12/09/21 12/09/21 12/09/21 07:03 07:03 22:55 WBC Hgb Hct MCV 105 H MCH 34 H MCHC RDW 15.9 H Plt Count 104 L 103 L [place] % (Auto) Eos % (Auto) Lymph # (Auto) Monocytes % (Manual) 9.0 H Eosinophils % (Manual) 5.0 H Basophils % (Manual) Lymphocytes # (Manual) PT INR APTT Heparin Anti-Xa Level Potassium Chloride Carbon Dioxide Creatinine Glucose POC Glucose Calcium Total Bilirubin Direct Bilirubin Ammonia 82.0 H Albumin Free T4 Ur Specific [place] 12/09/21 12/10/21 12/10/21 22:55 00:38 09:45 WBC Hgb Hct MCV MCH MCHC RDW Plt Count [place] % (Auto) Eos % (Auto) Lymph # (Auto) Monocytes % (Manual) Eosinophils % (Manual) Basophils % (Manual) Lymphocytes # (Manual) PT 19.2 H INR 1.43 H APTT 121.5 H* 118.6 H* Heparin Anti-Xa Level 0.21 L Potassium Chloride Carbon Dioxide Creatinine Glucose POC Glucose Calcium Total Bilirubin Direct Bilirubin Ammonia Albumin Free T4 Ur Specific [place] 12/10/21 12/10/21 12/10/21 09:45 16:10 22:33 WBC Hgb Hct MCV MCH MCHC RDW Plt Count [place] % (Auto) Eos % (Auto) Lymph # (Auto) Monocytes % (Manual) Eosinophils % (Manual) Basophils % (Manual) Lymphocytes # (Manual) PT INR APTT Heparin Anti-Xa Level Potassium Chloride Carbon Dioxide Creatinine Glucose POC Glucose 108 H 108 H Calcium Total Bilirubin Direct Bilirubin Ammonia 85.0 H Albumin Free T4 Ur Specific [place] 12/10/21 12/10/21 12/11/21 23:17 23:17 15:27 WBC Hgb Hct MCV 104 H MCH 34 H MCHC RDW 15.3 H Plt Count 116 L 110 L [place] % (Auto) Eos % (Auto) Lymph # (Auto) Monocytes % (Manual) Eosinophils % (Manual) Basophils % (Manual) Lymphocytes # (Manual) PT 20.4 H INR 1.54 H APTT 24.1 L Heparin Anti-Xa Level Potassium Chloride Carbon Dioxide Creatinine Glucose POC Glucose Calcium Total Bilirubin Direct Bilirubin Ammonia Albumin Free T4 Ur Specific [place] 12/11/21 12/11/21 12/11/21 15:27 15:27 16:09 WBC Hgb Hct MCV MCH MCHC RDW Plt Count [place] % (Auto) Eos % (Auto) Lymph # (Auto) Monocytes % (Manual) Eosinophils % (Manual) Basophils % (Manual) Lymphocytes # (Manual) PT INR APTT Heparin Anti-Xa Level 1.99 H Potassium Chloride 96.2 L Carbon Dioxide 43 H* Creatinine Glucose 115 H POC Glucose 115 H Calcium Total Bilirubin Direct Bilirubin 0.4 H Ammonia Albumin 3.0 L Free T4 Ur Specific [place] 12/12/21 12/12/21 12/12/21 07:29 07:29 11:09 WBC 4.4 L Hgb Hct MCV 103 H MCH 33 H MCHC RDW Plt Count 110 L [place] % (Auto) Eos % (Auto) Lymph # (Auto) Monocytes % (Manual) Eosinophils % (Manual) Basophils % (Manual) Lymphocytes # (Manual) PT INR APTT Heparin Anti-Xa Level Potassium Chloride 93.1 L Carbon Dioxide 41 H* Creatinine 0.7 L Glucose POC Glucose 118 H Calcium Total Bilirubin Direct Bilirubin Ammonia Albumin Free T4 Ur Specific [place] 12/13/21 12/13/21 12/13/21 13:07 13:07 16:12 WBC 4.2 L Hgb Hct MCV 103 H MCH 33 H MCHC RDW 15.6 H Plt Count 110 L [place] % (Auto) Eos % (Auto) Lymph # (Auto) Monocytes % (Manual) Eosinophils % (Manual) Basophils % (Manual) Lymphocytes # (Manual) PT INR APTT Heparin Anti-Xa Level Potassium Chloride 91.6 L Carbon Dioxide 40 H Creatinine 0.7 L Glucose 116 H POC Glucose 124 H Calcium Total Bilirubin Direct Bilirubin Ammonia Albumin Free T4 Ur Specific [place] 12/13/21 12/14/21 12/14/21 21:37 04:32 04:32 WBC 4.2 L Hgb Hct MCV 103 H MCH MCHC 31 L RDW Plt Count 108 L [place] % (Auto) Eos % (Auto) Lymph # (Auto) Monocytes % (Manual) Eosinophils % (Manual) 8.0 H Basophils % (Manual) Lymphocytes # (Manual) PT INR APTT Heparin Anti-Xa Level Potassium Chloride 94.8 L Carbon Dioxide 42 H* Creatinine Glucose POC Glucose 121 H Calcium 8.3 L Total Bilirubin Direct Bilirubin Ammonia Albumin Free T4 Ur Specific [place] 12/14/21 12/15/21 12/15/21 21:44 06:34 11:27 WBC Hgb Hct MCV MCH MCHC RDW Plt Count 115 L [place] % (Auto) Eos % (Auto) Lymph # (Auto) Monocytes % (Manual) Eosinophils % (Manual) Basophils % (Manual) Lymphocytes # (Manual) PT INR APTT Heparin Anti-Xa Level Potassium Chloride Carbon Dioxide Creatinine Glucose POC Glucose 191 H 131 H Calcium Total Bilirubin Direct Bilirubin Ammonia Albumin Free T4 Ur Specific [place] 12/15/21 12/15/21 12/16/21 16:11 21:53 07:43 WBC Hgb Hct MCV MCH MCHC RDW Plt Count [place] % (Auto) Eos % (Auto) Lymph # (Auto) Monocytes % (Manual) Eosinophils % (Manual) Basophils % (Manual) Lymphocytes # (Manual) PT INR APTT Heparin Anti-Xa Level Potassium Chloride Carbon Dioxide Creatinine Glucose POC Glucose 116 H 113 H 119 H Calcium Total Bilirubin Direct Bilirubin Ammonia Albumin Free T4 Ur Specific [place] 12/16/21 12/16/21 08:42 08:42 WBC Hgb Hct 47.5 H MCV 103 H MCH 33 H MCHC RDW Plt Count [place] % (Auto) Eos % (Auto) Lymph # (Auto) Monocytes % (Manual) Eosinophils % (Manual) Basophils % (Manual) Lymphocytes # (Manual) PT INR APTT Heparin Anti-Xa Level Potassium Chloride 92.0 L Carbon Dioxide 39 H Creatinine Glucose 129 H POC Glucose Calcium Total Bilirubin Direct Bilirubin Ammonia Albumin Free T4 Ur Specific [place]
[2021-12-16] MEDS: ALBUTEROL 2.5 MG/3 ML NEBU IH PRN (14:05)
--- NOTE | 2021-12-16 19:01 | Progress Note ---
Assessment and Plan Assessment and plan: 66 YO Male with Obesity Hypoventilation Syndrome, CaP S/P Radiation therapy, Asthma, COPD, Chronic Respiratory Failure on Home Trilogy machine QHS, and supplemental oxygen 3L via [place], GERD presents to ED on 12/07/21 for evaluation of increased confusion over the last 2 days along with redness and swelling on the lower abdominal wall and lower extremity. Patient found to have a pulse oximetry of 84% on room air which is consistent with acute hypoxemic respiratory failure. Patient also found to have abdominal wall cellulitis with concomitant left leg cellulitis, metabolic encephalopathy, systemic inflammatory response syndrome. Patient admitted to medical floor, IV antibiotic therapy initiated in the emergency department. Assessment and plan: Able to wean oxygen to climb into 8 L Continues to wean as tolerated, continue current management nebulizers steroids -- Acute and chronic respiratory failure 15 L of [place] O2 Current Visit: No Status: Acute Supplemental oxygen, pulse oximetry, nebulizer therapy, noninvasive positive pressure ventilation as clinically indicated. Needs outpatient follow-up with pulmonary Patient states that he is followed by Dr. Kenny Oxygen levels weaned to 8 L today Continue to wean as tolerated Possible DC very soon --New onset DVT -left external iliac vein,common femoral vein and femoral vein s/p Heparin drip, transitioned to Eliquis --Anasarca, cont on IV Lasix, Echo; LV ejection fraction 50 to 55%, normal range --Hyperammonemia, received lactulose Ammonia levels normal range -- Cellulitis of left abdominal wall Current Visit: Yes Status: Acute CT scan abdomen,No evidence of cellulitis Patient is off antibiotic -- Acute encephalopathy possible from dehydration/sepsis Current Visit: Yes Status: Acute / resolved/ CT head, neuro check, seizure precautions, treat cellulitis, supportive care. BP soft, status post hydration, antibiotics, Blood cultures-no growth to date -- Obesity hypoventilation syndrome Current Visit: No Status: Acute Balanced diet, increase physical activity at discharge, outpatient pulmonary follow-up for sleep study. Outpatient bariatric surgery consultation. Continue CPAP at at bedtime --History of prostate cancer Current Visit: No Status: Acute Patient states that he has prostate cancer and bladder cancer Stable, follow-up with private urologist upon discharge -- right upper extremity tremors , improved Neurology evaluated, continue current management -- morbid obesity; BMI 49.6 Patient advised diet modification, exercise as tolerated, weight reduction When medically stable Patient would benefit from referral to bariatric surgical team for weight reduction program But medical and pharmacological and ultimately surgical if needed -- thrombocytopenia- platelets are hovering around 100 (104K today) Closely monitor --hyperkalemia Resolved --DVT prophylaxis; Patient is already on Eliquis --full code We will closely monitor patient and adjust management as needed Wean oxygen as tolerated. Consider LTAC placement Daycare Manager recommendations noted and appreciated DC planning discussed with case management Hospitalist Physical - Constitutional Vitals: Temp Pulse Resp BP Pulse Ox 98.9 F 64 20 141/89 88 12/16/21 17:25 12/16/21 17:25 12/16/21 17:25 12/16/21 17:25 12/16/21 17:25 General appearance: Present: no acute distress, well-nourished, obese (Morbidly obese) HEART Score - HEART Score Troponin: Troponin T < 0.010 ng/mL (0.00-0.029) 12/07/21 14:20 Results - Labs CBC & Chem 7: 12/16/21 08:42 12/16/21 08:42 Labs: Laboratory Last Values WBC 6.8 K/mm3 (4.5-11.0) 12/16/21 08:42 RBC 4.59 M/mm3 (3.65-5.03) 12/16/21 08:42 Hgb 15.0 gm/dl (11.8-15.2) 12/16/21 08:42 Hct 47.5 % (35.5-45.6) H 12/16/21 08:42 MCV 103 fl (84-94) H 12/16/21 08:42 MCH 33 pg (28-32) H 12/16/21 08:42 MCHC 32 % (32-34) 12/16/21 08:42 RDW 14.9 % (13.2-15.2) 12/16/21 08:42 Plt Count 153 K/mm3 (140-440) 12/16/21 08:42 Lymph % (Auto) 23.1 % (13.4-35.0) 12/07/21 14:20 [place] % (Auto) Color Grinder 12/14/21 04:32 Eos % (Auto) 4.5 % (0.0-4.3) H 12/07/21 14:20 Baso % (Auto) 0.9 % (0.0-1.8) 12/07/21 14:20 Lymph # (Auto) 0.9 K/mm3 (1.2-5.4) L 12/07/21 14:20 [place] # (Auto) 0.6 K/mm3 (0.0-0.8) 12/07/21 14:20 Eos # (Auto) 0.2 K/mm3 (0.0-0.4) 12/07/21 14:20 Baso # (Auto) 0.0 K/mm3 (0.0-0.1) 12/07/21 14:20 Add Manual Diff Complete 12/14/21 04:32 Total Counted 100 12/14/21 04:32 Seg Neutrophils % 55.7 % (40.0-70.0) 12/07/21 14:20 Seg Neuts % (Manual) 57.0 % (40.0-70.0) 12/14/21 04:32 Band Neutrophils % 0 % 12/14/21 04:32 Lymphocytes % (Manual) 30.0 % (13.4-35.0) 12/14/21 04:32 Reactive Lymphs % (Man) 0 % 12/14/21 04:32 Monocytes % (Manual) 5.0 % (0.0-7.3) 12/14/21 04:32 Eosinophils % (Manual) 8.0 % (0.0-4.3) H 12/14/21 04:32 Basophils % (Manual) 0 % (0.0-1.8) 12/14/21 04:32 Metamyelocytes % 0 % 12/14/21 04:32 Myelocytes % 0 % 12/14/21 04:32 Promyelocytes % 0 % 12/14/21 04:32 Blast Cells % 0 % 12/14/21 04:32 Nucleated RBC % Not Reportable 12/14/21 04:32 Seg Neutrophils # 2.3 K/mm3 (1.8-7.7) 12/07/21 14:20 Seg Neutrophils # Man 2.4 K/mm3 (1.8-7.7) 12/14/21 04:32 Band Neutrophils # 0.0 K/mm3 12/14/21 04:32 Lymphocytes # (Manual) 1.3 K/mm3 (1.2-5.4) 12/14/21 04:32 Abs React Lymphs (Man) 0.0 K/mm3 12/14/21 04:32 Monocytes # (Manual) 0.2 K/mm3 (0.0-0.8) 12/14/21 04:32 Eosinophils # (Manual) 0.3 K/mm3 (0.0-0.4) 12/14/21 04:32 Basophils # (Manual) 0.0 K/mm3 (0.0-0.1) 12/14/21 04:32 Metamyelocytes # 0.0 K/mm3 12/14/21 04:32 Myelocytes # 0.0 K/mm3 12/14/21 04:32 Promyelocytes # 0.0 K/mm3 12/14/21 04:32 Blast Cells # 0.0 K/mm3 12/14/21 04:32 WBC Morphology Not Reportable 12/14/21 04:32 Hypersegmented Neuts Not Reportable 12/14/21 04:32 Hyposegmented Neuts Not Reportable 12/14/21 04:32 Hypogranular Neuts Not Reportable 12/14/21 04:32 Smudge Cells Not Reportable 12/14/21 04:32 Toxic Granulation Not Reportable 12/14/21 04:32 Toxic Vacuolation Not Reportable 12/14/21 04:32 Dohle Bodies Not Reportable 12/14/21 04:32 Pelger-Huet Anomaly Not Reportable 12/14/21 04:32 Katharine Rods Not Reportable 12/14/21 04:32 Platelet Estimate Consistent w auto 12/14/21 04:32 Clumped Platelets Not Reportable 12/14/21 04:32 Plt Clumps, EDTA Not Reportable 12/14/21 04:32 Large Platelets Not Reportable 12/14/21 04:32 Giant Platelets Not Reportable 12/14/21 04:32 Platelet Satelliting Not Reportable 12/14/21 04:32 Plt Morphology Comment Not Reportable 12/14/21 04:32 RBC Morphology Normal 12/14/21 04:32 Dimorphic RBCs Not Reportable 12/14/21 04:32 Polychromasia Not Reportable 12/14/21 04:32 Hypochromasia Not Reportable 12/14/21 04:32 Poikilocytosis Not Reportable 12/14/21 04:32 Anisocytosis Not Reportable 12/14/21 04:32 Microcytosis Not Reportable 12/14/21 04:32 Macrocytosis Not Reportable 12/14/21 04:32 Spherocytes Not Reportable 12/14/21 04:32 Pappenheimer Bodies Not Reportable 12/14/21 04:32 Sickle Cells Not Reportable 12/14/21 04:32 Target Cells Not Reportable 12/14/21 04:32 Tear Drop Cells Not Reportable 12/14/21 04:32 Ovalocytes Not Reportable 12/14/21 04:32 Helmet Cells Not Reportable 12/14/21 04:32 [place] Bodies Not Reportable 12/14/21 04:32 [place] Rings Not Reportable 12/14/21 04:32 [place] Cells Not Reportable 12/14/21 04:32 Bite Cells Not Reportable 12/14/21 04:32 Crenated Cell Not Reportable 12/14/21 04:32 Elliptocytes Not Reportable 12/14/21 04:32 Acanthocytes (Spur) Not Reportable 12/14/21 04:32 Rouleaux Not Reportable 12/14/21 04:32 Hemoglobin C Crystals Not Reportable 12/14/21 04:32 Schistocytes Not Reportable 12/14/21 04:32 Malaria parasites Not Reportable 12/14/21 04:32 Odin Bodies Not Reportable 12/14/21 04:32 Hem Pathologist Commnt No 12/14/21 04:32 PT 20.4 Sec. (12.2-14.9) H 12/10/21 23:17 INR 1.54 (0.87-1.13) H 12/10/21 23:17 APTT 24.1 Sec. (24.2-36.6) L 12/10/21 23:17 Heparin Anti-Xa Level 1.99 U.I./ml (0.3-0.7) H 12/11/21 15:27 Sodium 139 mmol/L (137-145) 12/16/21 08:42 Potassium 4.1 mmol/L (3.6-5.0) 12/16/21 08:42 Chloride 92.0 mmol/L (98-107) L 12/16/21 08:42 Carbon Dioxide 39 mmol/L (22-30) H 12/16/21 08:42 Anion Gap 12 mmol/L 12/16/21 08:42 BUN 18 mg/dL (9-20) 12/16/21 08:42 Creatinine 0.8 mg/dL (0.8-1.3) 12/16/21 08:42 Creatinine 0.8 mg/dL (0.8-1.3) 12/16/21 08:42 Estimated GFR > 60 ml/min 12/16/21 08:42 Estimated GFR > 60 ml/min 12/16/21 08:42 BUN/Creatinine Ratio 23 % 12/16/21 08:42 Glucose 129 mg/dL (75-100) H 12/16/21 08:42 POC Glucose 75 mg/dL (70-105) 12/16/21 12:29 Lactic Acid 1.70 mmol/L (0.7-2.0) 12/07/21 14:20 Calcium 9.0 mg/dL (8.4-10.2) 12/16/21 08:42 Total Bilirubin 1.00 mg/dL (0.1-1.2) 12/11/21 15:27 Direct Bilirubin 0.4 mg/dL (0-0.2) H 12/11/21 15:27 Indirect Bilirubin 0.6 mg/dL 12/11/21 15:27 AST 27 units/L (5-40) 12/11/21 15:27 ALT 11 units/L (7-56) 12/11/21 15:27 Alkaline Phosphatase 61 units/L (35-129) 12/11/21 15:27 Ammonia 38.0 umol/L (25-60) 12/12/21 07:29 Troponin T < 0.010 ng/mL (0.00-0.029) 12/07/21 14:20 Total Protein 6.5 g/dL (6.3-8.2) 12/11/21 15:27 Albumin 3.0 g/dL (3.9-5) L 12/11/21 15:27 Albumin/Globulin Ratio 0.9 % 12/11/21 15:27 TSH 0.977 mlU/mL (0.270-4.200) 12/07/21 14:20 Free T4 0.74 ng/dL (0.76-1.46) L 12/08/21 21:05 Urine Color Yellow (Yellow) 12/08/21 00:24 Urine Turbidity Clear (Clear) 12/08/21 00:24 Urine pH 6.0 (5.0-7.0) 12/08/21 00:24 Ur Specific [place] 1.034 (1.003-1.030) H 12/08/21 00:24 Urine Protein <15 mg/dl mg/dL (Negative) 12/08/21 00:24 Urine Glucose (UA) Neg mg/dL (Negative) 12/08/21 00:24 Urine Ketones Neg mg/dL (Negative) 12/08/21 00:24 Urine Blood Neg (Negative) 12/08/21 00:24 Urine Nitrite Neg (Negative) 12/08/21 00:24 Urine Bilirubin Neg (Negative) 12/08/21 00:24 Urine Urobilinogen 4.0 mg/dL (<2.0) 12/08/21 00:24 Ur Leukocyte Esterase Neg (Negative) 12/08/21 00:24 Urine WBC (Auto) 5.0 /HPF (0.0-6.0) 12/08/21 00:24 Urine RBC (Auto) 1.0 /HPF (0.0-6.0) 12/08/21 00:24 U Epithel Cells (Auto) 1.0 /HPF (0-13.0) 12/08/21 00:24 Urine Mucus Few /HPF 12/08/21 00:24 [place]/IV: Voiding Method Urinal Active Medications - Current Medications Current Medications: Generic Name Dose Route Start Last Admin Trade Name Freq PRN Reason Stop Dose Admin Acetaminophen 1,000 mg 12/08/21 17:00 12/12/21 16:41 Acetaminophen 500 Mg Tab PO 1,000 mg Q8HR PRN Administration Pain, Moderate (4-6) Al Hydrox/Mg Hydrox/Simethicone 30 ml 12/14/21 18:31 Alum-Mag Hydroxide-Simethicone [phone]/5ml Oral Liqd 30 Ml PO Q4H PRN Indigestion Albuterol 2.5 mg 12/07/21 15:30 12/16/21 14:05 Albuterol 2.5 Mg/3 Ml Nebu IH 2.5 mg Q4HRT PRN Administration Shortness Of Breath Apixaban 10 mg 12/10/21 15:00 12/16/21 09:06 Apixaban 5 Mg Tab PO 12/16/21 22:01 10 mg Q12HR VIPUL Administration Protocol Apixaban 5 mg 12/17/21 10:00 Apixaban 5 Mg Tab PO Q12HR VIPUL Protocol Clonidine HCl 0.2 mg 12/12/21 10:00 12/16/21 09:06 Clonidine 0.2 Mg Tab PO 0.2 mg BID VIPUL Administration Furosemide 60 mg 12/13/21 13:00 12/16/21 09:05 Furosemide 40 Mg/4 Ml Inj IV 60 mg QDAY VIPUL Administration Lactulose 20 gm 12/12/21 10:00 12/16/21 09:06 Lactulose 20 Gm/30 Ml Oral Liqd PO 20 gm QDAY VIPUL Administration Methylprednisolone Sodium Succinate 40 mg 12/14/21 12:30 12/16/21 13:30 Methylprednisolone Sod Succinate 40 Mg/1 Ml Inj IV 40 mg Q8HR VIPUL Administration Nicotine 7 mg 12/11/21 18:00 12/16/21 09:10 Nicotine 7 Mg/24 Hr Patch TD 7 mg QDAY VIPUL Administration Ondansetron HCl 4 mg 12/07/21 15:30 Ondansetron 4 Mg/2 Ml Inj IV Q8H PRN Nausea And Vomiting Oxycodone/Acetaminophen 1 tab 12/14/21 12:56 12/16/21 18:56 Oxycodone /Acetaminophen 5-325mg Tab PO 1 tab Q6H PRN Administration Pain, Moderate (4-6) Sodium Chloride 10 ml 12/07/21 22:00 12/16/21 09:13 Sodium Chloride 0.9% 10 Ml Flush Syringe IV 10 ml BID VIPUL Administration Sodium Chloride 10 ml 12/07/21 15:30 Sodium Chloride 0.9% 10 Ml Flush Syringe IV PRN PRN LINE FLUSH Sodium Chloride 1 spray 12/14/21 19:05 12/14/21 21:39 Sodium Chloride Nasal [place] 44ml NS 1 spray PRN PRN Administration Dry Nasal Passages Tamsulosin HCl 0.4 mg 12/09/21 10:00 12/16/21 09:06 Tamsulosin 0.4 Mg Cap PO 0.4 mg DAILY VIPUL Administration Tiotropium [place] 1 puff 12/09/21 10:00 12/16/21 08:26 Tiotropium 18 Mcg Cap Inhalation IH Not Given QDAY VIPUL Zolpidem Tartrate 5 mg 12/15/21 18:25 Zolpidem 5 Mg Tab PO QHS PRN Sleep Nutrition/Malnutrition Assess - Dietary Evaluation Nutrition/Malnutrition Findings: Nutrition Notes Start: 12/14/21 17:04 Freq: Status: Active Protocol: Document 12/14/21 17:04 TERRELL (Rec: 12/14/21 17:15 TERRELL [id number]) Nutrition Notes Need for Assessment generated from: LOS Initial or Follow up Assessment Current Diagnosis COPD,Respiratory Failure Other Pertinent Diagnosis Cellulitis of L-Abdominal Wall and L-LE, L-EIV & CFV DVT, Encephalopathy .. Current Diet Cardiac Diet (since D 12/07). Labs/Tests 12/14: Cl 94.8, CO2 42, Ca 8.3 . Pertinent Medications 12/14: Nutritionally unremarkable. Height 5 ft 10 in Weight 156.9 kg [place] Body Weight (kg) 75.45 BMI 49.6 Intake Prior to Admission Good Weight change and time frame Pt denies having loss body weight [employer]. Weight Status Morbidly Obese Subjective/Other Information RD consult for LOS assessment. Pt's PO intake of meals has been Good (75-100%), according to ADL notes. Pt is on [place] Nasal Cannula, O2 saturation @ 92%, according to Physical Assessment History notes. Pt has missing teeth, according to Physical Assessment History notes. Percent of energy/protein needs met: Prescribed Cardiac Diet provides for energy/protein needs (2,230 Kcal/85 g) during LOS. Burn Absent Trauma Absent GI Symptoms None Food Allergy No Skin Integrity/Comment Cellulitis of L-Abd. Wall & L- LE. Current % PO Good (75-100%) Minimum of two criteria No #1 Nutrition Diagnosis No nutrition diagnosis at this time Is patient on ventilator? No Is Patient Ambulatory and/or Out of Bed No REE-([facility]-confined to bed) 2824.848 Kcal/Kg value to use for calculation 13 Approximate Energy Requirements Using 2040 kcal/Kg Calculation Used for Recommendations Kcal/kg Additional Notes Protein: 1-1.2 g/Kg AdjBW; 116 -139 g/day. Fluids: 1 ml/Kcal, or as per MD. Nutrition Intervention Change Diet Order: Continue Cardiac Diet. Revisit per MD consult or patient Sign Off request: Additional Comments Continue monitoring food tolerance, %PO intake of meals , and BM.
[2021-12-17] MEDS: methylPREDNISolone Sod Succinate 40 MG/1 ML INJ IV SCH (05:12)
[2021-12-17] MEDS: oxyCODONE /ACETAMINOPHEN 5-325MG TAB PO PRN ×2 (06:00→13:37)
[2021-12-17 07:42] LABS: Hematocrit 46.6 % (35.5-45.6); Hemoglobin 14.7 gm/dl (11.8-15.2)
--- NOTE | 2021-12-17 08:19 | Progress Note ---
Assessment and Plan Assessment and plan: 66 YO Male with Obesity Hypoventilation Syndrome, CaP S/P Radiation therapy, Asthma, COPD, Chronic Respiratory Failure on Home Trilogy machine QHS, and supplemental oxygen 3L via [place], GERD presents to ED on 12/07/21 for evaluation of increased confusion over the last 2 days along with redness and swelling on the lower abdominal wall and lower extremity. Patient found to have a pulse oximetry of 84% on room air which is consistent with acute hypoxemic respiratory failure. Patient also found to have abdominal wall cellulitis with concomitant left leg cellulitis, metabolic encephalopathy, systemic inflammatory response syndrome. Patient admitted to medical floor, IV antibiotic therapy initiated in the emergency department. Assessment and plan: Able to wean oxygen to climb into 8 L Continues to wean as tolerated, continue current management nebulizers steroids -- Acute and chronic respiratory failure 15 L of [place] O2 Current Visit: No Status: Acute Supplemental oxygen, pulse oximetry, nebulizer therapy, noninvasive positive pressure ventilation as clinically indicated. Needs outpatient follow-up with pulmonary Patient states that he is followed by Dr. Kenny Oxygen levels weaned to 8 L today Continue to wean as tolerated Possible DC very soon --New onset DVT -left external iliac vein,common femoral vein and femoral vein s/p Heparin drip, transitioned to Eliquis --Anasarca, cont on IV Lasix, Echo; LV ejection fraction 50 to 55%, normal range --Hyperammonemia, received lactulose Ammonia levels normal range -- Cellulitis of left abdominal wall Current Visit: Yes Status: Acute CT scan abdomen,No evidence of cellulitis Patient is off antibiotic -- Acute encephalopathy possible from dehydration/sepsis Current Visit: Yes Status: Acute / resolved/ CT head, neuro check, seizure precautions, treat cellulitis, supportive care. BP soft, status post hydration, antibiotics, Blood cultures-no growth to date -- Obesity hypoventilation syndrome Current Visit: No Status: Acute Balanced diet, increase physical activity at discharge, outpatient pulmonary follow-up for sleep study. Outpatient bariatric surgery consultation. Continue CPAP at at bedtime --History of prostate cancer Current Visit: No Status: Acute Patient states that he has prostate cancer and bladder cancer Stable, follow-up with private urologist upon discharge -- right upper extremity tremors , improved Neurology evaluated, continue current management -- morbid obesity; BMI 49.6 Patient advised diet modification, exercise as tolerated, weight reduction When medically stable Patient would benefit from referral to bariatric surgical team for weight reduction program But medical and pharmacological and ultimately surgical if needed -- thrombocytopenia- platelets are hovering around 100 (104K today) Closely monitor --hyperkalemia Resolved --DVT prophylaxis; Patient is already on Eliquis --full code We will closely monitor patient and adjust management as needed Wean oxygen as tolerated. Consider LTAC placement Osteopathic Medicine Teacher recommendations noted and appreciated DC planning discussed with case management Hospitalist Physical - Constitutional Vitals: Temp Pulse Resp BP Pulse Ox 97.7 F 51 L 18 137/75 96 12/17/21 05:08 12/17/21 05:08 12/17/21 05:08 12/17/21 05:08 12/17/21 05:08 General appearance: Present: no acute distress, well-nourished, obese (Morbidly obese) HEART Score - HEART Score Troponin: Troponin T < 0.010 ng/mL (0.00-0.029) 12/07/21 14:20 Results - Labs CBC & Chem 7: 12/17/21 07:02 12/16/21 08:42 Labs: Laboratory Last Values WBC 6.8 K/mm3 (4.5-11.0) 12/16/21 08:42 RBC 4.59 M/mm3 (3.65-5.03) 12/16/21 08:42 Hgb 14.7 gm/dl (11.8-15.2) 12/17/21 07:02 Hct 46.6 % (35.5-45.6) H 12/17/21 07:02 MCV 103 fl (84-94) H 12/16/21 08:42 MCH 33 pg (28-32) H 12/16/21 08:42 MCHC 32 % (32-34) 12/16/21 08:42 RDW 14.9 % (13.2-15.2) 12/16/21 08:42 Plt Count 162 K/mm3 (140-440) 12/17/21 07:02 Lymph % (Auto) 23.1 % (13.4-35.0) 12/07/21 14:20 [place] % (Auto) Dental Sales Representative 12/14/21 04:32 Eos % (Auto) 4.5 % (0.0-4.3) H 12/07/21 14:20 Baso % (Auto) 0.9 % (0.0-1.8) 12/07/21 14:20 Lymph # (Auto) 0.9 K/mm3 (1.2-5.4) L 12/07/21 14:20 [place] # (Auto) 0.6 K/mm3 (0.0-0.8) 12/07/21 14:20 Eos # (Auto) 0.2 K/mm3 (0.0-0.4) 12/07/21 14:20 Baso # (Auto) 0.0 K/mm3 (0.0-0.1) 12/07/21 14:20 Add Manual Diff Complete 12/14/21 04:32 Total Counted 100 12/14/21 04:32 Seg Neutrophils % 55.7 % (40.0-70.0) 12/07/21 14:20 Seg Neuts % (Manual) 57.0 % (40.0-70.0) 12/14/21 04:32 Band Neutrophils % 0 % 12/14/21 04:32 Lymphocytes % (Manual) 30.0 % (13.4-35.0) 12/14/21 04:32 Reactive Lymphs % (Man) 0 % 12/14/21 04:32 Monocytes % (Manual) 5.0 % (0.0-7.3) 12/14/21 04:32 Eosinophils % (Manual) 8.0 % (0.0-4.3) H 12/14/21 04:32 Basophils % (Manual) 0 % (0.0-1.8) 12/14/21 04:32 Metamyelocytes % 0 % 12/14/21 04:32 Myelocytes % 0 % 12/14/21 04:32 Promyelocytes % 0 % 12/14/21 04:32 Blast Cells % 0 % 12/14/21 04:32 Nucleated RBC % Not Reportable 12/14/21 04:32 Seg Neutrophils # 2.3 K/mm3 (1.8-7.7) 12/07/21 14:20 Seg Neutrophils # Man 2.4 K/mm3 (1.8-7.7) 12/14/21 04:32 Band Neutrophils # 0.0 K/mm3 12/14/21 04:32 Lymphocytes # (Manual) 1.3 K/mm3 (1.2-5.4) 12/14/21 04:32 Abs React Lymphs (Man) 0.0 K/mm3 12/14/21 04:32 Monocytes # (Manual) 0.2 K/mm3 (0.0-0.8) 12/14/21 04:32 Eosinophils # (Manual) 0.3 K/mm3 (0.0-0.4) 12/14/21 04:32 Basophils # (Manual) 0.0 K/mm3 (0.0-0.1) 12/14/21 04:32 Metamyelocytes # 0.0 K/mm3 12/14/21 04:32 Myelocytes # 0.0 K/mm3 12/14/21 04:32 Promyelocytes # 0.0 K/mm3 12/14/21 04:32 Blast Cells # 0.0 K/mm3 12/14/21 04:32 WBC Morphology Not Reportable 12/14/21 04:32 Hypersegmented Neuts Not Reportable 12/14/21 04:32 Hyposegmented Neuts Not Reportable 12/14/21 04:32 Hypogranular Neuts Not Reportable 12/14/21 04:32 Smudge Cells Not Reportable 12/14/21 04:32 Toxic Granulation Not Reportable 12/14/21 04:32 Toxic Vacuolation Not Reportable 12/14/21 04:32 Dohle Bodies Not Reportable 12/14/21 04:32 Pelger-Huet Anomaly Not Reportable 12/14/21 04:32 Katharine Rods Not Reportable 12/14/21 04:32 Platelet Estimate Consistent w auto 12/14/21 04:32 Clumped Platelets Not Reportable 12/14/21 04:32 Plt Clumps, EDTA Not Reportable 12/14/21 04:32 Large Platelets Not Reportable 12/14/21 04:32 Giant Platelets Not Reportable 12/14/21 04:32 Platelet Satelliting Not Reportable 12/14/21 04:32 Plt Morphology Comment Not Reportable 12/14/21 04:32 RBC Morphology Normal 12/14/21 04:32 Dimorphic RBCs Not Reportable 12/14/21 04:32 Polychromasia Not Reportable 12/14/21 04:32 Hypochromasia Not Reportable 12/14/21 04:32 Poikilocytosis Not Reportable 12/14/21 04:32 Anisocytosis Not Reportable 12/14/21 04:32 Microcytosis Not Reportable 12/14/21 04:32 Macrocytosis Not Reportable 12/14/21 04:32 Spherocytes Not Reportable 12/14/21 04:32 Pappenheimer Bodies Not Reportable 12/14/21 04:32 Sickle Cells Not Reportable 12/14/21 04:32 Target Cells Not Reportable 12/14/21 04:32 Tear Drop Cells Not Reportable 12/14/21 04:32 Ovalocytes Not Reportable 12/14/21 04:32 Helmet Cells Not Reportable 12/14/21 04:32 [place] Bodies Not Reportable 12/14/21 04:32 [place] Rings Not Reportable 12/14/21 04:32 Yulia Cells Not Reportable 12/14/21 04:32 Bite Cells Not Reportable 12/14/21 04:32 Crenated Cell Not Reportable 12/14/21 04:32 Elliptocytes Not Reportable 12/14/21 04:32 Acanthocytes (Spur) Not Reportable 12/14/21 04:32 Rouleaux Not Reportable 12/14/21 04:32 Hemoglobin C Crystals Not Reportable 12/14/21 04:32 Schistocytes Not Reportable 12/14/21 04:32 Malaria parasites Not Reportable 12/14/21 04:32 Odin Bodies Not Reportable 12/14/21 04:32 Hem Pathologist Commnt No 12/14/21 04:32 PT 20.4 Sec. (12.2-14.9) H 12/10/21 23:17 INR 1.54 (0.87-1.13) H 12/10/21 23:17 APTT 24.1 Sec. (24.2-36.6) L 12/10/21 23:17 Heparin Anti-Xa Level 1.99 U.I./ml (0.3-0.7) H 12/11/21 15:27 Sodium 139 mmol/L (137-145) 12/16/21 08:42 Potassium 4.1 mmol/L (3.6-5.0) 12/16/21 08:42 Chloride 92.0 mmol/L (98-107) L 12/16/21 08:42 Carbon Dioxide 39 mmol/L (22-30) H 12/16/21 08:42 Anion Gap 12 mmol/L 12/16/21 08:42 BUN 18 mg/dL (9-20) 12/16/21 08:42 Creatinine 0.8 mg/dL (0.8-1.3) 12/16/21 08:42 Creatinine 0.8 mg/dL (0.8-1.3) 12/16/21 08:42 Estimated GFR > 60 ml/min 12/16/21 08:42 Estimated GFR > 60 ml/min 12/16/21 08:42 BUN/Creatinine Ratio 23 % 12/16/21 08:42 Glucose 129 mg/dL (75-100) H 12/16/21 08:42 POC Glucose 104 mg/dL (70-105) 12/16/21 17:21 Lactic Acid 1.70 mmol/L (0.7-2.0) 12/07/21 14:20 Calcium 9.0 mg/dL (8.4-10.2) 12/16/21 08:42 Total Bilirubin 1.00 mg/dL (0.1-1.2) 12/11/21 15:27 Direct Bilirubin 0.4 mg/dL (0-0.2) H 12/11/21 15:27 Indirect Bilirubin 0.6 mg/dL 12/11/21 15:27 AST 27 units/L (5-40) 12/11/21 15:27 ALT 11 units/L (7-56) 12/11/21 15:27 Alkaline Phosphatase 61 units/L (35-129) 12/11/21 15:27 Ammonia 38.0 umol/L (25-60) 12/12/21 07:29 Troponin T < 0.010 ng/mL (0.00-0.029) 12/07/21 14:20 Total Protein 6.5 g/dL (6.3-8.2) 12/11/21 15:27 Albumin 3.0 g/dL (3.9-5) L 12/11/21 15:27 Albumin/Globulin Ratio 0.9 % 12/11/21 15:27 TSH 0.977 mlU/mL (0.270-4.200) 12/07/21 14:20 Free T4 0.74 ng/dL (0.76-1.46) L 12/08/21 21:05 Urine Color Yellow (Yellow) 12/08/21 00:24 Urine Turbidity Clear (Clear) 12/08/21 00:24 Urine pH 6.0 (5.0-7.0) 12/08/21 00:24 Ur Specific [place] 1.034 (1.003-1.030) H 12/08/21 00:24 Urine Protein <15 mg/dl mg/dL (Negative) 12/08/21 00:24 Urine Glucose (UA) Neg mg/dL (Negative) 12/08/21 00:24 Urine Ketones Neg mg/dL (Negative) 12/08/21 00:24 Urine Blood Neg (Negative) 12/08/21 00:24 Urine Nitrite Neg (Negative) 12/08/21 00:24 Urine Bilirubin Neg (Negative) 12/08/21 00:24 Urine Urobilinogen 4.0 mg/dL (<2.0) 12/08/21 00:24 Ur Leukocyte Esterase Neg (Negative) 12/08/21 00:24 Urine WBC (Auto) 5.0 /HPF (0.0-6.0) 12/08/21 00:24 Urine RBC (Auto) 1.0 /HPF (0.0-6.0) 12/08/21 00:24 U Epithel Cells (Auto) 1.0 /HPF (0-13.0) 12/08/21 00:24 Urine Mucus Few /HPF 12/08/21 00:24 [place]/IV: Voiding Method Urinal Active Medications - Current Medications Current Medications: Generic Name Dose Route Start Last Admin Trade Name Freq PRN Reason Stop Dose Admin Acetaminophen 1,000 mg 12/08/21 17:00 12/12/21 16:41 Acetaminophen 500 Mg Tab PO 1,000 mg Q8HR PRN Administration Pain, Moderate (4-6) Al Hydrox/Mg Hydrox/Simethicone 30 ml 12/14/21 18:31 Alum-Mag Hydroxide-Simethicone 279-768-10gq/5ml Oral Liqd 30 Ml PO Q4H PRN Indigestion Albuterol 2.5 mg 12/07/21 15:30 12/16/21 14:05 Albuterol 2.5 Mg/3 Ml Nebu IH 2.5 mg Q4HRT PRN Administration Shortness Of Breath Apixaban 5 mg 12/17/21 10:00 Apixaban 5 Mg Tab PO Q12HR [facility] Protocol Clonidine HCl 0.2 mg 12/12/21 10:00 12/16/21 21:54 Clonidine 0.2 Mg Tab PO 0.2 mg BID VIPUL Administration Furosemide 60 mg 12/13/21 13:00 12/16/21 09:05 Furosemide 40 Mg/4 Ml Inj IV 60 mg QDAY VIPUL Administration Lactulose 20 gm 12/12/21 10:00 12/16/21 09:06 Lactulose 20 Gm/30 Ml Oral Liqd PO 20 gm QDAY VIPUL Administration Methylprednisolone Sodium Succinate 40 mg 12/14/21 12:30 12/17/21 05:12 Methylprednisolone Sod Succinate 40 Mg/1 Ml Inj IV 40 mg Q8HR VIPUL Administration Nicotine 7 mg 12/11/21 18:00 12/16/21 09:10 Nicotine 7 Mg/24 Hr Patch TD 7 mg QDAY VIPUL Administration Ondansetron HCl 4 mg 12/07/21 15:30 Ondansetron 4 Mg/2 Ml Inj IV Q8H PRN Nausea And Vomiting Oxycodone/Acetaminophen 1 tab 12/14/21 12:56 12/17/21 06:00 Oxycodone /Acetaminophen 5-325mg Tab PO 1 tab Q6H PRN Administration Pain, Moderate (4-6) Sodium Chloride 10 ml 12/07/21 22:00 12/16/21 21:55 Sodium Chloride 0.9% 10 Ml Flush Syringe IV 10 ml BID VIPUL Administration Sodium Chloride 10 ml 12/07/21 15:30 Sodium Chloride 0.9% 10 Ml Flush Syringe IV PRN PRN LINE FLUSH Sodium Chloride 1 spray 12/14/21 19:05 12/14/21 21:39 Sodium Chloride Nasal [place] 44ml NS 1 spray PRN PRN Administration Dry Nasal Passages Tamsulosin HCl 0.4 mg 12/09/21 10:00 12/16/21 09:06 Tamsulosin 0.4 Mg Cap PO 0.4 mg DAILY VIPUL Administration Tiotropium [place] 1 puff 12/09/21 10:00 12/16/21 08:26 Tiotropium 18 Mcg Cap Inhalation IH Not Given QDAY VIPUL Zolpidem Tartrate 5 mg 12/15/21 18:25 Zolpidem 5 Mg Tab PO QHS PRN Sleep Nutrition/Malnutrition Assess - Dietary Evaluation Nutrition/Malnutrition Findings: Nutrition Notes Start: 12/14/21 17:04 Freq: Status: Active Protocol: Document 12/14/21 17:04 TERRELL (Rec: 12/14/21 17:15 TERRELL [id number]) Nutrition Notes Need for Assessment generated from: LOS Initial or Follow up Assessment Current Diagnosis COPD,Respiratory Failure Other Pertinent Diagnosis Cellulitis of L-Abdominal Wall and L-LE, L-EIV & CFV DVT, Encephalopathy .. Current Diet Cardiac Diet (since D 12/07). Labs/Tests 12/14: Cl 94.8, CO2 42, Ca 8.3 . Pertinent Medications 12/14: Nutritionally unremarkable. 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 Pt's PO intake of meals has been Good (75-100%), according to ADL notes. Pt is on [place] Nasal Cannula, O2 saturation @ 92%, according to Physical Assessment History notes. Pt has missing teeth, according to Physical Assessment History notes. Percent of energy/protein needs met: Prescribed Cardiac Diet provides for energy/protein needs (2,230 Kcal/85 g) during LOS. Burn Absent Trauma Absent GI Symptoms None Food Allergy No Skin Integrity/Comment Cellulitis of L-Abd. Wall & L- LE. Current % PO Good (75-100%) Minimum of two criteria No #1 Nutrition Diagnosis No nutrition diagnosis at this time Is patient on ventilator? No Is Patient Ambulatory and/or Out of Bed No REE-([facility]-confined to bed) 2824.848 Kcal/Kg value to use for calculation 13 Approximate Energy Requirements Using 2040 kcal/Kg Calculation Used for Recommendations Kcal/kg Additional Notes Protein: 1-1.2 g/Kg AdjBW; 116 -139 g/day. Fluids: 1 ml/Kcal, or as per MD. Nutrition Intervention Change Diet Order: Continue Cardiac Diet. Revisit per MD consult or patient Sign Off request: Additional Comments Continue monitoring food tolerance, %PO intake of meals , and BM.
[2021-12-17] MEDS: LACTULOSE 20 GM/30 ML ORAL LIQD PO SCH ×2 (08:53→10:00)
[2021-12-17] MEDS: FUROSEMIDE 40 MG/4 ML INJ IV SCH ×2 (08:53→10:00)
[2021-12-17] MEDS: APIXABAN 5 MG TAB PO SCH ×2 (08:56→10:00)
[2021-12-17] MEDS: cloNIDine 0.2 MG TAB PO SCH ×2 (08:56→10:00)
[2021-12-17] MEDS: NICOTINE 7 MG/24 HR PATCH TD SCH ×2 (08:57)
[2021-12-17] MEDS: TAMSULOSIN 0.4 MG CAP PO SCH ×2 (08:57→10:00)
[2021-12-17] MEDS: TIOTROPIUM 18 MCG CAP INHALATION IH SCH (10:22)
--- NOTE | 2021-12-17 12:25 | Progress Note ---
Assessment and Plan 66 y/o morbidly obese male with known COPD, PARUL and chronic respiratory failure admitted with altered mental state and worsening hypoxemia, most likely secondary to noncompliance 12/17/21: Patient advised again against leaving AMA. Continue current treatment plan as outlined from previous. 12/16/21: No new recs for today. Given improvement in oxygen requirement, please continue steroids and I can reassess tomorrow. 12/15/21: Continue NIV therapy at night. COntinue diuresis as tolerated. Continue IV steroids at least through the next 24 hours. Once patient able to lie flat needs noncontrasted CT of chest 1. Will send venous pH as I doubt patient will allow for ABG 2. NIV therapy at night. Patient will use hospital bipap. RT to determine settings based on volumes and sats once placed on therapy 3. Agree with diuresis 4. Will add some IV steroids 5. Once able to lie flat, will need CT to better evaluate lung parenchyma 6. Guarded to poor prognosis. Subjective Date of service: 12/17/21 Principal diagnosis: Confusion Interval history: Patient stating he is going to leave AMA again today. Objective Vital Signs - 12hr 12/17/21 12/17/21 12/17/21 01:49 05:08 10:43 Temperature 97.7 F Pulse Rate 87 51 L Respiratory 20 18 Rate Blood Pressure 137/75 O2 Sat by Pulse 97 96 94 Oximetry Constitutional: no acute distress, alert, other (somewhat confused) Eyes: icteric ENT: oropharynx moist Neck: supple, no JVD Effort: mildly labored Ascultation: Bilateral: diminished breath sounds Gastrointestinal: normoactive bowel sounds, soft, non-tender Integumentary: normal Extremities: other (right amputation of lower ext) CBC and BMP: 12/17/21 07:02 12/16/21 08:42 ABG, PT/INR, D-dimer: PT/INR, D-dimer PT 20.4 Sec. (12.2-14.9) H 12/10/21 23:17 INR 1.54 (0.87-1.13) H 12/10/21 23:17 Abnormal lab findings: Abnormal Labs 12/07/21 12/07/21 12/07/21 14:20 14:20 14:20 WBC 4.0 L Hgb 15.3 H Hct 46.8 H MCV 104 H MCH 34 H MCHC RDW 15.3 H Plt Count 114 L [place] % (Auto) 15.8 H Eos % (Auto) 4.5 H Lymph # (Auto) 0.9 L Monocytes % (Manual) Eosinophils % (Manual) Basophils % (Manual) Lymphocytes # (Manual) PT 17.4 H INR 1.27 H APTT Heparin Anti-Xa Level Potassium 5.3 H Chloride 96.5 L Carbon Dioxide 40 H Creatinine Glucose POC Glucose Calcium Total Bilirubin 1.30 H Direct Bilirubin Ammonia Albumin 3.2 L Free T4 Ur Specific [place] 12/08/21 12/08/21 12/08/21 00:24 05:50 05:50 WBC 4.3 L Hgb Hct 47.7 H MCV 106 H MCH 33 H MCHC 31 L RDW 15.3 H Plt Count 90 L [place] % (Auto) Eos % (Auto) Lymph # (Auto) Monocytes % (Manual) 8.0 H Eosinophils % (Manual) Basophils % (Manual) 2.0 H Lymphocytes # (Manual) 0.9 L PT INR APTT Heparin Anti-Xa Level Potassium 5.4 H Chloride Carbon Dioxide 37 H Creatinine Glucose 66 L POC Glucose Calcium Total Bilirubin Direct Bilirubin Ammonia Albumin Free T4 Ur Specific [place] 1.034 H 12/08/21 12/08/21 12/09/21 21:05 21:05 05:31 WBC Hgb Hct MCV MCH MCHC RDW Plt Count [place] % (Auto) Eos % (Auto) Lymph # (Auto) Monocytes % (Manual) Eosinophils % (Manual) Basophils % (Manual) Lymphocytes # (Manual) PT INR APTT Heparin Anti-Xa Level Potassium Chloride Carbon Dioxide 38 H Creatinine Glucose POC Glucose Calcium Total Bilirubin Direct Bilirubin Ammonia 75.0 H Albumin Free T4 0.74 L Ur Specific [place] 12/09/21 12/09/21 12/09/21 07:03 07:03 22:55 WBC Hgb Hct MCV 105 H MCH 34 H MCHC RDW 15.9 H Plt Count 104 L 103 L [place] % (Auto) Eos % (Auto) Lymph # (Auto) Monocytes % (Manual) 9.0 H Eosinophils % (Manual) 5.0 H Basophils % (Manual) Lymphocytes # (Manual) PT INR APTT Heparin Anti-Xa Level Potassium Chloride Carbon Dioxide Creatinine Glucose POC Glucose Calcium Total Bilirubin Direct Bilirubin Ammonia 82.0 H Albumin Free T4 Ur Specific [place] 12/09/21 12/10/21 12/10/21 22:55 00:38 09:45 WBC Hgb Hct MCV MCH MCHC RDW Plt Count [place] % (Auto) Eos % (Auto) Lymph # (Auto) Monocytes % (Manual) Eosinophils % (Manual) Basophils % (Manual) Lymphocytes # (Manual) PT 19.2 H INR 1.43 H APTT 121.5 H* 118.6 H* Heparin Anti-Xa Level 0.21 L Potassium Chloride Carbon Dioxide Creatinine Glucose POC Glucose Calcium Total Bilirubin Direct Bilirubin Ammonia Albumin Free T4 Ur Specific [place] 12/10/21 12/10/21 12/10/21 09:45 16:10 22:33 WBC Hgb Hct MCV MCH MCHC RDW Plt Count [place] % (Auto) Eos % (Auto) Lymph # (Auto) Monocytes % (Manual) Eosinophils % (Manual) Basophils % (Manual) Lymphocytes # (Manual) PT INR APTT Heparin Anti-Xa Level Potassium Chloride Carbon Dioxide Creatinine Glucose POC Glucose 108 H 108 H Calcium Total Bilirubin Direct Bilirubin Ammonia 85.0 H Albumin Free T4 Ur Specific [place] 12/10/21 12/10/21 12/11/21 23:17 23:17 15:27 WBC Hgb Hct MCV 104 H MCH 34 H MCHC RDW 15.3 H Plt Count 116 L 110 L [place] % (Auto) Eos % (Auto) Lymph # (Auto) Monocytes % (Manual) Eosinophils % (Manual) Basophils % (Manual) Lymphocytes # (Manual) PT 20.4 H INR 1.54 H APTT 24.1 L Heparin Anti-Xa Level Potassium Chloride Carbon Dioxide Creatinine Glucose POC Glucose Calcium Total Bilirubin Direct Bilirubin Ammonia Albumin Free T4 Ur Specific [place] 12/11/21 12/11/21 12/11/21 15:27 15:27 16:09 WBC Hgb Hct MCV MCH MCHC RDW Plt Count [place] % (Auto) Eos % (Auto) Lymph # (Auto) Monocytes % (Manual) Eosinophils % (Manual) Basophils % (Manual) Lymphocytes # (Manual) PT INR APTT Heparin Anti-Xa Level 1.99 H Potassium Chloride 96.2 L Carbon Dioxide 43 H* Creatinine Glucose 115 H POC Glucose 115 H Calcium Total Bilirubin Direct Bilirubin 0.4 H Ammonia Albumin 3.0 L Free T4 Ur Specific [place] 12/12/21 12/12/21 12/12/21 07:29 07:29 11:09 WBC 4.4 L Hgb Hct MCV 103 H MCH 33 H MCHC RDW Plt Count 110 L [place] % (Auto) Eos % (Auto) Lymph # (Auto) Monocytes % (Manual) Eosinophils % (Manual) Basophils % (Manual) Lymphocytes # (Manual) PT INR APTT Heparin Anti-Xa Level Potassium Chloride 93.1 L Carbon Dioxide 41 H* Creatinine 0.7 L Glucose POC Glucose 118 H Calcium Total Bilirubin Direct Bilirubin Ammonia Albumin Free T4 Ur Specific [place] 12/13/21 12/13/21 12/13/21 13:07 13:07 16:12 WBC 4.2 L Hgb Hct MCV 103 H MCH 33 H MCHC RDW 15.6 H Plt Count 110 L [place] % (Auto) Eos % (Auto) Lymph # (Auto) Monocytes % (Manual) Eosinophils % (Manual) Basophils % (Manual) Lymphocytes # (Manual) PT INR APTT Heparin Anti-Xa Level Potassium Chloride 91.6 L Carbon Dioxide 40 H Creatinine 0.7 L Glucose 116 H POC Glucose 124 H Calcium Total Bilirubin Direct Bilirubin Ammonia Albumin Free T4 Ur Specific [place] 12/13/21 12/14/21 12/14/21 21:37 04:32 04:32 WBC 4.2 L Hgb Hct MCV 103 H MCH MCHC 31 L RDW Plt Count 108 L [place] % (Auto) Eos % (Auto) Lymph # (Auto) Monocytes % (Manual) Eosinophils % (Manual) 8.0 H Basophils % (Manual) Lymphocytes # (Manual) PT INR APTT Heparin Anti-Xa Level Potassium Chloride 94.8 L Carbon Dioxide 42 H* Creatinine Glucose POC Glucose 121 H Calcium 8.3 L Total Bilirubin Direct Bilirubin Ammonia Albumin Free T4 Ur Specific [place] 12/14/21 12/15/21 12/15/21 21:44 06:34 11:27 WBC Hgb Hct MCV MCH MCHC RDW Plt Count 115 L [place] % (Auto) Eos % (Auto) Lymph # (Auto) Monocytes % (Manual) Eosinophils % (Manual) Basophils % (Manual) Lymphocytes # (Manual) PT INR APTT Heparin Anti-Xa Level Potassium Chloride Carbon Dioxide Creatinine Glucose POC Glucose 191 H 131 H Calcium Total Bilirubin Direct Bilirubin Ammonia Albumin Free T4 Ur Specific [place] 12/15/21 12/15/21 12/16/21 16:11 21:53 07:43 WBC Hgb Hct MCV MCH MCHC RDW Plt Count [place] % (Auto) Eos % (Auto) Lymph # (Auto) Monocytes % (Manual) Eosinophils % (Manual) Basophils % (Manual) Lymphocytes # (Manual) PT INR APTT Heparin Anti-Xa Level Potassium Chloride Carbon Dioxide Creatinine Glucose POC Glucose 116 H 113 H 119 H Calcium Total Bilirubin Direct Bilirubin Ammonia Albumin Free T4 Ur Specific [place] 12/16/21 12/16/21 12/17/21 08:42 08:42 07:02 WBC Hgb Hct 47.5 H 46.6 H MCV 103 H MCH 33 H MCHC RDW Plt Count [place] % (Auto) Eos % (Auto) Lymph # (Auto) Monocytes % (Manual) Eosinophils % (Manual) Basophils % (Manual) Lymphocytes # (Manual) PT INR APTT Heparin Anti-Xa Level Potassium Chloride 92.0 L Carbon Dioxide 39 H Creatinine Glucose 129 H POC Glucose Calcium Total Bilirubin Direct Bilirubin Ammonia Albumin Free T4 Ur Specific [place]
[2021-12-17 14:55] VITALS: BP 150/74
--- NOTE | 2021-12-18 19:53 | Discharge Summary ---
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
== END 2021-12-17 17:38 | disposition left against medical advice (07) | DRG 299 ==
LOC: ED 09:43 → 3A 15:30
PROVIDERS: ADMIT Internal Medicine; ATTEND Internal Medicine
PROC: 5A09357 Assistance with Respiratory Ventilation, Less than 24 Consecutive Hours, Continuous Positive Airway Pressure (ICD-10-PCS; principal; 2021-12-08)
PROC: 5A09357 Assistance with Respiratory Ventilation, Less than 24 Consecutive Hours, Continuous Positive Airway Pressure (ICD-10-PCS; 2021-12-11)
PROC: 5A09457 Assistance with Respiratory Ventilation, 24-96 Consecutive Hours, Continuous Positive Airway Pressure (ICD-10-PCS; 2021-12-13)
PROC: 5A09357 Assistance with Respiratory Ventilation, Less than 24 Consecutive Hours, Continuous Positive Airway Pressure (ICD-10-PCS; 2021-12-17)
DX: I82.422 Acute embolism and thrombosis of left iliac vein (principal); J96.21 Acute and chronic respiratory failure with hypoxia; G93.41 Metabolic encephalopathy; L03.116 Cellulitis of left lower limb; L03.311 Cellulitis of abdominal wall; R65.10 Systemic inflammatory response syndrome (SIRS) of non-infectious origin without acute organ dysfunction; E66.2 Morbid (severe) obesity with alveolar hypoventilation; Z68.43 Body mass index [BMI] 50.0-59.9, adult; E72.20 Disorder of urea cycle metabolism, unspecified; I82.412 Acute embolism and thrombosis of left femoral vein; I10 Essential (primary) hypertension; K21.9 Gastro-esophageal reflux disease without esophagitis; J44.9 Chronic obstructive pulmonary disease, unspecified; Z83.3 Family history of diabetes mellitus; Z82.49 Family history of ischemic heart disease and other diseases of the circulatory system; R25.1 Tremor, unspecified; D69.6 Thrombocytopenia, unspecified; E87.5 Hyperkalemia
CPT/HCPCS: 36415; 70450; 71045; 74177; 80048; 80053; 80076; 81001; 82140; 82565; 82962; 84439; 84443; 84484; 85007; 85014; 85018; 85025; 85027; 85049; 85520; 85610; 85730; 87040; 93005; 93306; 94640; 94660; 94760; G0378; J3490; C8929; J0696; J1644; J1940; J2060; J2920; Q9967

== ENCOUNTER 2022-05-16 18:29 | Emergency (ER) | payer MEDICARE | END 2022-05-17 15:41 | disposition left against medical advice (07) | LOC: ED 18:29 | DX: I10 Essential (primary) hypertension (principal); Z53.21 Procedure and treatment not carried out due to patient leaving prior to being seen by health care provider ==